=== PATIENT | female | born 1995 | race Caucasian/White ===

== ENCOUNTER 2017-12-09 03:35 | Inpatient (IN) | payer OTHER ==
[~2017-12-09] VITALS: Ht 160 cm; Wt 59.3 kg
[~2017-12-09 03:35] MED LIST: ABAC300; ACET325 PO; AMOCLA250S PO; AMOCLA500 PO; AMOX250CH PO; AMOX50SU PO; CEFU500 PO; CODACEE120 PO; DIPH50 PO; DOCU100; FAMO10 PO; HYDR1TAB94 PO; IBUP400 PO; INSLI100I; INSLI100I SC; INSN100I; INSR10I SC; INSU7030P; INSUASPI SC; INSUL100I SC; INSULANI SC; INSULANPEN SC; INSULANPEN SQ; Micro-K10 MEQ; Micro-K10 MEQ PO; Novolog Fl100 UNIT/1 SC; OMEP40CA12 PO; ONDA4 PO; ONDA4ODT MM; PROM25 PO; PROM25S PR; Prednisone20 MG PO; ROXICODONE5 MG PO; RXCODACESY PO; RXONDA4ODT MM; RXPROM25S PR; SUMA25 PO; Sudogest60 MG PO; TRAM50 PO; Zofran Odt4 MG PO
[2017-12-09 04:40] LABS: Chloride (POC) 109 mmol/L (98-108); Creatinine (POC) 0.7 mg/dL (0.6-1.0); Glucose (ISTAT POC) 667 mg/dL (70-99); Hemoglobin (POC) 17.3 g/dL (12.0-16.0); Potassium (POC) 4.6 mmol/L (3.5-5.5); Sodium (POC) 135 mmol/L (135-148); Total CO2 (POC) 7 mmol/L (21-32)
[2017-12-09 04:45] LABS: Hematocrit 52.8 % (33.0-51.0); Hemoglobin 17.2 g/dL (11.5-16.0); Mean Corpuscular HGB 31.2 pg (26.0-34.0); Mean Corpuscular HGB Conc 32.6 g/dL (31.5-36.5); Mean Corpuscular Volume 96 fL (80-100); Mean Platelet Volume 9.6 fL (9.1-12.4); NRBC ABSOLUTE 0.02 K/mm3 (0.00-0.02); NRBC Auto 0.1 /100 WBC (0.0-0.2); Platelet Count 520 K/mm3 (150-400); RDW Coefficient Variation 12.7 % (11.7-14.2); RDW Standard Deviation 44.2 fL (35.1-46.3); Red Blood Cell Count 5.52 M/mm3 (3.80-5.20); White Blood Cell Count 19.86 K/mm3 (4.00-11.30)
[2017-12-09 05:09] LABS: Alanine Aminotransfer (ALT/SGP 26 U/L (12-78); Albumin, Blood 4.3 g/dL (3.4-5.0); Albumin/Globulin Ratio 0.9 (0.8-1.8); Alk Phos 225 U/L (50-136); Anion Gap 30 mmol/L (6-16); Aspartate Aminotrans (AST/SGOT 20 U/L (12-37); Bilirubin, Total 0.5 mg/dL (0.1-1.0); Blood Urea Nitrogen 22 mg/dL (8-24); Bun/Creatinine Ratio 30.3 (12.0-20.0); CO2, Blood 5 mmol/L (21-32); Calcium, Blood 8.9 mg/dL (8.5-10.1); Chloride, Blood 98 mmol/L (98-108); Creatinine, Blood 0.73 mg/dL (0.40-1.00); Globulin, Blood 4.9 g/dL (2.2-4.0); Glomerular Filtration Rate >60 (60-); Glucose, Blood 632 mg/dL (70-99); Potassium, Blood 4.3 mmol/L (3.5-5.5); Sodium, Blood 133 mmol/L (136-145); Total Protein, Blood 9.2 g/dL (6.4-8.2)
[2017-12-09 05:25] LABS: BASOPHILS PERCENT MAN 0 % (0-2); EOSINOPHILS PERCENT MAN 0 % (0-6); LYMPHOCYTES % ATYPICAL MANUAL 9 % (0-0); LYMPHOCYTES ABSOLUTE MAN 6.35 K/mm3 (0.84-5.20); LYMPHOCYTES PERCENT MAN 23 % (21-46); METAMYELOCYTE ABSOLUTE MAN 0.39 K/mm3 (0.00-0.00); METAMYELOCYTE PERCENT MAN 2 % (0-0); MONOCYTES ABSOLUTE MAN 0.79 K/mm3 (0.16-1.47); MONOCYTES PERCENT MAN 4 % (4-13); MYELOCYTE ABSOLUTE MAN 0.19 K/mm3 (0.00-0.00); MYELOCYTE PERCENT MAN 1 % (0-0); NEUTROPHILS ABSOLUTE MAN 12.11 K/mm3 (1.96-9.15); SEG NEUTROPHILS PERCENT MAN 61 % (41-73); TOTAL CELLS COUNTED 100
[2017-12-09 05:46] LABS: Beta-hydroxybutyrate 110.8 mg/dL (0.2-2.8)
[2017-12-09 06:00] LABS: Glucose (ISTAT POC) 648 mg/dL (70-99)
[2017-12-09 07:27] LABS: Influenza A Negative (NEGATIVE); Influenza B Negative (NEGATIVE)
[2017-12-09 07:35] LABS: Glucose (ISTAT POC) 523 mg/dL (70-99)
[2017-12-09 10:02] LABS: Source, Urine Clean Catch
[2017-12-09 10:11] LABS: Bilirubin, Urine Neg (Neg); Blood, Urine 1+ (Neg); Glucose Qualitative, Urine 4+ (Neg); Ketones, Urine 4+ (Neg); Leukocyte Esterase, Urine Neg (Neg); Nitrite, Urine Neg (Neg); Protein, Urine 3+ (Neg); Urobilinogen, Urine NORM (Normal)
[2017-12-09 10:18] LABS: Appearance, Urine Clear (Clear); Color, Urine Yellow (P-Yellow)
[2017-12-09 10:21] LABS: Red Blood Cells, Urine 0-2 /hpf (0-2); Squamous Epithelial Cells Mod /hpf (Few); White Blood Cells, Urine Not Seen /hpf (0-5)
[2017-12-09 10:22] LABS: Bacteria Not Seen /hpf
[2017-12-09 12:34] LABS: Anion Gap 21 mmol/L (6-16); Blood Urea Nitrogen 29 mg/dL (8-24); CO2, Blood 5 mmol/L (21-32); Calcium, Blood 6.9 mg/dL (8.5-10.1); Chloride, Blood 113 mmol/L (98-108); Creatinine, Blood 0.78 mg/dL (0.40-1.00); Glomerular Filtration Rate >60 (60-); Glucose, Blood 308 mg/dL (70-99); Potassium, Blood 4.5 mmol/L (3.5-5.5); Sodium, Blood 139 mmol/L (136-145)
[2017-12-09 17:31] LABS: Anion Gap 20 mmol/L (6-16); Blood Urea Nitrogen 23 mg/dL (8-24); Bun/Creatinine Ratio 35.9 (12.0-20.0); CO2, Blood 9 mmol/L (21-32); Calcium, Blood 7.7 mg/dL (8.5-10.1); Chloride, Blood 110 mmol/L (98-108); Creatinine, Blood 0.64 mg/dL (0.40-1.00); Glomerular Filtration Rate >60 (60-); Glucose, Blood 215 mg/dL (70-99); Potassium, Blood 4.1 mmol/L (3.5-5.5); Sodium, Blood 139 mmol/L (136-145)
[2017-12-09 23:34] LABS: Anion Gap 10 mmol/L (6-16); Blood Urea Nitrogen 16 mg/dL (8-24); CO2, Blood 23 mmol/L (21-32); Calcium, Blood 7.7 mg/dL (8.5-10.1); Chloride, Blood 110 mmol/L (98-108); Creatinine, Blood 0.62 mg/dL (0.40-1.00); Glomerular Filtration Rate >60 (60-); Glucose, Blood 240 mg/dL (70-99); Potassium, Blood 2.9 mmol/L (3.5-5.5); Sodium, Blood 143 mmol/L (136-145)
[2017-12-10 04:15] LABS: Anion Gap Unable to Calculate mmol/L (6-16); Bun/Creatinine Ratio Unable to Calculate (12.0-20.0); Glomerular Filtration Rate Unable to Calculate (60-)
[2017-12-10 04:59] LABS: BASOPHILS ABSOLUTE AUTO 0.01 K/mm3 (0.00-0.23); BASOPHILS PERCENT AUTO 0 % (0-2); EOSINOPHILS ABSOLUTE AUTO 0.12 K/mm3 (0.00-0.68); EOSINOPHILS PERCENT AUTO 1 % (0-6); Hemoglobin 11.6 g/dL (11.5-16.0); IMMATURE GRAN ABSOLUTE AUTO 0.04 K/mm3 (0.00-0.10); IMMATURE GRAN PERCENT AUTO 1 % (0-1); LYMPHOCYTES ABSOLUTE AUTO 1.71 K/mm3 (0.84-5.20); LYMPHOCYTES PERCENT AUTO 20 % (21-46); MONOCYTES ABSOLUTE AUTO 0.61 K/mm3 (0.16-1.47); MONOCYTES PERCENT AUTO 7 % (4-13); Mean Corpuscular HGB 31.1 pg (26.0-34.0); Mean Corpuscular HGB Conc 36.3 g/dL (31.5-36.5); NEUTROPHILS ABSOLUTE AUTO 6.05 K/mm3 (1.96-9.15); NEUTROPHILS PERCENT AUTO 71 % (41-73); Platelet Count 216 K/mm3 (150-400); RDW Coefficient Variation 12.2 % (11.7-14.2); RDW Standard Deviation 38.1 fL (35.1-46.3); Red Blood Cell Count 3.73 M/mm3 (3.80-5.20); White Blood Cell Count 8.54 K/mm3 (4.00-11.30)
[2017-12-10 05:07] LABS: Mean Corpuscular Volume 86 fL (80-100)
[2017-12-10 05:22] LABS: Albumin, Blood 2.4 g/dL (3.4-5.0); Anion Gap 9 mmol/L (6-16); Blood Urea Nitrogen 14 mg/dL (8-24); Bun/Creatinine Ratio 25.6 (12.0-20.0); CO2, Blood 25 mmol/L (21-32); Chloride, Blood 110 mmol/L (98-108); Creatinine, Blood 0.55 mg/dL (0.40-1.00); Glomerular Filtration Rate >60 (60-); Glucose, Blood 177 mg/dL (70-99); Phosphorus, Blood 2.2 mg/dL (2.5-4.9); Potassium, Blood 2.8 mmol/L (3.5-5.5); Sodium, Blood 144 mmol/L (136-145)
[2017-12-10 11:53] LABS: Anion Gap 9 mmol/L (6-16); Blood Urea Nitrogen 14 mg/dL (8-24); Bun/Creatinine Ratio 25.3 (12.0-20.0); CO2, Blood 25 mmol/L (21-32); Calcium, Blood 8.3 mg/dL (8.5-10.1); Chloride, Blood 111 mmol/L (98-108); Creatinine, Blood 0.55 mg/dL (0.40-1.00); Glomerular Filtration Rate >60 (60-); Glucose, Blood 262 mg/dL (70-99); Potassium, Blood 3.4 mmol/L (3.5-5.5); Sodium, Blood 145 mmol/L (136-145)
[2017-12-10 17:53] LABS: Anion Gap 9 mmol/L (6-16); Blood Urea Nitrogen 15 mg/dL (8-24); Bun/Creatinine Ratio 24.2 (12.0-20.0); CO2, Blood 26 mmol/L (21-32); Calcium, Blood 8.8 mg/dL (8.5-10.1); Chloride, Blood 107 mmol/L (98-108); Creatinine, Blood 0.62 mg/dL (0.40-1.00); Glomerular Filtration Rate >60 (60-); Glucose, Blood 292 mg/dL (70-99); Potassium, Blood 3.5 mmol/L (3.5-5.5); Sodium, Blood 142 mmol/L (136-145)
[2017-12-10 23:23] LABS: Anion Gap 9 mmol/L (6-16); Blood Urea Nitrogen 13 mg/dL (8-24); Bun/Creatinine Ratio 23.6 (12.0-20.0); CO2, Blood 27 mmol/L (21-32); Calcium, Blood 8.6 mg/dL (8.5-10.1); Chloride, Blood 107 mmol/L (98-108); Creatinine, Blood 0.55 mg/dL (0.40-1.00); Glomerular Filtration Rate >60 (60-); Glucose, Blood 215 mg/dL (70-99); Potassium, Blood 3.3 mmol/L (3.5-5.5); Sodium, Blood 143 mmol/L (136-145)
[2017-12-11 06:43] LABS: Anion Gap 7 mmol/L (6-16); Blood Urea Nitrogen 13 mg/dL (8-24); Bun/Creatinine Ratio 32.6 (12.0-20.0); CO2, Blood 29 mmol/L (21-32); Calcium, Blood 8.1 mg/dL (8.5-10.1); Chloride, Blood 111 mmol/L (98-108); Glomerular Filtration Rate >60 (60-); Glucose, Blood 112 mg/dL (70-99); Sodium, Blood 147 mmol/L (136-145)
[2017-12-11] MEDS ORDERED: GABA300 PO (11:32)
[2018-05-29] MEDS ORDERED: K-TAB ER20 MEQ PO (09:01)
[2018-08-21] MEDS ORDERED: GABA300 PO (11:45)
[2018-08-21] MEDS ORDERED: Novolog Fl100 UNIT/1 (11:47)
== END 2017-12-11 12:26 | disposition home or self-care (01) | DRG 639 ==
LOC: ER 03:35 → ICUW 04:40 → MEDS 12-10 20:20 → ENPENDDIS 12-11 10:00 → MEDS 12-11 12:26
PROVIDERS: Emergency Medicine; Family Medicine; Hospitalist; Internal Medicine
PROC: 3E0234Z Introduction of Serum, Toxoid and Vaccine into Muscle, Percutaneous Approach (ICD-10-PCS; principal; 2017-12-09)
DX: E10.10 Type 1 diabetes mellitus with ketoacidosis without coma (principal); E10.40 Type 1 diabetes mellitus with diabetic neuropathy, unspecified; G43.909 Migraine, unspecified, not intractable, without status migrainosus; D50.9 Iron deficiency anemia, unspecified; E86.0 Dehydration; Z23 Encounter for immunization; Z79.4 Long term (current) use of insulin; Z91.018 Allergy to other foods
CPT/HCPCS: 36415; 71045; 80047; 80048; 80053; 80069; 81001; 82010; 82947; 83036; 83690; 85014; 85025; 87040; 87804; 96374; 96375; 99285; G0008; J0696; J1170; J1650; J1815; J1885; J2405; J3010; J3480; J7030; J7070; Q2038

== ENCOUNTER 2017-12-28 17:27 | Inpatient (IN) | payer OTHER ==
[~2017-12-28] VITALS: Ht 157.5 cm; Wt 54.6 kg
[~2017-12-28 17:27] MED LIST changes: +GABA300 PO
[2017-12-28 18:00] LABS: Base Excess Venous -28.3 mmol/L; Bicarbonate Venous 7.2 mmol/L (24.0-30.0); PCO2 Venous 20.2 mmHg (38-42); PO2 Venous 69.1 mmHg (38-42)
[2017-12-28 18:01] LABS: BASOPHILS ABSOLUTE AUTO 0.12 K/mm3 (0.00-0.23); BASOPHILS PERCENT AUTO 1 % (0-2); EOSINOPHILS ABSOLUTE AUTO 0.01 K/mm3 (0.00-0.68); EOSINOPHILS PERCENT AUTO 0 % (0-6); Hematocrit 47.5 % (33.0-51.0); Hemoglobin 15.7 g/dL (11.5-16.0); IMMATURE GRAN PERCENT AUTO 1 % (0-1); LYMPHOCYTES ABSOLUTE AUTO 2.69 K/mm3 (0.84-5.20); LYMPHOCYTES PERCENT AUTO 21 % (21-46); MONOCYTES ABSOLUTE AUTO 0.76 K/mm3 (0.16-1.47); MONOCYTES PERCENT AUTO 6 % (4-13); Mean Corpuscular HGB 31.5 pg (26.0-34.0); Mean Corpuscular HGB Conc 33.1 g/dL (31.5-36.5); Mean Corpuscular Volume 95 fL (80-100); Mean Platelet Volume 9.5 fL (9.1-12.4); NEUTROPHILS ABSOLUTE AUTO 9.01 K/mm3 (1.96-9.15); NEUTROPHILS PERCENT AUTO 71 % (41-73); Platelet Count 605 K/mm3 (150-400); RDW Coefficient Variation 13.2 % (11.7-14.2); RDW Standard Deviation 46.6 fL (35.1-46.3); Red Blood Cell Count 4.99 M/mm3 (3.80-5.20); White Blood Cell Count 12.69 K/mm3 (4.00-11.30); pH Blood Venous 6.92 (7.34-7.37)
[2017-12-28 18:57] LABS: Alanine Aminotransfer (ALT/SGP 24 U/L (12-78); Albumin, Blood 4.4 g/dL (3.4-5.0); Albumin/Globulin Ratio 0.9 (0.8-1.8); Alk Phos 176 U/L (50-136); Anion Gap 31 mmol/L (6-16); Aspartate Aminotrans (AST/SGOT 16 U/L (12-37); Beta-hydroxybutyrate 126.4 mg/dL (0.2-2.8); Bilirubin, Total 0.4 mg/dL (0.1-1.0); Blood Urea Nitrogen 18 mg/dL (8-24); Bun/Creatinine Ratio 23.6 (12.0-20.0); CO2, Blood 4 mmol/L (21-32); Chloride, Blood 102 mmol/L (98-108); Creatinine, Blood 0.76 mg/dL (0.40-1.00); Globulin, Blood 4.7 g/dL (2.2-4.0); Glomerular Filtration Rate >60 (60-); Glucose, Blood 495 mg/dL (70-99); Potassium, Blood 4.7 mmol/L (3.5-5.5); Sodium, Blood 137 mmol/L (136-145); Total Protein, Blood 9.1 g/dL (6.4-8.2)
[2017-12-28 20:08] LABS: Magnesium, Blood 2.4 mg/dL (1.6-2.4)
[2017-12-28 20:12] LABS: Anion Gap 24 mmol/L (6-16); Blood Urea Nitrogen 17 mg/dL (8-24); Bun/Creatinine Ratio 25.1 (12.0-20.0); CO2, Blood 5 mmol/L (21-32); Calcium, Blood 8.8 mg/dL (8.5-10.1); Chloride, Blood 113 mmol/L (98-108); Creatinine, Blood 0.68 mg/dL (0.40-1.00); Glomerular Filtration Rate >60 (60-); Glucose, Blood 346 mg/dL (70-99); Phosphorus, Blood 5.3 mg/dL (2.5-4.9); Potassium, Blood 4.6 mmol/L (3.5-5.5); Sodium, Blood 142 mmol/L (136-145)
[2017-12-28] MEDS ORDERED: POTCHL10ER PO (21:12)
[2017-12-28] MEDS ORDERED: ASCO500 PO (21:13)
[2017-12-28] MEDS ORDERED: IBUP400 PO (21:14)
[2017-12-28 22:06] LABS: Source, Urine Clean Catch
[2017-12-28 22:11] LABS: Bilirubin, Urine Neg (Neg); Blood, Urine 1+ (Neg); Glucose Qualitative, Urine 4+ (Neg); Ketones, Urine 4+ (Neg); Leukocyte Esterase, Urine Neg (Neg); Nitrite, Urine Neg (Neg); Protein, Urine 3+ (Neg); Urobilinogen, Urine NORM (Normal)
[2017-12-28 22:13] LABS: Appearance, Urine Clear (Clear); Color, Urine Yellow (P-Yellow)
[2017-12-28 22:17] LABS: Bacteria Mod /hpf; Red Blood Cells, Urine 0-2 /hpf (0-2); Squamous Epithelial Cells Few /hpf (Few); White Blood Cells, Urine 0-2 /hpf (0-5)
[2017-12-29 00:07] LABS: Anion Gap 19 mmol/L (6-16); Blood Urea Nitrogen 15 mg/dL (8-24); Bun/Creatinine Ratio 28.7 (12.0-20.0); CO2, Blood 8 mmol/L (21-32); Calcium, Blood 8.7 mg/dL (8.5-10.1); Chloride, Blood 117 mmol/L (98-108); Creatinine, Blood 0.52 mg/dL (0.40-1.00); Glomerular Filtration Rate >60 (60-); Glucose, Blood 156 mg/dL (70-99); Phosphorus, Blood 3.2 mg/dL (2.5-4.9); Potassium, Blood 4.1 mmol/L (3.5-5.5); Sodium, Blood 144 mmol/L (136-145)
[2017-12-29 04:58] LABS: Hematocrit 34.3 % (33.0-51.0); Hemoglobin 11.6 g/dL (11.5-16.0); Mean Corpuscular HGB 30.9 pg (26.0-34.0); Mean Corpuscular HGB Conc 33.8 g/dL (31.5-36.5); Platelet Count 295 K/mm3 (150-400); RDW Coefficient Variation 13.2 % (11.7-14.2); RDW Standard Deviation 42.6 fL (35.1-46.3); Red Blood Cell Count 3.76 M/mm3 (3.80-5.20); White Blood Cell Count 9.41 K/mm3 (4.00-11.30)
[2017-12-29 04:59] LABS: Mean Corpuscular Volume 91 fL (80-100)
[2017-12-29 05:21] LABS: Anion Gap 10 mmol/L (6-16); Blood Urea Nitrogen 12 mg/dL (8-24); Bun/Creatinine Ratio 26.1 (12.0-20.0); CO2, Blood 16 mmol/L (21-32); Calcium, Blood 8.5 mg/dL (8.5-10.1); Chloride, Blood 115 mmol/L (98-108); Creatinine, Blood 0.46 mg/dL (0.40-1.00); Glomerular Filtration Rate >60 (60-); Glucose, Blood 122 mg/dL (70-99); Potassium, Blood 3.5 mmol/L (3.5-5.5); Sodium, Blood 141 mmol/L (136-145)
[2017-12-29 11:29] LABS: Anion Gap 10 mmol/L (6-16); Blood Urea Nitrogen 10 mg/dL (8-24); Bun/Creatinine Ratio 20.6 (12.0-20.0); CO2, Blood 18 mmol/L (21-32); Chloride, Blood 112 mmol/L (98-108); Creatinine, Blood 0.49 mg/dL (0.40-1.00); Glomerular Filtration Rate >60 (60-); Glucose, Blood 345 mg/dL (70-99); Potassium, Blood 3.7 mmol/L (3.5-5.5); Sodium, Blood 140 mmol/L (136-145)
[2017-12-29 18:22] LABS: Anion Gap 12 mmol/L (6-16); Blood Urea Nitrogen 14 mg/dL (8-24); Bun/Creatinine Ratio 28.2 (12.0-20.0); CO2, Blood 19 mmol/L (21-32); Calcium, Blood 8.2 mg/dL (8.5-10.1); Chloride, Blood 108 mmol/L (98-108); Glomerular Filtration Rate >60 (60-); Glucose, Blood 196 mg/dL (70-99); Potassium, Blood 3.6 mmol/L (3.5-5.5); Sodium, Blood 139 mmol/L (136-145)
[2017-12-29 23:23] LABS: Anion Gap 7 mmol/L (6-16); Blood Urea Nitrogen 16 mg/dL (8-24); Bun/Creatinine Ratio 36.2 (12.0-20.0); CO2, Blood 24 mmol/L (21-32); Calcium, Blood 8.5 mg/dL (8.5-10.1); Chloride, Blood 111 mmol/L (98-108); Creatinine, Blood 0.44 mg/dL (0.40-1.00); Glomerular Filtration Rate >60 (60-); Glucose, Blood 71 mg/dL (70-99); Potassium, Blood 3.2 mmol/L (3.5-5.5); Sodium, Blood 142 mmol/L (136-145)
[2017-12-30 05:45] LABS: Anion Gap 11 mmol/L (6-16); Blood Urea Nitrogen 16 mg/dL (8-24); Bun/Creatinine Ratio 37.3 (12.0-20.0); CO2, Blood 21 mmol/L (21-32); Calcium, Blood 8.4 mg/dL (8.5-10.1); Chloride, Blood 112 mmol/L (98-108); Creatinine, Blood 0.43 mg/dL (0.40-1.00); Glomerular Filtration Rate >60 (60-); Glucose, Blood 72 mg/dL (70-99); Potassium, Blood 2.6 mmol/L (3.5-5.5); Sodium, Blood 144 mmol/L (136-145)
[2017-12-30 13:23] LABS: Anion Gap 9 mmol/L (6-16); Blood Urea Nitrogen 12 mg/dL (8-24); Bun/Creatinine Ratio 29.3 (12.0-20.0); CO2, Blood 22 mmol/L (21-32); Calcium, Blood 8.1 mg/dL (8.5-10.1); Chloride, Blood 111 mmol/L (98-108); Creatinine, Blood 0.41 mg/dL (0.40-1.00); Glomerular Filtration Rate >60 (60-); Glucose, Blood 185 mg/dL (70-99); Potassium, Blood 4.1 mmol/L (3.5-5.5); Sodium, Blood 142 mmol/L (136-145)
[2018-05-29] MEDS ORDERED: K-TAB ER20 MEQ PO (09:01)
[2018-08-21] MEDS ORDERED: GABA300 PO (11:45)
[2018-08-21] MEDS ORDERED: Novolog Fl100 UNIT/1 (11:47)
== END 2017-12-30 13:34 | disposition home or self-care (01) | DRG 639 ==
LOC: ER 17:27 → ICUE 18:28 → ICUW 18:28 → MEDS 20:30 → ICUE 20:35 → MEDS 12-29 15:34 → ENPENDDIS 12-30 10:00 → MEDS 12-30 13:34
PROVIDERS: Emergency Medicine; Internal Medicine
DX: E10.10 Type 1 diabetes mellitus with ketoacidosis without coma (principal); E87.6 Hypokalemia; G43.909 Migraine, unspecified, not intractable, without status migrainosus; Z79.4 Long term (current) use of insulin
CPT/HCPCS: 36415; 71046; 80048; 80053; 81001; 81025; 82010; 82803; 82947; 83735; 84100; 85025; 85027; 93005; 93010; 96361; 96374; 96375; 96376; 99285; C9113; J1170; J1650; J1815; J1885; J2405; J3480; J7030; J7042

== ENCOUNTER 2018-01-26 21:18 | Inpatient (IN) | payer OTHER ==
[~2018-01-26] VITALS: Ht 157.5 cm; Wt 53.2 kg
[~2018-01-26 21:18] MED LIST changes: +ASCO500 PO; +POTCHL10ER PO
[2018-01-26 21:45] LABS: BASOPHILS ABSOLUTE AUTO 0.26 K/mm3 (0.00-0.23); BASOPHILS PERCENT AUTO 1 % (0-2); EOSINOPHILS ABSOLUTE AUTO 0.09 K/mm3 (0.00-0.68); EOSINOPHILS PERCENT AUTO 0 % (0-6); Hematocrit 47.1 % (33.0-51.0); Hemoglobin 15.4 g/dL (11.5-16.0); IMMATURE GRAN ABSOLUTE AUTO 0.62 K/mm3 (0.00-0.10); IMMATURE GRAN PERCENT AUTO 3 % (0-1); LYMPHOCYTES ABSOLUTE AUTO 3.03 K/mm3 (0.84-5.20); LYMPHOCYTES PERCENT AUTO 15 % (21-46); MONOCYTES ABSOLUTE AUTO 0.94 K/mm3 (0.16-1.47); MONOCYTES PERCENT AUTO 5 % (4-13); Mean Corpuscular HGB 30.7 pg (26.0-34.0); Mean Corpuscular HGB Conc 32.7 g/dL (31.5-36.5); Mean Corpuscular Volume 94 fL (80-100); Mean Platelet Volume 10.1 fL (9.1-12.4); NEUTROPHILS ABSOLUTE AUTO 15.44 K/mm3 (1.96-9.15); NEUTROPHILS PERCENT AUTO 76 % (41-73); Platelet Count 440 K/mm3 (150-400); RDW Standard Deviation 44.2 fL (35.1-46.3); Red Blood Cell Count 5.01 M/mm3 (3.80-5.20); White Blood Cell Count 20.38 K/mm3 (4.00-11.30)
[2018-01-26 22:14] LABS: Alanine Aminotransfer (ALT/SGP 29 U/L (12-78); Albumin, Blood 4.1 g/dL (3.4-5.0); Albumin/Globulin Ratio 0.9 (0.8-1.8); Alk Phos 224 U/L (50-136); Anion Gap 28 mmol/L (6-16); Aspartate Aminotrans (AST/SGOT 28 U/L (12-37); Beta-hydroxybutyrate 118.7 mg/dL (0.2-2.8); Bilirubin, Total 0.5 mg/dL (0.1-1.0); Blood Urea Nitrogen 24 mg/dL (8-24); Bun/Creatinine Ratio 35.9 (12.0-20.0); CO2, Blood 4 mmol/L (21-32); Calcium, Blood 9.3 mg/dL (8.5-10.1); Chloride, Blood 95 mmol/L (98-108); Creatinine, Blood 0.67 mg/dL (0.40-1.00); Globulin, Blood 4.5 g/dL (2.2-4.0); Glomerular Filtration Rate >60 (60-); Glucose, Blood 631 mg/dL (70-99); Potassium, Blood 4.9 mmol/L (3.5-5.5); Sodium, Blood 127 mmol/L (136-145); Total Protein, Blood 8.6 g/dL (6.4-8.2)
[2018-01-26 22:39] LABS: Magnesium, Blood 2.7 mg/dL (1.6-2.4); Phosphorus, Blood 6.6 mg/dL (2.5-4.9)
[2018-01-27 00:45] LABS: Influenza A Negative (NEGATIVE); Influenza B Negative (NEGATIVE)
[2018-01-27 01:51] LABS: Glucose, Blood 524 mg/dL (70-99)
[2018-01-27 04:32] LABS: BASOPHILS ABSOLUTE AUTO 0.15 K/mm3 (0.00-0.23); BASOPHILS PERCENT AUTO 1 % (0-2); EOSINOPHILS ABSOLUTE AUTO 0.01 K/mm3 (0.00-0.68); EOSINOPHILS PERCENT AUTO 0 % (0-6); Hematocrit 38.7 % (33.0-51.0); Hemoglobin 13.2 g/dL (11.5-16.0); IMMATURE GRAN ABSOLUTE AUTO 0.91 K/mm3 (0.00-0.10); IMMATURE GRAN PERCENT AUTO 4 % (0-1); LYMPHOCYTES ABSOLUTE AUTO 3.66 K/mm3 (0.84-5.20); LYMPHOCYTES PERCENT AUTO 17 % (21-46); MONOCYTES PERCENT AUTO 7 % (4-13); Mean Corpuscular HGB 30.8 pg (26.0-34.0); Mean Corpuscular HGB Conc 34.1 g/dL (31.5-36.5); Mean Corpuscular Volume 90 fL (80-100); Mean Platelet Volume 9.6 fL (9.1-12.4); NEUTROPHILS ABSOLUTE AUTO 14.89 K/mm3 (1.96-9.15); NEUTROPHILS PERCENT AUTO 71 % (41-73); Platelet Count 338 K/mm3 (150-400); RDW Standard Deviation 41.8 fL (35.1-46.3); Red Blood Cell Count 4.29 M/mm3 (3.80-5.20); White Blood Cell Count 21.12 K/mm3 (4.00-11.30)
[2018-01-27 04:56] LABS: Alanine Aminotransfer (ALT/SGP 25 U/L (12-78); Albumin, Blood 3.6 g/dL (3.4-5.0); Albumin/Globulin Ratio 0.9 (0.8-1.8); Alk Phos 140 U/L (50-136); Anion Gap 20 mmol/L (6-16); Aspartate Aminotrans (AST/SGOT 20 U/L (12-37); Bilirubin, Total 0.5 mg/dL (0.1-1.0); Blood Urea Nitrogen 17 mg/dL (8-24); Bun/Creatinine Ratio 28.3 (12.0-20.0); CO2, Blood 7 mmol/L (21-32); Calcium, Blood 7.8 mg/dL (8.5-10.1); Chloride, Blood 113 mmol/L (98-108); Globulin, Blood 3.8 g/dL (2.2-4.0); Glomerular Filtration Rate >60 (60-); Glucose, Blood 272 mg/dL (70-99); Potassium, Blood 5.5 mmol/L (3.5-5.5); Sodium, Blood 140 mmol/L (136-145); Total Protein, Blood 7.4 g/dL (6.4-8.2)
[2018-01-27 10:40] LABS: Anion Gap 18 mmol/L (6-16); Blood Urea Nitrogen 11 mg/dL (8-24); Bun/Creatinine Ratio 19.9 (12.0-20.0); CO2, Blood 11 mmol/L (21-32); Chloride, Blood 111 mmol/L (98-108); Creatinine, Blood 0.55 mg/dL (0.40-1.00); Glomerular Filtration Rate >60 (60-); Glucose, Blood 264 mg/dL (70-99); Potassium, Blood 3.9 mmol/L (3.5-5.5); Sodium, Blood 140 mmol/L (136-145)
[2018-01-27 16:08] LABS: Anion Gap 12 mmol/L (6-16); Blood Urea Nitrogen 10 mg/dL (8-24); Bun/Creatinine Ratio 18.1 (12.0-20.0); CO2, Blood 18 mmol/L (21-32); Chloride, Blood 108 mmol/L (98-108); Creatinine, Blood 0.55 mg/dL (0.40-1.00); Glomerular Filtration Rate >60 (60-); Glucose, Blood 327 mg/dL (70-99); Potassium, Blood 3.1 mmol/L (3.5-5.5); Sodium, Blood 138 mmol/L (136-145)
[2018-01-27 19:33] LABS: Anion Gap 12 mmol/L (6-16); Blood Urea Nitrogen 12 mg/dL (8-24); Bun/Creatinine Ratio 22.3 (12.0-20.0); CO2, Blood 19 mmol/L (21-32); Calcium, Blood 8.1 mg/dL (8.5-10.1); Chloride, Blood 106 mmol/L (98-108); Creatinine, Blood 0.54 mg/dL (0.40-1.00); Glomerular Filtration Rate >60 (60-); Glucose, Blood 292 mg/dL (70-99); Potassium, Blood 3.8 mmol/L (3.5-5.5); Sodium, Blood 137 mmol/L (136-145)
[2018-01-28 01:39] LABS: Anion Gap 9 mmol/L (6-16); Blood Urea Nitrogen 15 mg/dL (8-24); Bun/Creatinine Ratio 30.9 (12.0-20.0); CO2, Blood 23 mmol/L (21-32); Calcium, Blood 8.3 mg/dL (8.5-10.1); Chloride, Blood 109 mmol/L (98-108); Creatinine, Blood 0.49 mg/dL (0.40-1.00); Glomerular Filtration Rate >60 (60-); Glucose, Blood 196 mg/dL (70-99); Potassium, Blood 3.3 mmol/L (3.5-5.5); Sodium, Blood 141 mmol/L (136-145)
[2018-01-28 08:55] LABS: Anion Gap 8 mmol/L (6-16); Blood Urea Nitrogen 14 mg/dL (8-24); Bun/Creatinine Ratio 33.8 (12.0-20.0); CO2, Blood 22 mmol/L (21-32); Calcium, Blood 8.1 mg/dL (8.5-10.1); Chloride, Blood 114 mmol/L (98-108); Creatinine, Blood 0.41 mg/dL (0.40-1.00); Glomerular Filtration Rate >60 (60-); Glucose, Blood 175 mg/dL (70-99); Potassium, Blood 3.4 mmol/L (3.5-5.5); Sodium, Blood 144 mmol/L (136-145)
== END 2018-01-28 12:00 | disposition home or self-care (01) | DRG 639 ==
LOC: ER 21:18 → ICUE 22:46 → ICUW 22:46 → ICUE 23:28
PROVIDERS: Emergency Medicine; Internal Medicine
DX: E10.10 Type 1 diabetes mellitus with ketoacidosis without coma (principal); G43.909 Migraine, unspecified, not intractable, without status migrainosus; G89.29 Other chronic pain; M54.9 Dorsalgia, unspecified; E86.0 Dehydration; Z91.018 Allergy to other foods; Z79.4 Long term (current) use of insulin; Z79.899 Other long term (current) drug therapy
CPT/HCPCS: 36415; 71046; 80048; 80053; 82010; 82947; 83735; 84100; 85025; 87804; 93005; 93010; 96365; 96366; 96375; 99285; J1650; J1815; J2405; J3010; J3480; J7030; J7042

== ENCOUNTER 2018-03-03 04:08 | Observation (INO) | payer OTHER ==
[~2018-03-03] VITALS: Ht 157.5 cm; Wt 61.6 kg
[2018-03-03] MEDS ORDERED: BASAGLAR K100 UNIT/1 SC (04:27)
[2018-03-03 04:39] LABS: BASOPHILS PERCENT AUTO 1 % (0-2); EOSINOPHILS ABSOLUTE AUTO 0.18 K/mm3 (0.00-0.68); EOSINOPHILS PERCENT AUTO 1 % (0-6); Hematocrit 50.4 % (33.0-51.0); Hemoglobin 16.4 g/dL (11.5-16.0); IMMATURE GRAN ABSOLUTE AUTO 0.25 K/mm3 (0.00-0.10); IMMATURE GRAN PERCENT AUTO 2 % (0-1); LYMPHOCYTES ABSOLUTE AUTO 3.78 K/mm3 (0.84-5.20); LYMPHOCYTES PERCENT AUTO 24 % (21-46); MONOCYTES ABSOLUTE AUTO 0.61 K/mm3 (0.16-1.47); MONOCYTES PERCENT AUTO 4 % (4-13); Mean Corpuscular HGB 30.8 pg (26.0-34.0); Mean Corpuscular HGB Conc 32.5 g/dL (31.5-36.5); Mean Corpuscular Volume 95 fL (80-100); Mean Platelet Volume 9.9 fL (9.1-12.4); NEUTROPHILS ABSOLUTE AUTO 10.83 K/mm3 (1.96-9.15); NEUTROPHILS PERCENT AUTO 68 % (41-73); Platelet Count 548 K/mm3 (150-400); RDW Coefficient Variation 12.9 % (11.7-14.2); RDW Standard Deviation 44.6 fL (35.1-46.3); Red Blood Cell Count 5.32 M/mm3 (3.80-5.20); White Blood Cell Count 15.85 K/mm3 (4.00-11.30)
[2018-03-03 04:40] LABS: Base Excess Venous -28.5 mmol/L; Bicarbonate Venous 7.5 mmol/L (24.0-30.0); PCO2 Venous 19.8 mmHg (38-42); PO2 Venous 174 mmHg (38-42)
[2018-03-03 04:41] LABS: pH Blood Venous 6.92 (7.34-7.37)
[2018-03-03 05:07] LABS: Alanine Aminotransfer (ALT/SGP 36 U/L (12-78); Albumin, Blood 4.3 g/dL (3.4-5.0); Albumin/Globulin Ratio 0.8 (0.8-1.8); Alk Phos 247 U/L (50-136); Anion Gap 28 mmol/L (6-16); Aspartate Aminotrans (AST/SGOT 23 U/L (12-37); Bilirubin, Total 0.4 mg/dL (0.1-1.0); Blood Urea Nitrogen 30 mg/dL (8-24); Bun/Creatinine Ratio 38.1 (12.0-20.0); CO2, Blood 6 mmol/L (21-32); Calcium, Blood 10.4 mg/dL (8.5-10.1); Chloride, Blood 96 mmol/L (98-108); Creatinine, Blood 0.79 mg/dL (0.40-1.00); Globulin, Blood 5.3 g/dL (2.2-4.0); Glomerular Filtration Rate >60 (60-); Glucose, Blood 746 mg/dL (70-99); Potassium, Blood 4.3 mmol/L (3.5-5.5); Sodium, Blood 130 mmol/L (136-145); Total Protein, Blood 9.6 g/dL (6.4-8.2)
[2018-03-03 05:32] LABS: Beta-hydroxybutyrate 106.9 mg/dL (0.2-2.8)
[2018-03-03 06:28] LABS: Glucose, Blood 696 mg/dL (70-99)
[2018-03-03 06:29] LABS: Source, Urine Clean Catch
[2018-03-03 06:31] LABS: Bilirubin, Urine Neg (Neg); Blood, Urine 1+ (Neg); Glucose Qualitative, Urine 4+ (Neg); Ketones, Urine 4+ (Neg); Leukocyte Esterase, Urine Neg (Neg); Nitrite, Urine Neg (Neg); Protein, Urine 2+ (Neg); Urobilinogen, Urine NORM (Normal)
[2018-03-03 06:38] LABS: Appearance, Urine Clear (Clear); Color, Urine Pale Yellow (P-Yellow)
[2018-03-03 06:39] LABS: Bacteria Rare /hpf; Red Blood Cells, Urine 0-2 /hpf (0-2); Squamous Epithelial Cells Rare /hpf (Few); White Blood Cells, Urine 0-2 /hpf (0-5)
[2018-03-03 07:25] LABS: Glucose (ISTAT POC) 473 mg/dL (70-99)
[2018-03-03 10:59] LABS: Blood Urea Nitrogen 22 mg/dL (8-24); Bun/Creatinine Ratio 34.8 (12.0-20.0); CO2, Blood 7 mmol/L (21-32); Chloride, Blood 122 mmol/L (98-108); Creatinine, Blood 0.63 mg/dL (0.40-1.00); Glomerular Filtration Rate >60 (60-); Glucose, Blood 307 mg/dL (70-99); Potassium, Blood 5.2 mmol/L (3.5-5.5)
[2018-03-03 11:00] LABS: Anion Gap 20 mmol/L (6-16); Calcium, Blood 7.6 mg/dL (8.5-10.1); Sodium, Blood 149 mmol/L (136-145)
[2018-03-03 15:13] LABS: Anion Gap 17 mmol/L (6-16); Blood Urea Nitrogen 14 mg/dL (8-24); Bun/Creatinine Ratio 25.3 (12.0-20.0); CO2, Blood 8 mmol/L (21-32); Calcium, Blood 7.3 mg/dL (8.5-10.1); Chloride, Blood 117 mmol/L (98-108); Creatinine, Blood 0.55 mg/dL (0.40-1.00); Glomerular Filtration Rate >60 (60-); Glucose, Blood 135 mg/dL (70-99); Potassium, Blood 4.4 mmol/L (3.5-5.5); Sodium, Blood 142 mmol/L (136-145)
[2018-03-03 20:30] LABS: Anion Gap 11 mmol/L (6-16); Blood Urea Nitrogen 12 mg/dL (8-24); Bun/Creatinine Ratio 22.4 (12.0-20.0); CO2, Blood 15 mmol/L (21-32); Calcium, Blood 7.3 mg/dL (8.5-10.1); Chloride, Blood 112 mmol/L (98-108); Creatinine, Blood 0.54 mg/dL (0.40-1.00); Glomerular Filtration Rate >60 (60-); Glucose, Blood 264 mg/dL (70-99); Potassium, Blood 3.9 mmol/L (3.5-5.5); Sodium, Blood 138 mmol/L (136-145)
== END 2018-03-04 10:20 | disposition home or self-care (01) ==
LOC: ER 04:08 → ICUW 05:15 → ICUE 05:15 → SURS 20:40
PROVIDERS: Emergency Medicine; Family Medicine; Internal Medicine
DX: E10.10 Type 1 diabetes mellitus with ketoacidosis without coma (principal); R00.0 Tachycardia, unspecified; Z79.4 Long term (current) use of insulin; Z79.899 Other long term (current) drug therapy; Z98.890 Other specified postprocedural states
CPT/HCPCS: 36415; 80048; 80053; 81001; 81025; 82010; 82803; 82947; 85025; 93005; 93010; C1751; C9113; J1815; J1885; J2405; J2550; J3010; J3480; J7030; J7042

== ENCOUNTER 2018-03-06 03:48 | Inpatient (IN) | payer OTHER ==
[~2018-03-06] VITALS: Ht 160 cm; Wt 55.5 kg
[~2018-03-06 03:48] MED LIST changes: +BASAGLAR K100 UNIT/1 SC
[2018-03-06 04:25] LABS: Calcium, Ionized (POC) 1.15 mmol/L (1.10-1.46); Chloride (POC) 108 mmol/L (98-108); Creatinine (POC) 0.5 mg/dL (0.6-1.0); Glucose (ISTAT POC) 655 mg/dL (70-99); Hemoglobin (POC) 15.6 g/dL (12.0-16.0); Sodium (POC) 134 mmol/L (135-148); Total CO2 (POC) 9 mmol/L (21-32)
[2018-03-06 04:25] LABS: BASOPHILS ABSOLUTE AUTO 0.11 K/mm3 (0.00-0.23); BASOPHILS PERCENT AUTO 1 % (0-2); EOSINOPHILS ABSOLUTE AUTO 0.16 K/mm3 (0.00-0.68); EOSINOPHILS PERCENT AUTO 2 % (0-6); Hematocrit 43.3 % (33.0-51.0); Hemoglobin 14.4 g/dL (11.5-16.0); IMMATURE GRAN ABSOLUTE AUTO 0.06 K/mm3 (0.00-0.10); IMMATURE GRAN PERCENT AUTO 1 % (0-1); LYMPHOCYTES ABSOLUTE AUTO 2.83 K/mm3 (0.84-5.20); LYMPHOCYTES PERCENT AUTO 32 % (21-46); MONOCYTES ABSOLUTE AUTO 0.54 K/mm3 (0.16-1.47); MONOCYTES PERCENT AUTO 6 % (4-13); Mean Corpuscular HGB 30.7 pg (26.0-34.0); Mean Corpuscular HGB Conc 33.3 g/dL (31.5-36.5); Mean Platelet Volume 9.7 fL (9.1-12.4); NEUTROPHILS ABSOLUTE AUTO 5.06 K/mm3 (1.96-9.15); NEUTROPHILS PERCENT AUTO 58 % (41-73); Platelet Count 339 K/mm3 (150-400); RDW Coefficient Variation 12.9 % (11.7-14.2); Red Blood Cell Count 4.69 M/mm3 (3.80-5.20); White Blood Cell Count 8.76 K/mm3 (4.00-11.30)
[2018-03-06 04:28] LABS: Mean Corpuscular Volume 92 fL (80-100)
[2018-03-06 05:02] LABS: Base Excess Venous -25.3 mmol/L; Bicarbonate Venous 8.5 mmol/L (24.0-30.0); PCO2 Venous 15.3 mmHg (38-42); PO2 Venous 205 mmHg (38-42); pH Blood Venous 7.09 (7.34-7.37)
[2018-03-06 05:13] LABS: Alanine Aminotransfer (ALT/SGP 37 U/L (12-78); Albumin/Globulin Ratio 0.9 (0.8-1.8); Alk Phos 194 U/L (50-136); Anion Gap 26 mmol/L (6-16); Aspartate Aminotrans (AST/SGOT 31 U/L (12-37); Bilirubin, Total 0.7 mg/dL (0.1-1.0); Blood Urea Nitrogen 17 mg/dL (8-24); Bun/Creatinine Ratio 31.2 (12.0-20.0); CO2, Blood 7 mmol/L (21-32); Calcium, Blood 9.6 mg/dL (8.5-10.1); Chloride, Blood 102 mmol/L (98-108); Creatinine, Blood 0.55 mg/dL (0.40-1.00); Globulin, Blood 4.7 g/dL (2.2-4.0); Glomerular Filtration Rate >60 (60-); Glucose, Blood 640 mg/dL (70-99); Potassium, Blood 4.8 mmol/L (3.5-5.5); Sodium, Blood 135 mmol/L (136-145); Total Protein, Blood 8.7 g/dL (6.4-8.2)
[2018-03-06 10:36] LABS: Source, Urine Clean Catch
[2018-03-06 10:44] LABS: Bilirubin, Urine Neg (Neg); Blood, Urine 4+ (Neg); Glucose Qualitative, Urine 4+ (Neg); Ketones, Urine 4+ (Neg); Leukocyte Esterase, Urine Neg (Neg); Nitrite, Urine Neg (Neg); Protein, Urine 2+ (Neg); Specific Gravity, Urine 1.015 (1.003-1.022); Urobilinogen, Urine NORM (Normal)
[2018-03-06 10:45] LABS: Appearance, Urine Clear (Clear); Color, Urine Yellow (P-Yellow)
[2018-03-06 10:58] LABS: Bacteria Not Seen /hpf; Squamous Epithelial Cells Few /hpf (Few); White Blood Cells, Urine Rare /hpf (0-5)
[2018-03-06 11:53] LABS: Anion Gap 23 mmol/L (6-16); Blood Urea Nitrogen 21 mg/dL (8-24); Bun/Creatinine Ratio 28.2 (12.0-20.0); CO2, Blood 5 mmol/L (21-32); Calcium, Blood 8.6 mg/dL (8.5-10.1); Chloride, Blood 116 mmol/L (98-108); Creatinine, Blood 0.75 mg/dL (0.40-1.00); Glomerular Filtration Rate >60 (60-); Glucose, Blood 344 mg/dL (70-99); Potassium, Blood 4.4 mmol/L (3.5-5.5); Sodium, Blood 144 mmol/L (136-145)
[2018-03-06 16:02] LABS: Anion Gap 13 mmol/L (6-16); Blood Urea Nitrogen 13 mg/dL (8-24); Bun/Creatinine Ratio 24.5 (12.0-20.0); CO2, Blood 15 mmol/L (21-32); Calcium, Blood 8.1 mg/dL (8.5-10.1); Chloride, Blood 113 mmol/L (98-108); Creatinine, Blood 0.53 mg/dL (0.40-1.00); Glomerular Filtration Rate >60 (60-); Glucose, Blood 179 mg/dL (70-99); Sodium, Blood 141 mmol/L (136-145)
[2018-03-07 04:07] LABS: Anion Gap 9 mmol/L (6-16); Blood Urea Nitrogen 17 mg/dL (8-24); Bun/Creatinine Ratio 34.3 (12.0-20.0); CO2, Blood 22 mmol/L (21-32); Calcium, Blood 8.6 mg/dL (8.5-10.1); Chloride, Blood 112 mmol/L (98-108); Glomerular Filtration Rate >60 (60-); Glucose, Blood 159 mg/dL (70-99); Potassium, Blood 3.4 mmol/L (3.5-5.5); Sodium, Blood 143 mmol/L (136-145)
[2018-03-07 17:21] LABS: Anion Gap 12 mmol/L (6-16); Blood Urea Nitrogen 18 mg/dL (8-24); Bun/Creatinine Ratio 37.6 (12.0-20.0); CO2, Blood 24 mmol/L (21-32); Calcium, Blood 8.2 mg/dL (8.5-10.1); Chloride, Blood 103 mmol/L (98-108); Creatinine, Blood 0.48 mg/dL (0.40-1.00); Glomerular Filtration Rate >60 (60-); Glucose, Blood 351 mg/dL (70-99); Potassium, Blood 3.6 mmol/L (3.5-5.5); Sodium, Blood 139 mmol/L (136-145)
[2018-03-08 05:33] LABS: Anion Gap 8 mmol/L (6-16); Blood Urea Nitrogen 16 mg/dL (8-24); Bun/Creatinine Ratio 38.9 (12.0-20.0); CO2, Blood 28 mmol/L (21-32); Calcium, Blood 8.3 mg/dL (8.5-10.1); Chloride, Blood 107 mmol/L (98-108); Creatinine, Blood 0.41 mg/dL (0.40-1.00); Glomerular Filtration Rate >60 (60-); Glucose, Blood 124 mg/dL (70-99); Potassium, Blood 3.1 mmol/L (3.5-5.5); Sodium, Blood 143 mmol/L (136-145)
[2018-03-08] MEDS ORDERED: ACET325 PO (08:41)
[2018-03-08] MEDS ORDERED: LIDO700A20 TOP (08:41)
[2018-03-08] MEDS ORDERED: CLIN300 PO (08:42)
[2018-03-08] MEDS ORDERED: SACC250C PO (08:42)
[2018-03-08] MEDS ORDERED: ONDA4ODT PO (08:53)
== END 2018-03-08 10:10 | disposition home or self-care (01) | DRG 638 ==
LOC: ER 03:48 → ICUW 03:49 → MEDS 11:40 → ICUE 11:42 → MEDS 03-07 13:00 → ENPENDDIS 03-08 08:47 → MEDS 03-08 10:10
PROVIDERS: Emergency Medicine; Family Medicine
DX: E11.10 Type 2 diabetes mellitus with ketoacidosis without coma (principal); L03.115 Cellulitis of right lower limb; Z91.018 Allergy to other foods; Z79.4 Long term (current) use of insulin; Z79.899 Other long term (current) drug therapy
CPT/HCPCS: 36415; 80047; 80048; 80053; 81001; 81025; 82803; 82947; 83690; 85014; 85025; 96365; 96366; 96375; 96376; 99285; J0360; J0696; J0780; J1200; J1650; J1815; J2405; J2550; J3010; J7030; J7042

== ENCOUNTER 2018-04-12 18:50 | Emergency (ER) | payer OTHER ==
[~2018-04-12] VITALS: Ht 157.5 cm; Wt 54.4 kg
[~2018-04-12 18:50] MED LIST changes: +CLIN300 PO; +LIDO700A20 TOP; +ONDA4ODT PO; +SACC250C PO
[2018-04-12] MEDS ORDERED: Norco 5-325 Ta1 EACH PO (21:13)
== END 2018-04-12 21:21 | disposition home or self-care (01) ==
LOC: ER 18:50
DX: S00.33XA Contusion of nose, initial encounter (principal); S00.81XA Abrasion of other part of head, initial encounter; S00.511A Abrasion of lip, initial encounter; S69.92XA Unspecified injury of left wrist, hand and finger(s), initial encounter; E10.9 Type 1 diabetes mellitus without complications; Z91.018 Allergy to other foods; Z91.048 Other nonmedicinal substance allergy status; X58.XXXA Exposure to other specified factors, initial encounter
CPT/HCPCS: 29125; 72070; 73110; 99283

== ENCOUNTER 2018-04-14 18:45 | Observation (INO) | payer OTHER ==
[~2018-04-14] VITALS: Ht 157.5 cm; Wt 56.8 kg
[~2018-04-14 18:45] MED LIST changes: +Norco 5-325 Ta1 EACH PO
[2018-04-14 19:32] LABS: BASOPHILS ABSOLUTE AUTO 0.09 K/mm3 (0.00-0.23); BASOPHILS PERCENT AUTO 1 % (0-2); EOSINOPHILS ABSOLUTE AUTO 0.02 K/mm3 (0.00-0.68); EOSINOPHILS PERCENT AUTO 0 % (0-6); Hematocrit 46.7 % (33.0-51.0); Hemoglobin 16.1 g/dL (11.5-16.0); IMMATURE GRAN ABSOLUTE AUTO 0.13 K/mm3 (0.00-0.10); IMMATURE GRAN PERCENT AUTO 1 % (0-1); LYMPHOCYTES PERCENT AUTO 18 % (21-46); MONOCYTES ABSOLUTE AUTO 0.91 K/mm3 (0.16-1.47); MONOCYTES PERCENT AUTO 8 % (4-13); Mean Corpuscular HGB Conc 34.5 g/dL (31.5-36.5); Mean Corpuscular Volume 90 fL (80-100); Mean Platelet Volume 9.1 fL (9.1-12.4); NEUTROPHILS ABSOLUTE AUTO 8.55 K/mm3 (1.96-9.15); NEUTROPHILS PERCENT AUTO 72 % (41-73); Platelet Count 390 K/mm3 (150-400); RDW Coefficient Variation 12.9 % (11.7-14.2); RDW Standard Deviation 42.5 fL (35.1-46.3); Red Blood Cell Count 5.19 M/mm3 (3.80-5.20)
[2018-04-14 20:49] LABS: Alanine Aminotransfer (ALT/SGP 27 U/L (12-78); Albumin, Blood 4.1 g/dL (3.4-5.0); Albumin/Globulin Ratio 0.9 (0.8-1.8); Alk Phos 152 U/L (50-136); Anion Gap 25 mmol/L (6-16); Aspartate Aminotrans (AST/SGOT 10 U/L (12-37); Beta-hydroxybutyrate 69.3 mg/dL (0.2-2.8); Bilirubin, Total 0.5 mg/dL (0.1-1.0); Blood Urea Nitrogen 15 mg/dL (8-24); Bun/Creatinine Ratio 22.1 (12.0-20.0); CO2, Blood 6 mmol/L (21-32); Calcium, Blood 9.5 mg/dL (8.5-10.1); Chloride, Blood 102 mmol/L (98-108); Creatinine, Blood 0.68 mg/dL (0.40-1.00); Globulin, Blood 4.7 g/dL (2.2-4.0); Glomerular Filtration Rate >60 (60-); Glucose, Blood 299 mg/dL (70-99); Potassium, Blood 3.9 mmol/L (3.5-5.5); Sodium, Blood 133 mmol/L (136-145); Total Protein, Blood 8.8 g/dL (6.4-8.2)
[2018-04-14 21:21] LABS: Source, Urine Clean Catch
[2018-04-14 21:25] LABS: Bilirubin, Urine Neg (Neg); Blood, Urine 2+ (Neg); Glucose Qualitative, Urine 4+ (Neg); Ketones, Urine 4+ (Neg); Leukocyte Esterase, Urine Neg (Neg); Nitrite, Urine Neg (Neg); Protein, Urine 2+ (Neg); Urobilinogen, Urine NORM (Normal)
[2018-04-14 21:33] LABS: Appearance, Urine Clear (Clear); Bacteria Not Seen /hpf; Color, Urine Pale Yellow (P-Yellow); Red Blood Cells, Urine Not Seen /hpf (0-2); Squamous Epithelial Cells Not Seen /hpf (Few); White Blood Cells, Urine Not Seen /hpf (0-5)
[2018-04-15 02:13] LABS: Hematocrit 35.3 % (33.0-51.0); Hemoglobin 12.6 g/dL (11.5-16.0); Mean Corpuscular HGB 31.7 pg (26.0-34.0); Mean Corpuscular HGB Conc 35.7 g/dL (31.5-36.5); Mean Corpuscular Volume 89 fL (80-100); Mean Platelet Volume 8.9 fL (9.1-12.4); Platelet Count 261 K/mm3 (150-400); RDW Coefficient Variation 12.7 % (11.7-14.2); RDW Standard Deviation 41.4 fL (35.1-46.3); Red Blood Cell Count 3.98 M/mm3 (3.80-5.20); White Blood Cell Count 8.44 K/mm3 (4.00-11.30)
[2018-04-15 02:36] LABS: Alanine Aminotransfer (ALT/SGP 21 U/L (12-78); Albumin/Globulin Ratio 0.9 (0.8-1.8); Alk Phos 105 U/L (50-136); Anion Gap 14 mmol/L (6-16); Aspartate Aminotrans (AST/SGOT 9 U/L (12-37); Bilirubin, Total 0.4 mg/dL (0.1-1.0); Blood Urea Nitrogen 9 mg/dL (8-24); Bun/Creatinine Ratio 18.9 (12.0-20.0); CO2, Blood 14 mmol/L (21-32); Calcium, Blood 7.7 mg/dL (8.5-10.1); Chloride, Blood 113 mmol/L (98-108); Creatinine, Blood 0.48 mg/dL (0.40-1.00); Globulin, Blood 3.4 g/dL (2.2-4.0); Glomerular Filtration Rate >60 (60-); Glucose, Blood 168 mg/dL (70-99); Potassium, Blood 3.3 mmol/L (3.5-5.5); Sodium, Blood 141 mmol/L (136-145); Total Protein, Blood 6.4 g/dL (6.4-8.2)
[2018-04-15 07:55] LABS: Potassium, Blood 3.3 mmol/L (3.5-5.5)
[2018-04-15 11:45] LABS: Potassium, Blood 4.5 mmol/L (3.5-5.5)
[2018-04-15 15:39] LABS: Potassium, Blood 3.7 mmol/L (3.5-5.5)
[2018-04-15 22:15] LABS: Anion Gap 9 mmol/L (6-16); Blood Urea Nitrogen 18 mg/dL (8-24); Bun/Creatinine Ratio 33.9 (12.0-20.0); CO2, Blood 21 mmol/L (21-32); Calcium, Blood 8.4 mg/dL (8.5-10.1); Chloride, Blood 112 mmol/L (98-108); Creatinine, Blood 0.53 mg/dL (0.40-1.00); Glomerular Filtration Rate >60 (60-); Glucose, Blood 225 mg/dL (70-99); Potassium, Blood 3.8 mmol/L (3.5-5.5); Sodium, Blood 142 mmol/L (136-145)
[2018-04-16 04:18] LABS: Anion Gap 9 mmol/L (6-16); Blood Urea Nitrogen 15 mg/dL (8-24); Bun/Creatinine Ratio 28.7 (12.0-20.0); CO2, Blood 22 mmol/L (21-32); Calcium, Blood 7.8 mg/dL (8.5-10.1); Chloride, Blood 113 mmol/L (98-108); Creatinine, Blood 0.52 mg/dL (0.40-1.00); Glomerular Filtration Rate >60 (60-); Glucose, Blood 261 mg/dL (70-99); Potassium, Blood 3.3 mmol/L (3.5-5.5); Sodium, Blood 144 mmol/L (136-145)
== END 2018-04-16 10:23 | disposition home or self-care (01) ==
LOC: ER 18:45 → ICUW 18:46 → ICUE 22:20
PROVIDERS: Emergency Medicine; Internal Medicine; Nurse Practitioner Acute Care
DX: E10.10 Type 1 diabetes mellitus with ketoacidosis without coma (principal); E10.65 Type 1 diabetes mellitus with hyperglycemia; Z79.4 Long term (current) use of insulin; S63.502A Unspecified sprain of left wrist, initial encounter; M25.532 Pain in left wrist
CPT/HCPCS: 36415; 80048; 80051; 80053; 81001; 81025; 82010; 82947; 85025; 85027; 93005; 93010; 96361; 96374; 96375; 99285; J1650; J1815; J1885; J2405; J3010; J7030; J7042

== ENCOUNTER 2018-04-17 23:15 | Emergency (ER) | payer OTHER ==
[~2018-04-17] VITALS: Ht 157.5 cm; Wt 54.4 kg
[2018-04-18] MEDS ORDERED: Ultram50 MG PO (03:27)
[2018-04-18] MEDS ORDERED: BENADRYL25 MG PO (03:27)
== END 2018-04-18 03:53 | disposition home or self-care (01) ==
LOC: ER 23:15
DX: L27.0 Generalized skin eruption due to drugs and medicaments taken internally (principal); T50.905A Adverse effect of unspecified drugs, medicaments and biological substances, initial encounter; E10.9 Type 1 diabetes mellitus without complications; Z91.018 Allergy to other foods; Z91.048 Other nonmedicinal substance allergy status
CPT/HCPCS: 93971; 99284; Q0163

== ENCOUNTER 2018-06-07 13:38 | Inpatient (IN) | payer OTHER ==
[~2018-06-07] VITALS: Ht 157.5 cm; Wt 49.2 kg
[~2018-06-07 13:38] MED LIST changes: +BENADRYL25 MG PO; +K-TAB ER20 MEQ PO; +Ultram50 MG PO
[2018-06-07 14:00] LABS: Chloride (POC) 110 mmol/L (98-108); Creatinine (POC) 0.5 mg/dL (0.6-1.0); Glucose (ISTAT POC) 551 mg/dL (70-99); Hemoglobin (POC) 15.6 g/dL (12.0-16.0); Potassium (POC) 4.6 mmol/L (3.5-5.5); Sodium (POC) 138 mmol/L (135-148); Total CO2 (POC) 8 mmol/L (21-32)
[2018-06-07 14:07] LABS: BASOPHILS ABSOLUTE AUTO 0.13 K/mm3 (0.00-0.23); BASOPHILS PERCENT AUTO 1 % (0-2); EOSINOPHILS ABSOLUTE AUTO 0.05 K/mm3 (0.00-0.68); EOSINOPHILS PERCENT AUTO 0 % (0-6); Hematocrit 44.4 % (33.0-51.0); Hemoglobin 14.7 g/dL (11.5-16.0); IMMATURE GRAN ABSOLUTE AUTO 0.23 K/mm3 (0.00-0.10); IMMATURE GRAN PERCENT AUTO 1 % (0-1); LYMPHOCYTES ABSOLUTE AUTO 2.74 K/mm3 (0.84-5.20); LYMPHOCYTES PERCENT AUTO 14 % (21-46); MONOCYTES ABSOLUTE AUTO 0.57 K/mm3 (0.16-1.47); MONOCYTES PERCENT AUTO 3 % (4-13); Mean Corpuscular HGB 31.5 pg (26.0-34.0); Mean Corpuscular HGB Conc 33.1 g/dL (31.5-36.5); Mean Corpuscular Volume 95 fL (80-100); Mean Platelet Volume 9.1 fL (9.1-12.4); NEUTROPHILS ABSOLUTE AUTO 15.47 K/mm3 (1.96-9.15); NEUTROPHILS PERCENT AUTO 81 % (41-73); NRBC ABSOLUTE 0.02 K/mm3 (0.00-0.02); NRBC Auto 0.1 /100 WBC (0.0-0.2); Platelet Count 479 K/mm3 (150-400); RDW Coefficient Variation 13.7 % (11.7-14.2); RDW Standard Deviation 47.6 fL (35.1-46.3); Red Blood Cell Count 4.66 M/mm3 (3.80-5.20); White Blood Cell Count 19.19 K/mm3 (4.00-11.30)
[2018-06-07 14:17] LABS: pH Blood Arterial 6.99 (7.35-7.45)
[2018-06-07 14:18] LABS: PCO2 Arterial <10 mmHg (35-45)
[2018-06-07 14:19] LABS: PO2 Arterial 144 mmHg (80-100)
[2018-06-07 14:37] LABS: Alanine Aminotransfer (ALT/SGP 28 U/L (12-78); Albumin, Blood 3.7 g/dL (3.4-5.0); Albumin/Globulin Ratio 0.8 (0.8-1.8); Alk Phos 137 U/L (50-136); Anion Gap 29 mmol/L (6-16); Aspartate Aminotrans (AST/SGOT 17 U/L (12-37); Bilirubin, Total 0.6 mg/dL (0.1-1.0); Blood Urea Nitrogen 22 mg/dL (8-24); Bun/Creatinine Ratio 34.9 (12.0-20.0); CO2, Blood 5 mmol/L (21-32); Calcium, Blood 8.4 mg/dL (8.5-10.1); Chloride, Blood 103 mmol/L (98-108); Creatinine, Blood 0.63 mg/dL (0.40-1.00); Globulin, Blood 4.6 g/dL (2.2-4.0); Glomerular Filtration Rate >60 (60-); Glucose, Blood 549 mg/dL (70-99); Potassium, Blood 4.3 mmol/L (3.5-5.5); Sodium, Blood 137 mmol/L (136-145); Total Protein, Blood 8.3 g/dL (6.4-8.2)
[2018-06-07] MEDS ORDERED: SUMA25 PO (16:57)
[2018-06-07 17:20] LABS: Source, Urine Clean Catch
[2018-06-07 17:25] LABS: Bilirubin, Urine Neg (Neg); Blood, Urine Neg (Neg); Glucose Qualitative, Urine 4+ (Neg); Ketones, Urine 4+ (Neg); Leukocyte Esterase, Urine Neg (Neg); Nitrite, Urine Neg (Neg); Protein, Urine 2+ (Neg); Urobilinogen, Urine NORM (Normal)
[2018-06-07 17:29] LABS: Appearance, Urine Clear (Clear); Color, Urine Yellow (P-Yellow)
[2018-06-07 17:30] LABS: Bacteria Few /hpf; Red Blood Cells, Urine 0-2 /hpf (0-2); Squamous Epithelial Cells Not Seen /hpf (Few); White Blood Cells, Urine 0-2 /hpf (0-5)
[2018-06-07 18:52] LABS: Albumin, Blood 3.4 g/dL (3.4-5.0); Anion Gap 27 mmol/L (6-16); Blood Urea Nitrogen 16 mg/dL (8-24); Bun/Creatinine Ratio 25.6 (12.0-20.0); CO2, Blood 3 mmol/L (21-32); Calcium, Blood 7.8 mg/dL (8.5-10.1); Chloride, Blood 115 mmol/L (98-108); Creatinine, Blood 0.63 mg/dL (0.40-1.00); Glomerular Filtration Rate >60 (60-); Glucose, Blood 290 mg/dL (70-99); Potassium, Blood 4.2 mmol/L (3.5-5.5); Sodium, Blood 145 mmol/L (136-145)
[2018-06-07 19:15] LABS: PO2 Arterial 130 mmHg (80-100); pH Blood Arterial 7.12 (7.35-7.45)
[2018-06-07 19:16] LABS: PCO2 Arterial <10 mmHg (35-45)
[2018-06-07 21:52] LABS: Albumin, Blood 3.4 g/dL (3.4-5.0); Anion Gap 25 mmol/L (6-16); Blood Urea Nitrogen 13 mg/dL (8-24); Bun/Creatinine Ratio 19.9 (12.0-20.0); CO2, Blood 5 mmol/L (21-32); Calcium, Blood 7.7 mg/dL (8.5-10.1); Chloride, Blood 117 mmol/L (98-108); Creatinine, Blood 0.65 mg/dL (0.40-1.00); Glomerular Filtration Rate >60 (60-); Glucose, Blood 169 mg/dL (70-99); Phosphorus, Blood 1.5 mg/dL (2.5-4.9); Potassium, Blood 4.4 mmol/L (3.5-5.5)
[2018-06-07 21:55] LABS: Sodium, Blood 147 mmol/L (136-145)
[2018-06-07 22:13] LABS: Magnesium, Blood 1.9 mg/dL (1.6-2.4)
[2018-06-08 01:59] LABS: Anion Gap 19 mmol/L (6-16); Blood Urea Nitrogen 12 mg/dL (8-24); Bun/Creatinine Ratio 19.8 (12.0-20.0); CO2, Blood 12 mmol/L (21-32); Calcium, Blood 7.7 mg/dL (8.5-10.1); Chloride, Blood 118 mmol/L (98-108); Creatinine, Blood 0.61 mg/dL (0.40-1.00); Glomerular Filtration Rate >60 (60-); Glucose, Blood 154 mg/dL (70-99); Phosphorus, Blood 1.4 mg/dL (2.5-4.9); Potassium, Blood 3.5 mmol/L (3.5-5.5); Sodium, Blood 149 mmol/L (136-145)
[2018-06-08 06:16] LABS: Albumin, Blood 2.8 g/dL (3.4-5.0); Anion Gap 12 mmol/L (6-16); Blood Urea Nitrogen 12 mg/dL (8-24); Bun/Creatinine Ratio 21.9 (12.0-20.0); CO2, Blood 16 mmol/L (21-32); Calcium, Blood 7.5 mg/dL (8.5-10.1); Chloride, Blood 118 mmol/L (98-108); Creatinine, Blood 0.55 mg/dL (0.40-1.00); Glomerular Filtration Rate >60 (60-); Glucose, Blood 186 mg/dL (70-99); Phosphorus, Blood 2.5 mg/dL (2.5-4.9); Potassium, Blood 3.5 mmol/L (3.5-5.5); Sodium, Blood 146 mmol/L (136-145)
[2018-06-08 10:53] LABS: Albumin, Blood 2.8 g/dL (3.4-5.0); Anion Gap 12 mmol/L (6-16); Blood Urea Nitrogen 10 mg/dL (8-24); Bun/Creatinine Ratio 23.5 (12.0-20.0); CO2, Blood 16 mmol/L (21-32); Calcium, Blood 7.8 mg/dL (8.5-10.1); Chloride, Blood 116 mmol/L (98-108); Creatinine, Blood 0.43 mg/dL (0.40-1.00); Glomerular Filtration Rate >60 (60-); Glucose, Blood 129 mg/dL (70-99); Phosphorus, Blood 2.2 mg/dL (2.5-4.9); Potassium, Blood 3.2 mmol/L (3.5-5.5); Sodium, Blood 144 mmol/L (136-145)
[2018-06-08 15:08] LABS: Albumin, Blood 2.6 g/dL (3.4-5.0); Anion Gap 10 mmol/L (6-16); Blood Urea Nitrogen 9 mg/dL (8-24); Bun/Creatinine Ratio 20.4 (12.0-20.0); CO2, Blood 19 mmol/L (21-32); Calcium, Blood 7.6 mg/dL (8.5-10.1); Chloride, Blood 114 mmol/L (98-108); Creatinine, Blood 0.44 mg/dL (0.40-1.00); Glomerular Filtration Rate >60 (60-); Glucose, Blood 186 mg/dL (70-99); Phosphorus, Blood 2.3 mg/dL (2.5-4.9); Potassium, Blood 3.3 mmol/L (3.5-5.5); Sodium, Blood 143 mmol/L (136-145)
[2018-06-08 19:59] LABS: Albumin, Blood 2.6 g/dL (3.4-5.0); Anion Gap 13 mmol/L (6-16); Blood Urea Nitrogen 15 mg/dL (8-24); Bun/Creatinine Ratio 23.2 (12.0-20.0); CO2, Blood 18 mmol/L (21-32); Calcium, Blood 7.7 mg/dL (8.5-10.1); Chloride, Blood 105 mmol/L (98-108); Creatinine, Blood 0.65 mg/dL (0.40-1.00); Glomerular Filtration Rate >60 (60-); Glucose, Blood 528 mg/dL (70-99); Magnesium, Blood 1.6 mg/dL (1.6-2.4); Phosphorus, Blood 2.5 mg/dL (2.5-4.9); Sodium, Blood 136 mmol/L (136-145)
[2018-06-09 04:08] LABS: Magnesium, Blood 1.9 mg/dL (1.6-2.4)
[2018-06-09 04:12] LABS: Albumin, Blood 2.4 g/dL (3.4-5.0); Anion Gap 11 mmol/L (6-16); Blood Urea Nitrogen 12 mg/dL (8-24); Bun/Creatinine Ratio 28.4 (12.0-20.0); CO2, Blood 22 mmol/L (21-32); Calcium, Blood 7.9 mg/dL (8.5-10.1); Chloride, Blood 114 mmol/L (98-108); Creatinine, Blood 0.42 mg/dL (0.40-1.00); Glomerular Filtration Rate >60 (60-); Glucose, Blood 139 mg/dL (70-99); Phosphorus, Blood 2.7 mg/dL (2.5-4.9); Potassium, Blood 3.3 mmol/L (3.5-5.5); Sodium, Blood 147 mmol/L (136-145)
[2018-06-10 03:58] LABS: BASOPHILS ABSOLUTE AUTO 0.03 K/mm3 (0.00-0.23); BASOPHILS PERCENT AUTO 1 % (0-2); EOSINOPHILS ABSOLUTE AUTO 0.17 K/mm3 (0.00-0.68); EOSINOPHILS PERCENT AUTO 4 % (0-6); Hematocrit 30.3 % (33.0-51.0); Hemoglobin 10.7 g/dL (11.5-16.0); IMMATURE GRAN PERCENT AUTO 0 % (0-1); LYMPHOCYTES ABSOLUTE AUTO 2.02 K/mm3 (0.84-5.20); LYMPHOCYTES PERCENT AUTO 45 % (21-46); MONOCYTES ABSOLUTE AUTO 0.28 K/mm3 (0.16-1.47); MONOCYTES PERCENT AUTO 6 % (4-13); Mean Corpuscular HGB 31.6 pg (26.0-34.0); Mean Corpuscular HGB Conc 35.3 g/dL (31.5-36.5); Mean Corpuscular Volume 89 fL (80-100); Mean Platelet Volume 8.8 fL (9.1-12.4); NEUTROPHILS ABSOLUTE AUTO 1.96 K/mm3 (1.96-9.15); NEUTROPHILS PERCENT AUTO 44 % (41-73); Platelet Count 215 K/mm3 (150-400); RDW Standard Deviation 42.5 fL (35.1-46.3); Red Blood Cell Count 3.39 M/mm3 (3.80-5.20); White Blood Cell Count 4.46 K/mm3 (4.00-11.30)
[2018-06-10 04:13] LABS: Anion Gap 7 mmol/L (6-16); Blood Urea Nitrogen 14 mg/dL (8-24); Bun/Creatinine Ratio 35.4 (12.0-20.0); CO2, Blood 29 mmol/L (21-32); Calcium, Blood 8.2 mg/dL (8.5-10.1); Chloride, Blood 111 mmol/L (98-108); Glomerular Filtration Rate >60 (60-); Glucose, Blood 158 mg/dL (70-99); Potassium, Blood 3.1 mmol/L (3.5-5.5); Sodium, Blood 147 mmol/L (136-145)
[2018-06-10] MEDS ORDERED: POTCHL20ER PO (10:49)
== END 2018-06-10 13:50 | disposition home or self-care (01) | DRG 639 ==
LOC: ER 13:38 → ICUW 15:21
PROVIDERS: Emergency Medicine; Family Medicine; Internal Medicine
PROC: 02HV33Z Insertion of Infusion Device into Superior Vena Cava, Percutaneous Approach (ICD-10-PCS; principal; 2018-06-07)
DX: E10.10 Type 1 diabetes mellitus with ketoacidosis without coma (principal); D72.829 Elevated white blood cell count, unspecified; D47.3 Essential (hemorrhagic) thrombocythemia; Z79.01 Long term (current) use of anticoagulants; E83.39 Other disorders of phosphorus metabolism; E87.6 Hypokalemia; G43.909 Migraine, unspecified, not intractable, without status migrainosus
CPT/HCPCS: 36569; 36600; 71046; 80047; 80048; 80053; 80069; 81001; 82010; 82803; 82947; 83735; 85014; 85025; 96365; 96375; 99285-25; C1751; C9113; J0780; J1200; J1815; J2405; J3010; J3480; J3490; J7030; J7040; J7042; J7060; J7120

== ENCOUNTER 2018-11-24 12:04 | Inpatient (IN) | payer OTHER ==
[~2018-11-24] VITALS: Ht 157.5 cm; Wt 50.8 kg
[~2018-11-24 12:04] MED LIST changes: +Novolog Fl100 UNIT/1; +POTCHL20ER PO
[2018-11-24 12:47] LABS: Source, Urine Clean Catch
[2018-11-24 12:54] LABS: BASOPHILS ABSOLUTE AUTO 0.17 K/mm3 (0.00-0.23); BASOPHILS PERCENT AUTO 1 % (0-2); EOSINOPHILS ABSOLUTE AUTO 0.11 K/mm3 (0.00-0.68); EOSINOPHILS PERCENT AUTO 1 % (0-6); Hematocrit 51.3 % (33.0-51.0); Hemoglobin 16.3 g/dL (11.5-16.0); IMMATURE GRAN ABSOLUTE AUTO 0.21 K/mm3 (0.00-0.10); IMMATURE GRAN PERCENT AUTO 2 % (0-1); LYMPHOCYTES ABSOLUTE AUTO 2.77 K/mm3 (0.84-5.20); LYMPHOCYTES PERCENT AUTO 20 % (21-46); MONOCYTES ABSOLUTE AUTO 0.37 K/mm3 (0.16-1.47); MONOCYTES PERCENT AUTO 3 % (4-13); Mean Corpuscular HGB Conc 31.8 g/dL (31.5-36.5); Mean Corpuscular Volume 101 fL (80-100); Mean Platelet Volume 9.9 fL (9.1-12.4); NEUTROPHILS ABSOLUTE AUTO 10.15 K/mm3 (1.96-9.15); NEUTROPHILS PERCENT AUTO 74 % (41-73); Platelet Count 499 K/mm3 (150-400); RDW Coefficient Variation 13.1 % (11.7-14.2); RDW Standard Deviation 48.7 fL (35.1-46.3); Red Blood Cell Count 5.09 M/mm3 (3.80-5.20); White Blood Cell Count 13.78 K/mm3 (4.00-11.30)
[2018-11-24 12:54] LABS: Bilirubin, Urine Neg (Neg); Blood, Urine 1+ (Neg); Glucose Qualitative, Urine 4+ (Neg); Ketones, Urine 4+ (Neg); Leukocyte Esterase, Urine Neg (Neg); Nitrite, Urine Neg (Neg); Protein, Urine 2+ (Neg); Specific Gravity, Urine 1.015 (1.003-1.022); Urobilinogen, Urine NORM (Normal)
[2018-11-24 13:13] LABS: Bicarbonate Venous 5.8 mmol/L (24.0-30.0); PCO2 Venous 26.1 mmHg (38-42); PO2 Venous 91.6 mmHg (38-42)
[2018-11-24 13:23] LABS: Appearance, Urine Clear (Clear); Color, Urine Yellow (P-Yellow)
[2018-11-24 13:24] LABS: Bacteria Not Seen /hpf; Red Blood Cells, Urine 0-2 /hpf (0-2); Squamous Epithelial Cells Mod /hpf (Few); White Blood Cells, Urine 0-2 /hpf (0-5)
[2018-11-24 13:39] LABS: Alanine Aminotransfer (ALT/SGP 28 U/L (12-78); Albumin, Blood 4.3 g/dL (3.4-5.0); Albumin/Globulin Ratio 0.9 (0.8-1.8); Alk Phos 229 U/L (50-136); Anion Gap 30 mmol/L (6-16); Aspartate Aminotrans (AST/SGOT 15 U/L (12-37); Bilirubin, Total 0.5 mg/dL (0.1-1.0); Blood Urea Nitrogen 26 mg/dL (8-24); Bun/Creatinine Ratio 31.1 (12.0-20.0); CO2, Blood 6 mmol/L (21-32); Calcium, Blood 9.2 mg/dL (8.5-10.1); Chloride, Blood 103 mmol/L (98-108); Creatinine, Blood 0.84 mg/dL (0.40-1.00); Globulin, Blood 4.9 g/dL (2.2-4.0); Glomerular Filtration Rate >60 (60-); Glucose, Blood 809 mg/dL (70-99); Potassium, Blood 4.4 mmol/L (3.5-5.5); Sodium, Blood 139 mmol/L (136-145); Total Protein, Blood 9.2 g/dL (6.4-8.2)
[2018-11-24 13:45] LABS: Calcium, Ionized (POC) 1.22 mmol/L (1.10-1.46); Chloride (POC) 114 mmol/L (98-108); Creatinine (POC) 0.7 mg/dL (0.6-1.0); Glucose (ISTAT POC) >700 mg/dL (70-99); Potassium (POC) 5.8 mmol/L (3.5-5.5); Sodium (POC) 139 mmol/L (135-148); Total CO2 (POC) 7 mmol/L (21-32)
[2018-11-24 14:13] LABS: Influenza A Negative (NEGATIVE); Influenza B Negative (NEGATIVE)
[2018-11-24 15:00] LABS: Potassium, Blood 5.3 mmol/L (3.5-5.5)
[2018-11-24 16:31] LABS: Glucose, Blood 656 mg/dL (70-99)
[2018-11-24 17:45] LABS: Glucose (ISTAT POC) 447 mg/dL (70-99)
[2018-11-24 19:05] LABS: Potassium, Blood 5.5 mmol/L (3.5-5.5)
[2018-11-24 23:18] LABS: Potassium, Blood 4.3 mmol/L (3.5-5.5)
[2018-11-25 03:47] LABS: BASOPHILS ABSOLUTE AUTO 0.04 K/mm3 (0.00-0.23); BASOPHILS PERCENT AUTO 0 % (0-2); EOSINOPHILS ABSOLUTE AUTO 0.15 K/mm3 (0.00-0.68); EOSINOPHILS PERCENT AUTO 1 % (0-6); Hematocrit 35.7 % (33.0-51.0); Hemoglobin 12.2 g/dL (11.5-16.0); IMMATURE GRAN ABSOLUTE AUTO 0.07 K/mm3 (0.00-0.10); IMMATURE GRAN PERCENT AUTO 1 % (0-1); LYMPHOCYTES ABSOLUTE AUTO 2.17 K/mm3 (0.84-5.20); LYMPHOCYTES PERCENT AUTO 18 % (21-46); MONOCYTES ABSOLUTE AUTO 1.26 K/mm3 (0.16-1.47); MONOCYTES PERCENT AUTO 11 % (4-13); Mean Corpuscular HGB 31.9 pg (26.0-34.0); Mean Corpuscular HGB Conc 34.2 g/dL (31.5-36.5); NEUTROPHILS ABSOLUTE AUTO 8.09 K/mm3 (1.96-9.15); NEUTROPHILS PERCENT AUTO 69 % (41-73); Platelet Count 270 K/mm3 (150-400); RDW Coefficient Variation 13.2 % (11.7-14.2); RDW Standard Deviation 44.7 fL (35.1-46.3); Red Blood Cell Count 3.82 M/mm3 (3.80-5.20); White Blood Cell Count 11.78 K/mm3 (4.00-11.30)
[2018-11-25 04:05] LABS: Anion Gap 11 mmol/L (6-16); Blood Urea Nitrogen 14 mg/dL (8-24); Bun/Creatinine Ratio 22.1 (12.0-20.0); CO2, Blood 17 mmol/L (21-32); Calcium, Blood 7.7 mg/dL (8.5-10.1); Chloride, Blood 122 mmol/L (98-108); Creatinine, Blood 0.63 mg/dL (0.40-1.00); Glomerular Filtration Rate >60 (60-); Glucose, Blood 105 mg/dL (70-99); Potassium, Blood 3.4 mmol/L (3.5-5.5); Sodium, Blood 150 mmol/L (136-145)
[2018-11-25 04:17] LABS: Mean Corpuscular Volume 94 fL (80-100)
[2018-11-25 10:40] LABS: Anion Gap 8 mmol/L (6-16); Blood Urea Nitrogen 9 mg/dL (8-24); Bun/Creatinine Ratio 15.8 (12.0-20.0); CO2, Blood 21 mmol/L (21-32); Calcium, Blood 7.8 mg/dL (8.5-10.1); Chloride, Blood 113 mmol/L (98-108); Creatinine, Blood 0.57 mg/dL (0.40-1.00); Glomerular Filtration Rate >60 (60-); Glucose, Blood 114 mg/dL (70-99); Potassium, Blood 3.7 mmol/L (3.5-5.5); Sodium, Blood 142 mmol/L (136-145)
[2018-11-25 16:07] LABS: Albumin, Blood 2.7 g/dL (3.4-5.0); Anion Gap 7 mmol/L (6-16); Blood Urea Nitrogen 10 mg/dL (8-24); Bun/Creatinine Ratio 17.1 (12.0-20.0); CO2, Blood 24 mmol/L (21-32); Calcium, Blood 7.9 mg/dL (8.5-10.1); Chloride, Blood 113 mmol/L (98-108); Creatinine, Blood 0.58 mg/dL (0.40-1.00); Glomerular Filtration Rate >60 (60-); Glucose, Blood 207 mg/dL (70-99); Phosphorus, Blood 2.2 mg/dL (2.5-4.9); Potassium, Blood 3.5 mmol/L (3.5-5.5); Sodium, Blood 144 mmol/L (136-145)
[2018-11-26 05:04] LABS: BASOPHILS ABSOLUTE AUTO 0.04 K/mm3 (0.00-0.23); BASOPHILS PERCENT AUTO 1 % (0-2); EOSINOPHILS ABSOLUTE AUTO 0.44 K/mm3 (0.00-0.68); EOSINOPHILS PERCENT AUTO 7 % (0-6); Hematocrit 32.4 % (33.0-51.0); Hemoglobin 11.4 g/dL (11.5-16.0); IMMATURE GRAN ABSOLUTE AUTO 0.01 K/mm3 (0.00-0.10); IMMATURE GRAN PERCENT AUTO 0 % (0-1); LYMPHOCYTES ABSOLUTE AUTO 2.79 K/mm3 (0.84-5.20); LYMPHOCYTES PERCENT AUTO 43 % (21-46); MONOCYTES ABSOLUTE AUTO 0.59 K/mm3 (0.16-1.47); MONOCYTES PERCENT AUTO 9 % (4-13); Mean Corpuscular HGB 32.1 pg (26.0-34.0); Mean Corpuscular HGB Conc 35.2 g/dL (31.5-36.5); Mean Platelet Volume 8.9 fL (9.1-12.4); NEUTROPHILS ABSOLUTE AUTO 2.59 K/mm3 (1.96-9.15); NEUTROPHILS PERCENT AUTO 40 % (41-73); Platelet Count 184 K/mm3 (150-400); RDW Coefficient Variation 12.7 % (11.7-14.2); Red Blood Cell Count 3.55 M/mm3 (3.80-5.20); White Blood Cell Count 6.46 K/mm3 (4.00-11.30)
[2018-11-26 05:08] LABS: Mean Corpuscular Volume 91 fL (80-100)
[2018-11-26 05:45] LABS: Albumin, Blood 2.5 g/dL (3.4-5.0); Anion Gap 8 mmol/L (6-16); Blood Urea Nitrogen 16 mg/dL (8-24); Bun/Creatinine Ratio 29.7 (12.0-20.0); CO2, Blood 26 mmol/L (21-32); Calcium, Blood 8.2 mg/dL (8.5-10.1); Chloride, Blood 114 mmol/L (98-108); Creatinine, Blood 0.54 mg/dL (0.40-1.00); Glomerular Filtration Rate >60 (60-); Glucose, Blood 143 mg/dL (70-99); Phosphorus, Blood 2.9 mg/dL (2.5-4.9); Potassium, Blood 3.3 mmol/L (3.5-5.5); Sodium, Blood 148 mmol/L (136-145)
[2018-11-27 04:55] LABS: Anion Gap 8 mmol/L (6-16); Blood Urea Nitrogen 22 mg/dL (8-24); CO2, Blood 28 mmol/L (21-32); Calcium, Blood 7.7 mg/dL (8.5-10.1); Chloride, Blood 109 mmol/L (98-108); Creatinine, Blood 0.54 mg/dL (0.40-1.00); Glomerular Filtration Rate >60 (60-); Glucose, Blood 181 mg/dL (70-99); Potassium, Blood 3.5 mmol/L (3.5-5.5); Sodium, Blood 145 mmol/L (136-145)
[2018-11-27 08:32] LABS: Albumin, Blood 2.5 g/dL (3.4-5.0); Magnesium, Blood 1.8 mg/dL (1.6-2.4)
== END 2018-11-27 13:10 | disposition home or self-care (01) | DRG 638 ==
LOC: ER 12:04 → ICUW 14:02 → SURS 11-25 12:51
PROVIDERS: Emergency Medicine; Internal Medicine; Nurse Practitioner Acute Care; Physician Assistant; ADMIT Internal Medicine
DX: E10.10 Type 1 diabetes mellitus with ketoacidosis without coma (principal); E87.1 Hypo-osmolality and hyponatremia; E87.6 Hypokalemia; M54.5 Low back pain; Z79.4 Long term (current) use of insulin
CPT/HCPCS: 36415; 71046; 80047; 80048; 80051; 80053; 80069; 81001; 81025; 82010; 82040; 82803; 82947; 83735; 85014; 85025; 87804; 93005; 93010; 96361; 96374; 96375; 96376; 99285-25; C1751; C9113; J1650; J1815; J2060; J2405; J3010; J3480; J7030; J7070; J7120

== ENCOUNTER 2018-12-03 21:28 | Inpatient (IN) | payer OTHER ==
[~2018-12-03] VITALS: Ht 157.5 cm; Wt 54.7 kg
[2018-12-03 22:20] LABS: Calcium, Ionized (POC) 1.04 mmol/L (1.10-1.46); Chloride (POC) 106 mmol/L (98-108); Creatinine (POC) 0.6 mg/dL (0.6-1.0); Glucose (ISTAT POC) 523 mg/dL (70-99); Hemoglobin (POC) 16.7 g/dL (12.0-16.0); Potassium (POC) 4.6 mmol/L (3.5-5.5); Sodium (POC) 132 mmol/L (135-148); Total CO2 (POC) 10 mmol/L (21-32)
[2018-12-03 22:24] LABS: BASOPHILS ABSOLUTE AUTO 0.11 K/mm3 (0.00-0.23); BASOPHILS PERCENT AUTO 2 % (0-2); EOSINOPHILS ABSOLUTE AUTO 0.11 K/mm3 (0.00-0.68); EOSINOPHILS PERCENT AUTO 2 % (0-6); Hematocrit 49.8 % (33.0-51.0); Hemoglobin 16.1 g/dL (11.5-16.0); IMMATURE GRAN ABSOLUTE AUTO 0.03 K/mm3 (0.00-0.10); IMMATURE GRAN PERCENT AUTO 0 % (0-1); LYMPHOCYTES ABSOLUTE AUTO 2.36 K/mm3 (0.84-5.20); LYMPHOCYTES PERCENT AUTO 34 % (21-46); MONOCYTES ABSOLUTE AUTO 0.59 K/mm3 (0.16-1.47); MONOCYTES PERCENT AUTO 9 % (4-13); Mean Corpuscular HGB 31.6 pg (26.0-34.0); Mean Corpuscular HGB Conc 32.3 g/dL (31.5-36.5); Mean Platelet Volume 9.3 fL (9.1-12.4); NEUTROPHILS ABSOLUTE AUTO 3.66 K/mm3 (1.96-9.15); NEUTROPHILS PERCENT AUTO 53 % (41-73); Platelet Count 427 K/mm3 (150-400); RDW Standard Deviation 46.5 fL (35.1-46.3); Red Blood Cell Count 5.09 M/mm3 (3.80-5.20); White Blood Cell Count 6.86 K/mm3 (4.00-11.30)
[2018-12-03 22:27] LABS: Mean Corpuscular Volume 98 fL (80-100)
[2018-12-03 22:54] LABS: Source, Urine Clean Catch
[2018-12-03 22:54] LABS: Alanine Aminotransfer (ALT/SGP 31 U/L (12-78); Albumin, Blood 4.1 g/dL (3.4-5.0); Albumin/Globulin Ratio 0.9 (0.8-1.8); Alk Phos 157 U/L (50-136); Anion Gap 25 mmol/L (6-16); Aspartate Aminotrans (AST/SGOT 22 U/L (12-37); Bilirubin, Total 0.5 mg/dL (0.1-1.0); Blood Urea Nitrogen 22 mg/dL (8-24); Bun/Creatinine Ratio 29.8 (12.0-20.0); CO2, Blood 8 mmol/L (21-32); Calcium, Blood 8.7 mg/dL (8.5-10.1); Chloride, Blood 100 mmol/L (98-108); Creatinine, Blood 0.74 mg/dL (0.40-1.00); Globulin, Blood 4.5 g/dL (2.2-4.0); Glomerular Filtration Rate >60 (60-); Glucose, Blood 489 mg/dL (70-99); Potassium, Blood 4.8 mmol/L (3.5-5.5); Sodium, Blood 133 mmol/L (136-145); Total Protein, Blood 8.6 g/dL (6.4-8.2)
[2018-12-03 22:57] LABS: Bilirubin, Urine Neg (Neg); Blood, Urine Neg (Neg); Glucose Qualitative, Urine 4+ (Neg); Ketones, Urine 4+ (Neg); Leukocyte Esterase, Urine Neg (Neg); Nitrite, Urine Neg (Neg); Protein, Urine 1+ (Neg); Urobilinogen, Urine NORM (Normal)
[2018-12-03 23:01] LABS: Appearance, Urine Clear (Clear); Color, Urine Pale Yellow (P-Yellow)
[2018-12-03 23:06] LABS: Beta-hydroxybutyrate 86.3 mg/dL (0.2-2.8)
[2018-12-04 00:01] LABS: Base Excess Venous -22.1 mmol/L; Bicarbonate Venous 10.1 mmol/L (24.0-30.0); PCO2 Venous 25.2 mmHg (38-42); PO2 Venous 94.7 mmHg (38-42); pH Blood Venous 7.09 (7.34-7.37)
--- NOTE | 2018-12-04 02:12 | NUR ---
ADMIT PT ARRIVED TO ICU 3 AT 0125 VIA ER BED. PT STOOD UP TO TRANSFER TO ICU BED. PT IS AWAKE, ALERT, ORIENTED, AND PLEASANT. PT ON ROOM AIR. VITAL SIGNS STABLE. IV TO LEFT HAND WITH INSULIN GTT INFUSING AT 5.7 UNITS/HR FROM ARRIVAL FROM ER. CBG AT 160 UPON ARRIVAL. INSULIN GTT PLACED ON STANDBY. D5 1/2 NS ORDERED AND STARTED PER DR HORVATH. INSULIN GTT RESTARTED AT 2 UNITS/HR. FAMILY MEMEBER AT BEDSIDE. WILL CONTINUE TO MONITOR.
[2018-12-04 03:32] LABS: Anion Gap 17 mmol/L (6-16); Blood Urea Nitrogen 15 mg/dL (8-24); CO2, Blood 14 mmol/L (21-32); Calcium, Blood 7.8 mg/dL (8.5-10.1); Chloride, Blood 111 mmol/L (98-108); Glomerular Filtration Rate >60 (60-); Glucose, Blood 149 mg/dL (70-99); Potassium, Blood 3.4 mmol/L (3.5-5.5); Sodium, Blood 142 mmol/L (136-145)
--- NOTE | 2018-12-04 05:35 | NUR ---
SHIFT SUMMARY NO ACUTE CHANGES THIS MORNING. PT REMAINS ALERT AND ORIENTED WHEN AWAKE. POWERGLIDE TO MADELIN PLACED. D5 1/2 NS INFUSING AT 200 ML/HR, INSULIN AT 2 UNITS/HR, AND POTASSIUM IVPB INFUSING. CBG'S HAVE BEEN STABLE IN 140-160 RANGE. PT UP TO VOID WELL. VITAL SIGNS HAVE REMAINED STABLE. WILL CONTINUE TO MONITOR AND REPORT OFF TO ONCOMING RN.
--- NOTE | 2018-12-04 07:20 | NUR ---
RECEIVED REPORT FROM JAS DE LA GARZA, AND ASSUMED CARE OF PT.
[2018-12-04 09:32] LABS: Anion Gap 8 mmol/L (6-16); Blood Urea Nitrogen 10 mg/dL (8-24); Bun/Creatinine Ratio 21.2 (12.0-20.0); CO2, Blood 19 mmol/L (21-32); Chloride, Blood 114 mmol/L (98-108); Creatinine, Blood 0.47 mg/dL (0.40-1.00); Glomerular Filtration Rate >60 (60-); Glucose, Blood 123 mg/dL (70-99); Potassium, Blood 3.8 mmol/L (3.5-5.5); Sodium, Blood 141 mmol/L (136-145)
--- NOTE | 2018-12-04 10:50 | NUR ---
CALLED DR. LANGSTON WITH LAB RESULTS, ANION GAP 8, CO2 19, CBG'S RUNNING 115 AND 117. NEW ORDERS GIVEN FOR LANTUS 10 UNITS NOW, LANTUS 50 UNITS 0900 DAILY, HUMALOG HIGH SLIDING SCALE AC&HS, TURN OFF INSULIN GTT, REDUCE D5 1/2 NS TO 100 CC/HR, AND ORDER ADA DIET. CURRENT BLOOD SUGAR 95.
--- NOTE | 2018-12-04 12:15 | NUR ---
CALLED DR. LANGSTON FOR PT C/O BACK PAIN, TRAMADOL ORDERED, AND OBTAINED MEDICAL ORDER WITHOUT TELEMETRY. DC'D MONITOR.
--- NOTE | 2018-12-04 18:02 | NUR ---
NURSING SUMMARY ALERT AND ORIENTED X4. SINUS TACH 103-117 PRIOR TO DISCONTINUING FROM MONITOR AND CHANGING TO MEDICAL STATUS. VSS. LUNGS CLEAR, ROOM AIR. INSULIN GTT DISCONTINUED 1130, GAVE LANTUS 10 UNITS AND CONVERTED TO AC&HS BLOOD SUGAR CHECKS WITH HIGH SLIDING SCALE INSULIN COVERAGE. INDEPENDENT TO THE BATHROOM, VOIDS LARGE AMOUNTS OF CLEAR YELLOW URINE. TOLERATING AN ADA DIET. SKIN INTACT. C/O BACK PAIN, MEDICATED WITH ULTRAM X 1 TODAY WITH GOOD RELIEF. PT WOULD LIKE A MEDIPORT DUE TO DIFFICULT TO OBTAIN IV'S. INSTRUCTED PT TO TALK WITH THE PHYSICIAN ABOUT THIS REQUEST AND MAY NEED TO PLAN OUTPATIENT. RIGHT UPPER ARM POWERGLIDE SALINE LOCKED AND LEFT HAND SALINE LOCK.
--- NOTE | 2018-12-04 18:47 | NUR ---
REPORT CALLED TO JAS DESOUZA, WHOM WILL ASSUME CARE OF PT WHEN TRANSFERRED TO ROOM 228.
--- NOTE | 2018-12-04 18:56 | NUR ---
PT TRANSFERRED TO ROOM 228 VIA WHEELCHAIR ACCOMPANIED BY GRETCHEN DEL VALLE.
--- NOTE | 2018-12-05 05:03 | NUR ---
SUMMARY GLUCOSE MANAGED PER HIGH SLIDING SCALE. PT STATES SHE USES A 1-5 RATIO FOR CARB COUNTING AT HOME AND HER NEXT APPOINTMENT WITH HER POST HOLE DIGGER IS NOT UNTIL DECEMBER. PT WAS ADVISED TO SPEAK WITH PHYSICIAN ABOUT CARB COUNTING THIS AM. PT STATES UNDERSTANDING OF THE NEED TO ESTABLISH A NEW HOME ROUTINE. WCTM AT THIS TIME.
--- NOTE | 2018-12-05 14:17 | NUR ---
PT DISCHARGED TO HOME WITH MOM. NO NEW MEDICATIONS. ALL BELONGINGS TAKEN HOME WITH PT. POWER GLIDE REMOVED.
== END 2018-12-05 11:44 | disposition home or self-care (01) | DRG 638 ==
LOC: ER 21:28 → ICUW 23:56 → ICUE 12-04 01:07 → SURS 12-04 18:50
PROVIDERS: Emergency Medicine; ADMIT Hospitalist
DX: E10.10 Type 1 diabetes mellitus with ketoacidosis without coma (principal); E87.1 Hypo-osmolality and hyponatremia; G89.29 Other chronic pain; M54.9 Dorsalgia, unspecified; Z79.4 Long term (current) use of insulin
CPT/HCPCS: 36415; 80047; 80048; 80053; 82010; 82803; 82947; 85014; 85025; 96374; 96375; 99285-25; C1751; J1815; J2270; J2405; J3480; J7030; J7042; J7120

== ENCOUNTER 2018-12-26 21:06 | Inpatient (IN) | payer OTHER ==
[~2018-12-26] VITALS: Ht 157.5 cm; Wt 55.6 kg
[2018-12-26 22:02] LABS: BASOPHILS ABSOLUTE AUTO 0.15 K/mm3 (0.00-0.23); BASOPHILS PERCENT AUTO 1 % (0-2); EOSINOPHILS ABSOLUTE AUTO 0.15 K/mm3 (0.00-0.68); EOSINOPHILS PERCENT AUTO 1 % (0-6); Hematocrit 48.4 % (33.0-51.0); Hemoglobin 16.3 g/dL (11.5-16.0); IMMATURE GRAN ABSOLUTE AUTO 0.05 K/mm3 (0.00-0.10); IMMATURE GRAN PERCENT AUTO 1 % (0-1); LYMPHOCYTES PERCENT AUTO 29 % (21-46); MONOCYTES ABSOLUTE AUTO 0.55 K/mm3 (0.16-1.47); MONOCYTES PERCENT AUTO 5 % (4-13); Mean Corpuscular HGB 31.3 pg (26.0-34.0); Mean Corpuscular HGB Conc 33.7 g/dL (31.5-36.5); Mean Corpuscular Volume 93 fL (80-100); Mean Platelet Volume 9.2 fL (9.1-12.4); NEUTROPHILS PERCENT AUTO 62 % (41-73); Platelet Count 427 K/mm3 (150-400); RDW Coefficient Variation 12.4 % (11.7-14.2); RDW Standard Deviation 42.6 fL (35.1-46.3); Red Blood Cell Count 5.21 M/mm3 (3.80-5.20)
[2018-12-26 22:39] LABS: Base Excess Venous -24.9 mmol/L; Bicarbonate Venous 9.1 mmol/L (24.0-30.0); PCO2 Venous 20.8 mmHg (38-42); pH Blood Venous 7.04 (7.34-7.37)
[2018-12-26 22:58] LABS: Alanine Aminotransfer (ALT/SGP 22 U/L (12-78); Albumin, Blood 4.2 g/dL (3.4-5.0); Alk Phos 154 U/L (50-136); Anion Gap 23 mmol/L (6-16); Aspartate Aminotrans (AST/SGOT 11 U/L (12-37); Beta-hydroxybutyrate 86.8 mg/dL (0.2-2.8); Bilirubin, Total 0.5 mg/dL (0.1-1.0); Blood Urea Nitrogen 16 mg/dL (8-24); Bun/Creatinine Ratio 28.4 (12.0-20.0); CO2, Blood 8 mmol/L (21-32); Calcium, Blood 8.7 mg/dL (8.5-10.1); Chloride, Blood 102 mmol/L (98-108); Creatinine, Blood 0.56 mg/dL (0.40-1.00); Globulin, Blood 4.4 g/dL (2.2-4.0); Glomerular Filtration Rate >60 (60-); Glucose, Blood 424 mg/dL (70-99); Potassium, Blood 4.4 mmol/L (3.5-5.5); Sodium, Blood 133 mmol/L (136-145); Total Protein, Blood 8.6 g/dL (6.4-8.2)
[2018-12-27] MEDS ORDERED: TOUJEO SOL300 UNIT/1 SC (01:23)
--- NOTE | 2018-12-27 02:01 | NUR ---
[place] of Care: Patient arrived to unit via stretcher at 0040hr, accompanied by ED nurse. Stood and transferred to ICU bed without difficulty. Alert and oriented x4, BP stable, O2-100% on RA, sinus tach in the 120's. C/o pain to back, gave x1 dose of Toradol, will monitor for effect. Gave x1 dose of GI cocktail at this time, r/t c/o heartburn/reflux, will monitor for effect. Power-glide placed to MADELIN by Kyra MARK, peripheral IV to rt wrist patent and intact. Insulin gtt at 5.7 u/hr upon arrival, then decreased to 1.5u/hr per CBG of 243. 2nd NS bolus finished shortly after arrival to unit. D5%-1/2 NS at 125ml started at this time, glucose of 208. Will monitor blood glucose q1hr. Will continue to monitor for pain, safety, comfort.
[2018-12-27 02:34] LABS: Anion Gap 18 mmol/L (6-16); Blood Urea Nitrogen 13 mg/dL (8-24); Bun/Creatinine Ratio 26.4 (12.0-20.0); CO2, Blood 8 mmol/L (21-32); Calcium, Blood 7.3 mg/dL (8.5-10.1); Chloride, Blood 117 mmol/L (98-108); Creatinine, Blood 0.49 mg/dL (0.40-1.00); Glomerular Filtration Rate >60 (60-); Glucose, Blood 209 mg/dL (70-99)
[2018-12-27 02:35] LABS: Sodium, Blood 143 mmol/L (136-145)
[2018-12-27 05:21] LABS: Source, Urine Clean Catch
[2018-12-27 05:35] LABS: Bilirubin, Urine Neg (Neg); Blood, Urine Neg (Neg); Glucose Qualitative, Urine 4+ (Neg); Ketones, Urine 4+ (Neg); Leukocyte Esterase, Urine Neg (Neg); Nitrite, Urine Neg (Neg); Protein, Urine 2+ (Neg); Urobilinogen, Urine NORM (Normal)
[2018-12-27 05:43] LABS: U Amphetamine Screen Not Detected; U Barbituate Screen Not Detected; U Benzodiazapine Screen Not Detected; U Buprenorphine Screen Not Detected; U Cannabinoids Screen Not Detected; U Cocaine Screen Not Detected; U Methadone Screen Not Detected; U Methamphetamine Screen Not Detected; U Opiates Screen Not Detected; U Oxycodone Screen Not Detected; U Phencyclidine Screen Not Detected; U Propoxyphene Screen Not Detected
[2018-12-27 05:57] LABS: Appearance, Urine Hazy (Clear); Bacteria Few /hpf; Color, Urine Pale Yellow (P-Yellow); Red Blood Cells, Urine Rare /hpf (0-2); Squamous Epithelial Cells Mod /hpf (Few); White Blood Cells, Urine Rare /hpf (0-5)
[2018-12-27 06:49] LABS: Hematocrit 37.3 % (33.0-51.0); Mean Corpuscular HGB 31.1 pg (26.0-34.0); Mean Corpuscular HGB Conc 34.9 g/dL (31.5-36.5); Platelet Count 310 K/mm3 (150-400); RDW Coefficient Variation 12.4 % (11.7-14.2); RDW Standard Deviation 39.8 fL (35.1-46.3); Red Blood Cell Count 4.18 M/mm3 (3.80-5.20); White Blood Cell Count 9.06 K/mm3 (4.00-11.30)
[2018-12-27 06:52] LABS: Mean Corpuscular Volume 89 fL (80-100)
[2018-12-27 07:13] LABS: Alanine Aminotransfer (ALT/SGP 19 U/L (12-78); Albumin, Blood 3.1 g/dL (3.4-5.0); Alk Phos 101 U/L (50-136); Anion Gap 14 mmol/L (6-16); Aspartate Aminotrans (AST/SGOT 8 U/L (12-37); Bilirubin, Total 0.4 mg/dL (0.1-1.0); Blood Urea Nitrogen 11 mg/dL (8-24); Bun/Creatinine Ratio 22.8 (12.0-20.0); CO2, Blood 12 mmol/L (21-32); Calcium, Blood 7.4 mg/dL (8.5-10.1); Chloride, Blood 116 mmol/L (98-108); Creatinine, Blood 0.48 mg/dL (0.40-1.00); Globulin, Blood 3.2 g/dL (2.2-4.0); Glomerular Filtration Rate >60 (60-); Glucose, Blood 154 mg/dL (70-99); Potassium, Blood 3.6 mmol/L (3.5-5.5); Sodium, Blood 142 mmol/L (136-145)
--- NOTE | 2018-12-27 07:27 | NUR ---
Shift Summary: Patient slept well throughout remainder of shift. Fluids switched to D5%-1/2NS at approx 0230hr, insulin gtt titrated down to 1u/hr, blood glucose slowly decreased from 200's to 140 by end of shift. C/o pain to back, received order per Dr. Ibarra for prn fentanyl 25-50mcg q4. Patient sleeping, therefore no dose of fentanyl given. Voided using bedside commode without difficulty. Report given to day shift JAS Cole.
[2018-12-27 07:35] LABS: Total Protein, Blood 6.3 g/dL (6.4-8.2)
[2018-12-27 12:50] LABS: Anion Gap 10 mmol/L (6-16); Blood Urea Nitrogen 13 mg/dL (8-24); Bun/Creatinine Ratio 31.9 (12.0-20.0); CO2, Blood 16 mmol/L (21-32); Calcium, Blood 7.4 mg/dL (8.5-10.1); Chloride, Blood 113 mmol/L (98-108); Creatinine, Blood 0.41 mg/dL (0.40-1.00); Glomerular Filtration Rate >60 (60-); Glucose, Blood 223 mg/dL (70-99); Potassium, Blood 3.6 mmol/L (3.5-5.5); Sodium, Blood 139 mmol/L (136-145)
--- NOTE | 2018-12-27 14:56 | NUR ---
DR FREDERICK BLISS CALLED AND LABS REVIEWED. D5AND 1/2 NS DCED AND REPLACED WITH NS AT 100ML/HOUR. INSULIN CONTS TO BE TITRATED.
[2018-12-27 17:21] LABS: Anion Gap 9 mmol/L (6-16); Blood Urea Nitrogen 16 mg/dL (8-24); Bun/Creatinine Ratio 30.5 (12.0-20.0); CO2, Blood 19 mmol/L (21-32); Calcium, Blood 7.6 mg/dL (8.5-10.1); Chloride, Blood 111 mmol/L (98-108); Creatinine, Blood 0.53 mg/dL (0.40-1.00); Glomerular Filtration Rate >60 (60-); Glucose, Blood 309 mg/dL (70-99); Potassium, Blood 3.9 mmol/L (3.5-5.5); Sodium, Blood 139 mmol/L (136-145)
--- NOTE | 2018-12-27 18:24 | NUR ---
SR BLISS CALLED WITH LABS. CO2 STILL LOW 19. WILL COMT NS AT 100/HOUR AND INSULIN DRIP AT 2 UNITS/HOUR. MOTHER HERE TO VISIT. UP AND GAVE HERSELF A BATH AT THE SINK AND BRUSHED HER TEETH.TAKING LOTS OF FLUIDS PO
--- NOTE | 2018-12-27 22:00 | NUR ---
PT AWAKE, ALERT, VISITING W FRIEND AT BEDSIDE. DENIES PAIN OR OTHER DISCOMFORT. DENIES NAUSEA, HAS BEEN TAKING ADA DIET. CONT ON INSULIN GTT & NS MAINT IVF. WILL CONT TO MONITOR. CBG AT THIS TIME IS 252 & CHEM 8 HAS BEEN DRAWN.
[2018-12-27 22:22] LABS: Anion Gap 8 mmol/L (6-16); Blood Urea Nitrogen 18 mg/dL (8-24); Bun/Creatinine Ratio 33.3 (12.0-20.0); CO2, Blood 22 mmol/L (21-32); Calcium, Blood 7.8 mg/dL (8.5-10.1); Chloride, Blood 110 mmol/L (98-108); Creatinine, Blood 0.54 mg/dL (0.40-1.00); Glomerular Filtration Rate >60 (60-); Glucose, Blood 239 mg/dL (70-99); Potassium, Blood 3.2 mmol/L (3.5-5.5); Sodium, Blood 140 mmol/L (136-145)
--- NOTE | 2018-12-28 | NUR ---
LABS CALLED TO Vamsi CHINCHILLA NP & ORDERS REC'D. PT WILL RECEIVE KCL PO & WILL START LONG ACTING INSULIN. WILL DISCONTINUE INSULIN GTT & MAINT FLUIDS 2 HOURS AFTER. PT REQUESTS FULL SANDWICH & THIS IS PROVIDED. UP TO VOID WO DIFF. CALL LIGHT IN REACH.
--- NOTE | 2018-12-28 05:00 | NUR ---
PT HAS BEEN SLEEPING SOUNDLY. AWAKENED FOR LABS. WAS UP TO VOID.
[2018-12-28 05:50] LABS: Anion Gap 7 mmol/L (6-16); Blood Urea Nitrogen 15 mg/dL (8-24); Bun/Creatinine Ratio 29.1 (12.0-20.0); CO2, Blood 22 mmol/L (21-32); Calcium, Blood 7.9 mg/dL (8.5-10.1); Chloride, Blood 116 mmol/L (98-108); Creatinine, Blood 0.52 mg/dL (0.40-1.00); Glomerular Filtration Rate >60 (60-); Glucose, Blood 288 mg/dL (70-99); Potassium, Blood 4.1 mmol/L (3.5-5.5); Sodium, Blood 145 mmol/L (136-145)
--- NOTE | 2018-12-28 07:00 | NUR ---
PT CHANGED TO MED STATUS. REPORT TO DAYSHIFT.
--- NOTE | 2018-12-28 08:00 | NUR ---
ASSUMED CARE / DR. MACK: REPORT RECEIVED FROM DEAN Thomas RN. ASSUMED CARE OF THIS PT AT APPROX 0700. ON ASSESSMENT, THE PT IS SITTING UP AT BEDSIDE. SHE IS INDEPENDENT IN THE ROOM & DENIES PAIN OR DISCOMFORT. SHE DOES REQUEST MORE WATER & SPRITE. PROVIDER, DR. MACK, AT BEDSIDE. PLAN IS FOR D/C HOME TODAY. WILL CONTINUE TO MONITOR & UPDATE NEEDED.
--- NOTE | 2018-12-28 12:37 | NUR ---
DISCHARGE TO HOME: D/C EDUCATION HAS BEEN COMPLETED, PT DENIES FURTHER QUESTIONS. POWERGLIDE TO MADELIN HAS BEEN REMOVED. D/C PACKET HAS BEEN TAKEN W/ PT, ALONG W/ ALL PT BELONGINGS. MEDS HAVE BEEN CALLED TO [facility] IN [place], PER PT REQUEST. PT AMBULATED OUT OF BUILDING W/ BOYFRIEND WHO WILL BE DRIVING HER HOME.
== END 2018-12-28 12:15 | disposition home or self-care (01) | DRG 638 ==
LOC: ER 21:06 → ICUW 21:07
PROVIDERS: Emergency Medicine; Family Medicine; Physician Assistant; ADMIT Internal Medicine
DX: E10.10 Type 1 diabetes mellitus with ketoacidosis without coma (principal); E87.1 Hypo-osmolality and hyponatremia; E87.5 Hyperkalemia; E86.0 Dehydration; G89.29 Other chronic pain; M54.9 Dorsalgia, unspecified; G43.909 Migraine, unspecified, not intractable, without status migrainosus; G62.9 Polyneuropathy, unspecified; R00.0 Tachycardia, unspecified; Z79.4 Long term (current) use of insulin
CPT/HCPCS: 36415; 80048; 80053; 81001; 82010; 82803; 82947; 85025; 85027; 87086; 96361; 96374; 96375; 99285-25; C1751; J1650; J1815; J1885; J2405; J7030; J7042

== ENCOUNTER 2019-02-08 14:03 | Inpatient (IN) | payer OTHER ==
[~2019-02-08] VITALS: Ht 157.5 cm; Wt 60.6 kg
[~2019-02-08 14:03] MED LIST changes: -CEFD300 PO
[2019-02-08 14:37] LABS: PCO2 Arterial 30.7 mmHg (35-45); PO2 Arterial 114 mmHg (80-100); pH Blood Arterial 7.32 (7.35-7.45)
[2019-02-08 15:40] LABS: Source, Urine Clean Catch
[2019-02-08 15:57] LABS: Bilirubin, Urine Neg (Neg); Blood, Urine 1+ (Neg); Glucose Qualitative, Urine 4+ (Neg); Ketones, Urine 4+ (Neg); Leukocyte Esterase, Urine Neg (Neg); Nitrite, Urine Neg (Neg); Protein, Urine 1+ (Neg); Specific Gravity, Urine 1.025 (1.003-1.022); Urobilinogen, Urine NORM (Normal)
[2019-02-08 16:06] LABS: Appearance, Urine Clear (Clear); Color, Urine Yellow (P-Yellow)
[2019-02-08 16:07] LABS: Bacteria Few /hpf; Squamous Epithelial Cells Few /hpf (Few); White Blood Cells, Urine 0-2 /hpf (0-5)
[2019-02-08 16:45] LABS: Anion Gap 12 mmol/L (6-16); Blood Urea Nitrogen 19 mg/dL (8-24); Bun/Creatinine Ratio 38.8 (12.0-20.0); CO2, Blood 22 mmol/L (21-32); Calcium, Blood 8.7 mg/dL (8.5-10.1); Chloride, Blood 105 mmol/L (98-108); Creatinine, Blood 0.49 mg/dL (0.40-1.00); Glomerular Filtration Rate >60 (60-); Glucose, Blood 133 mg/dL (70-99); Potassium, Blood 4.1 mmol/L (3.5-5.5); Sodium, Blood 139 mmol/L (136-145)
[2019-02-08 21:33] LABS: Anion Gap 11 mmol/L (6-16); Blood Urea Nitrogen 21 mg/dL (8-24); Bun/Creatinine Ratio 42.9 (12.0-20.0); CO2, Blood 20 mmol/L (21-32); Chloride, Blood 106 mmol/L (98-108); Creatinine, Blood 0.49 mg/dL (0.40-1.00); Glomerular Filtration Rate >60 (60-); Glucose, Blood 184 mg/dL (70-99); Potassium, Blood 4.1 mmol/L (3.5-5.5); Sodium, Blood 137 mmol/L (136-145)
[2019-02-09 04:09] LABS: BASOPHILS ABSOLUTE AUTO 0.05 K/mm3 (0.00-0.23); BASOPHILS PERCENT AUTO 1 % (0-2); EOSINOPHILS ABSOLUTE AUTO 0.49 K/mm3 (0.00-0.68); EOSINOPHILS PERCENT AUTO 7 % (0-6); Hematocrit 34.6 % (33.0-51.0); IMMATURE GRAN ABSOLUTE AUTO 0.01 K/mm3 (0.00-0.10); IMMATURE GRAN PERCENT AUTO 0 % (0-1); LYMPHOCYTES ABSOLUTE AUTO 2.92 K/mm3 (0.84-5.20); LYMPHOCYTES PERCENT AUTO 44 % (21-46); MONOCYTES ABSOLUTE AUTO 0.48 K/mm3 (0.16-1.47); MONOCYTES PERCENT AUTO 7 % (4-13); Mean Corpuscular HGB 30.2 pg (26.0-34.0); Mean Corpuscular HGB Conc 34.7 g/dL (31.5-36.5); Mean Corpuscular Volume 87 fL (80-100); Mean Platelet Volume 9.3 fL (9.1-12.4); NEUTROPHILS ABSOLUTE AUTO 2.76 K/mm3 (1.96-9.15); NEUTROPHILS PERCENT AUTO 41 % (41-73); Platelet Count 261 K/mm3 (150-400); RDW Coefficient Variation 11.7 % (11.7-14.2); RDW Standard Deviation 37.5 fL (35.1-46.3); Red Blood Cell Count 3.97 M/mm3 (3.80-5.20); White Blood Cell Count 6.71 K/mm3 (4.00-11.30)
[2019-02-09 04:29] LABS: Anion Gap 9 mmol/L (6-16); Blood Urea Nitrogen 20 mg/dL (8-24); Bun/Creatinine Ratio 40.7 (12.0-20.0); CO2, Blood 23 mmol/L (21-32); Calcium, Blood 7.8 mg/dL (8.5-10.1); Chloride, Blood 109 mmol/L (98-108); Creatinine, Blood 0.49 mg/dL (0.40-1.00); Glomerular Filtration Rate >60 (60-); Glucose, Blood 301 mg/dL (70-99); Phosphorus, Blood 3.8 mg/dL (2.5-4.9); Potassium, Blood 3.9 mmol/L (3.5-5.5); Sodium, Blood 141 mmol/L (136-145)
--- NOTE | 2019-02-09 06:19 | NUR ---
BLOOD SUGAR DR ALAN NOTIFIED THAT PATIENT'S BLOOD SUGAR WAS [address] ALAN ORDERED FOR HER 0730 DOSE OF HUMALOG TO BE GIVEN NOW.
--- NOTE | 2019-02-09 07:32 | NUR ---
SHIFT SUMMARY PATIENT ADMITTED FROM THE ER AT THE BEGINNING OF THE SHIFT. PATIENT ABLE TO TRANSFER SELF OVER FROM THE GURNEY TO THE BED. PATIENT DID NOT APPEAR TO BE IN ANY DISTRESS UPON ARRIVAL TO THE UNIT. PATIENT ORIENTED TO THE ROOM, UNIT, AND CALL LIGHT. IV FLUIDS RUNNING PER ORDERS. PATIENT MEDICATED FOR PAIN PER EMAR. PATIENT PROVIDED WITH A KPAD FOR BACK PAIN WELL. PATIENT APPEARED TO SLEEP WELL THROUGHOUT THE NIGHT. PATIENT CURRENTLY APPEARS TO BE ASLEEP. REPORT GIVEN TO ONCOMING RN.
--- NOTE | 2019-02-09 08:26 | NUR ---
RECEIVED REPORT AND ASSUMED CARE OF PATIENT. SHE IS INDEPENDENT IN THE ROOM AND ASKING WHEN SHE IS GOING TO GO HOME.
--- NOTE | 2019-02-09 14:05 | NUR ---
PT IV DISCONTINUED, PT REPORTS THAT SHE HAS A FOLLOW UP APPOINTMENT WITH DR. JENNINGS IN A WEEK. WILL DISCUSS MERGING PAIN MGMT AND DM MGMT. NO QUESTIONS AT TIME OF DISCHARGE.
== END 2019-02-09 13:44 | disposition home or self-care (01) | DRG 639 ==
LOC: ER 14:03 → ERHOLD 15:01 → PCU 19:15
PROVIDERS: Emergency Medicine; Internal Medicine; Nurse Practitioner Acute Care; ADMIT Psychiatry & Neurology Neurology with Special Qualifications in Child Neurology
DX: E10.10 Type 1 diabetes mellitus with ketoacidosis without coma (principal); Z79.4 Long term (current) use of insulin; E10.42 Type 1 diabetes mellitus with diabetic polyneuropathy; M54.5 Low back pain
CPT/HCPCS: 36415; 36600; 80048; 81001; 81025; 82803; 82947; 84100; 85025; 93005; 93010; 96361; 96365; 96375; 99285-25; A9270-GY; J1815; J1885; J3010; J7030; J7040

== ENCOUNTER → 2019-02-08 | Outpatient (CLI) | payer OTHER ==
[~2019-02-08] MED LIST changes: +CEFD300 PO; +GABA800 PO; +Humalog100 UNIT/3 SC; -Novolog Fl100 UNIT/1 SC
[2019-02-08 11:58] LABS: BASOPHILS ABSOLUTE AUTO 0.09 K/mm3 (0.00-0.23); BASOPHILS PERCENT AUTO 1 % (0-2); EOSINOPHILS ABSOLUTE AUTO 0.12 K/mm3 (0.00-0.68); EOSINOPHILS PERCENT AUTO 1 % (0-6); Hematocrit 43.1 % (33.0-51.0); Hemoglobin 15.3 g/dL (11.5-16.0); IMMATURE GRAN ABSOLUTE AUTO 0.05 K/mm3 (0.00-0.10); IMMATURE GRAN PERCENT AUTO 1 % (0-1); LYMPHOCYTES ABSOLUTE AUTO 1.75 K/mm3 (0.84-5.20); LYMPHOCYTES PERCENT AUTO 17 % (21-46); MONOCYTES ABSOLUTE AUTO 0.43 K/mm3 (0.16-1.47); MONOCYTES PERCENT AUTO 4 % (4-13); Mean Corpuscular HGB 30.8 pg (26.0-34.0); Mean Corpuscular HGB Conc 35.5 g/dL (31.5-36.5); Mean Corpuscular Volume 87 fL (80-100); Mean Platelet Volume 9.7 fL (9.1-12.4); NEUTROPHILS ABSOLUTE AUTO 7.85 K/mm3 (1.96-9.15); NEUTROPHILS PERCENT AUTO 76 % (41-73); Platelet Count 319 K/mm3 (150-400); RDW Coefficient Variation 11.9 % (11.7-14.2); RDW Standard Deviation 37.6 fL (35.1-46.3); Red Blood Cell Count 4.96 M/mm3 (3.80-5.20); White Blood Cell Count 10.29 K/mm3 (4.00-11.30)
[2019-02-08 12:13] LABS: Alanine Aminotransfer (ALT/SGP 26 U/L (12-78); Albumin, Blood 4.5 g/dL (3.4-5.0); Albumin/Globulin Ratio 1.1 (0.8-1.8); Alk Phos 126 U/L (40-126); Anion Gap 22 mmol/L (6-16); Aspartate Aminotrans (AST/SGOT 18 U/L (12-37); Bilirubin, Total 0.8 mg/dL (0.1-1.0); Blood Urea Nitrogen 25 mg/dL (8-24); Bun/Creatinine Ratio 27.8 (12.0-20.0); CO2, Blood 17 mmol/L (21-32); Calcium, Blood 9.3 mg/dL (8.5-10.1); Chloride, Blood 93 mmol/L (98-108); Globulin, Blood 4.1 g/dL (2.2-4.0); Glomerular Filtration Rate >60 (60-); Glucose, Blood 397 mg/dL (70-99); Potassium, Blood 4.3 mmol/L (3.5-5.5); Sodium, Blood 132 mmol/L (136-145); Total Protein, Blood 8.6 g/dL (6.4-8.2)
== END ==
LOC: LAB EV 11:49 → LAB SHORT 11:49
PROVIDERS: Emergency Medicine
DX: E10.10 Type 1 diabetes mellitus with ketoacidosis without coma (principal)
CPT/HCPCS: 80053; 82010; 85025

== ENCOUNTER 2019-02-16 17:24 | Emergency (ER) | payer OTHER ==
[~2019-02-16] VITALS: Ht 160 cm; Wt 57.6 kg
[~2019-02-16 17:24] MED LIST changes: -CEFD300 PO
[2019-02-16 18:27] LABS: Source, Urine Clean Catch
[2019-02-16 18:32] LABS: Bilirubin, Urine Neg (Neg); Blood, Urine 3+ (Neg); Glucose Qualitative, Urine 4+ (Neg); Ketones, Urine 4+ (Neg); Leukocyte Esterase, Urine 3+ (Neg); Nitrite, Urine Pos (Neg); Protein, Urine 2+ (Neg); Urobilinogen, Urine NORM (Normal)
[2019-02-16 18:33] LABS: BASOPHILS ABSOLUTE AUTO 0.06 K/mm3 (0.00-0.23); BASOPHILS PERCENT AUTO 1 % (0-2); EOSINOPHILS ABSOLUTE AUTO 0.04 K/mm3 (0.00-0.68); EOSINOPHILS PERCENT AUTO 0 % (0-6); Hematocrit 37.9 % (33.0-51.0); Hemoglobin 13.2 g/dL (11.5-16.0); IMMATURE GRAN ABSOLUTE AUTO 0.05 K/mm3 (0.00-0.10); IMMATURE GRAN PERCENT AUTO 0 % (0-1); LYMPHOCYTES ABSOLUTE AUTO 1.12 K/mm3 (0.84-5.20); LYMPHOCYTES PERCENT AUTO 9 % (21-46); MONOCYTES ABSOLUTE AUTO 1.42 K/mm3 (0.16-1.47); MONOCYTES PERCENT AUTO 12 % (4-13); Mean Corpuscular HGB 30.6 pg (26.0-34.0); Mean Corpuscular HGB Conc 34.8 g/dL (31.5-36.5); Mean Corpuscular Volume 88 fL (80-100); Mean Platelet Volume 9.6 fL (9.1-12.4); NEUTROPHILS ABSOLUTE AUTO 9.42 K/mm3 (1.96-9.15); NEUTROPHILS PERCENT AUTO 78 % (41-73); Platelet Count 291 K/mm3 (150-400); RDW Coefficient Variation 11.6 % (11.7-14.2); RDW Standard Deviation 37.3 fL (35.1-46.3); Red Blood Cell Count 4.32 M/mm3 (3.80-5.20); White Blood Cell Count 12.11 K/mm3 (4.00-11.30)
[2019-02-16 18:39] LABS: Appearance, Urine Hazy (Clear); Color, Urine Yellow (P-Yellow)
[2019-02-16 18:40] LABS: White Blood Cells, Urine TNTC /hpf (0-5)
[2019-02-16 18:42] LABS: Squamous Epithelial Cells Few /hpf (Few); Transitional Epithelial Cells Few /hpf (0-Rare)
[2019-02-16 18:43] LABS: Bacteria Mod /hpf
[2019-02-16 19:03] LABS: Alanine Aminotransfer (ALT/SGP 16 U/L (12-78); Albumin, Blood 3.3 g/dL (3.4-5.0); Albumin/Globulin Ratio 0.8 (0.8-1.8); Alk Phos 99 U/L (50-136); Anion Gap 9 mmol/L (6-16); Aspartate Aminotrans (AST/SGOT 10 U/L (12-37); Bilirubin, Total 0.6 mg/dL (0.1-1.0); Blood Urea Nitrogen 18 mg/dL (8-24); Bun/Creatinine Ratio 34.1 (12.0-20.0); CO2, Blood 24 mmol/L (21-32); Calcium, Blood 9.2 mg/dL (8.5-10.1); Chloride, Blood 105 mmol/L (98-108); Creatinine, Blood 0.53 mg/dL (0.40-1.00); Globulin, Blood 3.9 g/dL (2.2-4.0); Glomerular Filtration Rate >60 (60-); Glucose, Blood 247 mg/dL (70-99); Potassium, Blood 3.8 mmol/L (3.5-5.5); Sodium, Blood 138 mmol/L (136-145); Total Protein, Blood 7.2 g/dL (6.4-8.2)
[2019-02-16 19:12] LABS: Base Excess Venous -1.8 mmol/L; Bicarbonate Venous 23.3 mmol/L (24.0-30.0); PCO2 Venous 35.5 mmHg (38-42); PO2 Venous 162 mmHg (38-42); pH Blood Venous 7.42 (7.34-7.37)
[2019-02-16] MEDS ORDERED: CEFD300 PO (20:06)
== END 2019-02-16 20:46 | disposition home or self-care (01) ==
LOC: ER 17:24
PROVIDERS: Emergency Medicine
DX: N12 Tubulo-interstitial nephritis, not specified as acute or chronic (principal); E10.9 Type 1 diabetes mellitus without complications; Z88.8 Allergy status to other drugs, medicaments and biological substances
CPT/HCPCS: 36415; 76770; 80053; 81001; 81025; 82803; 83605; 85025; 87086; 96361; 96374; 96375; 99284-25; A9270-GY; J1815; J1885; J2270; J2550; J7030

== ENCOUNTER → 2019-02-16 | Outpatient (CLI) | payer OTHER ==
[~2019-02-16] MED LIST changes: +CEFD300 PO
[2019-02-16 09:18] LABS: BASOPHILS ABSOLUTE AUTO 0.06 K/mm3 (0.00-0.23); BASOPHILS PERCENT AUTO 1 % (0-2); EOSINOPHILS ABSOLUTE AUTO 0.32 K/mm3 (0.00-0.68); EOSINOPHILS PERCENT AUTO 3 % (0-6); Hematocrit 39.1 % (33.0-51.0); Hemoglobin 13.6 g/dL (11.5-16.0); IMMATURE GRAN ABSOLUTE AUTO 0.04 K/mm3 (0.00-0.10); IMMATURE GRAN PERCENT AUTO 0 % (0-1); LYMPHOCYTES ABSOLUTE AUTO 1.14 K/mm3 (0.84-5.20); LYMPHOCYTES PERCENT AUTO 12 % (21-46); MONOCYTES ABSOLUTE AUTO 0.98 K/mm3 (0.16-1.47); MONOCYTES PERCENT AUTO 10 % (4-13); Mean Corpuscular HGB Conc 34.8 g/dL (31.5-36.5); Mean Corpuscular Volume 86 fL (80-100); Mean Platelet Volume 9.7 fL (9.1-12.4); NEUTROPHILS ABSOLUTE AUTO 7.41 K/mm3 (1.96-9.15); NEUTROPHILS PERCENT AUTO 75 % (41-73); Platelet Count 284 K/mm3 (150-400); RDW Coefficient Variation 11.8 % (11.7-14.2); RDW Standard Deviation 37.2 fL (35.1-46.3); Red Blood Cell Count 4.54 M/mm3 (3.80-5.20); White Blood Cell Count 9.95 K/mm3 (4.00-11.30)
[2019-02-16 09:27] LABS: Alanine Aminotransfer (ALT/SGP 17 U/L (12-78); Albumin, Blood 3.5 g/dL (3.4-5.0); Albumin/Globulin Ratio 0.9 (0.8-1.8); Alk Phos 109 U/L (40-126); Anion Gap 9 mmol/L (6-16); Aspartate Aminotrans (AST/SGOT 17 U/L (12-37); Bilirubin, Total 0.5 mg/dL (0.1-1.0); Blood Urea Nitrogen 21 mg/dL (8-24); Bun/Creatinine Ratio 30.4 (12.0-20.0); CO2, Blood 28 mmol/L (21-32); Chloride, Blood 100 mmol/L (98-108); Creatinine, Blood 0.69 mg/dL (0.40-1.00); Glomerular Filtration Rate >60 (60-); Glucose, Blood 281 mg/dL (70-99); Potassium, Blood 4.6 mmol/L (3.5-5.5); Sodium, Blood 137 mmol/L (136-145); Total Protein, Blood 7.5 g/dL (6.4-8.2)
== END | disposition home or self-care (01) ==
LOC: LAB EV 09:08 → LAB SHORT 09:08
PROVIDERS: Physician Assistant Medical
DX: N12 Tubulo-interstitial nephritis, not specified as acute or chronic (principal)
CPT/HCPCS: 80053; 85025

== ENCOUNTER 2019-03-08 14:11 | Emergency (ER) | payer OTHER ==
[~2019-03-08] VITALS: Ht 157.5 cm; Wt 56.2 kg
[~2019-03-08 14:11] MED LIST changes: +CEFD300 PO
[2019-03-08 15:21] LABS: Source, Urine Clean Catch
[2019-03-08 15:26] LABS: BASOPHILS ABSOLUTE AUTO 0.04 K/mm3 (0.00-0.23); BASOPHILS PERCENT AUTO 0 % (0-2); EOSINOPHILS ABSOLUTE AUTO 0.16 K/mm3 (0.00-0.68); EOSINOPHILS PERCENT AUTO 2 % (0-6); Hemoglobin 13.6 g/dL (11.5-16.0); IMMATURE GRAN ABSOLUTE AUTO 0.03 K/mm3 (0.00-0.10); IMMATURE GRAN PERCENT AUTO 0 % (0-1); LYMPHOCYTES ABSOLUTE AUTO 1.99 K/mm3 (0.84-5.20); LYMPHOCYTES PERCENT AUTO 22 % (21-46); MONOCYTES ABSOLUTE AUTO 0.61 K/mm3 (0.16-1.47); MONOCYTES PERCENT AUTO 7 % (4-13); Mean Corpuscular HGB Conc 34.9 g/dL (31.5-36.5); Mean Corpuscular Volume 86 fL (80-100); Mean Platelet Volume 9.4 fL (9.1-12.4); NEUTROPHILS ABSOLUTE AUTO 6.35 K/mm3 (1.96-9.15); NEUTROPHILS PERCENT AUTO 69 % (41-73); Platelet Count 292 K/mm3 (150-400); RDW Standard Deviation 37.4 fL (35.1-46.3); Red Blood Cell Count 4.54 M/mm3 (3.80-5.20); White Blood Cell Count 9.18 K/mm3 (4.00-11.30)
[2019-03-08 15:45] LABS: Bilirubin, Urine Neg (Neg); Blood, Urine 4+ (Neg); Glucose Qualitative, Urine 4+ (Neg); Ketones, Urine 2+ (Neg); Leukocyte Esterase, Urine 3+ (Neg); Nitrite, Urine Neg (Neg); Protein, Urine 3+ (Neg); Urobilinogen, Urine NORM (Normal)
[2019-03-08 15:51] LABS: Alanine Aminotransfer (ALT/SGP 20 U/L (12-78); Albumin, Blood 3.8 g/dL (3.4-5.0); Albumin/Globulin Ratio 1.1 (0.8-1.8); Alk Phos 106 U/L (50-136); Anion Gap 10 mmol/L (6-16); Aspartate Aminotrans (AST/SGOT 10 U/L (12-37); Bilirubin, Total 0.6 mg/dL (0.1-1.0); Blood Urea Nitrogen 12 mg/dL (8-24); Bun/Creatinine Ratio 23.6 (12.0-20.0); CO2, Blood 25 mmol/L (21-32); Calcium, Blood 9.3 mg/dL (8.5-10.1); Chloride, Blood 105 mmol/L (98-108); Creatinine, Blood 0.51 mg/dL (0.40-1.00); Globulin, Blood 3.6 g/dL (2.2-4.0); Glomerular Filtration Rate >60 (60-); Glucose, Blood 283 mg/dL (70-99); Sodium, Blood 140 mmol/L (136-145); Total Protein, Blood 7.4 g/dL (6.4-8.2)
[2019-03-08 16:19] LABS: Appearance, Urine Cloudy (Clear); Color, Urine Yellow (P-Yellow)
[2019-03-08 16:20] LABS: Squamous Epithelial Cells Few /hpf (Few)
[2019-03-08 16:21] LABS: Bacteria Many /hpf; White Blood Cells, Urine TNTC /hpf (0-5)
[2019-03-08 16:24] LABS: Beta-hydroxybutyrate 7.9 mg/dL (0.2-2.8)
[2019-03-08] MEDS ORDERED: Percocet 5-3251 EACH PO (18:48)
[2019-03-08] MEDS ORDERED: Bactrim Ds Tab1 EACH PO (18:48)
[2019-03-08] MEDS ORDERED: ONDA4ODT MM (18:49)
== END 2019-03-08 19:39 | disposition home or self-care (01) ==
LOC: ER 14:11
PROVIDERS: Emergency Medicine
DX: N12 Tubulo-interstitial nephritis, not specified as acute or chronic (principal); E11.9 Type 2 diabetes mellitus without complications; Z79.4 Long term (current) use of insulin; Z91.048 Other nonmedicinal substance allergy status; Z91.09 Other allergy status, other than to drugs and biological substances
CPT/HCPCS: 36415; 80053; 81001; 81025; 82010; 82947; 83690; 85025; 87077; 87086; 87186; 96361; 96374; 99283-25; J1885; J7120

== ENCOUNTER → 2019-03-24 | Outpatient (CLI) | payer OTHER ==
[~2019-03-24] MED LIST changes: +Bactrim Ds Tab1 EACH PO; +Percocet 5-3251 EACH PO
== END ==
LOC: LAB SHORT 11:40 → LAB EV 11:40
DX: R30.0 Dysuria (principal)
CPT/HCPCS: 87077; 87086; 87186

== ENCOUNTER → 2019-03-30 | Outpatient (CLI) | payer OTHER ==
[2019-03-30 11:06] LABS: BASOPHILS ABSOLUTE AUTO 0.07 K/mm3 (0.00-0.23); BASOPHILS PERCENT AUTO 1 % (0-2); EOSINOPHILS ABSOLUTE AUTO 0.14 K/mm3 (0.00-0.68); EOSINOPHILS PERCENT AUTO 2 % (0-6); Hematocrit 35.1 % (33.0-51.0); Hemoglobin 12.1 g/dL (11.5-16.0); IMMATURE GRAN ABSOLUTE AUTO 0.05 K/mm3 (0.00-0.10); IMMATURE GRAN PERCENT AUTO 1 % (0-1); LYMPHOCYTES ABSOLUTE AUTO 1.83 K/mm3 (0.84-5.20); LYMPHOCYTES PERCENT AUTO 24 % (21-46); MONOCYTES ABSOLUTE AUTO 0.28 K/mm3 (0.16-1.47); MONOCYTES PERCENT AUTO 4 % (4-13); Mean Corpuscular HGB 29.3 pg (26.0-34.0); Mean Corpuscular HGB Conc 34.5 g/dL (31.5-36.5); Mean Corpuscular Volume 85 fL (80-100); Mean Platelet Volume 9.3 fL (9.1-12.4); NEUTROPHILS ABSOLUTE AUTO 5.19 K/mm3 (1.96-9.15); NEUTROPHILS PERCENT AUTO 69 % (41-73); Platelet Count 502 K/mm3 (150-400); RDW Coefficient Variation 12.3 % (11.7-14.2); RDW Standard Deviation 37.2 fL (35.1-46.3); Red Blood Cell Count 4.13 M/mm3 (3.80-5.20); White Blood Cell Count 7.56 K/mm3 (4.00-11.30)
[2019-03-30 11:17] LABS: Anion Gap 16 mmol/L (6-16); Blood Urea Nitrogen 12 mg/dL (8-24); Bun/Creatinine Ratio 17.4 (12.0-20.0); CO2, Blood 25 mmol/L (21-32); Calcium, Blood 9.7 mg/dL (8.5-10.1); Chloride, Blood 94 mmol/L (98-108); Creatinine, Blood 0.69 mg/dL (0.40-1.00); Glomerular Filtration Rate >60 (60-); Glucose, Blood 370 mg/dL (70-99); Potassium, Blood 5.1 mmol/L (3.5-5.5); Sodium, Blood 135 mmol/L (136-145)
== END | disposition home or self-care (01) ==
LOC: LAB SHORT 10:58 → LAB EV 10:58
PROVIDERS: Family Medicine
DX: E86.0 Dehydration (principal)
CPT/HCPCS: 80048; 85025

== ENCOUNTER 2019-04-06 15:05 | Inpatient (IN) | payer OTHER ==
[~2019-04-06] VITALS: Ht 157.5 cm; Wt 58.9 kg
[~2019-04-06 15:05] MED LIST changes: -GABA800 PO
[2019-04-06 16:03] LABS: Base Excess Venous 1.7 mmol/L; Bicarbonate Venous 25.3 mmol/L (24.0-30.0); PCO2 Venous 44.1 mmHg (38-42); PO2 Venous 59.1 mmHg (38-42); pH Blood Venous 7.39 (7.34-7.37)
[2019-04-06 16:20] LABS: BASOPHILS ABSOLUTE AUTO 0.05 K/mm3 (0.00-0.23); BASOPHILS PERCENT AUTO 1 % (0-2); EOSINOPHILS ABSOLUTE AUTO 0.07 K/mm3 (0.00-0.68); EOSINOPHILS PERCENT AUTO 1 % (0-6); Hematocrit 41.5 % (33.0-51.0); Hemoglobin 14.4 g/dL (11.5-16.0); IMMATURE GRAN ABSOLUTE AUTO 0.02 K/mm3 (0.00-0.10); IMMATURE GRAN PERCENT AUTO 0 % (0-1); LYMPHOCYTES ABSOLUTE AUTO 1.48 K/mm3 (0.84-5.20); LYMPHOCYTES PERCENT AUTO 17 % (21-46); MONOCYTES ABSOLUTE AUTO 0.73 K/mm3 (0.16-1.47); MONOCYTES PERCENT AUTO 9 % (4-13); Mean Corpuscular HGB 29.1 pg (26.0-34.0); Mean Corpuscular HGB Conc 34.7 g/dL (31.5-36.5); Mean Corpuscular Volume 84 fL (80-100); NEUTROPHILS ABSOLUTE AUTO 6.16 K/mm3 (1.96-9.15); NEUTROPHILS PERCENT AUTO 72 % (41-73); Platelet Count 470 K/mm3 (150-400); RDW Coefficient Variation 12.8 % (11.7-14.2); RDW Standard Deviation 38.9 fL (35.1-46.3); Red Blood Cell Count 4.95 M/mm3 (3.80-5.20); White Blood Cell Count 8.51 K/mm3 (4.00-11.30)
[2019-04-06 16:39] LABS: Alanine Aminotransfer (ALT/SGP 18 U/L (12-78); Albumin, Blood 3.9 g/dL (3.4-5.0); Albumin/Globulin Ratio 0.8 (0.8-1.8); Alk Phos 159 U/L (50-136); Anion Gap 11 mmol/L (6-16); Aspartate Aminotrans (AST/SGOT 15 U/L (12-37); Bilirubin, Total 0.4 mg/dL (0.1-1.0); Blood Urea Nitrogen 20 mg/dL (8-24); Bun/Creatinine Ratio 33.7 (12.0-20.0); CO2, Blood 26 mmol/L (21-32); Calcium, Blood 9.9 mg/dL (8.5-10.1); Chloride, Blood 94 mmol/L (98-108); Creatinine, Blood 0.59 mg/dL (0.40-1.00); Globulin, Blood 4.8 g/dL (2.2-4.0); Glomerular Filtration Rate >60 (60-); Glucose, Blood 390 mg/dL (70-99); Sodium, Blood 131 mmol/L (136-145); Total Protein, Blood 8.7 g/dL (6.4-8.2)
[2019-04-06 16:56] LABS: Source, Urine Clean Catch
[2019-04-06 17:10] LABS: Bilirubin, Urine Neg (Neg); Blood, Urine 2+ (Neg); Glucose Qualitative, Urine 4+ (Neg); Ketones, Urine 3+ (Neg); Leukocyte Esterase, Urine 2+ (Neg); Nitrite, Urine Neg (Neg); Protein, Urine 1+ (Neg); Urobilinogen, Urine NORM (Normal)
[2019-04-06 17:22] LABS: Appearance, Urine Clear (Clear); Color, Urine Yellow (P-Yellow)
[2019-04-06 17:23] LABS: Bacteria Many /hpf; Squamous Epithelial Cells Few /hpf (Few); White Blood Cells, Urine 50-100 /hpf (0-5)
[2019-04-06 19:25] LABS: Anion Gap 12 mmol/L (6-16); Blood Urea Nitrogen 16 mg/dL (8-24); Bun/Creatinine Ratio 23.8 (12.0-20.0); CO2, Blood 22 mmol/L (21-32); Calcium, Blood 8.7 mg/dL (8.5-10.1); Chloride, Blood 102 mmol/L (98-108); Creatinine, Blood 0.67 mg/dL (0.40-1.00); Glomerular Filtration Rate >60 (60-); Glucose, Blood 354 mg/dL (70-99); Potassium, Blood 3.7 mmol/L (3.5-5.5); Sodium, Blood 136 mmol/L (136-145)
[2019-04-06] MEDS ORDERED: GABA800 PO (20:26)
[2019-04-06] MEDS ORDERED: AMIT25 PO (20:26)
[2019-04-06] MEDS ORDERED: ALBU90OI INH (21:22)
--- NOTE | 2019-04-06 23:07 | NUR ---
2245 TEMP 103.5 2300 TEMP 103.5. PT HAS ICE PACKS UNDER BOTH ARMS AND AROUND NECK, HEART RATE 155, TYLENOL 650MG PO GIVEN AT 2145. THIS NURSE CONTACTED KHALIF NUNES WITH PA TO ENTER ORDERS FOR BLOOD CULTURES AND MOTRIN.
--- NOTE | 2019-04-07 03:51 | NUR ---
[birth year]/192044 23 Y/O FEMALE ADMITTED TO 309 PER CART FROM ER. PTS FRIEND AT SIDE AND SUPPORTIVE.
--- NOTE | 2019-04-07 03:51 | NUR ---
SHIFT SUMMARY: 23 Y/O FEMALE RESTED COMFORTABLE LAST HALF OF SHIFT. PT HIGHEST ORAL TEMPERATURE WAS 103.5 (MD WAS NOTIFIED) WITH TYLENOL 650MG PO AND MOTRIN 400MG PO GIVEN WITH TEMPERATURE COMING DOWN TO 98.3. PT ATE 2 1/2 SANDWICHES LAST NIGHT AND VOICED THAT SHE HAD NOT EATEN ANYTHING THE DAY PRIOR. PT IS ALERT AND ORIENTED X 3. PT DENIES PAIN. PT DENIES NAUSEA. 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 PTS BED LOW [id number], CALL LIGHT AT SIDE.
[2019-04-07 05:10] LABS: Hematocrit 36.9 % (33.0-51.0); Hemoglobin 12.3 g/dL (11.5-16.0); Mean Corpuscular HGB 29.1 pg (26.0-34.0); Mean Corpuscular HGB Conc 33.3 g/dL (31.5-36.5); Platelet Count 373 K/mm3 (150-400); RDW Coefficient Variation 12.9 % (11.7-14.2); RDW Standard Deviation 40.6 fL (35.1-46.3); Red Blood Cell Count 4.23 M/mm3 (3.80-5.20); White Blood Cell Count 18.14 K/mm3 (4.00-11.30)
[2019-04-07 05:11] LABS: Mean Corpuscular Volume 87 fL (80-100)
[2019-04-07 05:41] LABS: Alanine Aminotransfer (ALT/SGP 13 U/L (12-78); Albumin/Globulin Ratio 0.7 (0.8-1.8); Alk Phos 141 U/L (50-136); Anion Gap 12 mmol/L (6-16); Aspartate Aminotrans (AST/SGOT 12 U/L (12-37); Bilirubin, Total 0.4 mg/dL (0.1-1.0); Blood Urea Nitrogen 19 mg/dL (8-24); Bun/Creatinine Ratio 27.6 (12.0-20.0); CO2, Blood 21 mmol/L (21-32); Calcium, Blood 8.5 mg/dL (8.5-10.1); Chloride, Blood 103 mmol/L (98-108); Creatinine, Blood 0.69 mg/dL (0.40-1.00); Globulin, Blood 4.3 g/dL (2.2-4.0); Glomerular Filtration Rate >60 (60-); Glucose, Blood 367 mg/dL (70-99); Potassium, Blood 4.3 mmol/L (3.5-5.5); Sodium, Blood 136 mmol/L (136-145); Total Protein, Blood 7.3 g/dL (6.4-8.2)
--- NOTE | 2019-04-07 06:34 | NUR ---
PTS TEMP 100.8, HEART RATE 131, PATIENT GIVEN ZOFRAN 4MG IVP (NO EMESIS).
--- NOTE | 2019-04-07 07:17 | NUR ---
FEVER W/ST. GIVEN TYL. IBU AND ICE PACKS TO ARMPITS AND NECK. COOL WASHCLOTH TO FOREHEAD. GIVEN POPSYCLES. WILL RECHECK.
--- NOTE | 2019-04-07 08:40 | NUR ---
TALKED TO ABOUT INSULIN. PER MD Hardwick'C NIGHT LANTUS, OK TO KEEP ON PATIENT NORMAL SCHEDULE OF LANTUS 45 UNITS AT 1300. MD TO ADJUST SLIDING SCALE. AWARE FEVER TRENDING DOWN
--- NOTE | 2019-04-07 09:05 | NUR ---
TALKED TO ABOUT NEURONTIN. PATIENT TAKES 2400 MG AT NIGHT. PER SHE CHANGED IT TO 3 TIMES A DAY "LARGE DOSE ALL AT ONCE". AT THIS TIME PATIENT REFUSES 9AM DOSE.
--- NOTE | 2019-04-07 13:29 | NUR ---
LEFT MESSAGE ON VOICE MAIL; SLIDING SCALE INSULIN AC AND HS WAS CANCELLED AND PATIENT NORMALLY TAKES THAT AND DOES CARB COUNT. WAITING ANY CHANGES.
--- NOTE | 2019-04-07 13:40 | NUR ---
CALLED BACK AND WILL ORDER MUSCLE RELAXER FOR BACK SPASMS AND THIS RN VERIFIED W/J.FALL INTERN DIETITIAN AND PATIENT INSULIN DOSES. PATIENT TAKES HIGH SLIDING SCALE AC AND LOW SLIDING SCALE HS AND DOES 1 UNIT TO 5 CARBS EATTEN. TO ORDER.
--- NOTE | 2019-04-07 15:43 | NUR ---
NOTIFIED HAVE BEEN CHASING FEVER ALL DAY. NOW 103.5 ORAL AGAIN. ICE PACKS TO ARMPITS AND FOREHEAD. FAN IN ROOM. HAD TYLENOL ONE HOUR AGO AND NOW ADVIL. AWAITING ORDERS.
--- NOTE | 2019-04-07 16:00 | NUR ---
AWARE INITIAL ORDERS FOR PATIENT WERE TO ADMIT TO PCU. WILL WAIT TILL LABS BACK TO DECIDE IF NEEDS TO TRANSFER.
[2019-04-07 16:32] LABS: BASOPHILS ABSOLUTE AUTO 0.06 K/mm3 (0.00-0.23); BASOPHILS PERCENT AUTO 0 % (0-2); EOSINOPHILS ABSOLUTE AUTO 0.02 K/mm3 (0.00-0.68); EOSINOPHILS PERCENT AUTO 0 % (0-6); Hematocrit 34.3 % (33.0-51.0); Hemoglobin 11.9 g/dL (11.5-16.0); IMMATURE GRAN ABSOLUTE AUTO 0.05 K/mm3 (0.00-0.10); IMMATURE GRAN PERCENT AUTO 0 % (0-1); LYMPHOCYTES PERCENT AUTO 5 % (21-46); MONOCYTES ABSOLUTE AUTO 0.99 K/mm3 (0.16-1.47); MONOCYTES PERCENT AUTO 6 % (4-13); Mean Corpuscular HGB 29.9 pg (26.0-34.0); Mean Corpuscular HGB Conc 34.7 g/dL (31.5-36.5); Mean Corpuscular Volume 86 fL (80-100); Mean Platelet Volume 9.2 fL (9.1-12.4); NEUTROPHILS ABSOLUTE AUTO 16.14 K/mm3 (1.96-9.15); NEUTROPHILS PERCENT AUTO 89 % (41-73); Platelet Count 322 K/mm3 (150-400); RDW Coefficient Variation 12.6 % (11.7-14.2); RDW Standard Deviation 39.7 fL (35.1-46.3); Red Blood Cell Count 3.98 M/mm3 (3.80-5.20); White Blood Cell Count 18.16 K/mm3 (4.00-11.30)
--- NOTE | 2019-04-07 18:21 | NUR ---
ALERT. ORIENTED. TELE ON AND PER TECH ST AT 123. FEVER OFF AND ON ALL DAY. AT THIS TIME PATIENT W/NORMAL TEMP AND PAIN TO BACK MUCH BETTER. PLEASANT. COOPERATIVE. AWAITING CT SCAN AND PER RADIOLOGY WILL GET AROUND 1830. UNLABORED BREATHING. IN STILL INFUSING BOLUS WITH ANTIBIOTIC. WCTM.
[2019-04-08 04:40] LABS: BASOPHILS ABSOLUTE AUTO 0.04 K/mm3 (0.00-0.23); BASOPHILS PERCENT AUTO 0 % (0-2); EOSINOPHILS ABSOLUTE AUTO 0.02 K/mm3 (0.00-0.68); EOSINOPHILS PERCENT AUTO 0 % (0-6); Hematocrit 31.8 % (33.0-51.0); Hemoglobin 10.8 g/dL (11.5-16.0); IMMATURE GRAN ABSOLUTE AUTO 0.05 K/mm3 (0.00-0.10); IMMATURE GRAN PERCENT AUTO 0 % (0-1); LYMPHOCYTES ABSOLUTE AUTO 0.75 K/mm3 (0.84-5.20); LYMPHOCYTES PERCENT AUTO 6 % (21-46); MONOCYTES ABSOLUTE AUTO 0.45 K/mm3 (0.16-1.47); MONOCYTES PERCENT AUTO 4 % (4-13); Mean Corpuscular HGB 29.4 pg (26.0-34.0); Mean Corpuscular Volume 87 fL (80-100); Mean Platelet Volume 9.1 fL (9.1-12.4); NEUTROPHILS ABSOLUTE AUTO 10.32 K/mm3 (1.96-9.15); NEUTROPHILS PERCENT AUTO 89 % (41-73); Platelet Count 218 K/mm3 (150-400); RDW Coefficient Variation 12.8 % (11.7-14.2); RDW Standard Deviation 40.8 fL (35.1-46.3); Red Blood Cell Count 3.67 M/mm3 (3.80-5.20); White Blood Cell Count 11.63 K/mm3 (4.00-11.30)
--- NOTE | 2019-04-08 04:56 | NUR ---
PT TO ICU 14 FROM MEDICAL FLOOR PCU STATUS FOLLOWING RAPID RESPONSE EVENT. PT TMAX 105, TACHYCARDIC, AND LETHARGIC. PT GIVEN TYLENOL FOR FEVER AND FENTANYL FOR KIDNEY PAIN. CURRENT TEMPERATURE 100.0, PT PLACED ON 3L O2 NC SATS WERE MID 80'S. SATS CURRENTLY 90'S ON 2L NC.
[2019-04-08 05:00] LABS: Alanine Aminotransfer (ALT/SGP 20 U/L (12-78); Albumin, Blood 2.5 g/dL (3.4-5.0); Albumin/Globulin Ratio 0.7 (0.8-1.8); Alk Phos 128 U/L (50-136); Anion Gap 7 mmol/L (6-16); Aspartate Aminotrans (AST/SGOT 30 U/L (12-37); Bilirubin, Total 0.3 mg/dL (0.1-1.0); Blood Urea Nitrogen 9 mg/dL (8-24); Bun/Creatinine Ratio 17.8 (12.0-20.0); CO2, Blood 24 mmol/L (21-32); Calcium, Blood 7.9 mg/dL (8.5-10.1); Chloride, Blood 106 mmol/L (98-108); Creatinine, Blood 0.51 mg/dL (0.40-1.00); Globulin, Blood 3.7 g/dL (2.2-4.0); Glomerular Filtration Rate >60 (60-); Glucose, Blood 226 mg/dL (70-99); Potassium, Blood 3.4 mmol/L (3.5-5.5); Sodium, Blood 137 mmol/L (136-145); Total Protein, Blood 6.2 g/dL (6.4-8.2)
--- NOTE | 2019-04-08 06:39 | NUR ---
SHIFT SUMMARY NO CHANGES SINCE TRANSFER TO ICU FROM [facility] FLOOR. PT REMAINS ON 2L 02 NC, SATS LOW 90'S. CURRENT TEMPERATURE 98.9. PT RESTING WELL. WILL REPORT TO DAYSHIFT NURSE.
--- NOTE | 2019-04-08 07:04 | NUR ---
PT'S HEART RATE IN THE 140'S ALL THE WAY UP TO 160'S, CALLED DR. ALAN AND RECEIVED AN ORDER FOR 10 MG IV LOPRESSOR. PT'S TEMP UP TO 103 GAVE 650 MG TYLENOL, RECHECKED TEMP AND IT HAD INCREASED TO 105, HR HAD DECREASED TO HIGH 130'S BUT PT APPEARED VISIBLY DISTRESSED AND UNWELL SO CHIEF OF PARTY WAS INITIATED. CALLED DR. ALAN AGAIN AT WHICH TIME HE ORDERED PT TO BE TRANSFERED TO PCU.
--- NOTE | 2019-04-08 07:30 | NUR ---
ASSUMED CARE OF PATIENT; SEE ASSESSMENT CHARTING FOR DETAILS. PATIENT'S TEMP. COMING DOWN AND SHE IS FEELING BETTER. CBG 198- COVERED WITH 4 UNITS PER SS COVERAGE WELL 7U BOR 1:5 CARB COUNT COVERAGE; TOTAL OF 11UNITS NOVOLOG INSULIN SUBCUTANEOUS. LUNGS CLEAR; BIOX MID TO HIGH 90'S ON 2L/NC. MONITOR REMAINS ST BUT RATE LOW 100'S TO 120'S; BP STABLE. IVF OF NS INFUSING AT 150ML/HR. UP FOR BRP AND VOIDED 1000ML OF LT YELLOW URINE. REQUIRES ONLY STANDBY ASSIST. WHEN OOB D/T CORDS/LINES.
--- NOTE | 2019-04-08 10:30 | NUR ---
DR. TY HERE; PATIENT TO REMAIN PCU STATUS. SEE FURTHER ORDERS. IVF OF NS REDUCED TO 50ML/HR.
--- NOTE | 2019-04-08 12:43 | NUR ---
TEARFUL; FEELING NAUTIOUS AND FEVER CLIMBING; FLEXORIL, IBUPROFEN AND ZOFRAN GIVEN. APPETITE LIMITED; CBG AT 1145 WAS 140; NO SLIDING SCALE COVERAGE INDICATED.
--- NOTE | 2019-04-08 13:18 | NUR ---
TYLENOL 650MG PO FOR ROUTINE ORDER; TEMP. 100.2 AND FEELS COLD/SHIVERY.
--- NOTE | 2019-04-08 14:22 | NUR ---
TEMP DOWN TO 99.8 AND NO LONGER SHIVERING; ATE SOME COTTAGE CHEESE AND FRUIT AND NO FURTHER NAUSEA. FENTANYL 25MCG IVT FOR ONGOING BACK/FLANK PAIN; RESTUL FOLLOWING PAIN MED. AND PAIN DOWN TO 6/10 FROM 07/06.
--- NOTE | 2019-04-08 18:00 | NUR ---
SUMMARY: APPETITE LIMITED BUT NO NAUSEA; REFUSING DINNER FOR NOW SO NO CARB/INSULIN COVERAGE INDICATED. CBG 165 AC DINNER; RECEIVED 4/U NOVOLOG PER HIGH SS COVERAGE. UP IN ROOM ON OWN; MORE COMFORTABLE IF STANDS OR SITS UPRIGHT; NO CHILLS THIS AFTERNOON AND TEMP. IMPROVED. WILL REPORT TO ONCOMING RN.
--- NOTE | 2019-04-08 19:15 | NUR ---
ASSUMED CARE OF PT REPORT RCV'D FROM JAS HENSLEY. PT ALERT AND ORIENTED SITTING IN CHAIR. S/O AT BEDSIDE. PT AFEBRILE AND STATES HER PAIN IS 7/10 IN FLANK AREA, DENIES NAUSEA/VOMITING. NS RUNNING AT 50 ML/HR. SEE FULL SHIFT ASSESSMENT.
[2019-04-09 03:26] LABS: BASOPHILS ABSOLUTE AUTO 0.04 K/mm3 (0.00-0.23); BASOPHILS PERCENT AUTO 1 % (0-2); EOSINOPHILS ABSOLUTE AUTO 0.11 K/mm3 (0.00-0.68); EOSINOPHILS PERCENT AUTO 2 % (0-6); Hematocrit 35.9 % (33.0-51.0); Hemoglobin 12.1 g/dL (11.5-16.0); IMMATURE GRAN ABSOLUTE AUTO 0.03 K/mm3 (0.00-0.10); IMMATURE GRAN PERCENT AUTO 0 % (0-1); LYMPHOCYTES ABSOLUTE AUTO 1.35 K/mm3 (0.84-5.20); LYMPHOCYTES PERCENT AUTO 18 % (21-46); MONOCYTES ABSOLUTE AUTO 0.57 K/mm3 (0.16-1.47); MONOCYTES PERCENT AUTO 8 % (4-13); Mean Corpuscular HGB 29.1 pg (26.0-34.0); Mean Corpuscular HGB Conc 33.7 g/dL (31.5-36.5); Mean Corpuscular Volume 86 fL (80-100); Mean Platelet Volume 9.2 fL (9.1-12.4); NEUTROPHILS ABSOLUTE AUTO 5.27 K/mm3 (1.96-9.15); NEUTROPHILS PERCENT AUTO 72 % (41-73); Platelet Count 214 K/mm3 (150-400); RDW Standard Deviation 40.6 fL (35.1-46.3); Red Blood Cell Count 4.16 M/mm3 (3.80-5.20); White Blood Cell Count 7.37 K/mm3 (4.00-11.30)
[2019-04-09 03:53] LABS: Anion Gap 7 mmol/L (6-16); Blood Urea Nitrogen 6 mg/dL (8-24); Bun/Creatinine Ratio 14.7 (12.0-20.0); CO2, Blood 28 mmol/L (21-32); Calcium, Blood 8.5 mg/dL (8.5-10.1); Chloride, Blood 106 mmol/L (98-108); Creatinine, Blood 0.41 mg/dL (0.40-1.00); Glomerular Filtration Rate >60 (60-); Glucose, Blood 114 mg/dL (70-99); Potassium, Blood 3.1 mmol/L (3.5-5.5); Sodium, Blood 141 mmol/L (136-145)
--- NOTE | 2019-04-09 03:59 | NUR ---
PT FEBRILE WITH TEMP OF 99.9, COMPLAINT OF INCREASING 9/10 PAIN IN FLANK AREA AND WAS SHAKING/SHIVERING. PT MEDICATED WITH FENTANYL AND TYLENOL. 15 MINS LATER PT BECAME TACHYCARDIC WITH HR 150-168. CALL PLACED TO DR. ALAN WHO PLACED ORDER FOR METOPROLOL.
--- NOTE | 2019-04-09 05:59 | NUR ---
SHIFT SUMMARY PT HAS CONTINUED TO BE FEBRILE WITH TMAX 101 AND WITH CONTINUED COMPLAINTS OF BILATERAL FLANK PAIN WELL NAUSEA. PT'S TACHYCARDIA RESOLVED WITH 5 MG LOPRESSOR. PT CONTINUES TO AMBULATE TO WITHOUT DIFFICULTY TO TOILET. PLEASE SEE PREVIOUS NOTES AND ASSESSMENTS FROM THIS SHIFT. WILL REPORT TO DAYSHIFT NURSE.
--- NOTE | 2019-04-09 09:47 | NUR ---
0715: CARE ASSUMED. PT REPORTS CBG OF 82 PER SELF CHECK, ORANGE JUICE GIVEN PER PT REQUEST. 0745: ASSESSMENT COMPLETED, CBG 98. BREAKFAST AT BEDSIDE, PT STATES SHE IS NOT GOING TO EAT AT THIS TIME, INSULIN HELD. PT REPORTS BILATERAL BACK AND FLANK PAIN 06/05, DENIES HEMATURIA AND URINARY BURNING, REPORTS PRESSURE WITH VOIDING. PT DENIES NAUSEA, AFEBRILE, HR 120'S, OTHER VSS. LIGHTS OFF, EYES COVERED WITH WASHCLOTH PER HER REQUEST D/T HEADACHE, DENIES OTHER NEEDS. NS INFUSING AT 50ML/HR PER ORDERS. 0910: PT MEDICATED WITH FENTANYL FOR 06/05 BILAT LOWER BACK PAIN AND HEADACHE. SPO2 DESAT TO 85% AFTER FENTANYL, O2 PLACED AT 2L/NC, SPO2 NOW 95%. PT DENIES OTHER NEEDS, HAS NOT EATEN ANY OF HER BREAKFAST TRAY, CONTINUE TO HOLD INSULIN. TEMP 98.9.
--- NOTE | 2019-04-09 10:21 | NUR ---
PT REPORTS PAIN RELIEF AFTER FENTANYL, VSS AT THIS TIME, PT TO SHOWER WITH SBA.
--- NOTE | 2019-04-09 12:11 | NUR ---
PT C/O 06/05 HEADACHE, TYLENOL ADMINISTERED. PT TAKING BITES OF LUNCH, WILL ADMINISTER INSULIN BASED ON PT'S INTAKE. PT DENIES OTHER NEEDS AT THIS TIME.
--- NOTE | 2019-04-09 13:52 | NUR ---
PT REPORTS LOWER BACK SPASMS 7/10, MEDICATED WITH FLEXERIL PER ORDERS. PT DENIES OTHER NEEDS, VSS.
--- NOTE | 2019-04-09 15:13 | NUR ---
PT C/O 06/05 MID AND LOWER LEFT SIDED BACK PAIN, MEDICATED WITH FENTANYL PER ORDERS. DENIES OTHER NEEDS, VSS.
--- NOTE | 2019-04-09 16:51 | NUR ---
1545: PT REPORTS PAIN IS NOW 3/10, IS SITTING UP IN BED USING PHONE, DENIES NEEDS OR C/O AT THIS TIME. VSS. 1650: VSS, SPO2 95-100% ON 2L/NC, PT REPORTS PAIN REMAINS UNDER CONTROL AT THIS TIME. HR 100-105 SINUS. PT REPORTS TAHT SHE HAS HAD A DRY COUGH SINCE ADMISSION, STATES SHE FEELS LIKE SHE CANNOT TAKE A COMPLETE BREATH, IS REQUESTING TO HAVE HER HOME INHALER ORDERED. DR. BLAND AT BEDSIDE, IS AWARE OF PT'S REQUEST, POTASSIUM LEVEL, AND OVERALL STATUS.
--- NOTE | 2019-04-09 17:55 | NUR ---
1745: PT'S CBG PRIOR TO DINNER WAS 100, PT ATE 100% OF MEAL, THEN STATED SHE FELT GLUCOSE WAS LOW, PT'S METER READS 58. HOSPITAL METER READS 70, SCHEDULED INSULIN HELD AT THIS TIME, ROAST BEEF SANDWICH GIVEN. WILL REASSESS CBG IN AN HOUR, PT INSTRUCTED TO CALL IF SHE FEELS GLUCOSE IS DROPPING. VSS, PT SITTING AT BEDSIDE EATING SANDWICH, ORANGE JUICE LEFT AT BEDSIDE, PT KNOWS TO ONLY DRINK IF CBG CONTINUES TO DROP.
--- NOTE | 2019-04-09 18:39 | NUR ---
CBG RECHECKED, 132 AT THIS TIME ON HOSPITAL MONITOR, INSULIN HELD FOR LABILE BLOOD GLUCOSE LEVELS. PT SITTING AT BEDSIDE VISITING WITH S.O., VSS, PT DENIES C/O AT THIS TIME. REPORT TO ONCOMING SHIFT.
--- NOTE | 2019-04-09 19:40 | NUR ---
ASSUMED PT CARE AT 1915 PT SITTING UP IN BED WITH BOYFRIEND IN BED WITH PT. ALERT AND ORIENTED AND ABLE TO MAKE NEEDS KNOWN AT THIS TIME. CALL LIGHT WITHIN REACH. PT IS INDEPENDENT IN ROOM.
--- NOTE | 2019-04-10 02:08 | NUR ---
PT CALLED AT 0150 STATING SHE DIDN'T FEEL WELL AND THAT SHE CHECKED HER BLOOD SUGAR WITH HER METER AND IT STATED IT WAS TOO LOW TO READ. CHECKED WITH OUR METER AND BLOOD SUGAR WAS NOTED TO BE 47. I HAD PT CONSUME A SMALL ORANGE JUICE, HALF A SANDWICH WITH CHEESE, AND RIO CRACKERS. WILL RECHECK IN 30-45 MINUTES AND CONTINUE MONITORING FOR S/SX OF HYPOGLYCEMIA AND TREAT ACCORDINGLY.
[2019-04-10 03:19] LABS: BASOPHILS ABSOLUTE AUTO 0.03 K/mm3 (0.00-0.23); BASOPHILS PERCENT AUTO 1 % (0-2); EOSINOPHILS ABSOLUTE AUTO 0.09 K/mm3 (0.00-0.68); EOSINOPHILS PERCENT AUTO 2 % (0-6); Hematocrit 31.3 % (33.0-51.0); Hemoglobin 10.3 g/dL (11.5-16.0); Mean Corpuscular HGB 28.9 pg (26.0-34.0); Mean Corpuscular HGB Conc 32.9 g/dL (31.5-36.5); Mean Corpuscular Volume 88 fL (80-100); Mean Platelet Volume 9.5 fL (9.1-12.4); Platelet Count 225 K/mm3 (150-400); RDW Standard Deviation 42.1 fL (35.1-46.3); Red Blood Cell Count 3.56 M/mm3 (3.80-5.20); White Blood Cell Count 5.66 K/mm3 (4.00-11.30)
[2019-04-10 03:20] LABS: IMMATURE GRAN ABSOLUTE AUTO 0.03 K/mm3 (0.00-0.10); IMMATURE GRAN PERCENT AUTO 1 % (0-1); LYMPHOCYTES ABSOLUTE AUTO 1.35 K/mm3 (0.84-5.20); LYMPHOCYTES PERCENT AUTO 24 % (21-46); MONOCYTES ABSOLUTE AUTO 0.51 K/mm3 (0.16-1.47); MONOCYTES PERCENT AUTO 9 % (4-13); NEUTROPHILS ABSOLUTE AUTO 3.65 K/mm3 (1.96-9.15); NEUTROPHILS PERCENT AUTO 65 % (41-73)
[2019-04-10 03:36] LABS: Alanine Aminotransfer (ALT/SGP 18 U/L (12-78); Albumin, Blood 2.3 g/dL (3.4-5.0); Albumin/Globulin Ratio 0.6 (0.8-1.8); Alk Phos 169 U/L (50-136); Anion Gap 6 mmol/L (6-16); Aspartate Aminotrans (AST/SGOT 21 U/L (12-37); Bilirubin, Total 0.2 mg/dL (0.1-1.0); Blood Urea Nitrogen 6 mg/dL (8-24); Bun/Creatinine Ratio 11.5 (12.0-20.0); CO2, Blood 30 mmol/L (21-32); Calcium, Blood 8.2 mg/dL (8.5-10.1); Chloride, Blood 107 mmol/L (98-108); Creatinine, Blood 0.52 mg/dL (0.40-1.00); Glomerular Filtration Rate >60 (60-); Glucose, Blood 136 mg/dL (70-99); Magnesium, Blood 1.8 mg/dL (1.6-2.4); Potassium, Blood 3.4 mmol/L (3.5-5.5); Sodium, Blood 143 mmol/L (136-145); Total Protein, Blood 6.3 g/dL (6.4-8.2)
--- NOTE | 2019-04-10 04:33 | NUR ---
END OF SHIFT SUMMARY NO SIGNIFICANT CHANGES OTHER THAN PT WAKING UP TO BLOOD SUGAR FEELING LOW; TREATED WITH ORANGE JUICE AND A SNACK. RECHECKED 45 MINUTES LATER WITH BLOOD SUGAR IMPROVING TO 144. PT STATED SHE FELT BETTER. LOW GRADE TEMP OBSERVED AT 0300 OF 99.6; IT WAS NOTED TO BE CARDROOM WORKER ROOM WITH PT COVERED IN MULTIPLE BLANKETS. PT MEDICATED FOR PAIN WITH FENTANYL TWICE AND FLEXERIL ONCE; APPEARS EFFECTIVE. EDUCATED PT REGARDING URINATING AFTER SEXUAL INTERCOURSE AND WIPING FROM FRONT TO BACK TO PREVENT FUTURE UTI'S. PT STATED THAT SHE HAS BEEN STRUGGLING WITH UTI'S FOR ABOUT SIX WEEKS AND THAT EVERYTIME SHE FINISHES HER COURSE OF ANTIBIOTICS SHE GETS A RECURRING UTI. PT CONTINUES ON ROCEPHIN IV DAILY; NS INFUSING AT 50MLS/HR. CALL LIGHT IS WITHIN REACH; PT IS ABLE TO MAKE HER NEEDS KNOWN.
--- NOTE | 2019-04-10 08:01 | NUR ---
Assessment completed, pt resting in bed, states she did not sleep well d/t coughing. HR 120 SIT, SpO2 96% 3L/NC, pt reports she is unable to take a deep breath, LS diminished t/o. Pt afebrile, voiding without difficulty, reports headache/back pain, medicated with ibuprofen at this time. Pt drowsy, states she is going back to sleep. Insulin held at this time, as pt is not eating breakfast. NS infusing per orders.
--- NOTE | 2019-04-10 10:02 | NUR ---
Pt awake, ate a small amount of breakfast, medicated with 3u humalog for carb count of 17gm. No SS humalog administered at this time, as pt's cbg's have been labile. Fentanyl administered for 7/10 L lower back/flank pain, pt denies nausea. RT at bedside, oxygen decreased to 2L/nc for SpO2 99%. LS coarse in bilat bases at this time, non-productive cough continues. HR 100-110.
--- NOTE | 2019-04-10 12:05 | NUR ---
Pt sitting up in bed using phone, denies c/o at this time, states pain is controlled, denies need for additional intervention. SpO2 99% on 2L, O2 decreased to 1L/NC at this time. Pt afebrile, VSS, lunch tray given, pt sitting at bedside to eat, denies needs.
--- NOTE | 2019-04-10 13:24 | NUR ---
1240: PT TOLERATED LUNCH WELL, MEDICATED WITH 9U HUMALOG FOR 49GM CARBOHYDRATES. PT DENIES C/O AT THIS TIME, STATES PAIN IS MINIMAL.
--- NOTE | 2019-04-10 14:52 | NUR ---
PT RESTING IN BED, SPO2 98% ON 1L, O2 TURNED OFF AT THIS TIME. HR 103. PT VISITING QUIETLY WITH FRIENDS IN ROOM, DENIES NEEDS.
--- NOTE | 2019-04-10 16:30 | NUR ---
DR. BLAND IN TO SEE PT, NEW ORDERS. PT DENIES SOB AT THIS TIME, SPO2 96% ON RA, LS CLEAR, DIM IN BASES, HR 103 SINUS. PT CALM AND COOPERATIVE, AFEBRILE, DENIES C/O OR NEEDS.
--- NOTE | 2019-04-10 17:54 | NUR ---
PT SITTING AT BEDSIDE EATING DINNER, DENIES NAUSEA AT THIS TIME, STATES PAIN IS MINIMAL. VSS, SPO2 96% ON RA, S.O. AT BEDSIDE.
--- NOTE | 2019-04-10 18:44 | NUR ---
INSULIN ADMINISTERED FOR CARB COUNT, NORCO GIVEN FOR LEFT FLANK PAIN, PT DENIES OTHER NEEDS. PT SITTING AT BEDSIDE VISITING WITH S.O., DENIES SOB, NAUSEA, OR CHEST PAIN. VSS AT THIS TIME, SPO2 96% ON RA, HR 90'S. REPORT TO ONCOMING SHIFT.
--- NOTE | 2019-04-10 19:37 | NUR ---
ASSUMED PT CARE AT 1915 PT SITTING UP IN BED WITH BOYFRIEND. WHEN ASSESSED PT'S PAIN SHE STATED IT WAS A 2/10 AND STATED THE NORCO HELPED TREMENDOUSLY. SHE APPEARS COMFORTABLE AT THIS TIME; ABLE TO MAKE NEEDS KNOWN AND CALL LIGHT IS WITHIN REACH. PT APPEARS IN BETTER SPIRITS TODAY.
--- NOTE | 2019-04-10 23:32 | NUR ---
Transfer report from [facility]o on 23 year old Female with reoccuring UTI who is type 1 diabetic. Admitted with bilat pylonephritis per report. Now stable at baseline with blood glucose and not having acute pain. Await transfer.
--- NOTE | 2019-04-10 23:32 | NUR ---
HANDED OFF REPORT TO MARK MARK. PT TO BE TRANSFERRED TO ROOM 334
--- NOTE | 2019-04-10 23:43 | NUR ---
assumed care of PT transferred from ICU to room 334 at 2341, arrived via .
[2019-04-11 05:25] LABS: BASOPHILS ABSOLUTE AUTO 0.05 K/mm3 (0.00-0.23); BASOPHILS PERCENT AUTO 1 % (0-2); EOSINOPHILS ABSOLUTE AUTO 0.11 K/mm3 (0.00-0.68); EOSINOPHILS PERCENT AUTO 3 % (0-6); Hematocrit 32.9 % (33.0-51.0); Hemoglobin 10.8 g/dL (11.5-16.0); Mean Corpuscular HGB 29.1 pg (26.0-34.0); Mean Corpuscular HGB Conc 32.8 g/dL (31.5-36.5); Mean Corpuscular Volume 89 fL (80-100); Mean Platelet Volume 9.6 fL (9.1-12.4); Platelet Count 219 K/mm3 (150-400); RDW Coefficient Variation 13.2 % (11.7-14.2); RDW Standard Deviation 43.2 fL (35.1-46.3); Red Blood Cell Count 3.71 M/mm3 (3.80-5.20); White Blood Cell Count 4.48 K/mm3 (4.00-11.30)
[2019-04-11 05:32] LABS: IMMATURE GRAN ABSOLUTE AUTO 0.02 K/mm3 (0.00-0.10); IMMATURE GRAN PERCENT AUTO 0 % (0-1); LYMPHOCYTES ABSOLUTE AUTO 1.98 K/mm3 (0.84-5.20); LYMPHOCYTES PERCENT AUTO 44 % (21-46); MONOCYTES ABSOLUTE AUTO 0.41 K/mm3 (0.16-1.47); MONOCYTES PERCENT AUTO 9 % (4-13); NEUTROPHILS ABSOLUTE AUTO 1.91 K/mm3 (1.96-9.15); NEUTROPHILS PERCENT AUTO 43 % (41-73)
[2019-04-11 05:53] LABS: Alanine Aminotransfer (ALT/SGP 20 U/L (12-78); Albumin, Blood 2.5 g/dL (3.4-5.0); Albumin/Globulin Ratio 0.6 (0.8-1.8); Alk Phos 183 U/L (50-136); Anion Gap 7 mmol/L (6-16); Aspartate Aminotrans (AST/SGOT 18 U/L (12-37); Bilirubin, Total 0.5 mg/dL (0.1-1.0); Blood Urea Nitrogen 12 mg/dL (8-24); Bun/Creatinine Ratio 23.8 (12.0-20.0); CO2, Blood 29 mmol/L (21-32); Chloride, Blood 102 mmol/L (98-108); Globulin, Blood 3.9 g/dL (2.2-4.0); Glomerular Filtration Rate >60 (60-); Glucose, Blood 315 mg/dL (70-99); Potassium, Blood 4.6 mmol/L (3.5-5.5); Sodium, Blood 138 mmol/L (136-145); Total Protein, Blood 6.4 g/dL (6.4-8.2)
--- NOTE | 2019-04-11 06:23 | NUR ---
23 year old with reoccuring UTI who is type 1 IDDM transferred from ICU where she was recieving care for urosepsis and bilat pylonephritis. she has urine culture showing ECOLI UTI. PT has taken multiple courses of oral antibiotics without resolving uti. Alert and pleasan. PT medicated for back and flank pain and spasm with helpful effect. Blood glucose this AM elevated over 300. Has short and long acting insulin.
--- NOTE | 2019-04-11 18:59 | NUR ---
PT. SITTING ON EDGE OF BED VISITING WITH FRIENDS. PT. BLOOD PRESSURE ELEVATED THIS AM ALONG WITH AN ELEVATED HEART RATE. NOTIFIED PHYSICIAN AND HE WROTE FOR BLOOD PRESSURE MEDS AND DIURETICS. GAVE INSTRUCTIONS TO GIVE MEDS AND RETAKE VS AND GIVE HIM THE RESULTS. PT'S VS STILL ELEVATED 2 HOURS LATER, NOTIFIED DR. BLAND AND HE SAID NOT TO DISCHARGE HER AND TO GIVE HER CLINIDINE. THE CLONIDINE BROUGHT HER BLOOD PRESSURE DOWN INTO THE 1-TEENS. POSSSIBLE DISCHARGE FOR PT. TOMORROW.
--- NOTE | 2019-04-12 01:49 | NUR ---
23 YEAR OLD FEMALE WITH 8 WEEKS OF REOCCURING UTI CONTINUES ON IV ANTIBIOTICS FOR ECOLI UTI. LT FLANK PAIN AND SPASM CONTINUES. 1 NORCO 10/325 MG TAB AND 5 MG FLEXERIL GIVE GOOD PAIN RELIEF. PT HAD ISSUES WITH HYPERTENSION YESTERDAY AND STARTED ON NEW ANTIHYPERTENSIVE RX WITH HELPFUL EFFECT. SHE IS TYPE 1 IDDM AND NEEDED 4 UNITS SLIDING SCALE INSULIN AT HS FOR BG 253. HAS NEUROPATHY AND HAS HAS TAKEN 2400 MG NEURONTIN AT HS FOR ABOUT 5 MONTHS PER HER REPORT WITH HELPFUL EFFECT. SEES PRIMARY CARE PROVIDERS REGULARLY AND WORKS ON THE FRONT OFFICE OF MEDICAL CLINIC. PLANNING FOR UROLOGY REFERRAL FOR REOCCURRING UTI.
[2019-04-12 04:38] LABS: BASOPHILS ABSOLUTE AUTO 0.05 K/mm3 (0.00-0.23); BASOPHILS PERCENT AUTO 1 % (0-2); EOSINOPHILS ABSOLUTE AUTO 0.15 K/mm3 (0.00-0.68); EOSINOPHILS PERCENT AUTO 3 % (0-6); Hematocrit 30.8 % (33.0-51.0); Hemoglobin 10.1 g/dL (11.5-16.0); Mean Corpuscular HGB 29.1 pg (26.0-34.0); Mean Corpuscular HGB Conc 32.8 g/dL (31.5-36.5); Mean Corpuscular Volume 89 fL (80-100); Mean Platelet Volume 9.8 fL (9.1-12.4); Platelet Count 247 K/mm3 (150-400); RDW Coefficient Variation 13.2 % (11.7-14.2); RDW Standard Deviation 42.7 fL (35.1-46.3); Red Blood Cell Count 3.47 M/mm3 (3.80-5.20); White Blood Cell Count 5.47 K/mm3 (4.00-11.30)
[2019-04-12 04:48] LABS: IMMATURE GRAN ABSOLUTE AUTO 0.04 K/mm3 (0.00-0.10); IMMATURE GRAN PERCENT AUTO 1 % (0-1); LYMPHOCYTES ABSOLUTE AUTO 2.85 K/mm3 (0.84-5.20); LYMPHOCYTES PERCENT AUTO 52 % (21-46); MONOCYTES ABSOLUTE AUTO 0.68 K/mm3 (0.16-1.47); MONOCYTES PERCENT AUTO 12 % (4-13); NEUTROPHILS PERCENT AUTO 31 % (41-73)
[2019-04-12 05:07] LABS: Alanine Aminotransfer (ALT/SGP 17 U/L (12-78); Albumin, Blood 2.5 g/dL (3.4-5.0); Albumin/Globulin Ratio 0.6 (0.8-1.8); Alk Phos 172 U/L (50-136); Anion Gap 5 mmol/L (6-16); Aspartate Aminotrans (AST/SGOT 16 U/L (12-37); Bilirubin, Total 0.4 mg/dL (0.1-1.0); Blood Urea Nitrogen 13 mg/dL (8-24); Bun/Creatinine Ratio 24.8 (12.0-20.0); CO2, Blood 33 mmol/L (21-32); Chloride, Blood 102 mmol/L (98-108); Creatinine, Blood 0.52 mg/dL (0.40-1.00); Globulin, Blood 3.9 g/dL (2.2-4.0); Glomerular Filtration Rate >60 (60-); Glucose, Blood 231 mg/dL (70-99); Phosphorus, Blood 5.3 mg/dL (2.5-4.9); Potassium, Blood 4.2 mmol/L (3.5-5.5); Sodium, Blood 140 mmol/L (136-145); Total Protein, Blood 6.4 g/dL (6.4-8.2)
[2019-04-12] MEDS ORDERED: Cyclobenzaprine5 MG PO (09:55)
[2019-04-12] MEDS ORDERED: FURO20 PO (09:56)
[2019-04-12] MEDS ORDERED: IBUP400 PO (09:57)
[2019-04-12] MEDS ORDERED: POTCHL20ER PO (09:58)
[2019-04-12] MEDS ORDERED: METO25ER PO (09:58)
[2019-04-12] MEDS ORDERED: Humalog100 UNIT/1 SC (09:59)
--- NOTE | 2019-04-12 11:11 | NUR ---
PT REQUESTING A PRESCRIPTION FOR NORCO FOR "KIDNEY" PAIN, NOTIFIED DR DE LA CRUZ, NO NEW ORDERS.
[2019-04-12] MEDS ORDERED: Bactrim 400-801 EACH PO (14:16)
--- NOTE | 2019-04-12 14:58 | NUR ---
DISCHARGE SUMMARY PT A&Ox4. CALM AND COOPERATIVE WITH CARE. PT RESTING IN BED DURING SHIFT. PT UP IND IN ROOM. UP ON SIDE OF BED FOR MEALS. PT REPORTS LEFT LOWER BACK PAIN, MEDICATED PER EMAR. PT DENIES SOB AND N/V DURING SHIFT. PT RECEIVING IV ROCEPHIN, RECEIVED 1600 DOSE EARLY FOR DISCHARGE, PER DR DE LA CRUZ. VSS. NO OTHER ACUTE CHANGES NOTED DURING SHIFT. PT EDUCATED ON DISCHARGE INSTRUCTIONS, MEDICATIONS AND FOLLOW UP APPOINTMENTS. PRESCRIPTIONS FAXED AND CALLED INTO [facility] PER PT REQUEST. PT LEFT ROOM ON FOOT AT 1438. PT STABLE UPON DISCHARGE.
== END 2019-04-12 14:40 | disposition home or self-care (01) | DRG 871 ==
LOC: ER 15:05 → MEDS 15:06 → ICUW 04-08 04:10 → MEDS 04-10 23:40 → ENPENDDIS 04-12 09:50 → MEDS 04-12 14:40
PROVIDERS: Emergency Medicine; Hospitalist; Internal Medicine; Physician Assistant; ADMIT Internal Medicine
DX: A41.51 Sepsis due to Escherichia coli [E. coli] (principal); J96.00 Acute respiratory failure, unspecified whether with hypoxia or hypercapnia; N39.0 Urinary tract infection, site not specified; N12 Tubulo-interstitial nephritis, not specified as acute or chronic; I10 Essential (primary) hypertension; G89.4 Chronic pain syndrome; E10.649 Type 1 diabetes mellitus with hypoglycemia without coma; E10.42 Type 1 diabetes mellitus with diabetic polyneuropathy; E86.0 Dehydration; Z79.4 Long term (current) use of insulin
CPT/HCPCS: 36415; 74160; 80048; 80053; 81001; 81025; 82010; 82803; 82947; 83605; 83735; 84100; 85025; 85027; 86140; 87040; 87077; 87086; 87186; 94760; 96361; 96365; 96375; 99284-25; A9270; J0696; J1170; J1650; J1815; J1885; J2405; J3010; J3480; J7030; Q9967

== ENCOUNTER 2019-09-16 14:40 | Day surgery (SDC) | payer OTHER ==
[~2019-09-16] VITALS: Ht 160 cm; Wt 58.5 kg
[~2019-09-16 14:40] MED LIST changes: +ALBU90OI INH; +AMIT25 PO; +Bactrim 400-801 EACH PO; +Cyclobenzaprine5 MG PO; +FURO20 PO; +GABA800 PO; +Humalog100 UNIT/1 SC; +METO25ER PO
[2019-09-16] MEDS ORDERED: BASAGLAR K100 UNIT/2 (15:00)
[2019-09-16] MEDS ORDERED: ADMELOG SO100 UNIT/1 (15:00)
--- NOTE | 2019-09-16 15:29 | NUR ---
09/16/19 [address] LEARY THAT PT'S CBG WAS 271 @ 1930, NO ORDERES WERE GIVEN.
--- NOTE | 2019-09-16 17:23 | NUR ---
09/16/19 1723 Marisabel Meng PT'S PAIN BETTER AFTER IV FENTANYL. IV ROGAM GIVEN FOR O NEGATIVE BLOOD TYPE. REPORT GIVEN TO JAS IRBY TO ASSUME CARE OF PT. PT LEFT IN HER CARE.
== END 2019-09-16 17:50 | disposition home or self-care (01) ==
LOC: ORSCSDS 14:40
PROVIDERS: Obstetrics & Gynecology
PROC: 0UDB7ZX Extraction of Endometrium, Via Natural or Artificial Opening, Diagnostic (ICD-10-PCS; principal; 2019-09-16 16:00)
DX: O02.1 Missed abortion (principal); E10.9 Type 1 diabetes mellitus without complications; Z79.4 Long term (current) use of insulin; J45.909 Unspecified asthma, uncomplicated; Z79.899 Other long term (current) drug therapy
CPT/HCPCS: 82947; 88305; J1100; J1885; J2250; J2405; J2704; J2791; J3010; J7060

== ENCOUNTER 2019-10-18 08:41 | Inpatient (IN) | payer OTHER ==
[~2019-10-18] VITALS: Ht 160 cm; Wt 57.0 kg
[~2019-10-18 08:41] MED LIST changes: +ADMELOG SO100 UNIT/1 SC; +BASAGLAR K100 UNIT/2 SC; +METO100ER PO; -METO25ER PO
[2019-10-18] MEDS ORDERED: AMIT50 PO (08:59)
[2019-10-18] MEDS ORDERED: METO100ER PO (09:00)
[2019-10-18 10:00] LABS: BASOPHILS ABSOLUTE AUTO 0.13 K/mm3 (0.00-0.23); BASOPHILS PERCENT AUTO 1 % (0-2); EOSINOPHILS ABSOLUTE AUTO 0.03 K/mm3 (0.00-0.68); EOSINOPHILS PERCENT AUTO 0 % (0-6); Hematocrit 50.6 % (33.0-51.0); Hemoglobin 16.5 g/dL (11.5-16.0); IMMATURE GRAN ABSOLUTE AUTO 0.09 K/mm3 (0.00-0.10); IMMATURE GRAN PERCENT AUTO 1 % (0-1); LYMPHOCYTES ABSOLUTE AUTO 1.59 K/mm3 (0.84-5.20); LYMPHOCYTES PERCENT AUTO 10 % (21-46); MONOCYTES ABSOLUTE AUTO 0.46 K/mm3 (0.16-1.47); MONOCYTES PERCENT AUTO 3 % (4-13); Mean Corpuscular HGB 30.1 pg (26.0-34.0); Mean Corpuscular HGB Conc 32.6 g/dL (31.5-36.5); Mean Corpuscular Volume 92 fL (80-100); Mean Platelet Volume 9.3 fL (9.1-12.4); NEUTROPHILS PERCENT AUTO 86 % (41-73); Platelet Count 346 K/mm3 (150-400); RDW Coefficient Variation 11.9 % (11.7-14.2); Red Blood Cell Count 5.48 M/mm3 (3.80-5.20)
[2019-10-18 10:19] LABS: Source, Urine Clean Catch
[2019-10-18 10:30] LABS: Appearance, Urine Clear (Clear); Bilirubin, Urine Neg (Neg); Blood, Urine Neg (Neg); Color, Urine Yellow (P-Yellow); Glucose Qualitative, Urine 4+ (Neg); Ketones, Urine 4+ (Neg); Leukocyte Esterase, Urine Neg (Neg); Nitrite, Urine Neg (Neg); Protein, Urine 2+ (Neg); Specific Gravity, Urine 1.025 (1.003-1.022); Urobilinogen, Urine NORM (Normal)
[2019-10-18 10:40] LABS: Bacteria Not Seen /hpf; Red Blood Cells, Urine 0-2 /hpf (0-2); Squamous Epithelial Cells Few /hpf (Few); White Blood Cells, Urine 0-2 /hpf (0-5)
[2019-10-18 12:43] LABS: PCO2 Arterial 14.9 mmHg (35-45); PO2 Arterial 139 mmHg (80-100); pH Blood Arterial 6.93 (7.35-7.45)
[2019-10-18 12:45] LABS: Creatinine (POC) 0.9 mg/dL (0.6-1.0)
[2019-10-18] MEDS ORDERED: CRANBERRY250 MG PO (13:05)
[2019-10-18 13:07] LABS: Alanine Aminotransfer (ALT/SGP 26 U/L (12-78); Albumin, Blood 3.7 g/dL (3.4-5.0); Bilirubin, Total 0.5 mg/dL (0.1-1.0); Glomerular Filtration Rate >60 (60-)
[2019-10-18 13:36] LABS: Chloride, Blood 104 mmol/L (98-108); Sodium, Blood 133 mmol/L (136-145)
[2019-10-18 13:37] LABS: Anion Gap Unable to Calculate mmol/L (6-16)
[2019-10-18 13:38] LABS: Blood Urea Nitrogen 39 mg/dL (8-24); Bun/Creatinine Ratio 45.3 (12.0-20.0); Creatinine, Blood 0.86 mg/dL (0.40-1.00)
[2019-10-18 13:39] LABS: Albumin/Globulin Ratio 0.9 (0.8-1.8); Calcium, Blood 9.1 mg/dL (8.5-10.1); Globulin, Blood 3.9 g/dL (2.2-4.0); Total Protein, Blood 7.6 g/dL (6.4-8.2)
[2019-10-18 13:40] LABS: Alk Phos 138 U/L (50-136); Aspartate Aminotrans (AST/SGOT 22 U/L (12-37)
[2019-10-18 13:44] LABS: Potassium, Blood 6.7 mmol/L (3.5-5.5)
--- NOTE | 2019-10-18 14:58 | NUR ---
DR. DE LA CRUZ IN PRIOR TO PT ARRIVAL. ORDERS FOR PICC AND TO INCREASE D5 1/2 NS TO 200-250 AFTER PICC PLACED AND TO ASK PT WHAT PAIN MED WORKS FOR HER BACK PAIN. REPORT FROM JAS TIPTON. BLOOD SUGARS STILL HIGHER THAN 500. WILL BE ADMITTED TO ICU 6
--- NOTE | 2019-10-18 15:27 | NUR ---
PATIENT REPORTS MORPHINE GIVEN IN ER WORKED FOR HER PAIN. EVERYTHING PO MAKES HER ITCH. LAB DELAYED UNTIL PICC LINE IN. INSULIN GTT 5.7 UNITS/HOUR
--- NOTE | 2019-10-18 17:16 | NUR ---
PICC LINE IN. CHEM 8 DRAWN. CBG 275. INSULIN GTT TO 2 UNITS/HR.
--- NOTE | 2019-10-18 17:17 | NUR ---
NS TURNED TO 200 ML/HR THROUGH PICC LINE
--- NOTE | 2019-10-18 17:27 | NUR ---
CONTACTED DR. DE LA CRUZ RE: IVF WHEN CBG BELOW 250. ORDER FOR D5 1/2NS AT 150 ML/HOUR
[2019-10-18 17:58] LABS: Anion Gap 20 mmol/L (6-16); Blood Urea Nitrogen 38 mg/dL (8-24); Bun/Creatinine Ratio 32.8 (12.0-20.0); CO2, Blood 6 mmol/L (21-32); Calcium, Blood 8.3 mg/dL (8.5-10.1); Chloride, Blood 110 mmol/L (98-108); Creatinine, Blood 1.16 mg/dL (0.40-1.00); Glomerular Filtration Rate >60 (60-); Glucose, Blood 284 mg/dL (70-99); Sodium, Blood 136 mmol/L (136-145)
[2019-10-18 18:00] LABS: Potassium, Blood 4.6 mmol/L (3.5-5.5)
--- NOTE | 2019-10-18 19:27 | NUR ---
CBG 269. INSULIN GTT REMAINS AT 2 UNITS/HR. LABS DRAWN
--- NOTE | 2019-10-18 19:30 | NUR ---
ASSUME CARE: REPORT RECIEVED FROM AMOL OFF GOING RN. MONITOR INTACT SHOWING SINUS TACH HEART RATE 100'-120'S. DOZES AT INTERVALS. FAMILY AT BEDSIDE. RESPIRATIONS REGULAR AND EASY. SPO2 GREATER THAN 95% LUNGS CLEAR. ABDOMEN SOFT WITH BOWEL SOUNDS FOUR QUADS. VOIDS JESSICA URINE GAIT STEADY TO TOILET WITH MINIMAL STANDBY ASSIST AND ASSIST WITH CORDS AND WIRES. TOPOROL HELD SECONDARY TO B/P LESS THAN 100 SEE MONITOR VITALS. CONTINUE TO MONITOR AND REPORT CHANGE IN PATIENT CONDITION. REMAINS ON INSULIN GTT. SEE ICU FLOW SHEET. FAMILY AT BEDSIDE. ATTENTIVE TO NEEDS AND CARES.
[2019-10-18 20:03] LABS: Anion Gap 21 mmol/L (6-16); Blood Urea Nitrogen 36 mg/dL (8-24); Bun/Creatinine Ratio 37.4 (12.0-20.0); CO2, Blood 6 mmol/L (21-32); Calcium, Blood 7.8 mg/dL (8.5-10.1); Chloride, Blood 109 mmol/L (98-108); Creatinine, Blood 0.96 mg/dL (0.40-1.00); Glomerular Filtration Rate >60 (60-); Glucose, Blood 275 mg/dL (70-99); Potassium, Blood 4.8 mmol/L (3.5-5.5); Sodium, Blood 136 mmol/L (136-145)
--- NOTE | 2019-10-18 21:48 | NUR ---
SPOKE WITH DR DWIGHT HERNANDEZING CHEM RESULTS CHANGE TO EVERY FOUR HOURS INSTEAD OF EVERY TWO HOURS.
[2019-10-18 22:08] LABS: Anion Gap 20 mmol/L (6-16); Blood Urea Nitrogen 31 mg/dL (8-24); Bun/Creatinine Ratio 33.8 (12.0-20.0); CO2, Blood 8 mmol/L (21-32); Calcium, Blood 7.7 mg/dL (8.5-10.1); Chloride, Blood 107 mmol/L (98-108); Creatinine, Blood 0.92 mg/dL (0.40-1.00); Glomerular Filtration Rate >60 (60-); Glucose, Blood 274 mg/dL (70-99); Potassium, Blood 4.7 mmol/L (3.5-5.5); Sodium, Blood 135 mmol/L (136-145)
[2019-10-19 02:05] LABS: Anion Gap 16 mmol/L (6-16); Blood Urea Nitrogen 25 mg/dL (8-24); Bun/Creatinine Ratio 32.6 (12.0-20.0); CO2, Blood 12 mmol/L (21-32); Calcium, Blood 7.5 mg/dL (8.5-10.1); Chloride, Blood 109 mmol/L (98-108); Creatinine, Blood 0.77 mg/dL (0.40-1.00); Glomerular Filtration Rate >60 (60-); Glucose, Blood 242 mg/dL (70-99); Potassium, Blood 4.1 mmol/L (3.5-5.5); Sodium, Blood 137 mmol/L (136-145)
--- NOTE | 2019-10-19 06:00 | NUR ---
SHIFT SUMMARY : RESTS QUIETLY WHEN UNDISSTURBED. MONITOR INTACT SHOWING SINUS TACHS; HEART RATE 100'S-120'S. LUNGS CLEAR RESPIRATIONS REGULAR AND EASY ON ROOM AIR SPO2O GREATER THAN 95% WITH SPOT CHECKS. ABDOMEN SOFT WITH BOWEL SOUNDS FOUR QUADS. VOIDS JESSICA URINE . GAIT STEADY WITH MINIMAL STANDBY ASSIST TO TOILET ASSIST WITH LINES AND TUBES. SKIN WARM/DRY NO EDEMA NOTED PEDAL PULSES PRESENT MEDICATED TWICE THIS SHIFT WITH MORPHINE SULFATE 1 MG IV FOR CHRONIC BACK PAIN. CONTINUE TO MONITOR AND REPORT CHANGE IN PATIENT CONDITION
[2019-10-19 06:04] LABS: Anion Gap 12 mmol/L (6-16); Blood Urea Nitrogen 20 mg/dL (8-24); Bun/Creatinine Ratio 31.4 (12.0-20.0); CO2, Blood 15 mmol/L (21-32); Calcium, Blood 7.7 mg/dL (8.5-10.1); Chloride, Blood 111 mmol/L (98-108); Creatinine, Blood 0.64 mg/dL (0.40-1.00); Glomerular Filtration Rate >60 (60-); Glucose, Blood 203 mg/dL (70-99); Potassium, Blood 3.7 mmol/L (3.5-5.5); Sodium, Blood 138 mmol/L (136-145)
[2019-10-19 10:18] LABS: Anion Gap 10 mmol/L (6-16); Blood Urea Nitrogen 17 mg/dL (8-24); Bun/Creatinine Ratio 27.2 (12.0-20.0); CO2, Blood 16 mmol/L (21-32); Calcium, Blood 7.9 mg/dL (8.5-10.1); Chloride, Blood 112 mmol/L (98-108); Creatinine, Blood 0.62 mg/dL (0.40-1.00); Glomerular Filtration Rate >60 (60-); Glucose, Blood 207 mg/dL (70-99); Potassium, Blood 3.8 mmol/L (3.5-5.5); Sodium, Blood 138 mmol/L (136-145)
--- NOTE | 2019-10-19 13:37 | NUR ---
REASSESSMENT: PT HAS BEEN RESTING QUIETLY THROUGHOUT THE MORNING. SHE WAS WILLING TO WAKE UP AND EAT SO DR. DE LA CRUZ STARTED SQ INSULIN TO TRANSITION OFF INSULIN GTT. GTT STILL INFUSING BUT WILL BE TURNED OFF AT 1400, AN HOUR AFTER SQ INSULIN GIVEN. PT IS ALERT AND ORIENTED, LUNGS CLEAR, RA, ST IN LOW 100S. METOPROLOL GIVEN THIS MORNING PER DR. DE LA CRUZ AND HR SLOWED FROM 130S TO LOW 100S, BP REMAINED STABLE. GETTING UP TO VOID. NO OTHER REQUESTS AT THIS TIME. CONTINUING TO MONITOR.
[2019-10-19 16:13] LABS: Anion Gap 7 mmol/L (6-16); Blood Urea Nitrogen 14 mg/dL (8-24); Bun/Creatinine Ratio 22.3 (12.0-20.0); CO2, Blood 20 mmol/L (21-32); Calcium, Blood 7.9 mg/dL (8.5-10.1); Chloride, Blood 114 mmol/L (98-108); Creatinine, Blood 0.63 mg/dL (0.40-1.00); Glomerular Filtration Rate >60 (60-); Glucose, Blood 101 mg/dL (70-99); Potassium, Blood 3.6 mmol/L (3.5-5.5); Sodium, Blood 141 mmol/L (136-145)
--- NOTE | 2019-10-19 16:54 | NUR ---
REPORT OBTAINED FROM ICU NURSE.
--- NOTE | 2019-10-19 16:55 | NUR ---
SHIFT SUMMARY: PT HAS DONE WELL THIS AFTERNOON AND WAS ABLE TO TRANSITION OFF OF THE INSULIN GTT. DR. DE LA CRUZ CAME BY AND SAID SHE CAN GO TO MEDICAL FLOOR WITH TELE. PT IS ALERT AND ORIENTED, LUNGS CL, ST IN LOW 100S, BP STABLE, VOIDING, EATING WELL. PT WAS A LITTLE NAUSEOUS AFTER EATING A SANDWICH THIS AFTERNOON AND RECEIVED ZOFRAN. PT'S MOTHER WAS AT THE BEDSIDE THIS AFTERNOON. PT TO TRANSFER TO 312. REPORT GIVEN TO JAS DE LA GARZA.
--- NOTE | 2019-10-19 18:12 | NUR ---
SHIFT SUMMARY/PATIENT TRANSFER PATIENT TRANSFERRED FROM ICU. A/O FULLY. SIGNIFICANT OTHER AT BEDSIDE. MAKES NEEDS KNOWN. PATIENT NAUSEOUS WITH NO VOMIT. APPETITE NOT PRESENT. CBG'S STABLE DURING SHIFT. PATIENT ORIENTED TO ROOM. TELEMETRY IN PLACE. REPORT RECEIVED FROM ICU NURSE. LN TO CONTINUE TO MONITOR.
--- NOTE | 2019-10-20 09:41 | NUR ---
PT AWAKE EARLY THIS AM, WANTING TO GO HOME. DR DE LA CRUZ NOTIFIED; D/C ORDERS PLACED. PT DECLINED BREAKFAST, STATING SHE DOESN'T NORMALLY EAT BREAKFAST. REQUESTED PAIN MEDICATION FOR C/O BACK PAIN. DR DE LA CRUZ ORDERED ONE TIME DOSE OF TORADOL; GIVEN PRIOR TO PICC LINE TAKEN OUT, PER D/C ORDERS. NO FURTHER C/O. PT'S S/O HERE TO TAKE HER HOME. PT INDEPENDENT. DECLINED NEEDING ASSIST.
== END 2019-10-20 10:27 | disposition home or self-care (01) | DRG 638 ==
LOC: ER 08:41 → ICUW 08:42 → ICUE 14:46 → MEDS 10-19 17:05
PROVIDERS: Internal Medicine; Physician Assistant; ADMIT Student in an Organized Health Care Education/Training Program
DX: E10.10 Type 1 diabetes mellitus with ketoacidosis without coma (principal); E87.1 Hypo-osmolality and hyponatremia; M54.9 Dorsalgia, unspecified; R00.0 Tachycardia, unspecified; Z87.440 Personal history of urinary (tract) infections; Z79.4 Long term (current) use of insulin; Z79.899 Other long term (current) drug therapy
CPT/HCPCS: 36415; 36600; 80048; 80053; 81001; 81025; 82010; 82565; 82803; 82947; 83690; 85025; 93005; 93010; 96361; 96372-59; 96374; 96375; 99285-25; C1751; C1894; J1815; J1885; J2270; J2405; J2550; J7030; J7042; J7120

== ENCOUNTER → 2020-03-27 | Outpatient (CLI) | payer BC, OTHER ==
[~2020-03-27] MED LIST changes: +AMIT50 PO; +CRANBERRY250 MG PO
[2020-03-27 10:42] LABS: BASOPHILS ABSOLUTE AUTO 0.04 K/mm3 (0.00-0.23); BASOPHILS PERCENT AUTO 1 % (0-2); EOSINOPHILS ABSOLUTE AUTO 0.14 K/mm3 (0.00-0.68); EOSINOPHILS PERCENT AUTO 2 % (0-6); Hematocrit 35.3 % (33.0-51.0); Hemoglobin 12.7 g/dL (11.5-16.0); IMMATURE GRAN ABSOLUTE AUTO 0.03 K/mm3 (0.00-0.10); IMMATURE GRAN PERCENT AUTO 0 % (0-1); LYMPHOCYTES ABSOLUTE AUTO 1.64 K/mm3 (0.84-5.20); LYMPHOCYTES PERCENT AUTO 20 % (21-46); MONOCYTES ABSOLUTE AUTO 0.34 K/mm3 (0.16-1.47); MONOCYTES PERCENT AUTO 4 % (4-13); Mean Corpuscular HGB 31.2 pg (26.0-34.0); Mean Corpuscular Volume 87 fL (80-100); NEUTROPHILS ABSOLUTE AUTO 6.12 K/mm3 (1.96-9.15); NEUTROPHILS PERCENT AUTO 74 % (41-73); Platelet Count 266 K/mm3 (150-400); RDW Coefficient Variation 12.6 % (11.7-14.2); RDW Standard Deviation 39.4 fL (35.1-46.3); Red Blood Cell Count 4.07 M/mm3 (3.80-5.20); White Blood Cell Count 8.31 K/mm3 (4.00-11.30)
[2020-03-27 10:53] LABS: Alanine Aminotransfer (ALT/SGP 22 U/L (12-78); Albumin, Blood 3.2 g/dL (3.4-5.0); Albumin/Globulin Ratio 0.7 (0.8-1.8); Alk Phos 84 U/L (40-126); Anion Gap 7 mmol/L (6-16); Aspartate Aminotrans (AST/SGOT 19 U/L (12-37); Bilirubin, Total 0.3 mg/dL (0.1-1.0); Blood Urea Nitrogen 13 mg/dL (8-24); Bun/Creatinine Ratio 19.7 (12.0-20.0); CO2, Blood 28 mmol/L (21-32); Calcium, Blood 9.2 mg/dL (8.5-10.1); Chloride, Blood 103 mmol/L (98-108); Creatinine, Blood 0.66 mg/dL (0.40-1.00); Globulin, Blood 4.4 g/dL (2.2-4.0); Glomerular Filtration Rate >60 (60-); Glucose, Blood 171 mg/dL (70-99); Potassium, Blood 3.9 mmol/L (3.5-5.5); Sodium, Blood 138 mmol/L (136-145); Total Protein, Blood 7.6 g/dL (6.4-8.2)
== END | disposition home or self-care (01) ==
LOC: LAB SHORT 10:39 → LAB EV 10:39
PROVIDERS: Physician Assistant
DX: R11.2 Nausea with vomiting, unspecified (principal)
CPT/HCPCS: 80053; 85025

== ENCOUNTER 2021-05-26 05:28 | Inpatient (IN) | payer OTHER ==
[~2021-05-26] VITALS: Ht 157.5 cm; Wt 61.3 kg
[~2021-05-26 05:28] MED LIST changes: +Adalat/Procardi20 MG PO; -GABA800 PO; +LABE100 PO
[2021-05-26] MEDS ORDERED: SERT50 PO (06:01)
[2021-05-26] MEDS ORDERED: HUMALOG100 UNIT/1 SC (06:01)
[2021-05-26 06:49] LABS: BASOPHILS ABSOLUTE AUTO 0.03 K/mm3 (0.00-0.23); BASOPHILS PERCENT AUTO 1 % (0-2); EOSINOPHILS ABSOLUTE AUTO 0.04 K/mm3 (0.00-0.68); EOSINOPHILS PERCENT AUTO 1 % (0-6); Hematocrit 43.7 % (33.0-51.0); IMMATURE GRAN ABSOLUTE AUTO 0.01 K/mm3 (0.00-0.10); IMMATURE GRAN PERCENT AUTO 0 % (0-1); LYMPHOCYTES PERCENT AUTO 38 % (21-46); MONOCYTES ABSOLUTE AUTO 0.26 K/mm3 (0.16-1.47); MONOCYTES PERCENT AUTO 6 % (4-13); Mean Corpuscular HGB 30.9 pg (26.0-34.0); Mean Corpuscular HGB Conc 34.3 g/dL (31.5-36.5); Mean Corpuscular Volume 90 fL (80-100); Mean Platelet Volume 10.1 fL (9.1-12.4); NEUTROPHILS ABSOLUTE AUTO 2.32 K/mm3 (1.96-9.15); NEUTROPHILS PERCENT AUTO 55 % (41-73); Platelet Count 200 K/mm3 (150-400); RDW Coefficient Variation 11.7 % (11.7-14.2); RDW Standard Deviation 38.8 fL (35.1-46.3); Red Blood Cell Count 4.85 M/mm3 (3.80-5.20); White Blood Cell Count 4.26 K/mm3 (4.00-11.30)
[2021-05-26 07:01] LABS: Alanine Aminotransfer (ALT/SGP 51 U/L (12-78); Albumin, Blood 3.7 g/dL (3.4-5.0); Albumin/Globulin Ratio 0.8 (0.8-1.8); Alk Phos 140 U/L (50-136); Anion Gap 17 mmol/L (6-16); Aspartate Aminotrans (AST/SGOT 61 U/L (12-37); Bilirubin, Total 0.4 mg/dL (0.1-1.0); Blood Urea Nitrogen 12 mg/dL (8-24); Bun/Creatinine Ratio 16.3 (12.0-20.0); CO2, Blood 17 mmol/L (21-32); Calcium, Blood 9.1 mg/dL (8.5-10.1); Chloride, Blood 97 mmol/L (98-108); Creatinine, Blood 0.74 mg/dL (0.40-1.00); Globulin, Blood 4.7 g/dL (2.2-4.0); Glomerular Filtration Rate >60 (60-); Glucose, Blood 413 mg/dL (70-99); Potassium, Blood 5.2 mmol/L (3.5-5.5); Sodium, Blood 131 mmol/L (136-145); Total Protein, Blood 8.4 g/dL (6.4-8.2)
[2021-05-26 07:43] LABS: Base Excess Venous -10.8 mmol/L; Bicarbonate Venous 16.5 mmol/L (24.0-30.0); PCO2 Venous 38.5 mmHg (38-42); PO2 Venous 136 mmHg (38-42)
[2021-05-26 07:44] LABS: pH Blood Venous 7.24 (7.34-7.37)
[2021-05-26 09:01] LABS: SARS-Cov-2 (COVID-19) PCR, MMC POSITIVE (NEGATIVE)
[2021-05-26 10:15] LABS: Source, Urine Clean Catch
[2021-05-26 10:21] LABS: Appearance, Urine Clear (Clear); Bilirubin, Urine Neg (Neg); Blood, Urine 4+ (Neg); Color, Urine Yellow (P-Yellow); Glucose Qualitative, Urine 4+ (Neg); Ketones, Urine 4+ (Neg); Leukocyte Esterase, Urine Neg (Neg); Nitrite, Urine Neg (Neg); Protein, Urine 1+ (Neg); Specific Gravity, Urine 1.015 (1.003-1.022); Urobilinogen, Urine NORM (Normal)
[2021-05-26 10:30] LABS: White Blood Cells, Urine 0-2 /hpf (0-5)
[2021-05-26 10:31] LABS: Bacteria Mod /hpf; Squamous Epithelial Cells Few /hpf (Few)
[2021-05-26 11:30] LABS: Albumin, Blood 2.9 g/dL (3.4-5.0); Anion Gap 14 mmol/L (6-16); Blood Urea Nitrogen 16 mg/dL (8-24); Bun/Creatinine Ratio 21.2 (12.0-20.0); CO2, Blood 17 mmol/L (21-32); Calcium, Blood 7.7 mg/dL (8.5-10.1); Chloride, Blood 107 mmol/L (98-108); Creatinine, Blood 0.76 mg/dL (0.40-1.00); Glomerular Filtration Rate >60 (60-); Glucose, Blood 251 mg/dL (70-99); Phosphorus, Blood 4.2 mg/dL (2.5-4.9); Potassium, Blood 4.7 mmol/L (3.5-5.5); Sodium, Blood 138 mmol/L (136-145)
[2021-05-26] MEDS ORDERED: Adalat/Procardi20 MG PO (17:26)
--- NOTE | 2021-05-26 18:48 | NUR ---
SHIFT SUMMARY PT IS AOX4. PT IS ON RA AND DENIES SOB. PT DENIES N/V. PT C/O PAIN IN HEAD-MIGRAINE HX. PT IS INDEPENDENT IN ROOM. PLAN IS TO MONITOR O2 STATUS. PT DID NOT HAVE VISITORS PER PROTOCOL. PT IS IN ROOM, CALL LIGHT IN REACH, BED IN LOW POSITION.
[2021-05-27 05:05] LABS: BASOPHILS ABSOLUTE AUTO 0.01 K/mm3 (0.00-0.23); BASOPHILS PERCENT AUTO 0 % (0-2); EOSINOPHILS ABSOLUTE AUTO 0.04 K/mm3 (0.00-0.68); EOSINOPHILS PERCENT AUTO 1 % (0-6); Hematocrit 35.6 % (33.0-51.0); IMMATURE GRAN ABSOLUTE AUTO 0.01 K/mm3 (0.00-0.10); IMMATURE GRAN PERCENT AUTO 0 % (0-1); LYMPHOCYTES PERCENT AUTO 41 % (21-46); MONOCYTES ABSOLUTE AUTO 0.25 K/mm3 (0.16-1.47); MONOCYTES PERCENT AUTO 6 % (4-13); Mean Corpuscular HGB 31.1 pg (26.0-34.0); Mean Corpuscular HGB Conc 33.7 g/dL (31.5-36.5); Mean Corpuscular Volume 92 fL (80-100); Mean Platelet Volume 9.4 fL (9.1-12.4); NEUTROPHILS ABSOLUTE AUTO 2.03 K/mm3 (1.96-9.15); NEUTROPHILS PERCENT AUTO 52 % (41-73); Platelet Count 156 K/mm3 (150-400); RDW Coefficient Variation 11.9 % (11.7-14.2); Red Blood Cell Count 3.86 M/mm3 (3.80-5.20); White Blood Cell Count 3.94 K/mm3 (4.00-11.30)
--- NOTE | 2021-05-27 06:37 | NUR ---
SHIFT SUMMARY PT IS A 25 Y/O FEMALE, ADMITTED FOR DKA AND POSITIVE FOR COVID-19, CURRENTLY IN ENHANCED PRECAUTIONS. SHE IS A&O X 4, INDEPENDENT IN THE ROOM. PT DID REPORT SOB WITH EXERTION, AND WAS PLACED ON 2L O2 VIA NC FOR COMFORT, SATTING 97-100%. PT REPORTED PAIN IN HER BACK AND RIBS, AND AFTER INFORMING DR DHILLON PRN TYLENOL WAS ORDERED AND GIVEN. PT WAS ALSO MEDICATED ONCE FOR NAUSEA AT HS. VITAL SIGNS STABLE, BLOOD SUGARS STABLE. NO ACUTE CHANGES IN PT CONDITION NOTED DURING THE NIGHT. WILL CONTINUE TO MONITOR AND TREAT PER EMAR UNTIL HAND OFF TO DAY SHIFT RN.
[2021-05-27 10:15] LABS: Anion Gap 3 mmol/L (6-16); Blood Urea Nitrogen 11 mg/dL (8-24); Bun/Creatinine Ratio 19.5 (12.0-20.0); CO2, Blood 27 mmol/L (21-32); Chloride, Blood 109 mmol/L (98-108); Creatinine, Blood 0.56 mg/dL (0.40-1.00); Glomerular Filtration Rate >60 (60-); Glucose, Blood 167 mg/dL (70-99); Potassium, Blood 3.7 mmol/L (3.5-5.5); Sodium, Blood 139 mmol/L (136-145)
[2021-05-27] MEDS ORDERED: NIFE60ER PO (12:41)
[2021-05-27] MEDS ORDERED: AZIT250 PO (12:42)
[2021-05-27] MEDS ORDERED: Acetaminophen650 M1 PO (12:42)
[2021-05-27] MEDS ORDERED: ASPI81CH PO (12:42)
--- NOTE | 2021-05-27 14:47 | NUR ---
DISCHARGE NOTE PT IS AOX4. IV REMOVED BY THIS RN PER DOCUMENTATION. THIS RN REVIEWED DC INSTRUCTIONS AND MEDICATIONS WITH PT WHO VERBALIZED UNDERSTANDING. PT DRESSED SELF IN HOME CLOTHING. PT O2 STATUS GREATER THAN 90% ON RA. THIS RN RECEIVED VERBAL ORDER FOR ZOFRAN FOR PT AND FAXED UPDATED MEDREC TO [facility] IN [place]. PT BELONGINGS GATHERED. PT WHEELED OFF UNIT BY EQUITY STRUCTURER AND LEFT BUILDING IN PRIVATE VEHICLE WITH .
== END 2021-05-27 14:10 | disposition home or self-care (01) | DRG 177 ==
LOC: ER 05:28 → ERHOLD 05:29 → MEDS 16:55
PROVIDERS: Emergency Medicine; ADMIT Internal Medicine Endocrinology, Diabetes & Metabolism
PROC: 8E0ZXY6 Isolation (ICD-10-PCS; principal; 2021-05-26)
DX: U07.1 COVID-19 (principal); E10.10 Type 1 diabetes mellitus with ketoacidosis without coma; J12.82 Pneumonia due to coronavirus disease 2019; J80 Acute respiratory distress syndrome; M79.7 Fibromyalgia; E10.40 Type 1 diabetes mellitus with diabetic neuropathy, unspecified; E10.3599 Type 1 diabetes mellitus with proliferative diabetic retinopathy without macular edema, unspecified eye; F41.0 Panic disorder [episodic paroxysmal anxiety]; Z98.890 Other specified postprocedural states; Z91.018 Allergy to other foods; Z88.8 Allergy status to other drugs, medicaments and biological substances; Z79.4 Long term (current) use of insulin; Z79.899 Other long term (current) drug therapy
CPT/HCPCS: 36415; 71045; 71046; 80048; 80053; 80069; 81001; 82803; 82947; 85025; 94640; 94762; 96372-59; 96374; 96375; 96376; 99285-25; A9270; J1650; J1815; J1885; J2405; J3480; J7030; U0004

== ENCOUNTER 2021-05-30 23:01 | Emergency (ER) | payer OTHER ==
[~2021-05-30] VITALS: Ht 157.5 cm; Wt 59.0 kg
[~2021-05-30 23:01] MED LIST changes: +ASPI81CH PO; +AZIT250 PO; +Acetaminophen650 M1 PO; +HUMALOG100 UNIT/1 SC; +NIFE60ER PO; +SERT50 PO
[2021-05-31] MEDS ORDERED: ONDA4ODT MM (05:33)
== END 2021-05-31 07:35 | disposition home or self-care (01) ==
LOC: ER 23:01
DX: R42 Dizziness and giddiness (principal); U07.1 COVID-19; E10.42 Type 1 diabetes mellitus with diabetic polyneuropathy; Z88.8 Allergy status to other drugs, medicaments and biological substances; Z91.048 Other nonmedicinal substance allergy status; Z79.4 Long term (current) use of insulin
CPT/HCPCS: 82947; 99285; A9270

== ENCOUNTER 2021-06-02 21:41 | Inpatient (IN) | payer OTHER ==
[~2021-06-02] VITALS: Ht 167.6 cm; Wt 56.7 kg
[2021-06-02 22:29] LABS: BASOPHILS ABSOLUTE AUTO 0.05 K/mm3 (0.00-0.23); BASOPHILS PERCENT AUTO 0 % (0-2); EOSINOPHILS ABSOLUTE AUTO 0.01 K/mm3 (0.00-0.68); EOSINOPHILS PERCENT AUTO 0 % (0-6); Hematocrit 46.3 % (33.0-51.0); Hemoglobin 14.9 g/dL (11.5-16.0); IMMATURE GRAN ABSOLUTE AUTO 0.96 K/mm3 (0.00-0.10); IMMATURE GRAN PERCENT AUTO 7 % (0-1); LYMPHOCYTES ABSOLUTE AUTO 1.68 K/mm3 (0.84-5.20); LYMPHOCYTES PERCENT AUTO 12 % (21-46); MONOCYTES ABSOLUTE AUTO 1.07 K/mm3 (0.16-1.47); MONOCYTES PERCENT AUTO 8 % (4-13); Mean Corpuscular HGB Conc 32.2 g/dL (31.5-36.5); Mean Corpuscular Volume 96 fL (80-100); Mean Platelet Volume 9.7 fL (9.1-12.4); NEUTROPHILS ABSOLUTE AUTO 10.08 K/mm3 (1.96-9.15); NEUTROPHILS PERCENT AUTO 73 % (41-73); NRBC ABSOLUTE 0.04 K/mm3 (0.00-0.02); NRBC Auto 0.3 /100 WBC (0.0-0.2); Platelet Count 500 K/mm3 (150-400); RDW Coefficient Variation 12.1 % (11.7-14.2); RDW Standard Deviation 42.9 fL (35.1-46.3); Red Blood Cell Count 4.81 M/mm3 (3.80-5.20); White Blood Cell Count 13.85 K/mm3 (4.00-11.30)
[2021-06-02 22:31] LABS: Bicarbonate Venous 4.2 mmol/L (24.0-30.0); PCO2 Venous 21.9 mmHg (38-42); PO2 Venous 136 mmHg (38-42); pH Blood Venous 6.82 (7.34-7.37)
[2021-06-02 22:32] LABS: Base Excess Venous -30.7 mmol/L
[2021-06-02 22:47] LABS: BAND PERCENT MAN 4 % (0-8); BASOPHILS ABSOLUTE MAN 0.13 K/mm3 (0.00-0.23); BASOPHILS PERCENT MAN 1 % (0-2); EOSINOPHILS PERCENT MAN 0 % (0-6); LYMPHOCYTES ABSOLUTE MAN 1.52 K/mm3 (0.84-5.20); LYMPHOCYTES PERCENT MAN 11 % (21-46); METAMYELOCYTE ABSOLUTE MAN 0.27 K/mm3 (0.00-0.00); METAMYELOCYTE PERCENT MAN 2 % (0-0); MONOCYTES ABSOLUTE MAN 1.66 K/mm3 (0.16-1.47); MONOCYTES PERCENT MAN 12 % (4-13); MYELOCYTE ABSOLUTE MAN 0.13 K/mm3 (0.00-0.00); MYELOCYTE PERCENT MAN 1 % (0-0); NEUTROPHILS ABSOLUTE MAN 10.11 K/mm3 (1.96-9.15); SEG NEUTROPHILS PERCENT MAN 69 % (41-73); TOTAL CELLS COUNTED 100
[2021-06-02 23:07] LABS: Ethanol (Alcohol), Blood, Med <3 mg/dL
[2021-06-02 23:10] LABS: Alanine Aminotransfer (ALT/SGP 32 U/L (12-78); Albumin, Blood 3.1 g/dL (3.4-5.0); Albumin/Globulin Ratio 0.7 (0.8-1.8); Alk Phos 132 U/L (50-136); Anion Gap 32 mmol/L (6-16); Aspartate Aminotrans (AST/SGOT 31 U/L (12-37); Bilirubin, Total 0.5 mg/dL (0.1-1.0); Blood Urea Nitrogen 40 mg/dL (8-24); Bun/Creatinine Ratio 32.5 (12.0-20.0); CO2, Blood 4 mmol/L (21-32); Chloride, Blood 94 mmol/L (98-108); Creatinine, Blood 1.23 mg/dL (0.40-1.00); Globulin, Blood 4.2 g/dL (2.2-4.0); Glomerular Filtration Rate 54 (60-); Glucose, Blood 761 mg/dL (70-99); Potassium, Blood 7.5 mmol/L (3.5-5.5); Sodium, Blood 130 mmol/L (136-145); Total Protein, Blood 7.3 g/dL (6.4-8.2)
[2021-06-02 23:24] LABS: Beta-hydroxybutyrate >138.0 mg/dL (0.2-2.8)
[2021-06-02 23:30] LABS: Glucose, Blood 714 mg/dL (70-99)
[2021-06-02 23:45] LABS: Source, Urine Clean Catch
[2021-06-02 23:50] LABS: Bilirubin, Urine Neg (Neg); Blood, Urine 2+ (Neg); Glucose Qualitative, Urine 4+ (Neg); Ketones, Urine 4+ (Neg); Leukocyte Esterase, Urine Neg (Neg); Nitrite, Urine Neg (Neg); Protein, Urine 3+ (Neg); Urobilinogen, Urine NORM (Normal)
[2021-06-02 23:51] LABS: Appearance, Urine Clear (Clear); Color, Urine Yellow (P-Yellow)
[2021-06-02 23:56] LABS: Bacteria Few /hpf; Red Blood Cells, Urine 0-2 /hpf (0-2); Squamous Epithelial Cells Few /hpf (Few); White Blood Cells, Urine 0-2 /hpf (0-5)
[2021-06-02 23:57] LABS: Hyaline Casts 0-2 /lpf (0-2); Mucus Light (0-Heavy)
[2021-06-03 00:02] LABS: U Amphetamine Screen Not Detected; U Barbituate Screen Not Detected; U Benzodiazapine Screen Not Detected; U Buprenorphine Screen Not Detected; U Cannabinoids Screen Not Detected; U Cocaine Screen Not Detected; U Methadone Screen Not Detected; U Methamphetamine Screen Not Detected; U Opiates Screen Not Detected; U Oxycodone Screen Not Detected; U Phencyclidine Screen Not Detected; U Propoxyphene Screen Not Detected
[2021-06-03 00:41] LABS: Anion Gap 28 mmol/L (6-16); Blood Urea Nitrogen 40 mg/dL (8-24); Bun/Creatinine Ratio 39.2 (12.0-20.0); CO2, Blood 4 mmol/L (21-32); Calcium, Blood 7.7 mg/dL (8.5-10.1); Chloride, Blood 106 mmol/L (98-108); Creatinine, Blood 1.02 mg/dL (0.40-1.00); Glomerular Filtration Rate >60 (60-); Glucose, Blood 644 mg/dL (70-99); Potassium, Blood 6.6 mmol/L (3.5-5.5); Sodium, Blood 138 mmol/L (136-145)
[2021-06-03 01:26] LABS: Glucose, Blood 631 mg/dL (70-99)
[2021-06-03 02:06] LABS: Glucose, Blood 589 mg/dL (70-99)
[2021-06-03 03:07] LABS: Glucose, Blood 586 mg/dL (70-99)
[2021-06-03 06:25] LABS: BASOPHILS ABSOLUTE AUTO 0.13 K/mm3 (0.00-0.23); BASOPHILS PERCENT AUTO 1 % (0-2); EOSINOPHILS PERCENT AUTO 0 % (0-6); Hematocrit 41.5 % (33.0-51.0); Hemoglobin 13.7 g/dL (11.5-16.0); Mean Corpuscular HGB 30.9 pg (26.0-34.0); Mean Corpuscular Volume 94 fL (80-100); Mean Platelet Volume 9.4 fL (9.1-12.4); NRBC ABSOLUTE 0.02 K/mm3 (0.00-0.02); NRBC Auto 0.1 /100 WBC (0.0-0.2); Platelet Count 352 K/mm3 (150-400); RDW Coefficient Variation 12.3 % (11.7-14.2); Red Blood Cell Count 4.44 M/mm3 (3.80-5.20); White Blood Cell Count 14.89 K/mm3 (4.00-11.30)
[2021-06-03 06:44] LABS: IMMATURE GRAN PERCENT AUTO 5 % (0-1); LYMPHOCYTES ABSOLUTE AUTO 2.62 K/mm3 (0.84-5.20); LYMPHOCYTES PERCENT AUTO 18 % (21-46); MONOCYTES PERCENT AUTO 14 % (4-13); NEUTROPHILS ABSOLUTE AUTO 9.24 K/mm3 (1.96-9.15); NEUTROPHILS PERCENT AUTO 62 % (41-73)
[2021-06-03 07:39] LABS: Alanine Aminotransfer (ALT/SGP 28 U/L (12-78); Albumin, Blood 2.7 g/dL (3.4-5.0); Albumin/Globulin Ratio 0.7 (0.8-1.8); Alk Phos 106 U/L (50-136); Anion Gap 27 mmol/L (6-16); Aspartate Aminotrans (AST/SGOT 35 U/L (12-37); Bilirubin, Total 0.5 mg/dL (0.1-1.0); Blood Urea Nitrogen 38 mg/dL (8-24); Bun/Creatinine Ratio 38.2 (12.0-20.0); CO2, Blood 6 mmol/L (21-32); Calcium, Blood 8.2 mg/dL (8.5-10.1); Chloride, Blood 110 mmol/L (98-108); Glomerular Filtration Rate >60 (60-); Potassium, Blood 4.9 mmol/L (3.5-5.5); Sodium, Blood 143 mmol/L (136-145); Total Protein, Blood 6.7 g/dL (6.4-8.2)
[2021-06-03 07:51] LABS: Glucose, Blood 524 mg/dL (70-99)
--- NOTE | 2021-06-03 11:30 | NUR ---
FROM ER TO ICU 15 AT 1030 CARE ASSUMED, ASSESSMENTS COMPLETED. PT OBTUNDED, IS ABLE TO FOLLOW FEW SIMPLE COMMANDS, DOES NOT ATTEMPT VERBAL COMMUNICATION, MOVES ALL EXTREMS. PERIPHERAL NEUROPATHY AT BASELINE. PT ARRIVES WITH INSULIN 4U/HR, CBG 300'S, WILL TITRATE TO EFFECT. BICARB INFUSING AT 125ML/HR PER ORDERS. LS CLEAR, DIMINISHED IN BASES, SPO2 99% ON RA, OCCASIONAL DRY COUGH NOTED. HR SIT 120-130, BP STABLE. ABD SOFT, NONTENDER ON PALPATION, BT HYPOACTIVE. MCARTHUR IN PLACE WITH CLEAR YELLOW URINE. SKIN BRUISED BUT OTHERWISE INTACT. 3 PERIPHERAL IV'S PATENT, ALL FLUSH EASILY. MOUTH IS BLACK INSIDE, DRIED BLACK SUBSTANCE ON PT'S CHEST, REPORT OF BLACK EMESIS IN ER. DR. SANTOS NOTIFIED, NO NEW ORDERS REGARDING BLACK EMESIS AT THIS TIME. PT RESTING IN BED WITH EYES CLOSED, RESPIRATIONS 28 EVEN AND UNLABORED.
[2021-06-03 11:57] LABS: Magnesium, Blood 2.5 mg/dL (1.6-2.4)
[2021-06-03 12:01] LABS: Anion Gap 25 mmol/L (6-16); Blood Urea Nitrogen 34 mg/dL (8-24); Bun/Creatinine Ratio 31.2 (12.0-20.0); CO2, Blood 9 mmol/L (21-32); Calcium, Blood 8.4 mg/dL (8.5-10.1); Chloride, Blood 113 mmol/L (98-108); Creatinine, Blood 1.09 mg/dL (0.40-1.00); Glomerular Filtration Rate >60 (60-); Glucose, Blood 388 mg/dL (70-99); Phosphorus, Blood 2.4 mg/dL (2.5-4.9); Potassium, Blood 4.4 mmol/L (3.5-5.5); Sodium, Blood 147 mmol/L (136-145)
[2021-06-03 15:48] LABS: Anion Gap 17 mmol/L (6-16); Blood Urea Nitrogen 29 mg/dL (8-24); Bun/Creatinine Ratio 29.2 (12.0-20.0); CO2, Blood 17 mmol/L (21-32); Calcium, Blood 8.2 mg/dL (8.5-10.1); Chloride, Blood 121 mmol/L (98-108); Creatinine, Blood 0.99 mg/dL (0.40-1.00); Glomerular Filtration Rate >60 (60-); Glucose, Blood 223 mg/dL (70-99); Potassium, Blood 3.5 mmol/L (3.5-5.5); Sodium, Blood 155 mmol/L (136-145)
--- NOTE | 2021-06-03 16:00 | NUR ---
UPDATE PT BECOMING SLIGHTLY MORE ALERT THIS AFTERNOON, IS ABLE TO OPEN EYES SPONTANEOUSLY, TAPIA AND REPOSITION, FOLLOW SOME DIRECTIONS, REMAINS NON-VERBAL AT THIS TIME. PT HAS BEEN SHIVERING ON AND OFF THIS AFTERNOON, IS AFEBRILE. GIVEN WARM BLANKET WHICH HELPED BRIEFLY, PT THEN BEGAN SHIVERING AGAIN. HR REMAINS 120'S SINUS, BP STABLE, TEMP 98. DR. SANTOS NOTIFIED, LABS REVIEWED. NEW ORDERS RECEIVED, WILL CHANGE IVF PER ORDERS.
--- NOTE | 2021-06-03 18:36 | NUR ---
END OF SHIFT PT'S GLUCOSE AND A GAP HAVE IMPROVED, INSULIN GTT REMAINS ON PER DR. SANTOS UNTIL PT IS AWAKE AND ALERT ENOUGH TO EAT. INSULIN GTT RATE 7U/HR, D5W AT 150ML/HR, CBG AROUND 200. PT REMAINS VERY DROWSY BUT WAKES EASILY TO VOICE, OPENS EYES, FOLLOWS SOME COMMANDS, AND TAPIA. SAID "OW" WHEN REPOSITIONING, NO OTHER VERBAL COMNMUNICATION. PT SHIVERING AND TREMULOUS INTERMITTENTLY, DR. SANTOS AWARE, BELIEVES IT IS FROM ELECTROLYTE DERANGEMENT. D5W INFUSING TO CORRECT SODIUM LEVEL, FOLLOWING CMP Q4H. LS REMAIN CLEAR, DIMINISHED ON R, SPO2 >95% ON RA, DRY COUGH PERSISTS. TMAX 99.2.
--- NOTE | 2021-06-03 19:15 | NUR ---
ASSUMED PT CARE REPORT AND ROUNDING WITH JOSE RN AT 1855, ASSUMED PT CARE. ASSESSMENT AT 191. PT HAS VOMITED COFFEE GROUND BLACK EMESIS ALL OVER BED AND FRONT, WITH THE ASSISTANCE OF PLEAT PATTERNMAKER PT CLEANED AND NEW LINENS/GOWN PLACED. PT RESPONSIVE TO VERBAL STIMULI, LOOKS AT NURSE WHEN HER NAME IS CALLED. PT DOES NOT ANSWER QUESTIONS, DOES NOT SPEAK, DOES NOT FOLLOW MOST COMMANDS OR INSTRUCTIONS. PT MOANS, IS TREMULOUS AND DOES A GAGGING LIKE YAWN. PT ON ROOM AIR, SATS >92%, LUNG SOUNDS CLEAR TO UPPER LOBES, DIMINISHED TO LOWER LOBES. PT IN ST, SBP WNL. PULSES STRONG. ABD SOFT. TEMP MCARTHUR DRAINING CLEAR YELLOW URINE. PT AFEBRILE. TAPIA. SKIN INTACT AND PALE. PT HAS 20G SL TO LEFT AC, SITE WNL, DRESSING C/D/I. PT HAS 20G TO LEFT HAND WITH INSULIN INFUSING AT 7UNITS/HR, SITE WNL, DRESSING C/D/I. PT HAS 20G TO RIGHT FA WITH D5W INFUSING AT 150ML/HR, SITE WNL, DRESSING C/D/I. SEE FULL SHIFT ASSESSMENT.
[2021-06-03 20:00] LABS: Anion Gap 13 mmol/L (6-16); Blood Urea Nitrogen 25 mg/dL (8-24); Bun/Creatinine Ratio 29.1 (12.0-20.0); CO2, Blood 20 mmol/L (21-32); Calcium, Blood 8.2 mg/dL (8.5-10.1); Chloride, Blood 121 mmol/L (98-108); Creatinine, Blood 0.86 mg/dL (0.40-1.00); Glomerular Filtration Rate >60 (60-); Glucose, Blood 230 mg/dL (70-99); Magnesium, Blood 2.3 mg/dL (1.6-2.4); Potassium, Blood 3.1 mmol/L (3.5-5.5); Sodium, Blood 154 mmol/L (136-145)
[2021-06-03 20:06] LABS: Phosphorus, Blood 0.4 mg/dL (2.5-4.9)
[2021-06-03 23:31] LABS: Anion Gap 5 mmol/L (6-16); Blood Urea Nitrogen 20 mg/dL (8-24); Bun/Creatinine Ratio 25.8 (12.0-20.0); CO2, Blood 29 mmol/L (21-32); Calcium, Blood 7.8 mg/dL (8.5-10.1); Chloride, Blood 120 mmol/L (98-108); Creatinine, Blood 0.77 mg/dL (0.40-1.00); Glomerular Filtration Rate >60 (60-); Glucose, Blood 244 mg/dL (70-99); Potassium, Blood 3.1 mmol/L (3.5-5.5); Sodium, Blood 154 mmol/L (136-145)
--- NOTE | 2021-06-04 | NUR ---
UPDATE PT HAS BEEN SCREAMING SINCE APPROX 2200. WILL SETTLE SPONTANEOUSLY. PT CONTINUES TO BE UNDIRECTABLE. PT DOES NOT FOLLOW COMMANDS OR FOLLOW INSTRUCTIONS. PT UNCOOPERATIVE AND COMBATIVE. ATTEMPTING TO PULL AT LINES AND GET OUT OF BED. DOES NOT FOLLOW INSTRUCTIONS DESPITE MULTIPLE ATTEMPTS OF REDIRECTION AND REORIENTATION. DR ALAN MADE AWARE AND ORDERS FOR ATIVAN, HALDOL, PRECEDEX (LASAT RESORT) AND RESTRAINTS RECEIVED. PROVIDER ALSO ORDERED VBG AND REPEAT TOX SCREEN. BLOOD AND URINE COLLECTED. ROBB AND SOFT RESTRAINTS X4 APPLIED WITH ASSISTANCE OF 3 STAFF. ATIVAN AND HALDOL GIVEN. THIS RN STAYS BEDSIDE FOR 1:1 MONITORING.
[2021-06-04 00:33] LABS: Base Excess Venous -0.2 mmol/L; Bicarbonate Venous 23.6 mmol/L (24.0-30.0); PO2 Venous 28.3 mmHg (38-42); pH Blood Venous 7.39 (7.34-7.37)
[2021-06-04 00:59] LABS: U Amphetamine Screen Not Detected; U Barbituate Screen Not Detected; U Benzodiazapine Screen Not Detected; U Buprenorphine Screen Not Detected; U Cannabinoids Screen Not Detected; U Cocaine Screen Not Detected; U Methadone Screen Not Detected; U Methamphetamine Screen Not Detected; U Opiates Screen Not Detected; U Oxycodone Screen Not Detected; U Phencyclidine Screen Not Detected; U Propoxyphene Screen Not Detected
--- NOTE | 2021-06-04 01:45 | NUR ---
UPDATE PT CONTINUES TO THRASH AND SCREAM. PRECEDEX STARTED. SEE FLOWSHEET.
[2021-06-04 03:25] LABS: Anion Gap 10 mmol/L (6-16); Blood Urea Nitrogen 16 mg/dL (8-24); Bun/Creatinine Ratio 20.8 (12.0-20.0); CO2, Blood 24 mmol/L (21-32); Calcium, Blood 7.4 mg/dL (8.5-10.1); Chloride, Blood 117 mmol/L (98-108); Creatinine, Blood 0.77 mg/dL (0.40-1.00); Glomerular Filtration Rate >60 (60-); Glucose, Blood 268 mg/dL (70-99); Magnesium, Blood 2.1 mg/dL (1.6-2.4); Phosphorus, Blood 1.5 mg/dL (2.5-4.9); Potassium, Blood 2.7 mmol/L (3.5-5.5); Sodium, Blood 151 mmol/L (136-145)
--- NOTE | 2021-06-04 05:00 | NUR ---
UPDATE PT DOING WELL ON PRECEDEX. TITRATING APPROPRIATE. PT OUT OF ANKLE RESTRAINTS. AM LABS SHOW PHOSPHORUS 1.5, POTTASIUM 2.7, CALCIUM 7.4, AND MAGNESIUM 2.1 DR ALAN AWARE AND ORDERS FOR 40M K PHOS RECEIVED. REPEAT LABS ORDERED.
--- NOTE | 2021-06-04 06:23 | NUR ---
SHIFT SUMMARY PT REMAINS SEDATED ON PRECEDEX INF AT 0.5MCG. RESP EVEN AND NONLABORED. SATS >92% ON RA. HR SINUS TACH IN THE 90S. SBP 138. ABD SOFT. PULSES STRONG AND EQUAL. TEMP MCARTHUR DRAINING CLEAR YELLOW URINE. PT HAS 20G SL TO LEFT AC, SITE WNL, DRESSING C/D/I, SITE PULLS BLOOD WELL FOR LAB DRAWS. PT HAS20G TO LEFT HAND WITH INSULIN INFUSING AT 5UNITS/HR. PT HAS 20G TO RIGHT FA WITH KPHOS 40MM INFUSING AT 150ML/HR AND PRECEDEX INF. MAINTENANCE FLUIDS ON SB AT THIS TIME. BILATERAL SOFT WRIST RESTRAINTS SECURE. PT REMAINS IN ROBB VEST. PT HAS A DRY NONPRODUCTIVE COUGH. WILL CONTINUE TO MONITOR AND REPORT TO ONCOMING SHIFT.
--- NOTE | 2021-06-04 07:58 | NUR ---
CARE ASSUMED ASSESSMENTS COMPLETED. PT ON PRECEDEX 0.5MCG, DROWSY, REMAINS NON VERBAL BUT DOES MOAN DURING CARES. UNCOOPERATIVE WITH ORAL CARE, DOES NOT FOLLOW COMMANDS OR TRACK, PUPILS MINIMALL REACTIVE BUT EQUAL. MOVES ALL EXTREMS, BECOMES AGITATED WITH STIMULATION BUT CALMS QUICKLY WITH REST. ROBB AND SWB RESTRAINTS IN PLACE TO PROTECT LINES/CORDS. LS DIMINISHED, DRY COUGH NOTED, SPO2 99% ON RA. HR SIT 105, BP STABLE. ABD SOFT, BT PRESENT, NO GRIMACING ON PALPATION. REPORT OF BLACK EMESIS LAST NIGHT, NONE SO FAR THIS MORNING. SKIN INTACT, IV'S PATENT, MCARTHUR DRAINING CLEAR YELLOW. TITRATING INSULIN TO EFFECT, 4U/HR AT THIS TIME.
[2021-06-04 08:08] LABS: Anion Gap 4 mmol/L (6-16); Blood Urea Nitrogen 14 mg/dL (8-24); Bun/Creatinine Ratio 19.9 (12.0-20.0); CO2, Blood 29 mmol/L (21-32); Calcium, Blood 7.5 mg/dL (8.5-10.1); Chloride, Blood 118 mmol/L (98-108); Glomerular Filtration Rate >60 (60-); Glucose, Blood 165 mg/dL (70-99); Sodium, Blood 151 mmol/L (136-145)
[2021-06-04 08:24] LABS: Source, Urine Catheter
[2021-06-04 08:31] LABS: Appearance, Urine Clear (Clear); Bilirubin, Urine Neg (Neg); Blood, Urine 1+ (Neg); Color, Urine Yellow (P-Yellow); Glucose Qualitative, Urine 3+ (Neg); Ketones, Urine 3+ (Neg); Leukocyte Esterase, Urine Neg (Neg); Nitrite, Urine Neg (Neg); Protein, Urine 2+ (Neg); Urobilinogen, Urine NORM (Normal); pH, Urine 6.5 (5.0-8.0)
[2021-06-04 08:46] LABS: Bacteria Not Seen /hpf; Red Blood Cells, Urine 0-2 /hpf (0-2); Squamous Epithelial Cells Not Seen /hpf (Few); White Blood Cells, Urine Not Seen /hpf (0-5)
--- NOTE | 2021-06-04 13:21 | NUR ---
UPDATE DR. VALDIVIA IN TO ASSESS, NEW ORDERS. HEAD CT COMPLETED, AWARE OF RESULTS. CBG 120'S WITH INSULIN 2U/HR, D5W 150ML/HR. PT'S SEDATION INCREASED THIS AM FOR BRIEF EPISODE OF SCREAMING AND TRYING TO GET OOB, PT WOULD NOT VERBALIZE A C/O OR REASON FOR DISTRESS. CALMED QUICKLY PRECEDEX INCREASE TO 0.7MCG, NO OTHER EPISODES OF AGITATION. RESTRAINTS DC'D. DR. VALDIIVA BY TO REEVALUATE, PLANNING TO DECREASE PRECEDEX THIS AFTERNOON TO ASSESS NEURO STATUS. WILL CONTINUE INSULIN GTT UNTIL PATIENT ABLE TO EAT.
[2021-06-04 13:53] LABS: Anion Gap 4 mmol/L (6-16); Blood Urea Nitrogen 11 mg/dL (8-24); Bun/Creatinine Ratio 17.7 (12.0-20.0); CO2, Blood 29 mmol/L (21-32); Calcium, Blood 7.4 mg/dL (8.5-10.1); Chloride, Blood 117 mmol/L (98-108); Creatinine, Blood 0.62 mg/dL (0.40-1.00); Glomerular Filtration Rate >60 (60-); Glucose, Blood 150 mg/dL (70-99); Magnesium, Blood 2.3 mg/dL (1.6-2.4); Phosphorus, Blood 3.3 mg/dL (2.5-4.9); Potassium, Blood 3.3 mmol/L (3.5-5.5); Sodium, Blood 150 mmol/L (136-145)
--- NOTE | 2021-06-04 16:10 | NUR ---
UPDATE PRECEDEX OFF, PT GIVEN BEDBATH. SLIGHT INCREASE IN LOC WITH STIMULATION, PT ABLE TO OPEN EYES, TRACK, FOLLOW SIMPLE COMMANDS, AND STATE HER . WHEN ASKED IF AWARE OF SURROUNDINGS, PT DENIED, WOULD NOT ANSWER ANY OTHER QUESTIONS. RESTRAINTS REMAIN OFF, PT RESTING IN BED, REPOSITIONS SELF, IS CALM AT THIS TIME. OCCASIONAL DRY COUGH NOTED, SPO2 REMAINS 99-100% ON RA, LS DIMINISHED BUT CLEAR. PT AFEBRILE WITH ELEVATED BP AND HR 90'S SINUS. DR. VALDIVIA PLANS TO COME REASSESS PT THIS EVENING NOW THAT PRECEDEX IS OFF. SCDS PLACED TO BLE'S AFTER BATH LOVENOX WAS HELD D/T COFFEE GROUND EMESIS. DR. YOST HAS NOT BEEN IN TO SEE PATIENT TODAY, WILL CALL HIM IF HE DOES NOT ARRIVE SOON.
--- NOTE | 2021-06-04 16:59 | NUR ---
UPDATE - GI CONSULT DR YOST IN TO ASSESS PATIENT, STATES THAT LONG PATIENT IS STABLE HE WILL FOLLOW FROM A DISTANCE UNTIL SHE IS ALERT AND CAN CONSENT TO SCOPE. INSTRUCTION TO KEEP PROTONIX 40MG IVP BID, DO NOT INITIATE PROTONIX GTT.
--- NOTE | 2021-06-04 17:09 | NUR ---
UPDATE - DR. SHEA VALDIVIA IN TO ASSESS, INSTRUCTIONS TO LEAVE PRECEDEX OFF AND USE SEROQUEL FOR AGITATION TONIGHT PRN, STATES PT HAS PSYCH HISTORY. HE PLANS TO COME BACK IN THE MORNING TO DO A MORE COMPREHENSIVE NEURO EVAL AFTER PT HAS BEEN OFF OF PRECEDEX T/O NOC, THEN DECIDE WHETHER OR NOT TO PERSUE AN MRI.
--- NOTE | 2021-06-04 17:31 | NUR ---
Update 06/04/21: Per chart review with Dr. Bowers, concerns for patient's current level of responsiveness. CT this am unremarkable. Precedex will be held and seroquel will be given for agitation. Plan for Dr. Bowers to perform neuro eval. in am to determine if need for MRI. Patient has "friend" Bruce Pretty listed as contact in [email or web address]. [facility] lists the following for contacts: Kaevh Kevinclive, Family Member, Willian Madera, Parent, Bruce Pretty, Spouse / Partner.
[2021-06-04 17:50] LABS: Alanine Aminotransfer (ALT/SGP 27 U/L (12-78); Albumin, Blood 2.6 g/dL (3.4-5.0); Albumin/Globulin Ratio 0.7 (0.8-1.8); Alk Phos 92 U/L (50-136); Anion Gap 3 mmol/L (6-16); Aspartate Aminotrans (AST/SGOT 46 U/L (12-37); Bilirubin, Total 0.4 mg/dL (0.1-1.0); Blood Urea Nitrogen 10 mg/dL (8-24); Bun/Creatinine Ratio 16.8 (12.0-20.0); CO2, Blood 30 mmol/L (21-32); Calcium, Blood 7.9 mg/dL (8.5-10.1); Chloride, Blood 116 mmol/L (98-108); Globulin, Blood 3.7 g/dL (2.2-4.0); Glomerular Filtration Rate >60 (60-); Glucose, Blood 147 mg/dL (70-99); Potassium, Blood 2.8 mmol/L (3.5-5.5); Sodium, Blood 149 mmol/L (136-145); Total Protein, Blood 6.3 g/dL (6.4-8.2)
[2021-06-04 20:03] LABS: PCO2 Venous 35.5 mmHg (38-42); PO2 Venous 203 mmHg (38-42); pH Blood Venous 7.53 (7.34-7.37)
[2021-06-04 20:04] LABS: Base Excess Venous 6.8 mmol/L; Bicarbonate Venous 30.4 mmol/L (24.0-30.0)
--- NOTE | 2021-06-04 20:36 | NUR ---
ASSUMED CARE OF PT AT 1930, REPORT RECEIVED. PT IS RESTING QUIETLY RECLINING IN BED AND REPOSITIONS SELF FREQUENTLY AND WELL. PER OFFGOING RN JLX HAS BEEN ON STANDBY FOR A FEW HOURS AT THE TIME OF SHIFT CHANGE. PT IS NOTED TO OPEN EYES SPONTANEOUSLY, SHE IS NOW ABLE TO STATE HER FULL NAME, , AND THAT SHE IS IN THE HOSPITAL, SHE ANSWERS THAT SHE DOESN'T KNOW WHEN ASKED IF SHE CAN REMEMBER THE REASON SHE WAS ADMITTED. SHE STATES THAT SHE KNOWS THE YEAR BUT DOES NOT PROVIDE THE NUMBER. INSULIN GTT WAS TITRATED DOWN TO 2 AT SHIFT CHANGE AND HAS SINCE BEEN TITRATED DOWN TO 1 UNIT/HR, D5 1/4 NS WITH POTASSIUM CHLORIDE 20 MEQ/LITER IS INFUSING AT 100 ML/HR, POTASSIUM CHLORIDE 20 MEQ/100 ML IS INFUSING AT 25 ML/HR, THIS WAS DECREASED BY OFFGOING RN FOR PT REPORTS OF PAIN WITH INFUSION. SATS ARE MAINTAING HIGH 90S ON ROOM AIR, NO VISIBLE INCREASED WORK OF BREATHING, RATE IS TEENS, DIM LUNG SOUNDS THROUGHOUT, OCCASIONAL HARSH DRY COUGH IS NOTED. PT ADMITS TO HEADACHE BUT DENIES OTHER PAIN. HRR, SINUS TACH ON MONITOR, RATE 100-110S, PRESSURES ARE HYPERTENSIVE, MD IS AWARE AND ORDERS FOR THIS PM ARE TO CONTINUE TO MONITOR. HYPOACTIVE BOWEL TONES ARE NOTED, ABD SOFT, NO GRIMACING WITH LIGHT PALPATION. TEMP PROBE MCARTHUR REMAINS IN PLACE DRAINING CLEAR YELLOW URINE TO GRAVITY. WILL CONT TO MONITOR.
--- NOTE | 2021-06-05 00:09 | NUR ---
PT AGITATED, REMOVED LEFT AC IV, TURNING SIDE TO SIDE IN BED, YELLING "NO, NO, NO" ZYPREXA IM ADMIN RIGHT THIGH, WILL MONITOR.
--- NOTE | 2021-06-05 00:52 | NUR ---
MENTATION PT IS NOW ABLE TO STATE THAT SHE IS IN [facility] FOR DKA AND THAT THE YEAR IS 2020, SHE STATES THAT SHE DOES NOT KNOW WHAT TIME OF YEAR IT IS HOWEVER.
--- NOTE | 2021-06-05 01:42 | NUR ---
CRITICAL LAB VALUE CLARIFICATION NO NEW ORDERS WERE RECEIVED FROM DR SOL FOR 1999 VBG PH RESULTS, DISCUSSED WITH DR ALAN AT THIS TIME, FOLLOW UP VBG ORDERED FOR NOON TODAY.
--- NOTE | 2021-06-05 05:47 | NUR ---
PT RESTS QUIETLY THROUGHOUT SHIFT WITH THE EXCEPTION OF INCREASED RESTLESSNESS AND AGITATION BETWEEN 2200 AND 0100, DURING THIS TIME BENADRYL WAS ADMINISTERED FOR RESTLESSNESS AND ITCHING AND ZYPREXA IM WAS ADMINISTERED FOR INCREASED AGITATION AND PT REMOVAL OF IV AND MONITORING CABLES. ORIENTATION HAS IMPROVED THROUGHOUT NOC WELL VERBAL RESPONSE TIME. SHE IS NOW ABLE TO STATE THAT SHE IS IN [facility] FOR DKA IN 2020 HOWEVER SHE IS UNSURE OF THE TIME OF YEAR AT LAST ASSESSMENT. SHE FOLLOWS DIRECTIONS WELL THROUGHOUT SHIFT. INSULIN GTT HAS REMAINED BETWEEN 1 AND 2 UNITS/HR THROUGHOUT NOC, BLOOD GLUCOSE LEVELS REMAIN BETWEEN 100 AND 220S. PT WAS UNABLE TO TOLERATE POTASSIUM RIDER AT FLOW RATES GREATER THAN 25 ML/HR, AWAITING COMPLETION OF 3RD DOSE PRIOR TO AM LABS, PLAN IS FOR 0645 DRAW. SHE CONTINUES TO MAINTAIN SATS HIGH 90S ON ROOM AIR WITHOUT VISIBLE INCREASED WORK OF BREATHING, RATE TEENS TO LOW 20S, LUNGS REMAIN DIMINISHED THROUGHOUT. SINUS TACH CONTINUES, PRESSURES IMPROVED, REMAIN STABLE. CONTINUES WITH HYPOACTIVE BOWEL TONES, NO EMESIS THIS SHIFT. TEMP PROBE MCARTHUR DRAINING ADEQUATE AMOUNTS OF CLEAR YELLOW URINE TO GRAVITY.
[2021-06-05 07:28] LABS: BASOPHILS ABSOLUTE AUTO 0.01 K/mm3 (0.00-0.23); BASOPHILS PERCENT AUTO 0 % (0-2); EOSINOPHILS PERCENT AUTO 0 % (0-6); Hematocrit 31.3 % (33.0-51.0); Hemoglobin 10.8 g/dL (11.5-16.0); IMMATURE GRAN ABSOLUTE AUTO 0.07 K/mm3 (0.00-0.10); IMMATURE GRAN PERCENT AUTO 1 % (0-1); LYMPHOCYTES ABSOLUTE AUTO 1.35 K/mm3 (0.84-5.20); LYMPHOCYTES PERCENT AUTO 18 % (21-46); MONOCYTES ABSOLUTE AUTO 0.51 K/mm3 (0.16-1.47); MONOCYTES PERCENT AUTO 7 % (4-13); Mean Corpuscular HGB Conc 34.5 g/dL (31.5-36.5); Mean Corpuscular Volume 90 fL (80-100); Mean Platelet Volume 8.6 fL (9.1-12.4); NEUTROPHILS ABSOLUTE AUTO 5.78 K/mm3 (1.96-9.15); NEUTROPHILS PERCENT AUTO 75 % (41-73); Platelet Count 180 K/mm3 (150-400); RDW Coefficient Variation 12.6 % (11.7-14.2); RDW Standard Deviation 41.1 fL (35.1-46.3); Red Blood Cell Count 3.48 M/mm3 (3.80-5.20); White Blood Cell Count 7.72 K/mm3 (4.00-11.30)
[2021-06-05 07:45] LABS: Anion Gap 4 mmol/L (6-16); Blood Urea Nitrogen 3 mg/dL (8-24); Bun/Creatinine Ratio 5.3 (12.0-20.0); CO2, Blood 28 mmol/L (21-32); Calcium, Blood 7.5 mg/dL (8.5-10.1); Chloride, Blood 117 mmol/L (98-108); Creatinine, Blood 0.57 mg/dL (0.40-1.00); Glomerular Filtration Rate >60 (60-); Glucose, Blood 198 mg/dL (70-99); Potassium, Blood 3.5 mmol/L (3.5-5.5); Sodium, Blood 149 mmol/L (136-145)
--- NOTE | 2021-06-05 09:00 | NUR ---
ASSUMED CARE / DR Suresh VALDIVIA: REPORT RECEIVED FROM BELINDA Lafleur RN. ASSUMED CARE OF THIS PT AT APPROX 0700. ON ASSESSMENT, THE PT IS RESTING QUIETLY. SHE AWAKENS EASILY TO VERBAL STIMULUS & IS ALERT/ ORIENTED TO SELF, LOCATION, FOLLOWING DIRECTIONS & STAFF. SHE IS SLIGHTLY EMOTIONAL, TEARING UP & SAYING THAT SHE DOESN'T KNOW WHY SHE IS IN THE HOSPITAL. THIS RN HAS EXPLAINED TO HER THE REASON FOR ADMISSION & THAT HER CONFUSION HAS IMPROVED SINCE ADMISSION ALSO, BUT THAT EVERYTHING SHE FEELS EMOTIONALLY IS NORMAL UNDER THESE CIRCUMSTANCES. PT ON RA W/ O2 SATS > 92%. MONITOR SHOWS ST W/ HR 100-110s, BP STABLE. PT HAS NO GI COMPLAINTS. TEMP MCARTHUR PATENT/ DRAINING YELLOW URINE. SKIN CONDITION OVERALL CDI. PROVIDER AT BEDSIDE THIS AM TO EVAL PT. HE WOULD LIKE THE INSULIN DRIP TO BE STOPPED & FOR THE PT TO BEGIN EATING AGAIN. SEMGLEE ORDERED FOR HS DOSE, CLARIFIED W/ PROVIDER THAT HE DOES NOT WANT A "NOW" DOSE OF SEMGLEE PRIOR TO INSULIN DRIP BEING STOPPED. ORDERS PLACED FOR MEDICAL STATUS & FOR ADA DIET. MAINTAINENCE IVF ALSO D/C'd.
[2021-06-05 12:34] LABS: Base Excess Venous 0.9 mmol/L; Bicarbonate Venous 25.4 mmol/L (24.0-30.0); PCO2 Venous 36.9 mmHg (38-42); PO2 Venous 157 mmHg (38-42); pH Blood Venous 7.44 (7.34-7.37)
--- NOTE | 2021-06-05 12:55 | NUR ---
TRANSFER TO MEDICAL FLOOR: REPORT HAS BEEN GIVEN TO GEORGES Daugherty RN TO ASSUME CARE OF THIS PT. THE PT HAS BEEN TRANSFERRED TO ROOM 312 AT APPROX 1245. ALL BELONGINGS, MEDS & CHART HAVE BEEN TAKEN UP W/ PT AT THAT TIME. TREATED FOR NAUSEA PER EMAR W/ SOME IMPROVEMENT PER PT STATEMENT.
--- NOTE | 2021-06-05 18:11 | NUR ---
SUMMARY PT TRANSFERRED UP FROM ICU VIA WHEELCHAIR, PT ABLE TO TRANSFER SELF TO THE BED WITH MIN ASSIST, ORIENTED PT TO ROOM AND CALL SYSTEM, PT DENIES ANY PAIN AND NAUSEA, VSS, WILL CONT TO MONITOR
--- NOTE | 2021-06-06 04:26 | NUR ---
SHIFT SUMMARY: DEO IS DOING A LOT BETTER. SHE IS INDEPENDENT IN THE ROOM, UP MOVING AROUND. NO SOB. LS ARE CLEAR. NO COUGH OR CONGESTION. BLOOD SUGARS IN THE 200'S, MEDICATE WITH INSULIN. SHE IS AOX3, WANTING TO GO HOME TODAY. VITALS ON THE OTHER HAND HAVE NOT BEEN PERFECT. SHE STILL RUNS TACHYCARDIC LOW 100'S, HER BLOOD PRESSURE IS SLIGHTLY HIGH 150'S OVER 100'S. AFEBRILE, SATS GOOD ON RA. SHE DENIES ANY CHEST PAIN OR HAS ANY COMPLAINTS. LITTLE APPETITE BUT DOING MUCH BETTER. CALL LIGHT IN REACH. WILL CONTINUE TO MONITOR.
[2021-06-06 06:06] LABS: BASOPHILS ABSOLUTE AUTO 0.01 K/mm3 (0.00-0.23); BASOPHILS PERCENT AUTO 0 % (0-2); EOSINOPHILS ABSOLUTE AUTO 0.01 K/mm3 (0.00-0.68); EOSINOPHILS PERCENT AUTO 0 % (0-6); Hematocrit 30.9 % (33.0-51.0); Hemoglobin 10.4 g/dL (11.5-16.0); IMMATURE GRAN ABSOLUTE AUTO 0.02 K/mm3 (0.00-0.10); IMMATURE GRAN PERCENT AUTO 0 % (0-1); LYMPHOCYTES PERCENT AUTO 23 % (21-46); MONOCYTES ABSOLUTE AUTO 0.35 K/mm3 (0.16-1.47); MONOCYTES PERCENT AUTO 7 % (4-13); Mean Corpuscular HGB 30.9 pg (26.0-34.0); Mean Corpuscular HGB Conc 33.7 g/dL (31.5-36.5); Mean Corpuscular Volume 92 fL (80-100); Mean Platelet Volume 9.2 fL (9.1-12.4); NEUTROPHILS ABSOLUTE AUTO 3.38 K/mm3 (1.96-9.15); NEUTROPHILS PERCENT AUTO 69 % (41-73); Platelet Count 153 K/mm3 (150-400); RDW Standard Deviation 40.5 fL (35.1-46.3); Red Blood Cell Count 3.37 M/mm3 (3.80-5.20); White Blood Cell Count 4.87 K/mm3 (4.00-11.30)
[2021-06-06 06:32] LABS: Thyroid Stimulating Hormone 0.357 uIU/mL (0.360-4.800)
[2021-06-06 06:35] LABS: Anion Gap 11 mmol/L (6-16); Blood Urea Nitrogen 13 mg/dL (8-24); Bun/Creatinine Ratio 20.2 (12.0-20.0); CO2, Blood 23 mmol/L (21-32); Calcium, Blood 8.8 mg/dL (8.5-10.1); Chloride, Blood 104 mmol/L (98-108); Creatinine, Blood 0.64 mg/dL (0.40-1.00); Glomerular Filtration Rate >60 (60-); Glucose, Blood 476 mg/dL (70-99); Potassium, Blood 4.2 mmol/L (3.5-5.5); Sodium, Blood 138 mmol/L (136-145)
[2021-06-06] MEDS ORDERED: SERT50 PO (16:21)
--- NOTE | 2021-06-06 18:29 | NUR ---
PER MD REQUEST, PT DC'D AFTER CBG'S BELOW 300 AND NO N/V OR PAIN AFTER DINNER. PT WAS ALERT AND ORIENTED, MADE NO COMPLAINTS AT THE TIME OF DC, WAS RECEPTIVE TO DC EDUCATION, MEDICATION INTRUCTIONS AND WAS ABLE TO VERBALIZE UNDERSTANDING. PT BELONGING AT SIDE AND DC'D VIA WHEELCHAIR.
--- NOTE | 2021-06-08 13:43 | NUR ---
Update 06/06/21: Pt. appropriate for discharge per Dr. Bowers. Reviewed discharge plan with pt. Pt. Denied safety concerns or barriers to care. Pt. scheduled for hospital f/u with Dr. Deleon on 06/12/21 and endocrinology F/U on 06/13/[address] Steinberg. Family to transport home and assist with medications.
[2021-06-13 07:11] LABS: ALDOS/RENIN RATIO <1.2 (0.0-30.0); ALDOSTERONE <1.0 ng/dL (0.0-30.0)
== END 2021-06-06 18:05 | disposition home or self-care (01) | DRG 637 ==
LOC: ER 21:41 → ERHOLD 23:56 → ICUW 06-03 09:57 → MEDS 06-05 12:48
PROVIDERS: Emergency Medicine; Family Medicine; Internal Medicine; ADMIT Internal Medicine
PROC: 8E0ZXY6 Isolation (ICD-10-PCS; principal; 2021-06-02)
DX: E10.10 Type 1 diabetes mellitus with ketoacidosis without coma (principal); U07.1 COVID-19; J12.82 Pneumonia due to coronavirus disease 2019; K22.6 Gastro-esophageal laceration-hemorrhage syndrome; G92 Toxic encephalopathy; N17.9 Acute kidney failure, unspecified; E87.0 Hyperosmolality and hypernatremia; E87.6 Hypokalemia; E10.42 Type 1 diabetes mellitus with diabetic polyneuropathy; M79.7 Fibromyalgia; G43.909 Migraine, unspecified, not intractable, without status migrainosus; G89.29 Other chronic pain; M54.9 Dorsalgia, unspecified; F41.9 Anxiety disorder, unspecified; E86.0 Dehydration; E87.5 Hyperkalemia; T43.3X5A Adverse effect of phenothiazine antipsychotics and neuroleptics, initial encounter; E10.3599 Type 1 diabetes mellitus with proliferative diabetic retinopathy without macular edema, unspecified eye; F32.9 Major depressive disorder, single episode, unspecified; I10 Essential (primary) hypertension; E86.9 Volume depletion, unspecified; T38.3X6A Underdosing of insulin and oral hypoglycemic [antidiabetic] drugs, initial encounter; Z91.128 Patient's intentional underdosing of medication regimen for other reason; Z79.4 Long term (current) use of insulin; Z79.899 Other long term (current) drug therapy; Z88.8 Allergy status to other drugs, medicaments and biological substances; Z91.048 Other nonmedicinal substance allergy status; Z91.018 Allergy to other foods
CPT/HCPCS: 36415; 51702; 70450; 71045; 80048; 80053; 81001; 81025; 82010; 82088; 82533; 82803; 82947; 83605; 83690; 83735; 84100; 84145; 84244; 84443; 85025; 87040; 93005; 93010; 94760; 96365; 96366; 96375; 96376; 99285-25; A9270; C9113; G0378; G0480; J0610; J1200; J1630; J1650; J1815; J2060; J2405; J2550; J2765; J3480; J7030; J7060; J7070

== ENCOUNTER 2021-06-08 05:23 | Inpatient (IN) | payer OTHER ==
[~2021-06-08] VITALS: Ht 157.5 cm; Wt 59.0 kg
[2021-06-08] MEDS ORDERED: AMIT50 PO (05:36)
[2021-06-08 05:46] LABS: BASOPHILS ABSOLUTE AUTO 0.02 K/mm3 (0.00-0.23); BASOPHILS PERCENT AUTO 0 % (0-2); EOSINOPHILS ABSOLUTE AUTO 0.03 K/mm3 (0.00-0.68); EOSINOPHILS PERCENT AUTO 0 % (0-6); Hematocrit 33.8 % (33.0-51.0); Hemoglobin 11.4 g/dL (11.5-16.0); IMMATURE GRAN ABSOLUTE AUTO 0.06 K/mm3 (0.00-0.10); IMMATURE GRAN PERCENT AUTO 1 % (0-1); LYMPHOCYTES ABSOLUTE AUTO 1.29 K/mm3 (0.84-5.20); LYMPHOCYTES PERCENT AUTO 16 % (21-46); MONOCYTES ABSOLUTE AUTO 0.65 K/mm3 (0.16-1.47); MONOCYTES PERCENT AUTO 8 % (4-13); Mean Corpuscular HGB 31.6 pg (26.0-34.0); Mean Corpuscular HGB Conc 33.7 g/dL (31.5-36.5); Mean Corpuscular Volume 94 fL (80-100); Mean Platelet Volume 10.2 fL (9.1-12.4); NEUTROPHILS ABSOLUTE AUTO 6.24 K/mm3 (1.96-9.15); NEUTROPHILS PERCENT AUTO 75 % (41-73); Platelet Count 295 K/mm3 (150-400); RDW Coefficient Variation 11.9 % (11.7-14.2); RDW Standard Deviation 40.6 fL (35.1-46.3); Red Blood Cell Count 3.61 M/mm3 (3.80-5.20); White Blood Cell Count 8.29 K/mm3 (4.00-11.30)
[2021-06-08 06:06] LABS: Alanine Aminotransfer (ALT/SGP 20 U/L (12-78); Albumin, Blood 2.6 g/dL (3.4-5.0); Albumin/Globulin Ratio 0.6 (0.8-1.8); Alk Phos 125 U/L (50-136); Anion Gap 26 mmol/L (6-16); Aspartate Aminotrans (AST/SGOT 12 U/L (12-37); Bilirubin, Total 0.6 mg/dL (0.1-1.0); Blood Urea Nitrogen 21 mg/dL (8-24); Bun/Creatinine Ratio 22.2 (12.0-20.0); CO2, Blood 13 mmol/L (21-32); Calcium, Blood 10.5 mg/dL (8.5-10.1); Chloride, Blood 95 mmol/L (98-108); Creatinine, Blood 0.95 mg/dL (0.40-1.00); Globulin, Blood 4.2 g/dL (2.2-4.0); Glomerular Filtration Rate >60 (60-); Glucose, Blood 479 mg/dL (70-99); Potassium, Blood 5.6 mmol/L (3.5-5.5); Sodium, Blood 134 mmol/L (136-145); Total Protein, Blood 6.8 g/dL (6.4-8.2)
[2021-06-08 07:23] LABS: Base Excess Venous -19.4 mmol/L; Bicarbonate Venous 11.3 mmol/L (24.0-30.0); PCO2 Venous 26.5 mmHg (38-42); PO2 Venous 166 mmHg (38-42)
[2021-06-08 07:24] LABS: pH Blood Venous 7.16 (7.34-7.37)
[2021-06-08 07:25] LABS: Magnesium, Blood 2.1 mg/dL (1.6-2.4)
[2021-06-08 07:27] LABS: Beta-hydroxybutyrate 125.1 mg/dL (0.2-2.8)
[2021-06-08 10:18] LABS: Anion Gap 24 mmol/L (6-16); Blood Urea Nitrogen 21 mg/dL (8-24); Bun/Creatinine Ratio 23.7 (12.0-20.0); CO2, Blood 11 mmol/L (21-32); Calcium, Blood 9.9 mg/dL (8.5-10.1); Chloride, Blood 104 mmol/L (98-108); Creatinine, Blood 0.89 mg/dL (0.40-1.00); Glomerular Filtration Rate >60 (60-); Glucose, Blood 369 mg/dL (70-99); Potassium, Blood 4.6 mmol/L (3.5-5.5); Sodium, Blood 139 mmol/L (136-145)
[2021-06-08 13:16] LABS: Anion Gap 25 mmol/L (6-16); Blood Urea Nitrogen 23 mg/dL (8-24); Bun/Creatinine Ratio 21.9 (12.0-20.0); CO2, Blood 12 mmol/L (21-32); Calcium, Blood 10.2 mg/dL (8.5-10.1); Chloride, Blood 103 mmol/L (98-108); Creatinine, Blood 1.05 mg/dL (0.40-1.00); Glomerular Filtration Rate >60 (60-); Glucose, Blood 358 mg/dL (70-99); Potassium, Blood 4.9 mmol/L (3.5-5.5); Sodium, Blood 140 mmol/L (136-145)
[2021-06-08 16:51] LABS: Anion Gap 15 mmol/L (6-16); Blood Urea Nitrogen 21 mg/dL (8-24); Bun/Creatinine Ratio 22.8 (12.0-20.0); CO2, Blood 17 mmol/L (21-32); Chloride, Blood 111 mmol/L (98-108); Creatinine, Blood 0.92 mg/dL (0.40-1.00); Glomerular Filtration Rate >60 (60-); Glucose, Blood 156 mg/dL (70-99); Potassium, Blood 4.1 mmol/L (3.5-5.5); Sodium, Blood 143 mmol/L (136-145)
[2021-06-08 19:07] LABS: U Amphetamine Screen Not Detected; U Barbituate Screen Not Detected; U Benzodiazapine Screen Not Detected; U Buprenorphine Screen Not Detected; U Cannabinoids Screen Not Detected; U Cocaine Screen Not Detected; U Methadone Screen Not Detected; U Methamphetamine Screen Not Detected; U Opiates Screen Not Detected; U Oxycodone Screen Not Detected; U Phencyclidine Screen Not Detected; U Propoxyphene Screen Not Detected
[2021-06-08 19:56] LABS: Anion Gap 10 mmol/L (6-16); Blood Urea Nitrogen 17 mg/dL (8-24); Bun/Creatinine Ratio 20.1 (12.0-20.0); CO2, Blood 21 mmol/L (21-32); Calcium, Blood 9.5 mg/dL (8.5-10.1); Chloride, Blood 112 mmol/L (98-108); Creatinine, Blood 0.84 mg/dL (0.40-1.00); Glomerular Filtration Rate >60 (60-); Glucose, Blood 110 mg/dL (70-99); Sodium, Blood 143 mmol/L (136-145)
[2021-06-08 20:15] LABS: Base Excess Venous -6.7 mmol/L; Bicarbonate Venous 19.3 mmol/L (24.0-30.0); PO2 Venous 112 mmHg (38-42)
[2021-06-09 03:38] LABS: BASOPHILS ABSOLUTE AUTO 0.01 K/mm3 (0.00-0.23); BASOPHILS PERCENT AUTO 0 % (0-2); EOSINOPHILS ABSOLUTE AUTO 0.04 K/mm3 (0.00-0.68); EOSINOPHILS PERCENT AUTO 1 % (0-6); Hematocrit 29.3 % (33.0-51.0); Hemoglobin 9.5 g/dL (11.5-16.0); IMMATURE GRAN ABSOLUTE AUTO 0.05 K/mm3 (0.00-0.10); IMMATURE GRAN PERCENT AUTO 1 % (0-1); LYMPHOCYTES ABSOLUTE AUTO 1.71 K/mm3 (0.84-5.20); LYMPHOCYTES PERCENT AUTO 22 % (21-46); MONOCYTES ABSOLUTE AUTO 0.99 K/mm3 (0.16-1.47); MONOCYTES PERCENT AUTO 13 % (4-13); Mean Corpuscular HGB 30.5 pg (26.0-34.0); Mean Corpuscular HGB Conc 32.4 g/dL (31.5-36.5); Mean Corpuscular Volume 94 fL (80-100); Mean Platelet Volume 9.3 fL (9.1-12.4); NEUTROPHILS ABSOLUTE AUTO 4.88 K/mm3 (1.96-9.15); NEUTROPHILS PERCENT AUTO 64 % (41-73); Platelet Count 291 K/mm3 (150-400); RDW Coefficient Variation 11.9 % (11.7-14.2); RDW Standard Deviation 40.7 fL (35.1-46.3); Red Blood Cell Count 3.11 M/mm3 (3.80-5.20); White Blood Cell Count 7.68 K/mm3 (4.00-11.30)
[2021-06-09 03:56] LABS: Alanine Aminotransfer (ALT/SGP 14 U/L (12-78); Albumin, Blood 2.2 g/dL (3.4-5.0); Albumin/Globulin Ratio 0.6 (0.8-1.8); Alk Phos 94 U/L (50-136); Anion Gap 12 mmol/L (6-16); Aspartate Aminotrans (AST/SGOT 11 U/L (12-37); Bilirubin, Total 0.4 mg/dL (0.1-1.0); Blood Urea Nitrogen 13 mg/dL (8-24); Bun/Creatinine Ratio 15.6 (12.0-20.0); CO2, Blood 21 mmol/L (21-32); Calcium, Blood 8.7 mg/dL (8.5-10.1); Chloride, Blood 105 mmol/L (98-108); Creatinine, Blood 0.83 mg/dL (0.40-1.00); Globulin, Blood 3.5 g/dL (2.2-4.0); Glomerular Filtration Rate >60 (60-); Glucose, Blood 193 mg/dL (70-99); Potassium, Blood 4.2 mmol/L (3.5-5.5); Sodium, Blood 138 mmol/L (136-145); Total Protein, Blood 5.7 g/dL (6.4-8.2)
[2021-06-09 15:00] LABS: SARS-Cov-2 (COVID-19) PCR, MMC POSITIVE (NEGATIVE)
--- NOTE | 2021-06-09 17:42 | NUR ---
SHIFT SUMMARY PT IS A&OX4, PLEASANT & COOPERATIVE, MORAIMA PO, VOIDING, SBA TO BRP, REPOSITIONS SELF WELL IN BED. WILL REPORT TO ONCOMING NOC RN.
--- NOTE | 2021-06-10 04:19 | NUR ---
SHIFT SUMMARY PT RESTED WELL T/O NIGHT. AAOX4. DENIES DISCOMFORT/NAUSEA. TOLERATING PO INTAKE WELL. CHEMBG CHECKS PER ORDERS WITH SS COVERAGE. PT MONITORING OWN CHEMBGs WITH BLUETOOTH SENSOR T/O NIGHT. LUNG SOUNDS CLEAR T/O, ON RA, VSS, DENIES SOB. TELEMETRY IN PLACE, ST 100s TO 120s, THIS IS AT PT'S BASELINE PER PT. NO ACUTE CHANGES OVER NIGHT. PT RESTING WELL AT THIS TIME WITH CALL LIGHT IN REACH.
[2021-06-10 04:35] LABS: BASOPHILS ABSOLUTE AUTO 0.01 K/mm3 (0.00-0.23); BASOPHILS PERCENT AUTO 0 % (0-2); EOSINOPHILS ABSOLUTE AUTO 0.07 K/mm3 (0.00-0.68); EOSINOPHILS PERCENT AUTO 2 % (0-6); Hematocrit 30.3 % (33.0-51.0); Hemoglobin 10.3 g/dL (11.5-16.0); IMMATURE GRAN ABSOLUTE AUTO 0.02 K/mm3 (0.00-0.10); IMMATURE GRAN PERCENT AUTO 0 % (0-1); LYMPHOCYTES PERCENT AUTO 35 % (21-46); MONOCYTES ABSOLUTE AUTO 0.85 K/mm3 (0.16-1.47); MONOCYTES PERCENT AUTO 19 % (4-13); Mean Corpuscular HGB 30.8 pg (26.0-34.0); Mean Corpuscular Volume 91 fL (80-100); Mean Platelet Volume 9.2 fL (9.1-12.4); NEUTROPHILS ABSOLUTE AUTO 2.04 K/mm3 (1.96-9.15); NEUTROPHILS PERCENT AUTO 45 % (41-73); Platelet Count 286 K/mm3 (150-400); RDW Coefficient Variation 11.6 % (11.7-14.2); RDW Standard Deviation 37.5 fL (35.1-46.3); Red Blood Cell Count 3.34 M/mm3 (3.80-5.20); White Blood Cell Count 4.59 K/mm3 (4.00-11.30)
[2021-06-10 05:06] LABS: Anion Gap 7 mmol/L (6-16); Blood Urea Nitrogen 10 mg/dL (8-24); CO2, Blood 28 mmol/L (21-32); Calcium, Blood 9.3 mg/dL (8.5-10.1); Chloride, Blood 101 mmol/L (98-108); Creatinine, Blood 0.63 mg/dL (0.40-1.00); Glomerular Filtration Rate >60 (60-); Glucose, Blood 298 mg/dL (70-99); Potassium, Blood 3.7 mmol/L (3.5-5.5); Sodium, Blood 136 mmol/L (136-145)
[2021-06-10] MEDS ORDERED: METO5A PO (10:50)
--- NOTE | 2021-06-10 11:48 | NUR ---
DISCHARGE SUMMARY PT A&OX4, VSS, VOIDING WELL, MORAIMA PO, INDEPENDENT IN ROOM. DISCHARGE INSTRUCTIONS PROVIDED. PT REP UNDERSTANDING THOSE INSTRUCTIONS INCLUDING FU WITH PCP AND GASSER MACHINE OPERATOR. YULISSA ROGER'D.
== END 2021-06-10 11:47 | disposition home or self-care (01) | DRG 637 ==
LOC: ER 05:23 → ERHOLD 08:23 → ER 08:23 → ERHOLD 21:30 → SURS 06-09 14:55
PROVIDERS: Family Medicine; Obstetrics & Gynecology; Student in an Organized Health Care Education/Training Program; ADMIT Family Medicine
DX: E10.10 Type 1 diabetes mellitus with ketoacidosis without coma (principal); U07.1 COVID-19; F41.8 Other specified anxiety disorders; E10.42 Type 1 diabetes mellitus with diabetic polyneuropathy; E05.90 Thyrotoxicosis, unspecified without thyrotoxic crisis or storm; M79.7 Fibromyalgia; Z91.048 Other nonmedicinal substance allergy status; Z98.890 Other specified postprocedural states; Z91.018 Allergy to other foods; Z79.4 Long term (current) use of insulin; Z79.899 Other long term (current) drug therapy
CPT/HCPCS: 36415; 80048; 80053; 82010; 82803; 82947; 83735; 85025; 93005; 93010; 96374; 96375; 96376; 99285-25; A9270; J1650; J1815; J2405; J2765; J7120; U0004

== ENCOUNTER 2021-09-13 12:06 | Day surgery (SDC) | payer OTHER ==
[~2021-09-13] VITALS: Ht 160 cm; Wt 59.9 kg
[~2021-09-13 12:06] MED LIST changes: +METO5A PO
--- NOTE | 2021-09-13 14:30 | NUR ---
09/13/21 1430 Jakob Mcfarland late entry: humalog 6 units given to patient sq at [address] marte order following patients home sliding scale for blood sugar of 319.
--- NOTE | 2021-09-13 14:40 | NUR ---
09/13/21 1440 Marisabel Meng PT'S BLOOD SUGAR ACCORDING TO HER FREE STYLE VALERIE 262 AND HEADING DOWN. PT INSTRUCTED TO MONITOR HER BLOOD SUGAR THROUGHOUT THE DAY AND SELF ADMINISTER INSULIN ACCORDINGLY.
== END 2021-09-13 14:46 | disposition home or self-care (01) ==
LOC: ORSCSDS 12:06
PROVIDERS: Internal Medicine Gastroenterology
PROC: 0DJ08ZZ Inspection of Upper Intestinal Tract, Via Natural or Artificial Opening Endoscopic (ICD-10-PCS; principal; 2021-09-13 13:30)
DX: K92.0 Hematemesis (principal); E10.8 Type 1 diabetes mellitus with unspecified complications; Z79.4 Long term (current) use of insulin; Z79.899 Other long term (current) drug therapy
CPT/HCPCS: 82947; J1815; J2704; J7120

== ENCOUNTER 2021-12-30 13:34 | Emergency (ER) | payer OTHER ==
[~2021-12-30] VITALS: Ht 162.6 cm; Wt 59.0 kg
[2021-12-30 14:07] LABS: BASOPHILS PERCENT AUTO 1 % (0-2); EOSINOPHILS ABSOLUTE AUTO 0.04 K/mm3 (0.00-0.68); EOSINOPHILS PERCENT AUTO 0 % (0-6); Hematocrit 46.1 % (33.0-51.0); Hemoglobin 16.3 g/dL (11.5-16.0); IMMATURE GRAN ABSOLUTE AUTO 0.08 K/mm3 (0.00-0.10); IMMATURE GRAN PERCENT AUTO 1 % (0-1); LYMPHOCYTES ABSOLUTE AUTO 1.32 K/mm3 (0.84-5.20); LYMPHOCYTES PERCENT AUTO 8 % (21-46); MONOCYTES ABSOLUTE AUTO 0.21 K/mm3 (0.16-1.47); MONOCYTES PERCENT AUTO 1 % (4-13); Mean Corpuscular HGB 30.5 pg (26.0-34.0); Mean Corpuscular HGB Conc 35.4 g/dL (31.5-36.5); Mean Corpuscular Volume 86 fL (80-100); Mean Platelet Volume 9.2 fL (9.1-12.4); NEUTROPHILS ABSOLUTE AUTO 14.28 K/mm3 (1.96-9.15); NEUTROPHILS PERCENT AUTO 89 % (41-73); Platelet Count 402 K/mm3 (150-400); RDW Coefficient Variation 11.6 % (11.7-14.2); RDW Standard Deviation 36.7 fL (35.1-46.3); Red Blood Cell Count 5.34 M/mm3 (3.80-5.20); White Blood Cell Count 16.03 K/mm3 (4.00-11.30)
[2021-12-30 14:22] LABS: Base Excess Venous -5.6 mmol/L; PO2 Venous 67.3 mmHg (38-42); pH Blood Venous 7.32 (7.34-7.37)
[2021-12-30 14:37] LABS: Alanine Aminotransfer (ALT/SGP 47 U/L (12-78); Albumin, Blood 4.2 g/dL (3.4-5.0); Albumin/Globulin Ratio 0.8 (0.8-1.8); Alk Phos 170 U/L (50-136); Anion Gap 18 mmol/L (6-16); Aspartate Aminotrans (AST/SGOT 40 U/L (12-37); Beta-hydroxybutyrate 50.8 mg/dL (0.2-2.8); Bilirubin, Total 0.8 mg/dL (0.1-1.0); Blood Urea Nitrogen 22 mg/dL (8-24); Bun/Creatinine Ratio 33.4 (12.0-20.0); CO2, Blood 21 mmol/L (21-32); Calcium, Blood 10.4 mg/dL (8.5-10.1); Chloride, Blood 97 mmol/L (98-108); Creatinine, Blood 0.66 mg/dL (0.40-1.00); Globulin, Blood 5.1 g/dL (2.2-4.0); Glomerular Filtration Rate >60 (60-); Glucose, Blood 356 mg/dL (70-99); Potassium, Blood 3.8 mmol/L (3.5-5.5); Sodium, Blood 136 mmol/L (136-145); Total Protein, Blood 9.3 g/dL (6.4-8.2)
[2021-12-30 16:49] LABS: Source, Urine Clean Catch
[2021-12-30 16:51] LABS: Bilirubin, Urine Neg (Neg); Blood, Urine 1+ (Neg); Glucose Qualitative, Urine Neg (Neg); Ketones, Urine Neg (Neg); Leukocyte Esterase, Urine Neg (Neg); Nitrite, Urine Neg (Neg); Protein, Urine Neg (Neg); Urobilinogen, Urine 1+ (Normal)
[2021-12-30 17:05] LABS: Appearance, Urine Clear (Clear); Color, Urine Pale Yellow (P-Yellow)
[2021-12-30 17:06] LABS: Bacteria Rare /hpf; Squamous Epithelial Cells Rare /hpf (Few); White Blood Cells, Urine 0-2 /hpf (0-5)
[2021-12-30 18:43] LABS: Anion Gap 6 mmol/L (6-16); Blood Urea Nitrogen 19 mg/dL (8-24); CO2, Blood 22 mmol/L (21-32); Calcium, Blood 8.8 mg/dL (8.5-10.1); Chloride, Blood 106 mmol/L (98-108); Creatinine, Blood 0.63 mg/dL (0.40-1.00); Glomerular Filtration Rate >60 (60-); Glucose, Blood 223 mg/dL (70-99); Potassium, Blood 4.2 mmol/L (3.5-5.5); Sodium, Blood 134 mmol/L (136-145)
[2021-12-30 21:00] LABS: Influenza A, PCR NEGATIVE (NEGATIVE); Influenza B, PCR NEGATIVE (NEGATIVE); Resp Syncytial Virus, PCR NEGATIVE (NEGATIVE); SARS-Cov-2 (COVID-19) PCR, MMC NEGATIVE (NEGATIVE)
== END 2021-12-30 23:40 | disposition home or self-care (01) ==
LOC: ER 13:34
PROVIDERS: Emergency Medicine; Student in an Organized Health Care Education/Training Program
DX: E10.65 Type 1 diabetes mellitus with hyperglycemia (principal); Z79.899 Other long term (current) drug therapy; Z79.4 Long term (current) use of insulin
CPT/HCPCS: 0241U; 36415; 71046; 80048; 80053; 81001; 82010; 82803; 82947; 83605; 85025; 93005; 93010; 99285-25; J1815; J3480; J7030; J7050; J7120

== ENCOUNTER → 2022-06-10 | Outpatient (CLI) | payer OTHER ==
[2022-06-10 18:18] LABS: BASOPHILS ABSOLUTE AUTO 0.07 K/mm3 (0.00-0.23); BASOPHILS PERCENT AUTO 1 % (0-2); EOSINOPHILS ABSOLUTE AUTO 0.09 K/mm3 (0.00-0.68); EOSINOPHILS PERCENT AUTO 1 % (0-6); Hematocrit 34.5 % (33.0-51.0); Hemoglobin 12.1 g/dL (11.5-16.0); IMMATURE GRAN ABSOLUTE AUTO 0.03 K/mm3 (0.00-0.10); IMMATURE GRAN PERCENT AUTO 0 % (0-1); LYMPHOCYTES PERCENT AUTO 21 % (21-46); MONOCYTES PERCENT AUTO 7 % (4-13); Mean Corpuscular HGB Conc 35.1 g/dL (31.5-36.5); Mean Corpuscular Volume 89 fL (80-100); Mean Platelet Volume 9.3 fL (9.1-12.4); NEUTROPHILS ABSOLUTE AUTO 6.75 K/mm3 (1.96-9.15); NEUTROPHILS PERCENT AUTO 70 % (41-73); Platelet Count 289 K/mm3 (150-400); RDW Coefficient Variation 12.3 % (11.7-14.2); RDW Standard Deviation 38.9 fL (35.1-46.3); White Blood Cell Count 9.64 K/mm3 (4.00-11.30)
== END | disposition home or self-care (01) ==
LOC: LAB SHORT 18:10
PROVIDERS: Physician Assistant
DX: N12 Tubulo-interstitial nephritis, not specified as acute or chronic (principal); N39.0 Urinary tract infection, site not specified
CPT/HCPCS: 85025; 87077; 87086; 87147; 87186

== ENCOUNTER 2022-07-25 13:07 | Inpatient (IN) | payer OTHER ==
[~2022-07-25] VITALS: Ht 160 cm; Wt 59.3 kg
[2022-07-25 14:10] LABS: Source, Urine Clean Catch
[2022-07-25 14:39] LABS: Appearance, Urine Hazy (Clear); Bilirubin, Urine Neg (Neg); Blood, Urine 1+ (Neg); Glucose Qualitative, Urine 4+ (Neg); Ketones, Urine 4+ (Neg); Leukocyte Esterase, Urine 1+ (Neg); Nitrite, Urine Neg (Neg); Protein, Urine 1+ (Neg); Urobilinogen, Urine NORM (Normal)
[2022-07-25 14:58] LABS: Base Excess Venous -17.1 mmol/L; Bicarbonate Venous 12.7 mmol/L (24.0-30.0)
[2022-07-25 14:59] LABS: BASOPHILS ABSOLUTE AUTO 0.09 K/mm3 (0.00-0.23); BASOPHILS PERCENT AUTO 0 % (0-2); EOSINOPHILS ABSOLUTE AUTO 0.04 K/mm3 (0.00-0.68); EOSINOPHILS PERCENT AUTO 0 % (0-6); Hematocrit 39.2 % (33.0-51.0); Hemoglobin 13.2 g/dL (11.5-16.0); IMMATURE GRAN ABSOLUTE AUTO 0.11 K/mm3 (0.00-0.10); IMMATURE GRAN PERCENT AUTO 1 % (0-1); LYMPHOCYTES ABSOLUTE AUTO 1.89 K/mm3 (0.84-5.20); LYMPHOCYTES PERCENT AUTO 9 % (21-46); MONOCYTES ABSOLUTE AUTO 0.85 K/mm3 (0.16-1.47); MONOCYTES PERCENT AUTO 4 % (4-13); Mean Corpuscular HGB 30.4 pg (26.0-34.0); Mean Corpuscular HGB Conc 33.7 g/dL (31.5-36.5); Mean Corpuscular Volume 90 fL (80-100); Mean Platelet Volume 9.4 fL (9.1-12.4); NEUTROPHILS ABSOLUTE AUTO 18.39 K/mm3 (1.96-9.15); NEUTROPHILS PERCENT AUTO 86 % (41-73); Platelet Count 547 K/mm3 (150-400); RDW Coefficient Variation 12.1 % (11.7-14.2); RDW Standard Deviation 39.9 fL (35.1-46.3); Red Blood Cell Count 4.34 M/mm3 (3.80-5.20); White Blood Cell Count 21.37 K/mm3 (4.00-11.30)
[2022-07-25 15:00] LABS: pH Blood Venous 7.17 (7.34-7.37)
[2022-07-25 15:42] LABS: Color, Urine Pale Yellow (P-Yellow)
[2022-07-25 15:43] LABS: White Blood Cells, Urine 25-50 /hpf (0-5)
[2022-07-25 15:44] LABS: Magnesium, Blood 2.7 mg/dL (1.6-2.4)
[2022-07-25 15:44] LABS: Squamous Epithelial Cells Mod /hpf (Few)
[2022-07-25 15:45] LABS: Bacteria Mod /hpf
[2022-07-25 15:47] LABS: Transitional Epithelial Cells Rare /hpf (0-Rare)
[2022-07-25 15:57] LABS: Influenza A, PCR NEGATIVE (NEGATIVE); Influenza B, PCR NEGATIVE (NEGATIVE); Resp Syncytial Virus, PCR NEGATIVE (NEGATIVE); SARS-Cov-2 (COVID-19) PCR, MMC NEGATIVE (NEGATIVE)
[2022-07-25 16:05] LABS: Albumin, Blood 3.1 g/dL (3.4-5.0); Albumin/Globulin Ratio 0.5 (0.8-1.8); Bilirubin, Total 0.5 mg/dL (0.1-1.0); Bun/Creatinine Ratio 29.5 (12.0-20.0); Creatinine, Blood 1.05 mg/dL (0.40-1.00); Globulin, Blood 5.9 g/dL (2.2-4.0); Phosphorus, Blood 6.2 mg/dL (2.5-4.9); Potassium, Blood 5.6 mmol/L (3.5-5.5)
[2022-07-25 19:39] LABS: Anion Gap 30 mmol/L (6-16); Blood Urea Nitrogen 33 mg/dL (8-24); Bun/Creatinine Ratio 31.7 (12.0-20.0); CO2, Blood 6 mmol/L (21-32); Calcium, Blood 8.4 mg/dL (8.5-10.1); Chloride, Blood 105 mmol/L (98-108); Creatinine, Blood 1.04 mg/dL (0.40-1.00); Glomerular Filtration Rate 77 (60-); Glucose, Blood 537 mg/dL (70-99); Potassium, Blood 4.8 mmol/L (3.5-5.5)
[2022-07-25 19:41] LABS: Sodium, Blood 141 mmol/L (136-145)
[2022-07-25 20:44] LABS: Bun/Creatinine Ratio 29.5 (12.0-20.0); Calcium, Blood 8.4 mg/dL (8.5-10.1); Creatinine, Blood 1.05 mg/dL (0.40-1.00); Potassium, Blood 4.1 mmol/L (3.5-5.5)
[2022-07-25 22:26] LABS: Bun/Creatinine Ratio 30.2 (12.0-20.0); Calcium, Blood 8.2 mg/dL (8.5-10.1); Creatinine, Blood 0.96 mg/dL (0.40-1.00); Potassium, Blood 4.7 mmol/L (3.5-5.5)
[2022-07-26 04:33] LABS: Bun/Creatinine Ratio 27.7 (12.0-20.0); Calcium, Blood 8.4 mg/dL (8.5-10.1); Creatinine, Blood 0.76 mg/dL (0.40-1.00); Potassium, Blood 3.9 mmol/L (3.5-5.5)
--- NOTE | 2022-07-26 05:21 | NUR ---
END OF SHIFT SUMMARY NEW ADMIT LAST NIGHT FOR DKA AND UTI. PT ON INSULIN GTT AT 2 UNITS BG WAS [address] SAINI PER HIS REQUEST HE SAID OK TO TITRATE INSULIN GTT PER PROTOCOL BUT HE DID WANT D5 1/2 NS STARTED AND THE INSULIN GTT ON FOR THE NIGHT TO CLOSE ANION GAP AND HELP WITH LOW CO2. PT ORIENTED X4. HAVING TROUBLE WITH NAUSEA HAD TWO EMESIS. HAS RECEIVED PHENERGAN X 2 DOSES AND ONE DOSE OF ZOFRAN SINCE COMING TO THE ICU. PT UP TO TOILET TO VOID WIHT SBA TO HELP WITH CORS AND IV LINES. SKIN INTACT. LS CLEAR SATS 100% ON ROOM AIR. WILL MONITOR AND WILL GIVE BEDSIDE REPORT TO ONCOMING RN.
--- NOTE | 2022-07-26 07:56 | NUR ---
ASSUMED CARE OF DEO AT 0700, SHE IS SLEEPING, EASILY AROUSABLE, DENIES ANY COMPLAINTS. BLOOD SUGAR 199, INSULIN GTT TO 2U/HR JUST NOW. D5 1/2NS INFUSING.
--- NOTE | 2022-07-26 09:45 | NUR ---
SUGARS DOWN TO 184, CALL WAS MADE TO , ORDERS RECEIVED. PT'S INSULIN GTT AND D5 STOPPED, GLARGINE INSULIN GIVEN SUBCU PER MAR. PT AWAKENS NAUSEATED AND HAD ABOUT 200ML OF EMESIS.
--- NOTE | 2022-07-26 11:44 | NUR ---
Pt. is somnolent but rouses when I enter the room. While Pt. welcomes my visit, it is apparent it is hard for her to focus. This outside barrel lathe operator offers to return at a later time. Pt. agrees, and verbalizes gratitude for the spiritual care visit.
[2022-07-26 12:53] LABS: Bun/Creatinine Ratio 23.2 (12.0-20.0); Calcium, Blood 8.2 mg/dL (8.5-10.1); Creatinine, Blood 0.69 mg/dL (0.40-1.00); Potassium, Blood 3.9 mmol/L (3.5-5.5)
--- NOTE | 2022-07-26 14:30 | NUR ---
DEO CONTINUES SLEEPING, AWAKENS EASILY, COOPERATES WITH CARE. NO FURTHER N/V REFUSED HER LUNCH TRAY, JUST WANTS TO KEEP DRINKING WATER. SHE HAS DRANK 3 LARGE CUPS OF WATER. VSS.
--- NOTE | 2022-07-26 15:12 | NUR ---
HERE TO SEE PATIENT, RECOMMENDING SENDING HER HOME. PT DENIES DESIRE TO GO HOME YET. SHE IS ONLY TAKING IN WATER, WILL WAIT UNTIL SHE IS ABLE TO TOLERATE PO INTAKE BEFORE DISCHARGING.
--- NOTE | 2022-07-26 17:25 | NUR ---
PT AWAKENED AND UP TO THE BR, CBG @ 200, NO COVERAGE ORDERED. PT HAS HAD THE 30U OF GLARGINE IN DIVIDED DOSES. NOW REQUESTS TURKEY SANDWICH. CONTINUES TAKING IN HER WATER WITHOUT ANY FURTHER VOMITING.
--- NOTE | 2022-07-26 18:39 | NUR ---
REPORT GIVEN TO JAS RUFF. PT TRANSFERRED TO WHEELCHAIR WITH BELONGINGS, RIDE TO ROOM 301 WITH CPT'S.
--- NOTE | 2022-07-27 04:56 | NUR ---
SHIFT SUMMARY: PT IS ALERT AND ORIENTED. PT IS CALM AND COOPERATIVE WITH CARE. PT CALLS APPROPRIATELY. PT IS INDEPENDENT IN THE ROOM. PT REPORTS INTERMITTENT NAUSEA, MEDICATING PER EMAR. PT DENIES PAIN, VOMITING, AND SOB. PT SLEPT MUCH OF THE NIGHT WHEN NOT DISTURBED. NO ACUTE CHANGES OR COMPLICATIONS THIS SHIFT. BED IN LOW POSITION, CALL LIGHT WITHIN REACH. WILL CONTINUE TO MONITOR.
[2022-07-27] MEDS ORDERED: Cefpodoxime Pr100 MG PO (10:16)
--- NOTE | 2022-07-27 11:28 | NUR ---
LATE ENTRY RECEIVED DC HOME ORDERS. WRITTEN & VERBAL DC INSTRUCTIONS GIVEN TO PT WITH MOM PRESENT. BOTH VERBALIZED GOOD UNDERSTANDING. PG DC'D WITH CATH TIP INTACT, NO REDNESS OR SWELLING NOTED AT SITE. NO NEW SCRIPTS WRITTEN BY . PT HOME WITH ALL PERSONAL BELONGINGS WITH MOM ACCOMPANYING.
== END 2022-07-27 11:16 | disposition home or self-care (01) | DRG 871 ==
LOC: ER 13:07 → ICUW 18:20 → MEDS 07-26 18:47
PROVIDERS: Internal Medicine; Student in an Organized Health Care Education/Training Program; ADMIT Internal Medicine
DX: A41.9 Sepsis, unspecified organism (principal); E10.10 Type 1 diabetes mellitus with ketoacidosis without coma; N30.00 Acute cystitis without hematuria; N13.6 Pyonephrosis; R65.20 Severe sepsis without septic shock; G43.909 Migraine, unspecified, not intractable, without status migrainosus; M79.7 Fibromyalgia; A08.4 Viral intestinal infection, unspecified; E10.42 Type 1 diabetes mellitus with diabetic polyneuropathy; F41.8 Other specified anxiety disorders; Z88.8 Allergy status to other drugs, medicaments and biological substances; Z91.018 Allergy to other foods; Z91.048 Other nonmedicinal substance allergy status; Z79.4 Long term (current) use of insulin; Z98.890 Other specified postprocedural states; Z79.899 Other long term (current) drug therapy
CPT/HCPCS: 0241U; 36415; 74177; 80048; 80053; 81001; 81025; 82803; 82947; 83605; 83735; 84100; 85025; 87040; 93005; 93010; 96365; 96366; 96367; 96375; 96376; 99285-25; A9270; J0696; J1200; J1815; J2405; J2543; J2550; J2765; J3370; J7030; J7042; J7050; Q9967

== ENCOUNTER 2022-11-19 10:25 | Inpatient (IN) | payer OTHER ==
[~2022-11-19] VITALS: Ht 160 cm; Wt 60.7 kg
[~2022-11-19 10:25] MED LIST changes: +Cefpodoxime Pr100 MG PO
[2022-11-19 11:10] LABS: Base Excess Venous -3.8 mmol/L; Bicarbonate Venous 20.5 mmol/L (24.0-30.0); PCO2 Venous 47.7 mmHg (38-42); pH Blood Venous 7.29 (7.34-7.37)
[2022-11-19 11:14] LABS: BASOPHILS ABSOLUTE AUTO 0.18 K/mm3 (0.00-0.23); BASOPHILS PERCENT AUTO 1 % (0-2); EOSINOPHILS ABSOLUTE AUTO 0.48 K/mm3 (0.00-0.68); EOSINOPHILS PERCENT AUTO 3 % (0-6); Hematocrit 41.1 % (33.0-51.0); Hemoglobin 14.5 g/dL (11.5-16.0); IMMATURE GRAN ABSOLUTE AUTO 0.06 K/mm3 (0.00-0.10); IMMATURE GRAN PERCENT AUTO 0 % (0-1); LYMPHOCYTES ABSOLUTE AUTO 3.44 K/mm3 (0.84-5.20); LYMPHOCYTES PERCENT AUTO 23 % (21-46); MONOCYTES ABSOLUTE AUTO 1.01 K/mm3 (0.16-1.47); MONOCYTES PERCENT AUTO 7 % (4-13); Mean Corpuscular HGB Conc 35.3 g/dL (31.5-36.5); Mean Corpuscular Volume 85 fL (80-100); NEUTROPHILS ABSOLUTE AUTO 10.04 K/mm3 (1.96-9.15); NEUTROPHILS PERCENT AUTO 66 % (41-73); Platelet Count 559 K/mm3 (150-400); RDW Coefficient Variation 13.5 % (11.7-14.2); RDW Standard Deviation 41.5 fL (35.1-46.3); Red Blood Cell Count 4.84 M/mm3 (3.80-5.20); White Blood Cell Count 15.21 K/mm3 (4.00-11.30)
[2022-11-19 11:39] LABS: Albumin, Blood 3.3 g/dL (3.4-5.0); Albumin/Globulin Ratio 0.6 (0.8-1.8); Bilirubin, Total 0.4 mg/dL (0.1-1.0); Bun/Creatinine Ratio 20.4 (12.0-20.0); Creatinine, Blood 1.13 mg/dL (0.40-1.00); Globulin, Blood 5.9 g/dL (2.2-4.0); Magnesium, Blood 2.4 mg/dL (1.6-2.4); Potassium, Blood 3.9 mmol/L (3.5-5.5); Total Protein, Blood 9.2 g/dL (6.4-8.2)
[2022-11-19] MEDS ORDERED: BUSP5 PO (12:05)
[2022-11-19 13:33] LABS: Source, Urine Clean Catch
[2022-11-19 13:42] LABS: Appearance, Urine Hazy (Clear); Bilirubin, Urine Neg (Neg); Blood, Urine 1+ (Neg); Color, Urine Yellow (P-Yellow); Glucose Qualitative, Urine 4+ (Neg); Ketones, Urine 3+ (Neg); Leukocyte Esterase, Urine 2+ (Neg); Nitrite, Urine Neg (Neg); Protein, Urine 2+ (Neg); Specific Gravity, Urine 1.015 (1.003-1.022); Urobilinogen, Urine NORM (Normal)
[2022-11-19 14:40] LABS: Bacteria Many /hpf; Squamous Epithelial Cells Few /hpf (Few); White Blood Cells, Urine 25-50 /hpf (0-5)
[2022-11-19 14:42] LABS: Hyaline Casts 0-2 /lpf (0-2)
[2022-11-19 16:39] LABS: Bun/Creatinine Ratio 19.7 (12.0-20.0); Calcium, Blood 8.3 mg/dL (8.5-10.1); Creatinine, Blood 0.92 mg/dL (0.40-1.00); Potassium, Blood 3.3 mmol/L (3.5-5.5)
--- NOTE | 2022-11-19 18:56 | NUR ---
PT ARRIVED FROM ER APROX 1700. PT AWAKE, ALERT AND ABLE TO AMBULATE AND USE CALL LIGHT FOR NEEDS. NO NEEDS SINCE ARRIVAL. PT GIVEN FLU VAX, TOLERATED WELL. SEE DOCUMENTED VS AND ASSESSMENT. CALL LIGHT IN REACH, WILL CONTINUE TO MONITOR AND GIVE REPORT TO NOC SHIFT RN.
--- NOTE | 2022-11-19 20:32 | NUR ---
ASSUMPTION OF CARE PATIENT ALERT AND ORIENTED FULLY. VITALS STABLE. ABLE TO MAKE NEEDS KNOWN AND CALLS APPROPRIATELY. DENIES FREQUENCY, URGENCY, OR PAIN WITH URINATION. HAS NOT VOIDED YET DURING THIS SHIFT. MEDICATING PER EMAR. DENIES PAIN. BED IN LOWEST POSITION AND CALL LIGHT WITHIN REACH.
[2022-11-20 04:19] LABS: BASOPHILS ABSOLUTE AUTO 0.14 K/mm3 (0.00-0.23); BASOPHILS PERCENT AUTO 2 % (0-2); EOSINOPHILS ABSOLUTE AUTO 0.93 K/mm3 (0.00-0.68); EOSINOPHILS PERCENT AUTO 10 % (0-6); Hematocrit 31.8 % (33.0-51.0); Hemoglobin 11.2 g/dL (11.5-16.0); IMMATURE GRAN ABSOLUTE AUTO 0.02 K/mm3 (0.00-0.10); IMMATURE GRAN PERCENT AUTO 0 % (0-1); LYMPHOCYTES ABSOLUTE AUTO 2.95 K/mm3 (0.84-5.20); LYMPHOCYTES PERCENT AUTO 33 % (21-46); MONOCYTES ABSOLUTE AUTO 0.54 K/mm3 (0.16-1.47); MONOCYTES PERCENT AUTO 6 % (4-13); Mean Corpuscular HGB 30.2 pg (26.0-34.0); Mean Corpuscular HGB Conc 35.2 g/dL (31.5-36.5); Mean Corpuscular Volume 86 fL (80-100); Mean Platelet Volume 8.9 fL (9.1-12.4); NEUTROPHILS ABSOLUTE AUTO 4.37 K/mm3 (1.96-9.15); NEUTROPHILS PERCENT AUTO 49 % (41-73); Platelet Count 313 K/mm3 (150-400); RDW Coefficient Variation 13.6 % (11.7-14.2); RDW Standard Deviation 41.9 fL (35.1-46.3); Red Blood Cell Count 3.71 M/mm3 (3.80-5.20); White Blood Cell Count 8.95 K/mm3 (4.00-11.30)
--- NOTE | 2022-11-20 04:20 | NUR ---
SHIFT SUMMARY NO ACUTE CHANGES DURING THIS SHIFT. A&OX4. INDEPENDENT WITH ADL'S AND ABLE TO MAKE NEEDS KNOWN. VITALS STABLE. SR/ST ON MONITOR WITH HR 90-100'S. BED IN LOWEST POSITION AND CALL LIGHT WITHIN REACH. THIS RN WILL CONTINUE TO MONITOR UNTIL SHIFT CHANGE AT 0700.
[2022-11-20 04:50] LABS: Magnesium, Blood 2.1 mg/dL (1.6-2.4)
[2022-11-20 05:14] LABS: Albumin, Blood 2.4 g/dL (3.4-5.0); Albumin/Globulin Ratio 0.6 (0.8-1.8); Bilirubin, Total 0.2 mg/dL (0.1-1.0); Bun/Creatinine Ratio 27.1 (12.0-20.0); Calcium, Blood 8.4 mg/dL (8.5-10.1); Creatinine, Blood 0.78 mg/dL (0.40-1.00); Globulin, Blood 3.9 g/dL (2.2-4.0); Potassium, Blood 3.2 mmol/L (3.5-5.5)
[2022-11-20 05:15] LABS: Total Protein, Blood 6.3 g/dL (6.4-8.2)
--- NOTE | 2022-11-20 17:23 | NUR ---
SHIFT SUMMARY NO ACUTE CHANGES THIS SHIFT. PT A&OX4, VSS. C/O OF NEUROPATHIC PAIN. HOME MED REC DONE, MD SANTOS ORDERED HOME MEDS, INCLUDED GABAPENTIN. UP TO BATHROOM INDEPENDENTLY. BLOOD SUGARS COVERED PER [place] RITCHIE HELD UNTIL NOON, PT STATES THAT IS WHEN SHE TAKES IT AT HOME. PT STATED SHE HAD A DIFFICULT TIME SLEEPING LAST NIGHT. CALL PLACED TO MD SANTOS. MD SANTOS W/ ORDERS FOR MELATONIN, PRN. CALL LIGHT IN REACH. PT EATING DINNER IN ROOM.
--- NOTE | 2022-11-20 19:40 | NUR ---
ASSUMPTION OF CARE THIS RN ASSUMED CARE OF PATIENT AT 1900. REPORT TAKEN FROM YOHANA MARK. PATIENT WITH STABLE VITALS AT THIS TIME. INDEPENDENT WITH ADL'S. SON AND PARENTS AT BEDSIDE VISITING CURRENTLY. PATIENT ALERT AND ORIENTED FULLY AND IS ABLE TO MAKE NEEDS KNOWN. PATIENT DENIES ALL PAIN AND REPORTS NO COMPLAINTS AT THIS TIME. PREVIOUS EPISODE OF N/V AFTER IV ANTIBIOTICS DURING DAY SHIFT, NO FURTHER EPISODES. MEDICATING PER EMAR. BED IN LOWEST POSITION AND CALL LIGHT WITHIN REACH.
[2022-11-21 03:42] LABS: BASOPHILS ABSOLUTE AUTO 0.07 K/mm3 (0.00-0.23); BASOPHILS PERCENT AUTO 1 % (0-2); EOSINOPHILS ABSOLUTE AUTO 0.91 K/mm3 (0.00-0.68); EOSINOPHILS PERCENT AUTO 14 % (0-6); Hematocrit 32.5 % (33.0-51.0); Hemoglobin 11.4 g/dL (11.5-16.0); IMMATURE GRAN ABSOLUTE AUTO 0.02 K/mm3 (0.00-0.10); IMMATURE GRAN PERCENT AUTO 0 % (0-1); LYMPHOCYTES ABSOLUTE AUTO 2.54 K/mm3 (0.84-5.20); LYMPHOCYTES PERCENT AUTO 38 % (21-46); MONOCYTES ABSOLUTE AUTO 0.44 K/mm3 (0.16-1.47); MONOCYTES PERCENT AUTO 7 % (4-13); Mean Corpuscular HGB 30.2 pg (26.0-34.0); Mean Corpuscular HGB Conc 35.1 g/dL (31.5-36.5); Mean Corpuscular Volume 86 fL (80-100); NEUTROPHILS ABSOLUTE AUTO 2.63 K/mm3 (1.96-9.15); NEUTROPHILS PERCENT AUTO 40 % (41-73); Platelet Count 310 K/mm3 (150-400); RDW Coefficient Variation 13.6 % (11.7-14.2); RDW Standard Deviation 42.8 fL (35.1-46.3); Red Blood Cell Count 3.78 M/mm3 (3.80-5.20); White Blood Cell Count 6.61 K/mm3 (4.00-11.30)
[2022-11-21 04:05] LABS: Albumin, Blood 2.4 g/dL (3.4-5.0); Albumin/Globulin Ratio 0.6 (0.8-1.8); Bilirubin, Total 0.2 mg/dL (0.1-1.0); Bun/Creatinine Ratio 23.1 (12.0-20.0); Creatinine, Blood 0.69 mg/dL (0.40-1.00); Globulin, Blood 4.2 g/dL (2.2-4.0); Potassium, Blood 3.7 mmol/L (3.5-5.5); Total Protein, Blood 6.6 g/dL (6.4-8.2)
--- NOTE | 2022-11-21 04:39 | NUR ---
SHIFT SUMMARY NO ACUTE CHANGES DURING THIS SHIFT. VITALS STABLE. NEURO INTACT. INDEPENDENT WITH ADL'S. PATIENT REPORTS BACK PAIN, HEATING PAD GIVEN. PATIENT REPORTED BETTER SLEEP TONIGHT THAN PREVIOUS NIGHT. PATIENT APPEARS TO BE SLEEPING AT THIS TIME WITH EQUAL CHEST RISE/FALL NOTED. BED IN LOWEST POSITION AND CALL LIGHT WITHIN REACH. THIS RN WILL CONTINUE TO MONITOR UNTIL SHIFT CHANGE AT 0700.
[2022-11-21] MEDS ORDERED: MELATONIN5 M1 PO (15:49)
== END 2022-11-21 16:15 | disposition home or self-care (01) | DRG 871 ==
LOC: ER 10:25 → PCU 15:24
PROVIDERS: Physician Assistant; Student in an Organized Health Care Education/Training Program; ADMIT Internal Medicine
DX: A41.51 Sepsis due to Escherichia coli [E. coli] (principal); E10.10 Type 1 diabetes mellitus with ketoacidosis without coma; N39.0 Urinary tract infection, site not specified; E87.4 Mixed disorder of acid-base balance; R65.20 Severe sepsis without septic shock; E87.6 Hypokalemia; M79.7 Fibromyalgia; G43.909 Migraine, unspecified, not intractable, without status migrainosus; G47.00 Insomnia, unspecified; E10.42 Type 1 diabetes mellitus with diabetic polyneuropathy; E10.43 Type 1 diabetes mellitus with diabetic autonomic (poly)neuropathy; K31.84 Gastroparesis; E86.0 Dehydration; F41.9 Anxiety disorder, unspecified; F32.A Depression, unspecified; Z96.651 Presence of right artificial knee joint; Z88.8 Allergy status to other drugs, medicaments and biological substances; Z23 Encounter for immunization; Z91.048 Other nonmedicinal substance allergy status; Z91.018 Allergy to other foods; Z79.51 Long term (current) use of inhaled steroids; Z79.4 Long term (current) use of insulin; Z79.899 Other long term (current) drug therapy; Z98.890 Other specified postprocedural states
CPT/HCPCS: 36415; 80048; 80053; 81001; 82010; 82803; 82947; 83605; 83735; 84703; 85025; 87040; 87077; 87086; 87186; 90686; 94760; 96361; 96374; 96375; 99285-25; A9270; J0696; J1650; J1815; J2550; J2765; J7030

== ENCOUNTER 2023-02-14 10:40 | Inpatient (IN) | payer OTHER ==
[~2023-02-14] VITALS: Ht 160 cm; Wt 57.9 kg
[2023-02-14] VITALS (27 sets, daily range): BP systolic 106–150; BP diastolic 60–92
[~2023-02-14 10:40] MED LIST changes: +BUSP5 PO; +MELATONIN5 M1 PO
[2023-02-14 11:19] LABS: Source, Urine Clean Catch
[2023-02-14 11:25] LABS: Bilirubin, Urine Neg (Neg); Blood, Urine Neg (Neg); Glucose Qualitative, Urine 4+ (Neg); Ketones, Urine 4+ (Neg); Leukocyte Esterase, Urine Neg (Neg); Nitrite, Urine Neg (Neg); Protein, Urine 1+ (Neg); Specific Gravity, Urine 1.015 (1.003-1.022); Urobilinogen, Urine NORM (Normal)
[2023-02-14 11:30] LABS: Color, Urine Pale Yellow (P-Yellow)
[2023-02-14 11:31] LABS: Appearance, Urine Clear (Clear)
[2023-02-14 11:52] LABS: BASOPHILS ABSOLUTE AUTO 0.18 K/mm3 (0.00-0.23); BASOPHILS PERCENT AUTO 1 % (0-2); EOSINOPHILS ABSOLUTE AUTO 0.32 K/mm3 (0.00-0.68); EOSINOPHILS PERCENT AUTO 2 % (0-6); Hematocrit 47.3 % (33.0-51.0); Hemoglobin 15.4 g/dL (11.5-16.0); IMMATURE GRAN ABSOLUTE AUTO 0.07 K/mm3 (0.00-0.10); IMMATURE GRAN PERCENT AUTO 1 % (0-1); LYMPHOCYTES PERCENT AUTO 18 % (21-46); MONOCYTES ABSOLUTE AUTO 0.29 K/mm3 (0.16-1.47); MONOCYTES PERCENT AUTO 2 % (4-13); Mean Corpuscular HGB 30.7 pg (26.0-34.0); Mean Corpuscular HGB Conc 32.6 g/dL (31.5-36.5); Mean Corpuscular Volume 94 fL (80-100); Mean Platelet Volume 9.1 fL (9.1-12.4); NEUTROPHILS ABSOLUTE AUTO 10.38 K/mm3 (1.96-9.15); NEUTROPHILS PERCENT AUTO 76 % (41-73); Platelet Count 522 K/mm3 (150-400); RDW Coefficient Variation 12.2 % (11.7-14.2); RDW Standard Deviation 42.5 fL (35.1-46.3); Red Blood Cell Count 5.02 M/mm3 (3.80-5.20); White Blood Cell Count 13.74 K/mm3 (4.00-11.30)
[2023-02-14 12:29] LABS: Albumin, Blood 3.9 g/dL (3.4-5.0); Albumin/Globulin Ratio 0.7 (0.8-1.8); Bilirubin, Total 0.5 mg/dL (0.1-1.0); Bun/Creatinine Ratio 21.4 (12.0-20.0); Calcium, Blood 9.8 mg/dL (8.5-10.1); Creatinine, Blood 1.17 mg/dL (0.40-1.00); Globulin, Blood 5.3 g/dL (2.2-4.0); Potassium, Blood 5.3 mmol/L (3.5-5.5); Total Protein, Blood 9.2 g/dL (6.4-8.2)
[2023-02-14 12:31] LABS: Glucose, Blood 869 mg/dL (70-99)
[2023-02-14 12:44] LABS: Base Excess Venous -23.8 mmol/L; pH Blood Venous 7.04 (7.34-7.37)
[2023-02-14] MEDS ORDERED: HUMALOG100 UNIT/1 SC (13:00)
--- NOTE | 2023-02-14 15:00 | NUR ---
PT ARRIVES TO UNIT PT ALERT AND ORIENTED UPON ARRIVAL. DROWSY. PT. REPORTS PAIN OF 8/10 TO BACK, REPOSITIONED FOR COMFORT. TACHYCARDIC UPON ARRIVAL. PT. AFEBRILE. FAN PROVIDED. ADDITIONAL IV PLACED. PT. CURRENTLY GETTING 1/2 NS IV AT 300ML/HR AND INSULIN GTT AT 5.9 FROM ER. CRITICAL LAB RESULT CALLED BG REMAINS IN THE 800S, INSULIN TITRATED UP TO 7U/HR. GI COCKTAIL ORDER OBTAINED. PT. ICE WATER AT BEDSIDE, CALL LIGHT IN REACH
[2023-02-14 15:11] LABS: Glucose, Blood 824 mg/dL (70-99)
[2023-02-14 17:23] LABS: Albumin, Blood 3.4 g/dL (3.4-5.0); Anion Gap 26 mmol/L (6-16); Blood Urea Nitrogen 26 mg/dL (8-24); Bun/Creatinine Ratio 20.6 (12.0-20.0); CO2, Blood 9 mmol/L (21-32); Calcium, Blood 8.6 mg/dL (8.5-10.1); Chloride, Blood 106 mmol/L (98-108); Creatinine, Blood 1.26 mg/dL (0.40-1.00); Glomerular Filtration Rate 61 (60-); Glucose, Blood 538 mg/dL (70-99); Phosphorus, Blood 5.2 mg/dL (2.5-4.9); Potassium, Blood 4.3 mmol/L (3.5-5.5)
[2023-02-14 17:24] LABS: Sodium, Blood 141 mmol/L (136-145)
--- NOTE | 2023-02-14 17:41 | NUR ---
CALL TO DR. TABARES TO UPDATE ON PT CONDITION FLUIDS CHANGED TO ADD POTASSIUM AND FLUID TRANSITION ORDERS OBTAINED FOR WHEN PT BG IS BELOW 22. PT. UP TO BEDSIDE COMMODE WITH STAND BY ASSIST FOR LINES. TOLERATING ICE WATER AT THIS TIME, DENIES ANY N/V.
--- NOTE | 2023-02-14 18:32 | NUR ---
SHIFT SUMMARY PT. REMAINS ALERT AND ORIENTED, DROWSY BUT WAKES EASILY TO VERBAL STIMULI. PT. VSS T/O SHIFT. UP WITH STAND BY ASSIST.PT. REMAINS ON INSULIN GTT AND 1/2NS WITH 20K. PG PLACED TO MADELIN THIS SHIFT. DIFFICULTY OBTAINING ACCESS TO LEFT ARM.
[2023-02-14 19:29] LABS: Potassium, Blood 4.5 mmol/L (3.5-5.5)
--- NOTE | 2023-02-14 21:20 | NUR ---
ASSUMED CARE. PT AOX3, STATES NO NAUSEA AT THIS TIME. ABLE TO TOLERATE WATER. IVF WITH 20 OF K+ INFUSING AT 300ML/HR. INSULIN CURRENTLY RUNNING AT 4 UNITS. LAB DRAW COMPLETED AND SENT TO LAB X2. SHE STATES SHE IS HUNGRY, INFORMED OF NPO STATUS. POTASSIUM CURRENTLY AT 4.5. BLOOD SUGAR AT 203. WILL CONTINUE TO MONITOR.
[2023-02-14 23:23] LABS: Bun/Creatinine Ratio 18.6 (12.0-20.0); Calcium, Blood 7.6 mg/dL (8.5-10.1); Creatinine, Blood 0.91 mg/dL (0.40-1.00); Potassium, Blood 4.1 mmol/L (3.5-5.5)
[2023-02-15] VITALS (52 sets, daily range): BP systolic 89–142; BP diastolic 50–88
[2023-02-15 03:26] LABS: BASOPHILS ABSOLUTE AUTO 0.07 K/mm3 (0.00-0.23); BASOPHILS PERCENT AUTO 1 % (0-2); EOSINOPHILS PERCENT AUTO 1 % (0-6); Hematocrit 32.3 % (33.0-51.0); IMMATURE GRAN ABSOLUTE AUTO 0.06 K/mm3 (0.00-0.10); IMMATURE GRAN PERCENT AUTO 0 % (0-1); LYMPHOCYTES ABSOLUTE AUTO 2.35 K/mm3 (0.84-5.20); LYMPHOCYTES PERCENT AUTO 16 % (21-46); MONOCYTES ABSOLUTE AUTO 1.05 K/mm3 (0.16-1.47); MONOCYTES PERCENT AUTO 7 % (4-13); Mean Corpuscular HGB 30.6 pg (26.0-34.0); Mean Corpuscular HGB Conc 34.1 g/dL (31.5-36.5); Mean Corpuscular Volume 90 fL (80-100); Mean Platelet Volume 8.9 fL (9.1-12.4); NEUTROPHILS ABSOLUTE AUTO 11.58 K/mm3 (1.96-9.15); NEUTROPHILS PERCENT AUTO 76 % (41-73); Platelet Count 377 K/mm3 (150-400); RDW Coefficient Variation 12.3 % (11.7-14.2); RDW Standard Deviation 40.1 fL (35.1-46.3); White Blood Cell Count 15.21 K/mm3 (4.00-11.30)
[2023-02-15 03:53] LABS: Beta-hydroxybutyrate 34.1 mg/dL (0.2-2.8); Magnesium, Blood 2.3 mg/dL (1.6-2.4)
[2023-02-15 04:19] LABS: Albumin, Blood 2.7 g/dL (3.4-5.0); Albumin/Globulin Ratio 0.7 (0.8-1.8); Bilirubin, Total 0.3 mg/dL (0.1-1.0); Bun/Creatinine Ratio 15.1 (12.0-20.0); Calcium, Blood 7.6 mg/dL (8.5-10.1); Creatinine, Blood 0.93 mg/dL (0.40-1.00); Globulin, Blood 3.7 g/dL (2.2-4.0); Potassium, Blood 4.1 mmol/L (3.5-5.5)
[2023-02-15 04:22] LABS: Phosphorus, Blood 0.9 mg/dL (2.5-4.9); Total Protein, Blood 6.4 g/dL (6.4-8.2)
[2023-02-15 04:53] LABS: Base Excess Venous -8.9 mmol/L; Bicarbonate Venous 17.8 mmol/L (24.0-30.0); pH Blood Venous 7.29 (7.34-7.37)
--- NOTE | 2023-02-15 05:37 | NUR ---
SHIFT SUMMARY: PT CONTINUES ON INSULIN GTT AT 3 UNITS/HR. D5 1/2NS W/ 20 MEQ OF K+ AT 150ML/HR WAS STARTED AROUND 2100 YESTERDAY. BLOOD SUGAR HAVE MAINTAINED BETWEEN 200-230. CURRENTLY GETTING NA+ PHOS FOR CRITICAL LOW LEVELS OF 0.9. WAS ABLE TO GET UP TO BSC THIS AM VOIDED 1650 OF CLEAR YELLOW URINE. NAUSEA X1 TREATED WITH REGLAN WITH GOOD RESULTS. VS HAVE STABLE EXCEPT HR IN THE 120-130'S. GAP CLOSED AROUND 2300 BUT BICARB REMAINS LOW.
[2023-02-15 08:18] LABS: Albumin, Blood 2.6 g/dL (3.4-5.0); Anion Gap 7 mmol/L (6-16); Blood Urea Nitrogen 11 mg/dL (8-24); Bun/Creatinine Ratio 13.5 (12.0-20.0); CO2, Blood 21 mmol/L (21-32); Calcium, Blood 7.6 mg/dL (8.5-10.1); Chloride, Blood 108 mmol/L (98-108); Creatinine, Blood 0.81 mg/dL (0.40-1.00); Glomerular Filtration Rate 103 (60-); Glucose, Blood 227 mg/dL (70-99); Phosphorus, Blood 1.7 mg/dL (2.5-4.9); Potassium, Blood 3.8 mmol/L (3.5-5.5); Sodium, Blood 136 mmol/L (136-145)
--- NOTE | 2023-02-15 08:29 | NUR ---
AM NOTE... ASSUMED CARE OF PT AT 0700. PT RESTING COMFORTABLY IN BED. PT REMAINS TACHYCARDIC IN THE 110'S-120'S AND NORMOTENSIVE. PT HAD A CRITICALLY LOW PHOSPHORUS LEVEL OF 0.9 LAST NIGHT AND REPEAT LABS WERE DRAWN THIS MORNING AND SHOWED A LEVEL OF 1.7. DR TABARES NOTIFIED OF THE NEW PHOSPHORUS LEVEL AND STATES HE WILL COME EVALUATE THE PT. PT'S INSULIN IS RUNNING AT 3 UNITS/HR. WILL CONTINUE TO MONITOR.
--- NOTE | 2023-02-15 08:33 | NUR ---
AM NOTE... ASSUMED CARE OF PT AT 0700. PT IS A&Ox4. SHE SEEMS SLEEPY AND LETHARGIC AT THIS TIME BUT COOPERATIVE WITH CARE. PT IS ON AN INSULIN GTT AT 3U/HR. SHE IS ON RA WITH O2 SATS >95% L/S CLEAR T/O. SHE IS IN ST IN THE 110'S. BP IS STABLE WITH MAPS >65. NO SWELLING OR EDEMA NOTED ON THIS ASSESSMENT. BT PRESENT AND HYPOACTIVE, PT DENIES ANY N/V AT THIS TIME. PT'S PHOS THIS AM WAS 0.9, DR. TABARES AWARE, REDRAW WAS 1.7, NEW ORDERS TO CHANGE THE SODIUM PHOS GTT TO KPHOS GTT WERE GIVEN. WILL RECHECK LABS THIS AFTERNOON. CALL LIGHT IN REACH WILL CONTINUE TO MONITOR.
[2023-02-15 17:19] LABS: Albumin, Blood 2.4 g/dL (3.4-5.0); Anion Gap 6 mmol/L (6-16); Blood Urea Nitrogen 8 mg/dL (8-24); Bun/Creatinine Ratio 10.2 (12.0-20.0); CO2, Blood 23 mmol/L (21-32); Calcium, Blood 7.3 mg/dL (8.5-10.1); Chloride, Blood 105 mmol/L (98-108); Creatinine, Blood 0.79 mg/dL (0.40-1.00); Glomerular Filtration Rate 106 (60-); Glucose, Blood 435 mg/dL (70-99); Phosphorus, Blood 1.6 mg/dL (2.5-4.9); Potassium, Blood 3.3 mmol/L (3.5-5.5); Sodium, Blood 134 mmol/L (136-145)
--- NOTE | 2023-02-15 18:31 | NUR ---
SHIFT SUMMARY.... NO ACUTE NEGATIVE CHANGES NOTED THIS SHIFT. PT'S VS HAVE BEEN STABLE. THE PT CONTINUES ON THE INSULIN DRIP FROM 2U/HR TO 8U/HR. THE PT HAS BEEN STABLE UP TO THE TOILET INDEPENDENTLY. WILL CONTINUE TO MONITOR UNTIL REPORT IS GIVEN TO ONCOMING RN.
--- NOTE | 2023-02-15 20:25 | NUR ---
ASSUMED CARE AT 1900 PATIENT IS ALERT AND ORIENTED X4. 02 SATS >95% ON RA, DENIES SOB. HR ST 110, BP STABLE. DENIES CP/PRESSURE. INSULIN GTT INFUSING WELL K PHOS. PATIENT INDEPENDENT IN ROOM. CALL LIGHT IN REACH
[2023-02-16] VITALS (7 sets, daily range): BP systolic 97–152; BP diastolic 57–98
[2023-02-16 00:45] LABS: Albumin, Blood 2.5 g/dL (3.4-5.0); Anion Gap 0 mmol/L (6-16); Blood Urea Nitrogen 10 mg/dL (8-24); Bun/Creatinine Ratio 13.2 (12.0-20.0); CO2, Blood 29 mmol/L (21-32); Calcium, Blood 8.1 mg/dL (8.5-10.1); Chloride, Blood 111 mmol/L (98-108); Creatinine, Blood 0.76 mg/dL (0.40-1.00); Glomerular Filtration Rate 111 (60-); Glucose, Blood 208 mg/dL (70-99); Magnesium, Blood 2.4 mg/dL (1.6-2.4); Phosphorus, Blood 2.7 mg/dL (2.5-4.9); Potassium, Blood 4.1 mmol/L (3.5-5.5); Sodium, Blood 140 mmol/L (136-145)
[2023-02-16 06:39] LABS: Albumin, Blood 2.5 g/dL (3.4-5.0); Anion Gap 4 mmol/L (6-16); Blood Urea Nitrogen 11 mg/dL (8-24); Bun/Creatinine Ratio 15.8 (12.0-20.0); CO2, Blood 25 mmol/L (21-32); Chloride, Blood 107 mmol/L (98-108); Glomerular Filtration Rate 123 (60-); Glucose, Blood 292 mg/dL (70-99); Phosphorus, Blood 1.5 mg/dL (2.5-4.9); Potassium, Blood 4.7 mmol/L (3.5-5.5); Sodium, Blood 136 mmol/L (136-145)
--- NOTE | 2023-02-16 07:12 | NUR ---
SHIFT SUMMARY PATIENT IS ALERT AND ORIENTED X4. ON RA. VSS. INSULIN DRIP OFF AT APPROX 0500 AND LONG ACTING WAS GIVEN AT APPROX 0400. DR. TABARES TO ROOM TO SEE PATIENT THIS AM, PLANS TO DC HOME
--- NOTE | 2023-02-16 08:52 | NUR ---
ASSUMED CARE THIS AM PT. ALERT AND ORIENTED, AWAKENS EASILY TO VERBAL STIMULI. PLANS TO DC HOME TODAY. INDEPENDENT IN ROOM. BG CHECKED AND COVERED THIS AM. BREAKFAST TRAY PROVIDED. SALINE LOCKED. VSS.
[2023-02-16] MEDS ORDERED: POTA10T PO (09:05)
[2023-02-16] MEDS ORDERED: K-Phos Origina500 MG PO (09:06)
--- NOTE | 2023-02-16 09:48 | NUR ---
DISCHARGE ORDERS REVIEWED. IVS REMOVED. PT. VSS, AWAITING PT RIDE HOME AT THIS TIME.
--- NOTE | 2023-02-16 10:04 | NUR ---
PT DISCHARED AT THIS TIME. ALL BELONGINGS TAKEN WITH PT. ABLE TO AMBULATE W/O DIFFICULTY
== END 2023-02-16 10:13 | disposition home or self-care (01) | DRG 639 ==
LOC: ER 10:40 → ICUW 13:14
PROVIDERS: Emergency Medicine; ADMIT Family Medicine
DX: E10.10 Type 1 diabetes mellitus with ketoacidosis without coma (principal); E83.39 Other disorders of phosphorus metabolism; E10.42 Type 1 diabetes mellitus with diabetic polyneuropathy; M79.7 Fibromyalgia; G43.909 Migraine, unspecified, not intractable, without status migrainosus; E10.43 Type 1 diabetes mellitus with diabetic autonomic (poly)neuropathy; K31.84 Gastroparesis; E86.0 Dehydration; F41.8 Other specified anxiety disorders; Z88.8 Allergy status to other drugs, medicaments and biological substances; Z91.018 Allergy to other foods; Z91.09 Other allergy status, other than to drugs and biological substances; Z98.890 Other specified postprocedural states; Z79.899 Other long term (current) drug therapy; Z79.51 Long term (current) use of inhaled steroids; Z79.4 Long term (current) use of insulin
CPT/HCPCS: 36415; 80048; 80053; 80069; 81025; 82010; 82803; 82947; 83735; 84100; 84132; 85025; 93005; 93010; 94760; 96372-59; 96374; 96375; 99285-25; A9270; C1751; C9113; J1644; J1815; J2550; J2765; J3480; J7030; J7042; J7060

== ENCOUNTER 2023-04-11 06:43 | Inpatient (IN) | payer OTHER ==
[2023-04-11] VITALS (24 sets, daily range): BP systolic 87–142; BP diastolic 48–85
[~2023-04-11] VITALS: Ht 160 cm; Wt 61.6 kg
[~2023-04-11 06:43] MED LIST changes: -BUSP5 PO; +Buspirone HCl15 MG PO; +K-Phos Origina500 MG PO; +METO10 PO; -METO5A PO; +POTA10T PO; +SERT100 PO
[2023-04-11 07:10] LABS: Base Excess Venous -25.3 mmol/L; Bicarbonate Venous 8.8 mmol/L (24.0-30.0); PCO2 Venous 20.3 mmHg (38-42)
[2023-04-11 07:11] LABS: pH Blood Venous 7.03 (7.34-7.37)
[2023-04-11 07:23] LABS: BASOPHILS ABSOLUTE AUTO 0.18 K/mm3 (0.00-0.23); BASOPHILS PERCENT AUTO 1 % (0-2); EOSINOPHILS ABSOLUTE AUTO 0.24 K/mm3 (0.00-0.68); EOSINOPHILS PERCENT AUTO 1 % (0-6); Hematocrit 46.7 % (33.0-51.0); Hemoglobin 14.9 g/dL (11.5-16.0); IMMATURE GRAN ABSOLUTE AUTO 0.24 K/mm3 (0.00-0.10); IMMATURE GRAN PERCENT AUTO 1 % (0-1); LYMPHOCYTES ABSOLUTE AUTO 3.68 K/mm3 (0.84-5.20); LYMPHOCYTES PERCENT AUTO 17 % (21-46); MONOCYTES ABSOLUTE AUTO 0.69 K/mm3 (0.16-1.47); MONOCYTES PERCENT AUTO 3 % (4-13); Mean Corpuscular HGB 30.8 pg (26.0-34.0); Mean Corpuscular HGB Conc 31.9 g/dL (31.5-36.5); Mean Corpuscular Volume 97 fL (80-100); Mean Platelet Volume 9.9 fL (9.1-12.4); NEUTROPHILS ABSOLUTE AUTO 16.08 K/mm3 (1.96-9.15); NEUTROPHILS PERCENT AUTO 76 % (41-73); Platelet Count 491 K/mm3 (150-400); RDW Coefficient Variation 12.4 % (11.7-14.2); RDW Standard Deviation 43.5 fL (35.1-46.3); Red Blood Cell Count 4.83 M/mm3 (3.80-5.20); White Blood Cell Count 21.11 K/mm3 (4.00-11.30)
[2023-04-11 07:58] LABS: Alanine Aminotransfer (ALT/SGP 25 U/L (12-78); Albumin, Blood 3.5 g/dL (3.4-5.0); Albumin/Globulin Ratio 0.7 (0.8-1.8); Alk Phos 160 U/L (50-136); Anion Gap 35 mmol/L (6-16); Aspartate Aminotrans (AST/SGOT 28 U/L (12-37); Bilirubin, Total 0.4 mg/dL (0.1-1.0); Blood Urea Nitrogen 29 mg/dL (8-24); Bun/Creatinine Ratio 22.8 (12.0-20.0); CO2, Blood 8 mmol/L (21-32); Calcium, Blood 9.4 mg/dL (8.5-10.1); Chloride, Blood 89 mmol/L (98-108); Creatinine, Blood 1.27 mg/dL (0.40-1.00); Globulin, Blood 4.7 g/dL (2.2-4.0); Glomerular Filtration Rate 60 (60-); Glucose, Blood 971 mg/dL (70-99); Potassium, Blood 5.7 mmol/L (3.5-5.5); Sodium, Blood 132 mmol/L (136-145); Total Protein, Blood 8.2 g/dL (6.4-8.2)
[2023-04-11 08:11] LABS: Beta-hydroxybutyrate >138.0 mg/dL (0.2-2.8)
[2023-04-11 08:59] LABS: Glucose, Blood 941 mg/dL (70-99)
[2023-04-11 11:00] LABS: Glucose, Blood 625 mg/dL (70-99)
[2023-04-11 11:03] LABS: Magnesium, Blood 2.6 mg/dL (1.6-2.4)
[2023-04-11 11:09] LABS: Albumin/Globulin Ratio 0.7 (0.8-1.8); Bilirubin, Total 0.5 mg/dL (0.1-1.0); Bun/Creatinine Ratio 21.7 (12.0-20.0); Creatinine, Blood 1.43 mg/dL (0.40-1.00); Globulin, Blood 4.3 g/dL (2.2-4.0); Phosphorus, Blood 5.8 mg/dL (2.5-4.9); Potassium, Blood 4.3 mmol/L (3.5-5.5); Total Protein, Blood 7.3 g/dL (6.4-8.2)
[2023-04-11 11:45] LABS: Glucose, Blood 560 mg/dL (70-99)
[2023-04-11 12:43] LABS: Glucose, Blood 465 mg/dL (70-99)
[2023-04-11 13:29] LABS: Bun/Creatinine Ratio 20.9 (12.0-20.0); Creatinine, Blood 1.39 mg/dL (0.40-1.00); Potassium, Blood 3.9 mmol/L (3.5-5.5)
[2023-04-11 15:19] LABS: Bun/Creatinine Ratio 22.1 (12.0-20.0); Calcium, Blood 8.8 mg/dL (8.5-10.1); Creatinine, Blood 1.22 mg/dL (0.40-1.00); Potassium, Blood 4.1 mmol/L (3.5-5.5)
[2023-04-11 17:42] LABS: Bun/Creatinine Ratio 23.1 (12.0-20.0); Calcium, Blood 8.7 mg/dL (8.5-10.1); Creatinine, Blood 1.21 mg/dL (0.40-1.00); Potassium, Blood 3.7 mmol/L (3.5-5.5)
--- NOTE | 2023-04-11 18:34 | NUR ---
Summary. Pt arrived to ICU at approximately 0930. Pt lethargic but arousable and oriented. ON RA, LAC/HECTOR IV access in place. Insulin infusing at 5.96 units/hr. Bicarb/1/2NS started at 100, 1/2NS started at 100. Pt slept throughout most of shift. Able to ambulate to commode when needed w/o difficulty. Insulin titrated down to 3.5 unit/hr, after BG dropped below [address] Burgess to switch IV fluid infusions to D5/bicarb at 150 ml/hr. Pt nauseous during shift, PRN anti-emetics given with poor results, see emar. Pt currently resting in bed, no acute needs. See chart for further details. Will continue to monitor and report off to moncho MARK.
[2023-04-11 19:40] LABS: Bun/Creatinine Ratio 21.6 (12.0-20.0); Calcium, Blood 8.3 mg/dL (8.5-10.1); Creatinine, Blood 1.11 mg/dL (0.40-1.00); Potassium, Blood 3.6 mmol/L (3.5-5.5)
[2023-04-11 21:46] LABS: Bun/Creatinine Ratio 23.1 (12.0-20.0); Calcium, Blood 8.3 mg/dL (8.5-10.1); Creatinine, Blood 1.08 mg/dL (0.40-1.00); Potassium, Blood 3.3 mmol/L (3.5-5.5)
[2023-04-11 23:15] LABS: Bun/Creatinine Ratio 21.6 (12.0-20.0); Calcium, Blood 8.4 mg/dL (8.5-10.1); Creatinine, Blood 1.11 mg/dL (0.40-1.00); Potassium, Blood 3.4 mmol/L (3.5-5.5)
[2023-04-12] VITALS (76 sets, daily range): BP systolic 103–150; BP diastolic 58–106
[2023-04-12 01:20] LABS: Base Excess Venous 5.2 mmol/L; PCO2 Venous 45.4 mmHg (38-42); pH Blood Venous 7.42 (7.34-7.37)
[2023-04-12 01:40] LABS: Bun/Creatinine Ratio 20.8 (12.0-20.0); Calcium, Blood 8.3 mg/dL (8.5-10.1); Creatinine, Blood 1.06 mg/dL (0.40-1.00); Potassium, Blood 3.3 mmol/L (3.5-5.5)
[2023-04-12 03:57] LABS: Calcium, Blood 8.1 mg/dL (8.5-10.1); Potassium, Blood 3.2 mmol/L (3.5-5.5)
[2023-04-12 05:32] LABS: Bun/Creatinine Ratio 20.1 (12.0-20.0); Calcium, Blood 8.2 mg/dL (8.5-10.1); Creatinine, Blood 0.94 mg/dL (0.40-1.00); Potassium, Blood 3.1 mmol/L (3.5-5.5)
--- NOTE | 2023-04-12 06:22 | NUR ---
SHIFT SUMMARY: PT REMAINS A&O X 4 BUT VERY DROWSY. PT N/V PERSISTENT THROUGHOUT THE NIGHT, MEDICATED PER EMAR BUT VERY DIFFICULT TO GET VOMITING UNDER CONTROL. PT HAS INSULIN GTT @ 3 UNITS AND D5 1/2 NS @ 75 MLS/HR. PT CBG HAVE BEEN 180-200 FOR MAJORITY OF THE NIGHT. PT GETTING UP TO COMMODE WITH SBA FOR CORDS; GAIT STEADY. PT VOIDING ONCE AND HAD A BOWEL MOVEMENT AT THE BEGINNING OF THE SHIFT. PT INDEPENDENT WITH BED MOBILITY THROUGHOUT THE SHIFT. PT USING CALL LIGHT APPROPRIATELY. VSS THROUGHOUT THE NIGHT. BED LOWERED, CALL LIGHT IN REACH, WILL CONTINUE TO MONITOR UNTIL ONCOMING RN ARRIVES.
--- NOTE | 2023-04-12 07:28 | NUR ---
Assumed care at approximately 0700. Report received from moncho MARK. Pt sleeping in bed, on RA. Insulin infusing at 3 units/hr. D5/1/2ns infusing at 75 ml/hr, NS tko. No acute needs at time of report. Will continue to monitor.
[2023-04-12 07:47] LABS: Bun/Creatinine Ratio 18.6 (12.0-20.0); Calcium, Blood 8.4 mg/dL (8.5-10.1); Creatinine, Blood 0.91 mg/dL (0.40-1.00)
[2023-04-12 09:21] LABS: Base Excess Venous 6.6 mmol/L; Bicarbonate Venous 29.5 mmol/L (24.0-30.0); pH Blood Venous 7.42 (7.34-7.37)
[2023-04-12 09:48] LABS: Bun/Creatinine Ratio 18.4 (12.0-20.0); Calcium, Blood 8.4 mg/dL (8.5-10.1); Creatinine, Blood 0.92 mg/dL (0.40-1.00); Potassium, Blood 3.2 mmol/L (3.5-5.5)
[2023-04-12 11:44] LABS: Bun/Creatinine Ratio 17.1 (12.0-20.0); Calcium, Blood 7.9 mg/dL (8.5-10.1); Creatinine, Blood 0.93 mg/dL (0.40-1.00); Potassium, Blood 3.6 mmol/L (3.5-5.5)
[2023-04-12 13:41] LABS: Bun/Creatinine Ratio 17.7 (12.0-20.0); Creatinine, Blood 0.96 mg/dL (0.40-1.00); Potassium, Blood 3.3 mmol/L (3.5-5.5)
--- NOTE | 2023-04-12 15:18 | NUR ---
Summary. Transferred care at approximately 1515. Pt resting in bed, arousable and oriented, on RA. Insulin infusing at 3 units/hr, D5W/20meq KCL infusing at 100 ml/hr. NG tube in place, connected to low continuous suction. Pt remains very nauseous, ativan administered per Dr. Burgess with good effect, order obtained for continued PRN doses. VS stable, see assessements for further details. Report given to RN assuming care.
[2023-04-12 15:33] LABS: Bun/Creatinine Ratio 15.9 (12.0-20.0); Creatinine, Blood 0.95 mg/dL (0.40-1.00); Potassium, Blood 3.3 mmol/L (3.5-5.5)
--- NOTE | 2023-04-12 17:35 | NUR ---
SHIFT SUMMARY.... ASSUMED CARE OF PT AT APROX 1515. PT CONTINUES ON AN INSULIN DRIP AT 3U/HR PT'S CBGs HAVE BEEN 200-260. PT'S NG TUBE IS SET TO LIS WITH 200MLS OF DARK GREEN BILE/GASTRIC CONTENTS REMOVED. PT CONTINUES TO C/O OF NAUSEA WITH SOME DRY HEAVING BUT NO EMESIS. PT'S VS STABLE. CALL LIGHT IN REACH WILL CONTINUE TO MONITOR UNTIL REPORT IS GIVEN TO ONCOMING RN.
[2023-04-12 18:32] LABS: Bun/Creatinine Ratio 17.4 (12.0-20.0); Calcium, Blood 8.2 mg/dL (8.5-10.1); Creatinine, Blood 0.86 mg/dL (0.40-1.00); Potassium, Blood 3.1 mmol/L (3.5-5.5)
--- NOTE | 2023-04-12 19:40 | NUR ---
ASSUMED CARE AT 1900 PATIENT IS ALERT AND ORIENTED. COMPLAINS OF NAUSEA, NG TUBE IN PLACE TO LIS, LIGHT BROWN BILE FROM TUBE. MEDICATED FOR NAUSEA AND THROAT PAIN. INSULIN DRIP AND FLUIDS REMAIN INFUSING. SEE SHIFT ASSESMENT FOR MORE INFORMATION.
[2023-04-13] VITALS (17 sets, daily range): BP systolic 101–157; BP diastolic 59–104
[2023-04-13 00:53] LABS: Albumin, Blood 2.7 g/dL (3.4-5.0); Albumin/Globulin Ratio 0.8 (0.8-1.8); Bilirubin, Total 0.3 mg/dL (0.1-1.0); Bun/Creatinine Ratio 14.7 (12.0-20.0); Calcium, Blood 7.9 mg/dL (8.5-10.1); Creatinine, Blood 0.95 mg/dL (0.40-1.00); Globulin, Blood 3.6 g/dL (2.2-4.0); Potassium, Blood 3.1 mmol/L (3.5-5.5); Total Protein, Blood 6.3 g/dL (6.4-8.2)
[2023-04-13 04:49] LABS: BASOPHILS ABSOLUTE AUTO 0.07 K/mm3 (0.00-0.23); BASOPHILS PERCENT AUTO 1 % (0-2); EOSINOPHILS ABSOLUTE AUTO 0.12 K/mm3 (0.00-0.68); EOSINOPHILS PERCENT AUTO 1 % (0-6); Hematocrit 30.2 % (33.0-51.0); Hemoglobin 10.3 g/dL (11.5-16.0); IMMATURE GRAN ABSOLUTE AUTO 0.02 K/mm3 (0.00-0.10); IMMATURE GRAN PERCENT AUTO 0 % (0-1); LYMPHOCYTES ABSOLUTE AUTO 2.72 K/mm3 (0.84-5.20); LYMPHOCYTES PERCENT AUTO 31 % (21-46); MONOCYTES PERCENT AUTO 8 % (4-13); Mean Corpuscular HGB 31.1 pg (26.0-34.0); Mean Corpuscular HGB Conc 34.1 g/dL (31.5-36.5); NEUTROPHILS ABSOLUTE AUTO 5.18 K/mm3 (1.96-9.15); NEUTROPHILS PERCENT AUTO 59 % (41-73); Platelet Count 278 K/mm3 (150-400); RDW Coefficient Variation 12.3 % (11.7-14.2); RDW Standard Deviation 40.9 fL (35.1-46.3); Red Blood Cell Count 3.31 M/mm3 (3.80-5.20); White Blood Cell Count 8.81 K/mm3 (4.00-11.30)
[2023-04-13 04:50] LABS: Mean Corpuscular Volume 91 fL (80-100)
--- NOTE | 2023-04-13 05:07 | NUR ---
SHIFT SUMMARY PATIENT IS ALERT AND ORIENTED. AT START OF SHIFT PATIENT COMPLAINING OF NAUSEA, MEDICATED PER EMAR WITH SEVERAL MEDICATIONS WITH NO IMPROVEMENT. PATIENT WAS ABLE TO SLEEP FOR APPROX 4-5 HOURS AND IS STATING THIS MORNING THAT NAUSEA HAS IMPROVED AND IS REQUESTING FLUIDS, GIVEN SMALL AMOUNT OF ICE CHIPS FOR NOW. NG REMAINS TO LIS, 300 MLS GREEN/YELLOW BILE OUT THIS SHIFT. ST 110, BP STABLE. INSULIN DRIP REMAINS INFUSING. REPLACING MORE POTASSIUM OVERNIGHT, WILL RECHECK WHEN DONE INFUSING.
[2023-04-13 06:36] LABS: Albumin, Blood 2.5 g/dL (3.4-5.0); Albumin/Globulin Ratio 0.7 (0.8-1.8); Bilirubin, Total 0.3 mg/dL (0.1-1.0); Bun/Creatinine Ratio 14.5 (12.0-20.0); Calcium, Blood 7.6 mg/dL (8.5-10.1); Creatinine, Blood 0.97 mg/dL (0.40-1.00); Globulin, Blood 3.4 g/dL (2.2-4.0); Potassium, Blood 3.4 mmol/L (3.5-5.5); Total Protein, Blood 5.9 g/dL (6.4-8.2)
--- NOTE | 2023-04-13 08:36 | NUR ---
Assumed care at approximately 0700. Pt sleeping in bed at time of report. On RA, stable VS. Insulin infusing at 2 units/hr, D5W/20MEQKCL infusing at 100 ml/hr. Report received from nightshift RN. Will continue to monitor.
--- NOTE | 2023-04-13 18:13 | NUR ---
Shift summary. Pt rested in bed throughout shift. NG tube removed at approximately 1430. Insulin GTT put on standby at 1600. D5W/KCL put on standby, 1/2NS started at 100 ml/hr. Long acting insulin SC given, see EMAR. Patient's nausea has relieved today, much less nauseous, able to keep small amounts of water down without any issue. No acute events this shift, see chart for further details. Will continue to monitor and report off to moncho MARK.
[2023-04-13 19:40] LABS: Bun/Creatinine Ratio 12.3 (12.0-20.0); Calcium, Blood 7.5 mg/dL (8.5-10.1); Creatinine, Blood 0.9 mg/dL (0.40-1.00); Potassium, Blood 4.1 mmol/L (3.5-5.5)
--- NOTE | 2023-04-13 20:00 | NUR ---
ASSUMPTION OF CARE NOTE PT SLEEPING AT BEGINNING OF SHIFT. INSULIN GTT ON STANDBY. PT COMPLAINING OF NAUSEA AND HEAD AND NECK PAIN FROM NAUSEA/VOMITTING. MEDICATED PER EMAR. ALERT AND ORIENTED X4. ABLE TO AMBULATE TO THE BATHROOM WITH MINIMAL ASSISTANCE. HEART IN NSR. LUNGS CLEAR WITH NO LABORED BREATHING. VSS. Q1-2HR CBGS.
--- NOTE | 2023-04-13 21:00 | NUR ---
UPDATE PER DAYSHIFT, INSTRUCTED TO CALL DR. TABARES WITH CHEM LABS. AFTER UPDATING MD ON CONDITION OF PT INSTRUCTED TO RESTART INSULIN GTT SINCE PT IS UNABLE TO TOLERATE PO. INSTRUCTED TO TITRATE GTT SO THAT CBG STAY BELOW 250.
[2023-04-13 23:00] LABS: Bun/Creatinine Ratio 12.3 (12.0-20.0); Calcium, Blood 7.9 mg/dL (8.5-10.1); Creatinine, Blood 0.9 mg/dL (0.40-1.00); Potassium, Blood 3.8 mmol/L (3.5-5.5)
[2023-04-14] VITALS (14 sets, daily range): BP systolic 96–159; BP diastolic 57–101
--- NOTE | 2023-04-14 | NUR ---
UPDATE SPOKE WITH DR. ALAN ABOUT UPDATED LABS AND PT'S RESOLVING NAUSEA AND WANT TO EAT. ORDERS PLACED FOR ADA DIET BUT TO CONTINUE ON INSULIN GTT. ALSO TO KEEP .45 NS AND D5W W/POTASSIUM RUNNING.
[2023-04-14 03:51] LABS: BASOPHILS ABSOLUTE AUTO 0.07 K/mm3 (0.00-0.23); BASOPHILS PERCENT AUTO 1 % (0-2); EOSINOPHILS ABSOLUTE AUTO 0.24 K/mm3 (0.00-0.68); EOSINOPHILS PERCENT AUTO 3 % (0-6); Hematocrit 28.6 % (33.0-51.0); IMMATURE GRAN ABSOLUTE AUTO 0.01 K/mm3 (0.00-0.10); IMMATURE GRAN PERCENT AUTO 0 % (0-1); LYMPHOCYTES ABSOLUTE AUTO 3.29 K/mm3 (0.84-5.20); LYMPHOCYTES PERCENT AUTO 46 % (21-46); MONOCYTES ABSOLUTE AUTO 0.39 K/mm3 (0.16-1.47); MONOCYTES PERCENT AUTO 5 % (4-13); Mean Corpuscular HGB 31.2 pg (26.0-34.0); Mean Corpuscular Volume 89 fL (80-100); Mean Platelet Volume 8.9 fL (9.1-12.4); NEUTROPHILS ABSOLUTE AUTO 3.16 K/mm3 (1.96-9.15); NEUTROPHILS PERCENT AUTO 44 % (41-73); Platelet Count 239 K/mm3 (150-400); RDW Coefficient Variation 11.7 % (11.7-14.2); RDW Standard Deviation 37.7 fL (35.1-46.3); Red Blood Cell Count 3.21 M/mm3 (3.80-5.20); White Blood Cell Count 7.16 K/mm3 (4.00-11.30)
[2023-04-14 04:11] LABS: Albumin, Blood 2.3 g/dL (3.4-5.0); Anion Gap 7 mmol/L (6-16); Blood Urea Nitrogen 11 mg/dL (8-24); Bun/Creatinine Ratio 12.2 (12.0-20.0); CO2, Blood 27 mmol/L (21-32); Calcium, Blood 7.7 mg/dL (8.5-10.1); Chloride, Blood 107 mmol/L (98-108); Glomerular Filtration Rate 91 (60-); Glucose, Blood 251 mg/dL (70-99); Magnesium, Blood 1.8 mg/dL (1.6-2.4); Potassium, Blood 3.4 mmol/L (3.5-5.5); Sodium, Blood 141 mmol/L (136-145)
--- NOTE | 2023-04-14 06:33 | NUR ---
SHIFT SUMMARY PT REMAINED ON INSULIN GTT THROUGHOUT THE NIGHT. CURRENTLY AT 2.5 UNITS/HR. VSS. ABLE TO KEEP DOWN SOLID FOOD AND WATER. RECIEVING SCHEDULED REGLAN Q6. GOOD URINE OUTPUT. NO ACUTE EVENTS OVERNIGHT.
[2023-04-14] MEDS ORDERED: TOPI25 PO (09:14)
--- NOTE | 2023-04-14 14:12 | NUR ---
PROVIDER PHONE CALL: Pt reports dysuria. Dr Murillo notified. See new orders.
[2023-04-14 14:43] LABS: Phosphorus, Blood 3.6 mg/dL (2.5-4.9); Potassium, Blood 4.3 mmol/L (3.5-5.5)
--- NOTE | 2023-04-14 16:40 | NUR ---
TRANSFER TO MEDICAL FLOOR. REPORT GIVEN TO JAS CABRERA. PATIENT TRANSPORTED TO MEDICAL FLOOR WITH BELONGINGS VIA WHEELCHAIR.
--- NOTE | 2023-04-14 18:44 | NUR ---
RECEIVED PT AT 1710 FROM ICU. CHECKED CBG AT 370. PT JUST ABOUT TO EAT. DISCUSSED DINNER AND 02/24 CARB/UNITS WITH DR SOLIS, HE OKAYED 4 UNITS FOR 370 PLUS THE CARBS FOR 15 TOTAL. PT INDEPENDANT AND PLEASANT AND A/O X4. PT HAS OWN METER TO CHECK CBG IF IN TROUBLE CAN TELL US. WORKING TO GET AN INSULIN PUMP. ADVISED PT TO CALL IF FEELS CBG OFF AT ANY TIME. SHE AGREEABLE. SON AND HUSB IN ROOM AT THIS TIME. NO OTHER CONCERNS NOTED. BED INLOW POSITION, CALL LITE IN REACH, CALLS APPROP
[2023-04-15 04:17] VITALS: BP 128/82
--- NOTE | 2023-04-15 04:51 | NUR ---
SHIFT SUMMARY PT IS A/Ox4, IS A LITTLE WITHDRAWN BUT IS COOPERATIVE WITH CARE. ANSWERS QUESTIONS APPROPRIATELY AND ABLE TO MAKE HER NEEDS KNOWN. NO ACUTE EVENTS OVERNIGHT FOR PT WAS ABLE TO SLEEP T/O MOST OF THE NIGHT. CBG'S REMAINED NEAR THE 300'S WITH NO REPORTS OF N/V DURING MY SHIFT. HAS IMPLANTED CBG MACHINE IN WHICH PT FREQUENTLY MONITORS HER GLUCOSE LEVELS. PT IS RECEIVES SCHEDULED REGLAN PER EMAR. CARDIAC JONES, NO REPORTS OF CP OR PRESSURE T/O THE NIGHT WITH HR RANGING 80-90'S AND SBP 120-150'S. MAINTAINS SPO2 >95% ON RA WITH NO C/O SOB OR DYSPNEA AT THIS TIME. ABLE TO IND. ABULATE W/BRP. NO NEW ORDERS AT THIS TIME, WILL REPORT TO ONCOMING RN. CARMEN WISEMAN OF THIS NOTE.
--- NOTE | 2023-04-15 06:00 | NUR ---
UPDATE AM IV POTASSIUM HELD THIS AM LIEU OF PENDING MORNING LAB RESULTS ORDERED BY DR. MARTIN. PT IS NO LONGER ON INSULIN GTT. DAYSHIFT RN TO CALL MD TO CLARIFY CONTINUATION OF SCHEDULED POTASSIUM REPLACEMENT. NO NEW ORDERS AT THIS TIME.
[2023-04-15 06:17] LABS: BASOPHILS ABSOLUTE AUTO 0.07 K/mm3 (0.00-0.23); BASOPHILS PERCENT AUTO 1 % (0-2); EOSINOPHILS ABSOLUTE AUTO 0.38 K/mm3 (0.00-0.68); EOSINOPHILS PERCENT AUTO 7 % (0-6); Hematocrit 31.7 % (33.0-51.0); Hemoglobin 11.2 g/dL (11.5-16.0); IMMATURE GRAN ABSOLUTE AUTO 0.01 K/mm3 (0.00-0.10); IMMATURE GRAN PERCENT AUTO 0 % (0-1); LYMPHOCYTES ABSOLUTE AUTO 2.69 K/mm3 (0.84-5.20); LYMPHOCYTES PERCENT AUTO 51 % (21-46); MONOCYTES ABSOLUTE AUTO 0.24 K/mm3 (0.16-1.47); MONOCYTES PERCENT AUTO 5 % (4-13); Mean Corpuscular HGB 30.8 pg (26.0-34.0); Mean Corpuscular HGB Conc 35.3 g/dL (31.5-36.5); Mean Corpuscular Volume 87 fL (80-100); Mean Platelet Volume 9.2 fL (9.1-12.4); NEUTROPHILS ABSOLUTE AUTO 1.85 K/mm3 (1.96-9.15); NEUTROPHILS PERCENT AUTO 35 % (41-73); Platelet Count 242 K/mm3 (150-400); RDW Coefficient Variation 11.6 % (11.7-14.2); RDW Standard Deviation 37.1 fL (35.1-46.3); Red Blood Cell Count 3.64 M/mm3 (3.80-5.20); White Blood Cell Count 5.24 K/mm3 (4.00-11.30)
[2023-04-15 06:59] LABS: Bun/Creatinine Ratio 17.3 (12.0-20.0); Calcium, Blood 9.3 mg/dL (8.5-10.1); Creatinine, Blood 1.1 mg/dL (0.40-1.00)
[2023-04-15 08:06] VITALS: BP 142/99
--- NOTE | 2023-04-15 15:05 | NUR ---
DISCHARGE NOTE PT DISCHARGED TO HOME, PICKED UP BY HER SISTER. PG REMOVED SUCCESSFULLY. DISCHARGE INFORMATION AND EDUCATION PROVIDED. PERSONAL BELONGINGS RETURNED.
== END 2023-04-15 15:05 | disposition home or self-care (01) | DRG 637 ==
LOC: ER 06:43 → ICUE 08:47 → MEDS 04-14 17:09
PROVIDERS: Emergency Medicine; Internal Medicine; Student in an Organized Health Care Education/Training Program; ADMIT Family Medicine
PROC: 0DH67UZ Insertion of Feeding Device into Stomach, Via Natural or Artificial Opening (ICD-10-PCS; principal; 2023-04-13)
DX: E10.10 Type 1 diabetes mellitus with ketoacidosis without coma (principal); K22.6 Gastro-esophageal laceration-hemorrhage syndrome; N39.0 Urinary tract infection, site not specified; K56.7 Ileus, unspecified; E10.42 Type 1 diabetes mellitus with diabetic polyneuropathy; F41.8 Other specified anxiety disorders; E10.43 Type 1 diabetes mellitus with diabetic autonomic (poly)neuropathy; G43.909 Migraine, unspecified, not intractable, without status migrainosus; K31.84 Gastroparesis; M79.7 Fibromyalgia; E87.6 Hypokalemia; E83.39 Other disorders of phosphorus metabolism; Z79.51 Long term (current) use of inhaled steroids; Z79.899 Other long term (current) drug therapy; Z88.8 Allergy status to other drugs, medicaments and biological substances; Z91.018 Allergy to other foods; Z91.048 Other nonmedicinal substance allergy status; Z98.890 Other specified postprocedural states
CPT/HCPCS: 71045; 80048; 80053; 80069; 82010; 82330; 82803; 82947; 83605; 83690; 83735; 84100; 84132; 84703; 85025; 87040; 93005; 93010; 96374; 99285-25; A9270; C1751; C9113; J0696; J0780; J1200; J1644; J1815; J1885; J2060; J2405; J2765; J3480; J7040; J7042; J7050; J7070; J7120

== ENCOUNTER 2023-09-27 13:25 | Inpatient (IN) | payer OTHER ==
[~2023-09-27] VITALS: Ht 160 cm; Wt 60.2 kg
[~2023-09-27 13:25] MED LIST changes: +HUMALOG KW100 UNIT/1 SC; +PHOS-NAK PO; +PROC5 PO; +TOPI25 PO
[2023-09-27 14:46] LABS: BASOPHILS ABSOLUTE AUTO 0.09 K/mm3 (0.00-0.23); BASOPHILS PERCENT AUTO 1 % (0-2); EOSINOPHILS ABSOLUTE AUTO 0.01 K/mm3 (0.00-0.68); EOSINOPHILS PERCENT AUTO 0 % (0-6); Hematocrit 37.1 % (33.0-51.0); Hemoglobin 12.5 g/dL (11.5-16.0); IMMATURE GRAN ABSOLUTE AUTO 0.08 K/mm3 (0.00-0.10); IMMATURE GRAN PERCENT AUTO 1 % (0-1); LYMPHOCYTES ABSOLUTE AUTO 0.87 K/mm3 (0.84-5.20); LYMPHOCYTES PERCENT AUTO 5 % (21-46); MONOCYTES ABSOLUTE AUTO 1.47 K/mm3 (0.16-1.47); MONOCYTES PERCENT AUTO 8 % (4-13); Mean Corpuscular HGB 30.6 pg (26.0-34.0); Mean Corpuscular HGB Conc 33.7 g/dL (31.5-36.5); Mean Corpuscular Volume 91 fL (80-100); Mean Platelet Volume 9.4 fL (9.1-12.4); NEUTROPHILS ABSOLUTE AUTO 14.91 K/mm3 (1.96-9.15); NEUTROPHILS PERCENT AUTO 86 % (41-73); Platelet Count 286 K/mm3 (150-400); RDW Coefficient Variation 12.4 % (11.7-14.2); RDW Standard Deviation 40.7 fL (35.1-46.3); Red Blood Cell Count 4.09 M/mm3 (3.80-5.20); White Blood Cell Count 17.43 K/mm3 (4.00-11.30)
[2023-09-27 14:48] LABS: Base Excess Venous -9.7 mmol/L; Bicarbonate Venous 17.4 mmol/L (24.0-30.0); PCO2 Venous 34.9 mmHg (38-42); pH Blood Venous 7.29 (7.34-7.37)
[2023-09-27 15:44] LABS: Albumin, Blood 3.1 g/dL (3.4-5.0); Albumin/Globulin Ratio 0.6 (0.8-1.8); Beta-hydroxybutyrate 69.9 mg/dL (0.2-2.8); Bilirubin, Total 0.8 mg/dL (0.1-1.0); Calcium, Blood 9.1 mg/dL (8.5-10.1); Globulin, Blood 4.8 g/dL (2.2-4.0); Potassium, Blood 4.6 mmol/L (3.5-5.5); Total Protein, Blood 7.9 g/dL (6.4-8.2)
[2023-09-27 17:05] LABS: Source, Urine Clean Catch
[2023-09-27 17:25] LABS: Bilirubin, Urine Neg (Neg); Blood, Urine 3+ (Neg); Color, Urine Yellow (P-Yellow); Glucose Qualitative, Urine 4+ (Neg); Ketones, Urine 4+ (Neg); Leukocyte Esterase, Urine 1+ (Neg); Nitrite, Urine Pos (Neg); Protein, Urine 1+ (Neg); Specific Gravity, Urine 1.015 (1.003-1.022); Urobilinogen, Urine NORM (Normal)
[2023-09-27 17:41] VITALS: BP 140/87
[2023-09-27] MEDS ORDERED: FOLI1 PO (17:49)
[2023-09-27 18:18] LABS: Appearance, Urine Hazy (Clear)
--- NOTE | 2023-09-27 18:18 | NUR ---
ADMIT NOTE/SHIFT SUMMARY PT ARRIVED TO ICU FROM ED VIA ED STRETCHER AT APPROX 1730. PT AMBULATED INDEPENDENTLY FROM ED STRETCHER TO ICU BED. PT A&OX4, ABLE TO MAKE NEEDS KNOWN, INDEPENDENT. AFEBRILE UPON ARRIVAL , SEE VITALS, BUT SHIVERING. SP02>90% ON RA. DIFFICULT 02 READING ON FINGERS D/T ACRYLIC NAILS, OXIMETER PLACED ON TOE. LUNGS CLEAR. TELEMETRY SHOWS SINUS TACH, HR 110'S-140'S, AVG 120'S. BP STABLE. PT C/O OF 8/10 HEADACHE, MEDICATED W/ TYLENOL PER EMAR. INSULIN INFUSING AT 6.41, SEE EMAR. Q1 CBG, WAS 417 UPON ARRIVAL. FLUIDS INFUSING PER EMAR. PT ORIENTED TO ROOM, CALL LIGHT. SLEEPING IN ROOM. WILL GIVE REPORT TO ONCOMING NURSE.
[2023-09-27 18:20] LABS: White Blood Cells, Urine 25-50 /hpf (0-5)
[2023-09-27 18:20] LABS: Bun/Creatinine Ratio 25.3 (12.0-20.0); Calcium, Blood 8.4 mg/dL (8.5-10.1); Creatinine, Blood 0.95 mg/dL (0.40-1.00); Potassium, Blood 4.3 mmol/L (3.5-5.5)
[2023-09-27 18:27] LABS: Bacteria Many /hpf; Squamous Epithelial Cells Few /hpf (Few)
--- NOTE | 2023-09-27 18:34 | NUR ---
GTT UPDATE INSULIN GTT DECREASED FROM 6 TO 2 AT THIS TIME, SEE ICU NAI SHEET. CURRECT CBG 276.
[2023-09-27 19:00] VITALS: BP 128/79
[2023-09-27 20:00] VITALS: BP 119/71
[2023-09-27 21:00] VITALS: BP 131/84
[2023-09-27 21:18] LABS: Calcium, Blood 8.1 mg/dL (8.5-10.1); Creatinine, Blood 0.96 mg/dL (0.40-1.00); Potassium, Blood 4.2 mmol/L (3.5-5.5)
[2023-09-27 22:00] VITALS: BP 114/80
[2023-09-27 23:24] VITALS: BP 140/90
[2023-09-28] VITALS (15 sets, daily range): BP systolic 110–145; BP diastolic 72–98
[2023-09-28 00:47] LABS: Bun/Creatinine Ratio 19.5 (12.0-20.0); Calcium, Blood 8.1 mg/dL (8.5-10.1); Creatinine, Blood 0.92 mg/dL (0.40-1.00); Potassium, Blood 4.2 mmol/L (3.5-5.5)
--- NOTE | 2023-09-28 00:54 | NUR ---
INSULIN ORDERS CALL MADE TO DR. ALAN DUE TO GAP, BICARB, AND GLUCOSE CORRECTED. ORDER RECEIVED FOR ONE TIME DOSE LANTUS 25 UNITS SC, RESUME HOME DOSE OF LANTUS AT NEXT DOSE AND RESUME HOME DOSE OF SLIDING SCALE INSULIN. TURN INSULIN GTT OFF 2 HOURS AFTER LANTUS DOSE.
--- NOTE | 2023-09-28 01:16 | NUR ---
VOMITING PATIENT BEGAN VOMITING WITH 450ML EMESIS OUT. NOTIFED DR. ALAN AND ORDER RECEIVED FOR REGLAN 10MG IV Q6H PRN. HOLD LANTUS TRANSITION AT THIS TIME.
[2023-09-28 04:25] LABS: BASOPHILS ABSOLUTE AUTO 0.07 K/mm3 (0.00-0.23); BASOPHILS PERCENT AUTO 0 % (0-2); EOSINOPHILS ABSOLUTE AUTO 0.02 K/mm3 (0.00-0.68); EOSINOPHILS PERCENT AUTO 0 % (0-6); Hematocrit 30.4 % (33.0-51.0); Hemoglobin 10.3 g/dL (11.5-16.0); IMMATURE GRAN ABSOLUTE AUTO 0.09 K/mm3 (0.00-0.10); IMMATURE GRAN PERCENT AUTO 1 % (0-1); LYMPHOCYTES ABSOLUTE AUTO 1.58 K/mm3 (0.84-5.20); LYMPHOCYTES PERCENT AUTO 9 % (21-46); MONOCYTES ABSOLUTE AUTO 1.86 K/mm3 (0.16-1.47); MONOCYTES PERCENT AUTO 11 % (4-13); Mean Corpuscular HGB 30.7 pg (26.0-34.0); Mean Corpuscular HGB Conc 33.9 g/dL (31.5-36.5); Mean Corpuscular Volume 91 fL (80-100); Mean Platelet Volume 9.2 fL (9.1-12.4); NEUTROPHILS ABSOLUTE AUTO 14.03 K/mm3 (1.96-9.15); NEUTROPHILS PERCENT AUTO 80 % (41-73); Platelet Count 231 K/mm3 (150-400); RDW Coefficient Variation 12.5 % (11.7-14.2); Red Blood Cell Count 3.35 M/mm3 (3.80-5.20); White Blood Cell Count 17.65 K/mm3 (4.00-11.30)
--- NOTE | 2023-09-28 04:44 | NUR ---
MIGRAINE PATIENT C/O MIGRAINE 08/05. CALL MADE TO DR. ALAN AND ORDER RECEIVED FOR ONE TIME DOSE OF SUMATRIPTAN 6MG SC.
[2023-09-28 04:55] LABS: Bun/Creatinine Ratio 15.9 (12.0-20.0); Calcium, Blood 7.9 mg/dL (8.5-10.1); Creatinine, Blood 0.88 mg/dL (0.40-1.00); Potassium, Blood 4.1 mmol/L (3.5-5.5)
--- NOTE | 2023-09-28 06:05 | NUR ---
SHIFT SUMMARY PATIENT SLEPT OFF AND ON T/O SHIFT. INSULIN GTT REMAINED @ 3 UNITS/HR. 1/2NS W/ 20MEQ KCL INF @ 250ML/HR. CBG 120'S-160'S. BP STABLE AND SINUS TACH WITH RATE 110'S-120'S. PATIENT HAD TWO EPISODES OF MIGRAINES AND 3 EPISODES OF VOMITING. MEDICATED PER EMAR. PATIENT HAD ONE UNMEASURED VOID AND ONE BM THIS SHIFT. NO OTHER CHANGES THIS SHIFT.
--- NOTE | 2023-09-28 12:17 | NUR ---
AM NOTES: INSULIN GTT WAS DC'D THIS MORNING PT TRANSITION TO LONG ACTING SC 25U GIVEN, LAST CBG WAS AT 269, PT STARTED ON SHORT ACTING WELL SCHEDULED DOSE WITH MEALS 10U PLUS ADDITIONAL SLIDING SCALE Q4 HRS. PT NOW Q4 HRS CBG CHECK. SPOT CHECKS FOR HYPO/HYPERGLYCEMIA SYMPTOMS. PT TOLERATED RAGHU WITH MORNING PILLS. PT WAS STILL HASVING NAUSEA WITH EMESIS AT THE BEGINNING OF SHIFT, INAPSINE WAS ORDER EKG WAS DONE FIRST VERIFIED TO DR MURRAY EKG RESULT RECOMMENDED NOT TO GIVE INAPSINE QTC 439. PT HAS BEEN C/O MIGRANINE PT STARTED ON TORADOL 15MG IV AND WAS EFFECTIVE PER PT'S REPORT. NO EMESIS SINCE THEN. PT HAS BEEN ALERT AND ORIENTED X4, ABLE TO MAKE NEEDS KNOWN. PT ABLE TO AMBULATE TO THE TOILET SBA. VITALS HAS BEEN STABLE. PT TRANSITIONED TO MEDICAL WITH TELE. WILL CONTINUE TO MONITOR
--- NOTE | 2023-09-28 14:28 | NUR ---
PT TRANSFERRED TO RM 229 REPORT GIVEN TO LUCILLE MARK. ALL BELONGINGS SENT WITH THE PT. PT STATED SHE WILL INFORM HER FAMILY OF TRANSFER.
--- NOTE | 2023-09-28 14:37 | NUR ---
ARRIVAL TO UNIT PT ARRIVED FROM ICU VIA WHEELCHAIR. ABLE TO STAND AND TRANSFER WITH NO WEAKNESS NOTED. EMESIS DURING TRANSPORT. 400ML OUT. MEDICATION PER EMAR. PT ELECTING TO HOLD GABAPENTEN AT THIS TIME R/T NAUSEA. TELE CONNECTED. PT CURRENTLY RESTING IN BED. LIGHTS OFF. REPORTS MIGRAINE FEELING BETTER AT THIS TIME.
--- NOTE | 2023-09-28 17:54 | NUR ---
SHIFT SUMMARY PT MEDICATED FOR HEADACHE. SHE REPORTS TORADOL HAS BEEN HELPING A LOT. NAUSEA THIS AFTERNOON ON ARRIVAL TO UNIT, ABLE TO EAT DINNER. DENIES NAUSEA AT THIS TIME. CURRENTLY SITTING AT EDGE OF BED EATING. IND IN ROOM DENIES NEEDS AT THIS TIME.
--- NOTE | 2023-09-28 20:27 | NUR ---
CB CBG CHECK WAS 364. PER SS ORDER, CALL MD Nagel >350. CALL PLACED TO HOSPITALIST CBG, SS INSULIN ORDER AND CBG ORDER REV W/DR DHILLON. ORDER TO GIVE 10 UNITS PER Q6 HR DOSING, NO ADDITIONAL COVERAGE AT THIS TIME. PLAN TO RECHECK AT 0000 PER ORDER.
[2023-09-29 04:18] VITALS: BP 130/73
--- NOTE | 2023-09-29 05:40 | NUR ---
FEVER: TEMP REMAINS ELAVATED AFTER TYLENOL GIVEN. PT MEDICATED W/TORADOL, ICE PACK PROVIDED.
[2023-09-29 05:44] LABS: BASOPHILS ABSOLUTE AUTO 0.02 K/mm3 (0.00-0.23); BASOPHILS PERCENT AUTO 0 % (0-2); EOSINOPHILS ABSOLUTE AUTO 0.15 K/mm3 (0.00-0.68); EOSINOPHILS PERCENT AUTO 1 % (0-6); Hematocrit 28.1 % (33.0-51.0); Hemoglobin 9.6 g/dL (11.5-16.0); IMMATURE GRAN ABSOLUTE AUTO 0.06 K/mm3 (0.00-0.10); IMMATURE GRAN PERCENT AUTO 1 % (0-1); LYMPHOCYTES ABSOLUTE AUTO 0.79 K/mm3 (0.84-5.20); LYMPHOCYTES PERCENT AUTO 7 % (21-46); MONOCYTES ABSOLUTE AUTO 0.62 K/mm3 (0.16-1.47); MONOCYTES PERCENT AUTO 5 % (4-13); Mean Corpuscular HGB 30.8 pg (26.0-34.0); Mean Corpuscular HGB Conc 34.2 g/dL (31.5-36.5); Mean Corpuscular Volume 90 fL (80-100); Mean Platelet Volume 9.4 fL (9.1-12.4); NEUTROPHILS ABSOLUTE AUTO 10.55 K/mm3 (1.96-9.15); NEUTROPHILS PERCENT AUTO 87 % (41-73); Platelet Count 202 K/mm3 (150-400); RDW Coefficient Variation 12.3 % (11.7-14.2); Red Blood Cell Count 3.12 M/mm3 (3.80-5.20); White Blood Cell Count 12.19 K/mm3 (4.00-11.30)
[2023-09-29 06:00] LABS: Bun/Creatinine Ratio 19.1 (12.0-20.0); Calcium, Blood 7.9 mg/dL (8.5-10.1); Creatinine, Blood 1.1 mg/dL (0.40-1.00); Potassium, Blood 3.3 mmol/L (3.5-5.5)
--- NOTE | 2023-09-29 06:49 | NUR ---
T-MAX 103, IMPROVED AFTER TYLENOL AND TORADOL. HR TACHY 140 WHEN PT FEBRILE, OTHERWISE TRENDING 1'TEENS, PT DENIED CP/PRESSURE. CBG REMAINED ELEVATED T/O NIGHT; COVERAGE PER EMAR. PT C/O INTERMITTANT NAUSEA, NO EMESIS, REP LESS NAUSEA THIS SHIFT. PT C/O BACK SPASMS, NEW ORDER FOR FLEXARIL REC. PT CONT TO C/O MIGRAINE CARMONA, MEDICATED W/TORADOL PER EMAR. PT DRINKING LARGE AMTS WATER, DENIED PAIN W/VOID. PT INDEP IN ROOM, DENIED DIZZINESS WHEN UP.
[2023-09-29 07:53] VITALS: BP 107/74
[2023-09-29 15:47] VITALS: BP 115/69
--- NOTE | 2023-09-29 17:18 | NUR ---
SUMMARY NO ACUTE CHANGES T/O SHIFT. PT AFEBRILE T/O DAY. CBG AT NOON AND 1600 OVER 300, COVERED PER ORDERS W/HUMALOG. MEDICATED PT ONCE DURING SHIFT W/TORADOL FOR CARMONA. PT INDEPENDENT IN ROOM. CALL LIGHT IN REACH.
[2023-09-29 20:10] VITALS: BP 127/82
[2023-09-30 04:38] VITALS: BP 143/100
[2023-09-30 05:17] LABS: BASOPHILS ABSOLUTE AUTO 0.03 K/mm3 (0.00-0.23); BASOPHILS PERCENT AUTO 0 % (0-2); EOSINOPHILS ABSOLUTE AUTO 0.56 K/mm3 (0.00-0.68); EOSINOPHILS PERCENT AUTO 6 % (0-6); Hematocrit 27.2 % (33.0-51.0); Hemoglobin 9.3 g/dL (11.5-16.0); IMMATURE GRAN ABSOLUTE AUTO 0.03 K/mm3 (0.00-0.10); IMMATURE GRAN PERCENT AUTO 0 % (0-1); LYMPHOCYTES ABSOLUTE AUTO 1.56 K/mm3 (0.84-5.20); LYMPHOCYTES PERCENT AUTO 17 % (21-46); MONOCYTES ABSOLUTE AUTO 0.56 K/mm3 (0.16-1.47); MONOCYTES PERCENT AUTO 6 % (4-13); Mean Corpuscular HGB 30.9 pg (26.0-34.0); Mean Corpuscular HGB Conc 34.2 g/dL (31.5-36.5); Mean Corpuscular Volume 90 fL (80-100); Mean Platelet Volume 9.7 fL (9.1-12.4); NEUTROPHILS ABSOLUTE AUTO 6.74 K/mm3 (1.96-9.15); NEUTROPHILS PERCENT AUTO 71 % (41-73); Platelet Count 205 K/mm3 (150-400); RDW Coefficient Variation 12.5 % (11.7-14.2); RDW Standard Deviation 41.1 fL (35.1-46.3); Red Blood Cell Count 3.01 M/mm3 (3.80-5.20); White Blood Cell Count 9.48 K/mm3 (4.00-11.30)
[2023-09-30 05:38] LABS: Bun/Creatinine Ratio 27.1 (12.0-20.0); Calcium, Blood 8.2 mg/dL (8.5-10.1); Creatinine, Blood 1.07 mg/dL (0.40-1.00); Potassium, Blood 3.1 mmol/L (3.5-5.5)
--- NOTE | 2023-09-30 06:39 | NUR ---
PT HR TRENDED 1'TEENS-120'S, PT ASYMPTOMATIC. 2LO2 PLACED TO KEEP SATS >90% WHILE PT LAYING, I/S PROVIDED, PT DEMONSTRATED USE, ENC TO USE WHEN AWAKE. URINE DARK JESSICA THIS AM. PT DENIED PAIN W/VOID BUT DOES C/O FLANK PAIN THIS AM. PT CONT OT C/O MIGRAINE CARMONA, MEDICATED PER EMAR W/SOME RELIEF, PT DECLINED NON PHARM METHODS. PT INDEP IN ROOM, DENIED DIZZINESS WHEN UP. CBG TRENDING DOWN, 204 THIS AM, INSULIN COVERAGE PER EMAR. PT DENIED N/V, PO INTAKE MINIMAL THIS SHIFT.
--- NOTE | 2023-09-30 07:54 | NUR ---
SOB/INCREASED 02 NEEDS PT'S 02 SATS WERE FLUCTUATING BETWEEN 85-90%, 02 INCREASED TO 3L. PT REPORTED FELT LIKE COULDN'T TAKE DEEP BREATH. LUNGS SOUND DIM T/O WITH FAINT CRACKLES IN BASES. PT STATED FELT SLIGHTLY BETTER WHEN SITTING UP. ENCOURAGED PT TO USE IS, WHICH PT DEMONSTRATED. NOTIFIED DR EVANS, 2V CXR ORDERED. TO IMAGING NOW.
[2023-09-30 08:02] VITALS: BP 130/78
[2023-09-30 15:21] VITALS: BP 141/86
--- NOTE | 2023-09-30 17:38 | NUR ---
STACH IN 140S SUPERVISOR PIG MACHINE CALLED AND REPORTED PT MAINTAINING HR IN 140S FOR APPROXIMATELY 10 MINUTES. WHEN ENTERED ROOM, PT STATED FELT LIKE SHE'S RUN A RACE. 02 SATS 95% ON 3L. BP 162/135. CALLED DR CHAPIN AND REPORTED. NO NEW ORDERS AT THIS TIME.
[2023-09-30 18:15] VITALS: BP 187/113
--- NOTE | 2023-09-30 19:05 | NUR ---
summary PT CONTINUES TO FEEL SOB AND "LIKE I RAN A RACE." CALLED DR CHAPIN AND OBTAINED EKG PER ORDERS. DR CHAPIN IN TO SEE PT. ORDERS PENDING.
--- NOTE | 2023-09-30 19:47 | NUR ---
PT TO IMAGING VIA W/C.
[2023-09-30 20:10] VITALS: BP 164/114
--- NOTE | 2023-09-30 21:02 | NUR ---
CT RESULTS, VS, FLUID BALANCE AND PT WOB REV W/DR CHAPIN. DR CHAPIN TO REVIEW CHART AND PUT IN ORDERS. WILL AWAIT NEW ORDERS.
[2023-10-01 00:30] VITALS: BP 125/78
[2023-10-01 04:40] VITALS: BP 147/109
[2023-10-01 05:06] LABS: BASOPHILS ABSOLUTE AUTO 0.04 K/mm3 (0.00-0.23); BASOPHILS PERCENT AUTO 1 % (0-2); EOSINOPHILS PERCENT AUTO 4 % (0-6); Hematocrit 28.9 % (33.0-51.0); Hemoglobin 9.6 g/dL (11.5-16.0); IMMATURE GRAN ABSOLUTE AUTO 0.04 K/mm3 (0.00-0.10); IMMATURE GRAN PERCENT AUTO 1 % (0-1); LYMPHOCYTES PERCENT AUTO 25 % (21-46); MONOCYTES ABSOLUTE AUTO 0.58 K/mm3 (0.16-1.47); MONOCYTES PERCENT AUTO 8 % (4-13); Mean Corpuscular HGB 30.4 pg (26.0-34.0); Mean Corpuscular HGB Conc 33.2 g/dL (31.5-36.5); Mean Corpuscular Volume 92 fL (80-100); Mean Platelet Volume 10.3 fL (9.1-12.4); NEUTROPHILS ABSOLUTE AUTO 4.73 K/mm3 (1.96-9.15); NEUTROPHILS PERCENT AUTO 62 % (41-73); Platelet Count 224 K/mm3 (150-400); RDW Coefficient Variation 12.4 % (11.7-14.2); RDW Standard Deviation 41.4 fL (35.1-46.3); Red Blood Cell Count 3.16 M/mm3 (3.80-5.20); White Blood Cell Count 7.59 K/mm3 (4.00-11.30)
[2023-10-01 05:35] LABS: Calcium, Blood 8.8 mg/dL (8.5-10.1); Creatinine, Blood 0.9 mg/dL (0.40-1.00); Potassium, Blood 3.8 mmol/L (3.5-5.5)
--- NOTE | 2023-10-01 06:24 | NUR ---
PT SATS >90% ON 2LO2 NC. T-MAX 101.6, TYLENOL GIVEN W/NOTED IMPROVEMENT. HR SINUS TACH 1'TEENS-130'S, PT CONT TO C/O OCC CHEST PRESSURE; MD AWARE. LASIX GIVEN PER EMAR, PT HAD 1900ML AFTER LASIX REC. TOTAL UO 2700 THIS SHIFT. URINE CLEAR YELLOW THIS AM, PT DENIED PAIN W/VOID. PT REP COUGH MORE PROD THIS AM, REP GREEN SPUTUM. I/S USE REINFORCED. PT DENIED CARMONA, N/V OR BACK PAIN. Q4 CBG CONT PER ORDERS, SS COVERAGE PER EMAR.
[2023-10-01 07:51] VITALS: BP 148/99
[2023-10-01 15:03] VITALS: BP 133/91
--- NOTE | 2023-10-01 18:45 | NUR ---
SUMMARY: PT ADMITTED FOR DKA. A/O, VSS TODAY. TELE AVERAGING 110-115, DR. EVANS AWARE. PT HAS DENIED CHEST PRESSURE OR PAIN. DOES REPORT SOB WHILE LYING IN BED AND THAT IT IS EASIER TO TAKE DEEP BREATHS WHILE SITTING UP. DR. EVANS AWARE. CBG CHECKS NOW AC/HS, BLOOD SUGAR STABLE TODAY AND PT ABLE TO EAT ALL MEALS.
[2023-10-01 19:23] VITALS: BP 145/97
--- NOTE | 2023-10-01 21:05 | NUR ---
CBG: PT HS CBG 316. PT HAD NO HS COVERAVE ORDERS. CALL PLACED TO HOSPITALIST, CBG AND INSULIN ORDERS REVIEWED. NEW ORDER FOR 1X DOSE OF 5 UNITS HUMALOG
[2023-10-01 21:11] LABS: HEMOGLOBIN A1C 10.7 % (4.8-5.6)
[2023-10-02 04:53] VITALS: BP 136/96
[2023-10-02 06:17] LABS: BASOPHILS ABSOLUTE AUTO 0.05 K/mm3 (0.00-0.23); BASOPHILS PERCENT AUTO 1 % (0-2); EOSINOPHILS ABSOLUTE AUTO 0.42 K/mm3 (0.00-0.68); EOSINOPHILS PERCENT AUTO 5 % (0-6); Hematocrit 27.8 % (33.0-51.0); Hemoglobin 9.4 g/dL (11.5-16.0); IMMATURE GRAN ABSOLUTE AUTO 0.04 K/mm3 (0.00-0.10); IMMATURE GRAN PERCENT AUTO 1 % (0-1); LYMPHOCYTES ABSOLUTE AUTO 2.13 K/mm3 (0.84-5.20); LYMPHOCYTES PERCENT AUTO 26 % (21-46); MONOCYTES ABSOLUTE AUTO 0.71 K/mm3 (0.16-1.47); MONOCYTES PERCENT AUTO 9 % (4-13); Mean Corpuscular HGB 30.1 pg (26.0-34.0); Mean Corpuscular HGB Conc 33.8 g/dL (31.5-36.5); Mean Corpuscular Volume 89 fL (80-100); Mean Platelet Volume 9.2 fL (9.1-12.4); NEUTROPHILS ABSOLUTE AUTO 4.81 K/mm3 (1.96-9.15); NEUTROPHILS PERCENT AUTO 59 % (41-73); Platelet Count 269 K/mm3 (150-400); RDW Coefficient Variation 12.5 % (11.7-14.2); RDW Standard Deviation 40.4 fL (35.1-46.3); Red Blood Cell Count 3.12 M/mm3 (3.80-5.20); White Blood Cell Count 8.16 K/mm3 (4.00-11.30)
[2023-10-02 06:47] LABS: Calcium, Blood 8.4 mg/dL (8.5-10.1); Creatinine, Blood 0.84 mg/dL (0.40-1.00); Potassium, Blood 3.7 mmol/L (3.5-5.5)
[2023-10-02 07:46] VITALS: BP 134/93
--- NOTE | 2023-10-02 07:51 | NUR ---
PT VSS, HR SINUS TACH LOW 100-1'TEENS. SATS >90% ON 2L HUMIDIFIED NC. PT CONT TO C/O CHEST TIGHTNESS WHEN LAYING DOWN. COUGH LESS PROD, PT DID HAVE BLOODY NOSE AGAIN THIS AM. TRACE EDEMA TO BLE, PT REP SENSATION AT BASELINE. PT DENIED N/V. INSULIN COVERAGE PER EMAR. URINE CLEAR YELLOW, PT DENIED PAIN W/VOID. PT UP INDEP IN ROOM, MORAIMA WELL. CXR COMPLETED THIS AM, AWAITING RESULTS.
[2023-10-02 15:56] VITALS: BP 127/90
--- NOTE | 2023-10-02 17:42 | NUR ---
SHIFT SUMMARY PATIENT AOX4, IND IN ROOM. 02 WEANED TO RA, SATS REMAIN ABOVE 95%. DENIES SOB, CHEST PAIN. PATIENT MEDICATED PER EMAR FOR BLOOD GLUCOSE. EATING, VOIDING, AND PASSING FLATUS. DENIES N/V. VSS, CALL LIGHT IN REACH.
[2023-10-02 19:38] VITALS: BP 136/98
[2023-10-03 04:41] VITALS: BP 127/94
--- NOTE | 2023-10-03 05:09 | NUR ---
SHIFT SUMMARY VSS, TELE READS SINUS TACH 106. PT REPORTS THIS IS BASELINE AND REMAINS ASYMPTOMATIC. PT SLEPT WELL T/O THE NIGHT. TOLLERATED PO INTAKE W/O N/V. VOIDING W/O DIFFICULTY, DENIES ANY BURNING, URGENCY, OR FREQUENCY. NO ACUTE EVENTS NOTED T/O THE NIGHT. POSSIBLE D/C TODAY.
[2023-10-03 05:30] LABS: BASOPHILS ABSOLUTE AUTO 0.05 K/mm3 (0.00-0.23); BASOPHILS PERCENT AUTO 1 % (0-2); EOSINOPHILS ABSOLUTE AUTO 0.45 K/mm3 (0.00-0.68); EOSINOPHILS PERCENT AUTO 5 % (0-6); Hematocrit 30.9 % (33.0-51.0); Hemoglobin 10.3 g/dL (11.5-16.0); IMMATURE GRAN ABSOLUTE AUTO 0.05 K/mm3 (0.00-0.10); IMMATURE GRAN PERCENT AUTO 1 % (0-1); LYMPHOCYTES ABSOLUTE AUTO 2.59 K/mm3 (0.84-5.20); LYMPHOCYTES PERCENT AUTO 31 % (21-46); MONOCYTES PERCENT AUTO 8 % (4-13); Mean Corpuscular HGB 30.4 pg (26.0-34.0); Mean Corpuscular HGB Conc 33.3 g/dL (31.5-36.5); Mean Corpuscular Volume 91 fL (80-100); Mean Platelet Volume 9.6 fL (9.1-12.4); NEUTROPHILS ABSOLUTE AUTO 4.45 K/mm3 (1.96-9.15); NEUTROPHILS PERCENT AUTO 54 % (41-73); Platelet Count 365 K/mm3 (150-400); RDW Coefficient Variation 12.4 % (11.7-14.2); RDW Standard Deviation 40.6 fL (35.1-46.3); Red Blood Cell Count 3.39 M/mm3 (3.80-5.20); White Blood Cell Count 8.29 K/mm3 (4.00-11.30)
[2023-10-03 05:49] LABS: Albumin, Blood 2.3 g/dL (3.4-5.0); Albumin/Globulin Ratio 0.5 (0.8-1.8); Bilirubin, Total 0.2 mg/dL (0.1-1.0); Bun/Creatinine Ratio 25.5 (12.0-20.0); Calcium, Blood 9.7 mg/dL (8.5-10.1); Creatinine, Blood 0.86 mg/dL (0.40-1.00); Globulin, Blood 5.1 g/dL (2.2-4.0); Potassium, Blood 4.1 mmol/L (3.5-5.5); Total Protein, Blood 7.4 g/dL (6.4-8.2)
[2023-10-03 07:59] VITALS: BP 144/98
--- NOTE | 2023-10-03 12:21 | NUR ---
DISCHARGE PATIENT DISCHRGED WITH ALL INSTRUCTIONS AND BELONGINGS. PATIENT LEAVES VIA PRIVATE VEHICLE AND AKNOWLEDGES UNDERSTANDINGS OF INSTRUCTIONS.
== END 2023-10-03 13:25 | disposition home or self-care (01) | DRG 871 ==
LOC: ER 13:25 → SURS 17:08 → ICUE 17:08 → SURS 09-28 14:22
PROVIDERS: Family Medicine; Student in an Organized Health Care Education/Training Program; ADMIT Internal Medicine
DX: A41.9 Sepsis, unspecified organism (principal); E10.10 Type 1 diabetes mellitus with ketoacidosis without coma; N39.0 Urinary tract infection, site not specified; M79.7 Fibromyalgia; J45.909 Unspecified asthma, uncomplicated; E10.43 Type 1 diabetes mellitus with diabetic autonomic (poly)neuropathy; K31.84 Gastroparesis; G43.909 Migraine, unspecified, not intractable, without status migrainosus; F41.9 Anxiety disorder, unspecified; E86.0 Dehydration; F32.A Depression, unspecified; E87.6 Hypokalemia; Z91.018 Allergy to other foods; Z91.048 Other nonmedicinal substance allergy status; Z79.4 Long term (current) use of insulin; Z79.899 Other long term (current) drug therapy; Z98.890 Other specified postprocedural states
CPT/HCPCS: 36415; 71045; 71046; 71260; 80048; 80053; 81001; 82010; 82803; 82947; 83036; 83605; 85025; 87040; 87077; 87086; 87186; 93005; 93010; 93306; 94640; 94664; 94760; 96361; 96365; 96366; 96367; 96375; 99285-25; A9270; C1751; J0696; J1650; J1790; J1815; J1885; J1940; J2405; J2765; J3030; J3480; J7030; Q9967

== ENCOUNTER 2024-02-03 13:06 | Inpatient (IN) | payer OTHER ==
[~2024-02-03] VITALS: Ht 162.6 cm; Wt 64.9 kg
[~2024-02-03 13:06] MED LIST changes: +FOLI1 PO
[2024-02-03 14:34] LABS: BASOPHILS ABSOLUTE AUTO 0.07 K/mm3 (0.00-0.23); BASOPHILS PERCENT AUTO 1 % (0-2); EOSINOPHILS ABSOLUTE AUTO 0.04 K/mm3 (0.00-0.68); EOSINOPHILS PERCENT AUTO 0 % (0-6); Hemoglobin 11.3 g/dL (11.5-16.0); IMMATURE GRAN ABSOLUTE AUTO 0.08 K/mm3 (0.00-0.10); IMMATURE GRAN PERCENT AUTO 1 % (0-1); LYMPHOCYTES PERCENT AUTO 9 % (21-46); MONOCYTES ABSOLUTE AUTO 0.92 K/mm3 (0.16-1.47); MONOCYTES PERCENT AUTO 7 % (4-13); Mean Corpuscular HGB 30.5 pg (26.0-34.0); Mean Corpuscular HGB Conc 35.3 g/dL (31.5-36.5); Mean Corpuscular Volume 86 fL (80-100); Mean Platelet Volume 9.6 fL (9.1-12.4); NEUTROPHILS ABSOLUTE AUTO 11.75 K/mm3 (1.96-9.15); NEUTROPHILS PERCENT AUTO 83 % (41-73); Platelet Count 215 K/mm3 (150-400); RDW Standard Deviation 40.7 fL (35.1-46.3); Red Blood Cell Count 3.71 M/mm3 (3.80-5.20); White Blood Cell Count 14.16 K/mm3 (4.00-11.30)
[2024-02-03 14:53] LABS: PCO2 Venous 32.1 mmHg (38-42); pH Blood Venous 7.39 (7.34-7.37)
[2024-02-03 14:54] LABS: Base Excess Venous -5.7 mmol/L; Bicarbonate Venous 20.4 mmol/L (24.0-30.0)
[2024-02-03 14:57] LABS: Albumin, Blood 2.9 g/dL (3.4-5.0); Albumin/Globulin Ratio 0.7 (0.8-1.8); Bilirubin, Total 0.3 mg/dL (0.1-1.0); Bun/Creatinine Ratio 17.8 (12.0-20.0); Calcium, Blood 8.7 mg/dL (8.5-10.1); Creatinine, Blood 1.01 mg/dL (0.40-1.00); Potassium, Blood 3.2 mmol/L (3.5-5.5); Total Protein, Blood 6.9 g/dL (6.4-8.2)
[2024-02-03] MEDS ORDERED: NS 1,000 ML IV SCH ×2 (15:35→18:15)
[2024-02-03] MEDS ORDERED: Potassium Chl 20MEQ/Water100ML 100 ML IV ONE (15:35)
[2024-02-03] MEDS ORDERED: Potassium Chloride 20 MEQ TabCR PO ONE (15:35)
[2024-02-03] MEDS ORDERED: CefTRIAXone Sodium 1,000 MG in NS 100 ML IV ONE (15:35)
[2024-02-03] MEDS ORDERED: Insulin Human Regular 100 UNIT in NS 100 ML IV SCH (15:55)
[2024-02-03 15:56] LABS: Beta-hydroxybutyrate 1.1 mg/dL (0.2-2.8); Magnesium, Blood 1.6 mg/dL (1.6-2.4)
[2024-02-03 16:00] LABS: Source, Urine Clean Catch
[2024-02-03 16:04] LABS: Appearance, Urine Cloudy (Clear); Bilirubin, Urine Neg (Neg); Blood, Urine 5+ (Neg); Color, Urine Yellow (P-Yellow); Glucose Qualitative, Urine 4+ (Neg); Ketones, Urine 2+ (Neg); Leukocyte Esterase, Urine 2+ (Neg); Nitrite, Urine Neg (Neg); Protein, Urine 2+ (Neg); Specific Gravity, Urine 1.015 (1.003-1.022); Urobilinogen, Urine NORM (Normal)
[2024-02-03 16:38] LABS: Bacteria Many /hpf; Red Blood Cells, Urine 50-100 /hpf (0-2); Squamous Epithelial Cells Many /hpf (Few)
[2024-02-03 16:39] LABS: Mucus Light (0-Heavy)
[2024-02-03 17:40] VITALS: BP 116/84
[2024-02-03] MEDS ORDERED: Insulin Regular 100 UNIT/ML 10ML Vial SC ONE (17:50)
--- NOTE | 2024-02-03 18:22 | NUR ---
ASSUMED CARE: PT NEW ADMIT FROM ED FOR KIDNEY INFECTION. SHE IS ALERT AND ORIENTED, COOPERATIVE. STATES SHE IS HAVING MUSCLE ACHES AND CHILLS. NO FEVER NOTED BUT WARM BLANKET PROVIDED. HR STARTED OUT AT 114 BUT HAS INCREASED INTO 130S. CALL TO DR ARELLANO WHO INSTRUCTED FOR CURRENT BAG AND 2 MORE TO BE INFUSED AT 150/HR. TELE AWARE TO KEEP AN EYE OUT. PT WEARING HOME CLOTHES, STATES SHE WILL CHANGE INTO MORE COMFORTABLE CLOTHES WHEN HER MIL BRINGS THEM. DENIES SORES OR OPEN AREAS AT THIS TIME. LAB AT BEDSIDE CURRENTLY DRAWING CULTURES. NO ACUTE NEEDS AT THIS TIME. CALL LIGHT IN REACH
[2024-02-03] MEDS ORDERED: Acetaminophen 500 MG Tab PO PRN (18:50)
[2024-02-03 19:42] VITALS: BP 142/74
[2024-02-03] MEDS ORDERED: Ondansetron HCl 2 MG / ML 2ML Vial IV PRN (19:45)
[2024-02-03] MEDS ORDERED: Ketorolac Tromethamine 15mg Vial IV PRN (19:45)
[2024-02-03] MEDS ORDERED: Insulin Regular 100 UNIT/ML 10ML Vial SC SCH (20:00)
[2024-02-03 20:09] LABS: Albumin/Globulin Ratio 0.7 (0.8-1.8); Bilirubin, Total 0.6 mg/dL (0.1-1.0); Bun/Creatinine Ratio 17.8 (12.0-20.0); Calcium, Blood 8.6 mg/dL (8.5-10.1); Creatinine, Blood 0.96 mg/dL (0.40-1.00); Globulin, Blood 4.3 g/dL (2.2-4.0); Potassium, Blood 4.2 mmol/L (3.5-5.5); Total Protein, Blood 7.3 g/dL (6.4-8.2)
[2024-02-03] MEDS ORDERED: Insulin Glargine-Yfgn 100 Unit/mL 3 ML SYR SC SCH (21:00)
[2024-02-03] MEDS ORDERED: DULO30 PO (21:04)
[2024-02-03] MEDS ORDERED: REGLAN10 M1 PO (21:05)
[2024-02-03] MEDS ORDERED: TOPI50 PO (21:06)
[2024-02-03] MEDS ORDERED: Melatonin 5 MG Tablet PO SCH (21:40)
[2024-02-03] MEDS ORDERED: Gabapentin 300 MG Cap PO SCH (21:40)
[2024-02-03] MEDS ORDERED: DULoxetine HCL 30 MG Cap DR PO SCH (21:40)
[2024-02-03 23:49] VITALS: BP 103/60
[2024-02-04 02:38] LABS: Bun/Creatinine Ratio 22.2 (12.0-20.0); Calcium, Blood 8.7 mg/dL (8.5-10.1); Creatinine, Blood 0.99 mg/dL (0.40-1.00); Potassium, Blood 4.1 mmol/L (3.5-5.5)
[2024-02-04 03:39] VITALS: BP 129/86
--- NOTE | 2024-02-04 05:04 | NUR ---
SHIFT SUMMARY. SHIFT HAS BEEN UNREMARKABLE OVERALL. AOX4, PLEASANT, COOPERATIVE WITH CARE, CALLS APPROPRIATELY, ABLE TO MAKE NEEDS KNOWN. EARLY IN SHIFT PT WAS FEBRILE, PAINFUL, TACHYCARDIC, NAUSEOUS. SPOKE WITH HOSPITALIST RENÉE WHO ORDERED TORADOL AND ZOFRAN FOR MANAGEMENT. AFTER ADMINISTRATION OF TORADOL AND ZOFRAN, PT HAS BEEN AFEBRILE, PAIN FREE, AND HAS NOT COMPLAINED OF NAUSEA SINCE. HEART RATE HAS BEEN MAINTAINING IN 100s-110s THROUGHOUT SHIFT SINCE. CBG CHECKED Q4 PER ORDER AND COVERED VIA EMAR. TELE ON THROUGHOUT SHIFT WITH NO CHANGES OR EVENTS THUS FAR. PT HAS NOT SLEPT MUCH THROUGHOUT SHIFT BUT HAS DENIED PAIN AND HAS BEEN COMFORTABLE. VITALS HAVE BEEN STABLE. 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 BED LOCKED IN LOWEST POSITION. CALL LIGHT LEFT WITHIN REACH. CONTINUING TO MONITOR.
[2024-02-04 06:06] VITALS: BP 137/83
[2024-02-04 07:24] VITALS: BP 128/89
[2024-02-04] MEDS ORDERED: Metoclopramide HCl 10 MG Tab PO SCH (08:30)
[2024-02-04] MEDS ORDERED: Enoxaparin 40 MG/0.4 ML SYR SC SCH (09:00)
[2024-02-04] MEDS ORDERED: Gabapentin 300 MG Cap PO SCH (09:00)
[2024-02-04] MEDS ORDERED: Topiramate 25 MG Tab PO SCH (09:00)
--- NOTE | 2024-02-04 10:25 | NUR ---
PT WAS TRANSFERED TO [facility] AT 1015 AND REPORT WAS GIVEN TO KATHERIN YUN RN. MORNING SUMMARY PT IS A&OX4, IND IN THE ROOM, CALLS APPROPRIATELY, AND MAKES HER NEEDS KNOWN. ON TELE SHE HAS BEEN ST 100'S-110'S. SHE REMAINS ON RA W/O ANY SOB. WE DID NOT HAVE ANY EVENTS IN THE SHORT TIME OF THIS SHIFT IN PCU. NO FURTHER NOTES FROM THIS RN.
--- NOTE | 2024-02-04 10:30 | NUR ---
ARRIVAL TO SURGICAL UNIT VIA WC, IND TRANSFER TO HOSPITAL BED. PLEASANT, ALERT, ORIENTED. TELE. IV's SL. ICE WATER GIVEN. DENIES NEEDS. MADE GOAL OF SHOWERING TODAY.
[2024-02-04 10:40] LABS: Bun/Creatinine Ratio 19.9 (12.0-20.0); Calcium, Blood 8.4 mg/dL (8.5-10.1); Creatinine, Blood 0.86 mg/dL (0.40-1.00); Potassium, Blood 3.6 mmol/L (3.5-5.5)
[2024-02-04] MEDS ORDERED: Insulin Regular 100 UNIT/ML 10ML Vial SC SCH (11:30)
[2024-02-04 16:00] VITALS: BP 120/81
[2024-02-04] MEDS ORDERED: CefTRIAXone Sodium 1,000 MG in NS 100 ML IV SCH (16:00)
[2024-02-04] MEDS ORDERED: Insulin Human Regular 100 UNIT/ML 10ML Vial SC SCH (17:25)
--- NOTE | 2024-02-04 18:14 | NUR ---
SHIFT SUMMARY SINCE ARRIVAL TO UNIT, HAS BEEN DROWSY BUT PLEASANT. BLOOD SUGARS INCREASED & CALLED FOR CARB COVERAGE IN ADDITION TO SS. STARTED w/ DINNER. ROCEPHIN INFUSING. MOVES IND IN ROOM. DRINKING WATER & EATING WELL.
[2024-02-04 18:55] LABS: Bun/Creatinine Ratio 21.5 (12.0-20.0); Calcium, Blood 8.5 mg/dL (8.5-10.1); Creatinine, Blood 0.93 mg/dL (0.40-1.00); Potassium, Blood 3.9 mmol/L (3.5-5.5)
[2024-02-04 19:21] VITALS: BP 157/104
[2024-02-04 19:38] VITALS: BP 118/75
[2024-02-04] MEDS ORDERED: DULoxetine HCL 30 MG Cap DR PO SCH (21:00)
[2024-02-04] MEDS ORDERED: Melatonin 5 MG Tablet PO SCH (21:00)
[2024-02-05 01:15] VITALS: BP 121/87
[2024-02-05 05:15] VITALS: BP 120/74
--- NOTE | 2024-02-05 06:08 | NUR ---
PT CALLED AND SAID HER GLUCOMETER WAS READING LOW AND ASKED FOR A BG SPOT CHECK. SPOT CHECK WAS 61, PT SAID SHE WAS FEELING "OKAY". DRANK 2 APPLE JUICE, A SANDWICH AND SOME CHEESE. REPEAT CBG 108, PT REPORTS FEELING BETTER. PT INSTRUCTED TO CALL FOR S/S HYPOGLYCEMIA.
--- NOTE | 2024-02-05 06:11 | NUR ---
SHIFT SUMMARY PT A/O X4, ADMITTED FOR DKA AND CURRENT KIDNEY INFECTION. PT IS INDEPENDENT IN ROOM, WAS TREATED PER EMAR W/ TYLENOL FOR FEVERS THROUGHOUT THE NIGHT. PT ALSO MEDICATED FOR PAIN PER EMAR W/ TORADOL W/ GOOD RESULTS. CBG DROPPED TO 61 THIS AM, PT DRANK JUICE AND ATE A SANDWICH AND REPEAT CBG WAS 108, SEE NOTE. VSS. PT DENIES S/S OF HYPOGLYCEMIA AT THIS TIME AND IS RESTING COMFORTABLY IN ROOM. PT VOIDED INDEPENDENTLY MULTIPLE TIMES THROUGHOUT THE NIGHT. CALL LIGHT IN REACH.
[2024-02-05 07:15] VITALS: BP 130/84
[2024-02-05] MEDS ORDERED: ACET500 PO (12:17)
[2024-02-05] MEDS ORDERED: AMOCLA875 PO (12:18)
--- NOTE | 2024-02-05 13:03 | NUR ---
DISCHARGE INSTRUCTIONS IV ABX GIVEN EARLY PER DR ARELLANO PRIOR TO DC. DISCUSSED DC INSTRUCTIONS. PT WAITING FOR RIDE. RX FAXED TO [facility] ON [facility].
--- NOTE | 2024-02-05 13:10 | NUR ---
AMBULATED OUT HOLDING SON's HAND w/ MOTHER @ SIDE.
[2024-02-05 13:14] LABS: Bun/Creatinine Ratio 25.6 (12.0-20.0); Calcium, Blood 8.4 mg/dL (8.5-10.1); Creatinine, Blood 0.86 mg/dL (0.40-1.00); Potassium, Blood 3.6 mmol/L (3.5-5.5)
== END 2024-02-05 13:11 | disposition home or self-care (01) | DRG 871 ==
LOC: ER 13:06 → PCU 16:34 → SURS 02-04 10:17
PROVIDERS: Physician Assistant; ADMIT Family Medicine
DX: A41.50 Gram-negative sepsis, unspecified (principal); E10.10 Type 1 diabetes mellitus with ketoacidosis without coma; N39.0 Urinary tract infection, site not specified; M79.7 Fibromyalgia; G43.909 Migraine, unspecified, not intractable, without status migrainosus; E10.40 Type 1 diabetes mellitus with diabetic neuropathy, unspecified; E87.6 Hypokalemia; F41.9 Anxiety disorder, unspecified; F32.A Depression, unspecified; Z88.8 Allergy status to other drugs, medicaments and biological substances; Z91.018 Allergy to other foods; Z79.4 Long term (current) use of insulin; Z79.899 Other long term (current) drug therapy; Z98.890 Other specified postprocedural states
CPT/HCPCS: 36415; 80048; 80053; 81001; 82010; 82803; 82947; 83605; 83735; 84703; 85025; 87077; 87086; 87186; 96365; 96367; 99285-25; A9270; J0696; J1650; J1815; J1885; J2405; J3480; J7030

== ENCOUNTER → 2024-02-25 | Outpatient (CLI) | payer OTHER ==
[~2024-02-25] MED LIST changes: +ACET500 PO; +AMOCLA875 PO; +DULO30 PO; +REGLAN10 M1 PO; +TOPI50 PO
== END | disposition home or self-care (01) ==
LOC: LAB 16:12 → LAB SHORT 16:12
DX: N39.0 Urinary tract infection, site not specified (principal)
CPT/HCPCS: 87077; 87086; 87186

== ENCOUNTER → 2024-06-11 | Outpatient (CLI) | payer OTHER ==
[2024-06-11 16:45] LABS: BASOPHILS ABSOLUTE AUTO 0.06 K/mm3 (0.00-0.23); BASOPHILS PERCENT AUTO 0 % (0-2); EOSINOPHILS ABSOLUTE AUTO 0.14 K/mm3 (0.00-0.68); EOSINOPHILS PERCENT AUTO 1 % (0-6); Hematocrit 36.6 % (33.0-51.0); Hemoglobin 12.6 g/dL (11.5-16.0); IMMATURE GRAN ABSOLUTE AUTO 0.05 K/mm3 (0.00-0.10); IMMATURE GRAN PERCENT AUTO 0 % (0-1); LYMPHOCYTES ABSOLUTE AUTO 2.28 K/mm3 (0.84-5.20); LYMPHOCYTES PERCENT AUTO 17 % (21-46); MONOCYTES ABSOLUTE AUTO 0.53 K/mm3 (0.16-1.47); MONOCYTES PERCENT AUTO 4 % (4-13); Mean Corpuscular HGB 30.3 pg (26.0-34.0); Mean Corpuscular HGB Conc 34.4 g/dL (31.5-36.5); Mean Corpuscular Volume 88 fL (80-100); Mean Platelet Volume 8.9 fL (9.1-12.4); NEUTROPHILS ABSOLUTE AUTO 10.45 K/mm3 (1.96-9.15); NEUTROPHILS PERCENT AUTO 77 % (41-73); Platelet Count 402 K/mm3 (150-400); RDW Coefficient Variation 13.1 % (11.7-14.2); Red Blood Cell Count 4.16 M/mm3 (3.80-5.20); White Blood Cell Count 13.51 K/mm3 (4.00-11.30)
[2024-06-11 16:55] LABS: Albumin, Blood 3.2 g/dL (3.4-5.0); Albumin/Globulin Ratio 0.6 (0.8-1.8); Bilirubin, Total 0.3 mg/dL (0.1-1.0); Bun/Creatinine Ratio 9.6 (12.0-20.0); Calcium, Blood 9.7 mg/dL (8.5-10.1); Creatinine, Blood 1.35 mg/dL (0.40-1.00); Globulin, Blood 5.7 g/dL (2.2-4.0); Potassium, Blood 3.8 mmol/L (3.5-5.5); Total Protein, Blood 8.9 g/dL (6.4-8.2)
== END ==
LOC: LAB 16:41 → LAB SHORT 16:41
PROVIDERS: Physician Assistant Medical
DX: R42 Dizziness and giddiness (principal)
CPT/HCPCS: 80053; 85025

== ENCOUNTER 2024-09-28 04:30 | Emergency (ER) | payer OTHER ==
[~2024-09-28] VITALS: Ht 160 cm; Wt 63.5 kg
[2024-09-28] MEDS ORDERED: Prochlorperazine Edisylate 10 mg Vial IV ONE (04:55)
[2024-09-28] MEDS ORDERED: Lactated Ringer's 1,000 ML IV ONE (04:55)
[2024-09-28 05:21] LABS: BASOPHILS ABSOLUTE AUTO 0.09 K/mm3 (0.00-0.23); BASOPHILS PERCENT AUTO 1 % (0-2); EOSINOPHILS ABSOLUTE AUTO 0.17 K/mm3 (0.00-0.68); EOSINOPHILS PERCENT AUTO 1 % (0-6); Hematocrit 33.7 % (33.0-51.0); Hemoglobin 11.9 g/dL (11.5-16.0); IMMATURE GRAN ABSOLUTE AUTO 0.08 K/mm3 (0.00-0.10); IMMATURE GRAN PERCENT AUTO 1 % (0-1); LYMPHOCYTES ABSOLUTE AUTO 2.05 K/mm3 (0.84-5.20); LYMPHOCYTES PERCENT AUTO 14 % (21-46); MONOCYTES ABSOLUTE AUTO 0.65 K/mm3 (0.16-1.47); MONOCYTES PERCENT AUTO 4 % (4-13); Mean Corpuscular HGB 31.6 pg (26.0-34.0); Mean Corpuscular HGB Conc 35.3 g/dL (31.5-36.5); Mean Corpuscular Volume 89 fL (80-100); NEUTROPHILS ABSOLUTE AUTO 12.15 K/mm3 (1.96-9.15); NEUTROPHILS PERCENT AUTO 80 % (41-73); Platelet Count 285 K/mm3 (150-400); RDW Coefficient Variation 13.1 % (11.7-14.2); RDW Standard Deviation 42.4 fL (35.1-46.3); Red Blood Cell Count 3.77 M/mm3 (3.80-5.20); White Blood Cell Count 15.19 K/mm3 (4.00-11.30)
[2024-09-28 05:30] LABS: Base Excess Venous -1.7 mmol/L; Bicarbonate Venous 23.7 mmol/L (24.0-30.0); PCO2 Venous 30.9 mmHg (38-42); pH Blood Venous 7.46 (7.34-7.37)
[2024-09-28] MEDS ORDERED: Sucralfate 1000MG / 10ML UD BTL PO ONE (05:40)
[2024-09-28] MEDS ORDERED: Pantoprazole Sodium 40 MG Injection IV ONE (05:40)
[2024-09-28 05:59] LABS: Albumin, Blood 2.1 g/dL (3.4-5.0); Albumin/Globulin Ratio 0.5 (0.8-1.8); Beta-hydroxybutyrate 21.1 mg/dL (0.2-2.8); Bilirubin, Total 0.4 mg/dL (0.1-1.0); Bun/Creatinine Ratio 17.7 (12.0-20.0); Calcium, Blood 8.4 mg/dL (8.5-10.1); Creatinine, Blood 0.79 mg/dL (0.40-1.00); Globulin, Blood 4.4 g/dL (2.2-4.0); Potassium, Blood 4.2 mmol/L (3.5-5.5); Total Protein, Blood 6.5 g/dL (6.4-8.2)
[2024-09-28 07:30] LABS: Source, Urine Clean Catch
[2024-09-28] MEDS ORDERED: Lactated Ringer's 500 ML IV SCH ×2 (07:35)
[2024-09-28] MEDS ORDERED: Lactated Ringer's 1,000 ML IV SCH (07:40)
[2024-09-28 07:41] LABS: Bilirubin, Urine Neg (Neg); Blood, Urine Neg (Neg); Glucose Qualitative, Urine 3+ (Neg); Ketones, Urine 4+ (Neg); Leukocyte Esterase, Urine Neg (Neg); Nitrite, Urine Neg (Neg); Protein, Urine 4+ (Neg); Urobilinogen, Urine NORM (Normal)
[2024-09-28 07:51] LABS: Appearance, Urine Hazy (Clear); Color, Urine Yellow (P-Yellow)
[2024-09-28 07:52] LABS: Bacteria Rare /hpf; Red Blood Cells, Urine Not Seen /hpf (0-2); Squamous Epithelial Cells Mod /hpf (Few); White Blood Cells, Urine Not Seen /hpf (0-5)
[2024-09-28] MEDS ORDERED: Ondansetron HCl 2 MG / ML 2ML Vial IV ONE (08:05)
[2024-09-28] MEDS ORDERED: PyridOXINE HCL 50 MG TAB PO ONE (08:35)
[2024-09-28 08:45] VITALS: BP 129/85
[2024-09-29] MEDS ORDERED: INSPUMP SC (21:36)
== END 2024-09-28 09:45 | disposition home or self-care (01) ==
LOC: ER 04:30
PROVIDERS: Student in an Organized Health Care Education/Training Program
DX: O21.9 Vomiting of pregnancy, unspecified (principal); E10.40 Type 1 diabetes mellitus with diabetic neuropathy, unspecified; E10.43 Type 1 diabetes mellitus with diabetic autonomic (poly)neuropathy; K31.84 Gastroparesis; G43.909 Migraine, unspecified, not intractable, without status migrainosus; Z79.4 Long term (current) use of insulin; Z79.899 Other long term (current) drug therapy; Z91.018 Allergy to other foods; Z88.8 Allergy status to other drugs, medicaments and biological substances; Z3A.29 29 weeks gestation of pregnancy
CPT/HCPCS: 80053; 81001; 82010; 82803; 83690; 85025; 96361; 96374; 96375; 99284-25; A9270; J0780; J2405; J2470; J7120

== ENCOUNTER 2024-09-29 15:14 | Observation (INO) | payer OTHER ==
[2024-09-29] VITALS (7 sets, daily range): BP systolic 127–171; BP diastolic 72–108
[~2024-09-29] VITALS: Ht 160 cm; Wt 73.5 kg
[2024-09-29] MEDS ORDERED: Ondansetron HCl 2 MG / ML 2ML Vial ONE (15:47)
[2024-09-29] MEDS ORDERED: Lactated Ringer's 1,000 ML IV ONE (15:47)
[2024-09-29] MEDS ORDERED: Lactated Ringer's 1,000 ML IV SCH ×2 (15:50→18:45)
[2024-09-29] MEDS ORDERED: Ondansetron HCl 2 MG / ML 2ML Vial IV ONE (15:50)
[2024-09-29] MEDS ORDERED: PYRIDOXINE HCL IV ONE (17:05)
[2024-09-29] MEDS ORDERED: DiphenhydrAMINE HCl 50 MG/ML 1ML Vial IV PRN (17:05)
[2024-09-29] MEDS ORDERED: Metoclopramide HCl 5MG / ML 2ML Vial IV PRN (17:05)
[2024-09-29] MEDS ORDERED: Pantoprazole Sodium 40 MG Injection IV SCH (18:00)
[2024-09-29] MEDS ORDERED: Thiamine HCl 100 MG in NS 50 ML IV SCH (18:00)
[2024-09-29 18:15] LABS: BASOPHILS ABSOLUTE AUTO 0.08 K/mm3 (0.00-0.23); BASOPHILS PERCENT AUTO 1 % (0-2); EOSINOPHILS ABSOLUTE AUTO 0.12 K/mm3 (0.00-0.68); EOSINOPHILS PERCENT AUTO 1 % (0-6); Hematocrit 29.8 % (33.0-51.0); Hemoglobin 10.7 g/dL (11.5-16.0); IMMATURE GRAN ABSOLUTE AUTO 0.06 K/mm3 (0.00-0.10); IMMATURE GRAN PERCENT AUTO 1 % (0-1); LYMPHOCYTES ABSOLUTE AUTO 2.34 K/mm3 (0.84-5.20); LYMPHOCYTES PERCENT AUTO 18 % (21-46); MONOCYTES ABSOLUTE AUTO 0.76 K/mm3 (0.16-1.47); MONOCYTES PERCENT AUTO 6 % (4-13); Mean Corpuscular HGB 31.9 pg (26.0-34.0); Mean Corpuscular HGB Conc 35.9 g/dL (31.5-36.5); Mean Corpuscular Volume 89 fL (80-100); Mean Platelet Volume 10.2 fL (9.1-12.4); NEUTROPHILS ABSOLUTE AUTO 9.86 K/mm3 (1.96-9.15); NEUTROPHILS PERCENT AUTO 75 % (41-73); Platelet Count 270 K/mm3 (150-400); RDW Coefficient Variation 12.8 % (11.7-14.2); RDW Standard Deviation 41.2 fL (35.1-46.3); Red Blood Cell Count 3.35 M/mm3 (3.80-5.20); White Blood Cell Count 13.22 K/mm3 (4.00-11.30)
[2024-09-29 18:17] LABS: Albumin/Globulin Ratio 0.5 (0.8-1.8); Bilirubin, Total 0.7 mg/dL (0.1-1.0); Bun/Creatinine Ratio 15.8 (12.0-20.0); Calcium, Blood 9.7 mg/dL (8.5-10.1); Creatinine, Blood 1.01 mg/dL (0.40-1.00); Globulin, Blood 4.1 g/dL (2.2-4.0); Potassium, Blood 3.9 mmol/L (3.5-5.5); Total Protein, Blood 6.1 g/dL (6.4-8.2)
[2024-09-29] MEDS ORDERED: Labetalol HCL 100 MG TAB PO SCH (21:00)
[2024-09-29] MEDS ORDERED: Calcium Carbonate 500 MG Tab Chew PO PRN (21:25)
[2024-09-29] MEDS ORDERED: INSPUMP SC (21:36)
[2024-09-30] MEDS ORDERED: Ondansetron HCl 2 MG / ML 2ML Vial IV PRN (02:00)
[2024-09-30] MEDS ORDERED: Prochlorperazine Edisylate 10 mg Vial IV PRN ×2 (07:50→08:25)
[2024-09-30 07:59] VITALS: BP 139/75
--- NOTE | 2024-09-30 08:07 | NUR ---
PT REQUESTING BREAKFAST TRAY WELL A TURKEY SANDWICH AND CHEESE SQUARES. SITTING UP EATING AT THIS TIME.
[2024-09-30] MEDS ORDERED: Docusate Sodium 100 MG Cap PO SCH (09:00)
--- NOTE | 2024-09-30 09:20 | NUR ---
UPON ENTERING ROOM, PT IRLANDA. WAS ABLE TO EAT HALF A TURKEY SANDWICH AND MOST OF HER CARTON OF MILK. DENIES NEEDS AT THIS TIME.
[2024-09-30 11:41] VITALS: BP 124/72
[2024-09-30] MEDS ORDERED: Prochlorperazine Maleate 5 MG Tab PO PRN (13:35)
[2024-09-30] MEDS ORDERED: Acetamin/Butalbital/Caffeine Tab PO PRN (13:45)
[2024-09-30 16:02] VITALS: BP 139/87
[2024-09-30] MEDS ORDERED: Metoclopramide HCl 10 MG Tab PO PRN (18:55)
[2024-09-30] MEDS ORDERED: Ondansetron 8 MG SoluTab MM PRN (18:55)
[2024-09-30 20:14] VITALS: BP 121/75
[2024-09-30] MEDS ORDERED: DULoxetine HCL 30 MG Cap DR PO SCH (21:00)
[2024-09-30] MEDS ORDERED: Gabapentin 300 MG Cap PO SCH (21:00)
[2024-09-30] MEDS ORDERED: Famotidine 20 MG Tab PO SCH (21:00)
[2024-09-30] MEDS ORDERED: Famotidine 10 MG/ML 2ML Vial IV SCH (21:00)
[2024-09-30 21:17] VITALS: BP 134/77
[2024-09-30] MEDS ORDERED: Acetaminophen 500 MG Tab PO PRN (21:55)
[2024-10-01 00:10] VITALS: BP 134/76
[2024-10-01 04:03] VITALS: BP 130/77
[2024-10-01 09:06] VITALS: BP 121/62
[2024-10-01 12:05] VITALS: BP 124/81
--- NOTE | 2024-10-01 12:19 | NUR ---
pt dcd to home.Power glide flushed and covered, will use at [facility] appts
== END 2024-10-01 12:10 | disposition home or self-care (01) ==
LOC: OBS 15:14 → BC 15:16 → OBS 18:38 → BC 18:39
PROVIDERS: ADMIT Advanced Practice Midwife
DX: O21.0 Mild hyperemesis gravidarum (principal); O24.913 Unspecified diabetes mellitus in pregnancy, third trimester; O16.3 Unspecified maternal hypertension, third trimester; Z3A.29 29 weeks gestation of pregnancy; Z88.8 Allergy status to other drugs, medicaments and biological substances; Z79.4 Long term (current) use of insulin; Z79.899 Other long term (current) drug therapy
CPT/HCPCS: 59025; 80053; 81003; 85025; 96361; 96365; 96375; 96376; 99214; A9270; C1751; G0378; J0780; J1200; J2405; J2470; J2765; J3411; J3415; J7120; Q0164

== ENCOUNTER 2024-10-11 03:57 | Day surgery (SDC) | payer OTHER ==
[~2024-10-11 03:57] MED LIST changes: +INSPUMP SC
[2024-10-11] MEDS ORDERED: Ondansetron HCl 2 MG / ML 2ML Vial IV SCH (07:00)
[2024-10-11] MEDS ORDERED: Lactated Ringer's 1,000 ML IV SCH (07:00)
[2024-10-11 15:04] VITALS: BP 163/114
== END 2024-10-11 17:19 | disposition home or self-care (01) ==
LOC: ATC 03:57
DX: O21.1 Hyperemesis gravidarum with metabolic disturbance (principal); O24.013 Pre-existing type 1 diabetes mellitus, in pregnancy, third trimester; E10.9 Type 1 diabetes mellitus without complications; O16.3 Unspecified maternal hypertension, third trimester; Z3A.30 30 weeks gestation of pregnancy; Z79.4 Long term (current) use of insulin; Z79.899 Other long term (current) drug therapy; Z91.048 Other nonmedicinal substance allergy status; Z88.8 Allergy status to other drugs, medicaments and biological substances
CPT/HCPCS: 96360; 96361; J7120

== ENCOUNTER 2025-07-26 05:15 | Emergency (ER) | payer OTHER ==
[~2025-07-26] VITALS: Ht 160 cm; Wt 63.5 kg
[2025-07-26] MEDS ORDERED: AZIT250 PO (07:47)
[2025-07-26 07:55] VITALS: BP 148/105
== END 2025-07-26 07:57 | disposition home or self-care (01) ==
LOC: ER 05:15
DX: M54.6 Pain in thoracic spine (principal); R19.7 Diarrhea, unspecified; Z79.4 Long term (current) use of insulin; E10.21 Type 1 diabetes mellitus with diabetic nephropathy; Z91.018 Allergy to other foods; Z79.899 Other long term (current) drug therapy
CPT/HCPCS: 99283

== ENCOUNTER → 2025-08-21 | Outpatient (CLI) | payer OTHER | LOC: LAB 13:33 → LAB SHORT 13:33 | DX: N39.0 Urinary tract infection, site not specified (principal) | CPT/HCPCS: 87086 ==